=== PATIENT | female | born 1955 | race Caucasian/White ===

== ENCOUNTER → 2017-12-04 10:31 | Outpatient (CLI) | payer OTHER, SELFPAY ==
[2017-12-04 13:32] LABS: Basophils % 0.8 % (0.1-2.0); Eosinophils # 0.2 K/mm3 (0.0-0.4); Eosinophils % 2.9 % (0.1-12.0); Hematocrit 42.9 % (37.0-47.0); Hemoglobin 14.3 g/dL (12.2-16.2); Lymphocytes # 2.3 K/mm3 (0.7-4.5); Lymphocytes % 42.6 K/mm3 (10-50); Mean Corpuscular HGB Conc 33.4 g/dL (31.8-35.4); Mean Corpuscular Hemoglobin 32.1 pg (27.0-31.2); Mean Corpuscular Volume 96.1 fl (81-99); Mean Platelet Volume 8.9 fl (7.4-10.4); Monocytes # 0.3 K/mm3 (0.1-1.0); Monocytes % 5.1 % (1.7-9.3); Neutrophils # 2.6 K/mm3 (1.8-7.8); Neutrophils % 48.6 % (37.0-80.0); Platelet Count 201 K/mm3 (142-424); Red Blood Count 4.47 M/mm3 (4.20-5.40); Red Cell Distribution Width 13.1 % (11.5-17.5); White Blood Count 5.3 K/mm3 (4.8-10.8)
[2017-12-04 14:03] LABS: Alanine Aminotransferase 52 U/L (12-78); Albumin Level 3.8 gm/dL (3.4-5.0); Albumin/Globulin Ratio 1.1 (1.1-1.8); Alkaline Phosphatase 103 U/L (46-116); Anion Gap 12.6 mEq/L (5-15); Aspartate Amino Transferase 43 U/L (15-37); Bilirubin,Total 0.4 mg/dL (0.2-1.0); Blood Urea Nitrogen 21 mg/dL (7-18); Carbon Dioxide 28 mmol/L (21.0-32.0); Chloride 105 mmol/L (98-107); Chol/HDL Ratio 2.5 (1-3.5); Cholesterol 200 mg/dL (140-200); Creatinine,Serum 0.81 mg/dL (0.55-1.02); Estimated Glomerular Filt Rate 71 ml/min (>60); GFR (African American) 86 ML/MIN (>60); Globulin 3.5 gm/dl (1.3-3.2); Glucose 139 mg/dL (74-106); HDL Cholesterol 81 mg/dL (29-89); Hemoglobin A1C 6.6 % (0.0-7.0); LDL Cholesterol 100 mg/dL (0-130); Potassium 4.6 mmoL/L (3.5-5.1); Sodium 141 mmol/L (136-145); Thyroid Stimulating Hormone 3.11 uIU/ml (0.358-3.740); Total Protein,Serum 7.3 gm/dL (6.4-8.2); Triglycerides 96 mg/dL (30-200); VLDL Cholesterol 19 mg/dL (0-40)
[2017-12-05 06:22] LABS: Vitamin B12 832 pg/mL (232-1245); Vitamin D 25 Hydroxy 30.6 ng/mL (30.0-100.0)
== END ==
PROVIDERS: PCP Nurse Practitioner Family; Visit Provider Nurse Practitioner Family
DX: R53.83 Other fatigue (principal); E11.9 Type 2 diabetes mellitus without complications; Z00.00 Encounter for general adult medical examination without abnormal findings
CPT/HCPCS: 36415; 80053; 80061; 82607; 82652; 83036; 84443; 85025

== ENCOUNTER → 2019-03-06 15:07 | Outpatient (CLI) | payer OTHER, SELFPAY ==
--- NOTE | 2019-03-06 15:56 | US_ITS ---
US breast RT complete INDICATION: Right breast mass ORDERING PHYSICIAN: Joe Aldrich MD PATIENT AGE: 63 years COMPARISON: None mildly prominent right axillary lymph node is present 2.6 cm x 2.6 cm. TECHNIQUE: Right breast ultrasound complete with axilla FINDINGS: Patient has a known right breast mass which has been recently biopsied. Ultrasound performed for confirmation of the location of the lesion. There is a macrolobulated mass in the 6:00 region of the right breast near the nipple measuring 2.8 x 2.2 cm. This is highly suspicious for malignancy and corresponds to the palpable abnormality. Extends posteriorly toward the chest wall also with an anterior extension into the subcutaneous region. IMPRESSION: Biopsy-proven right breast mass at 6:00 corresponding to palpable abnormality consistent with breast cancer. BI-RADS Category: 5 Highly Suggestive of Malignancy RECOMMENDED FOLLOW-UP: IMM - IMMEDIATE FOLLOW-UP RECOMMENDED (A letter has been sent to the patient regarding results of the study.)
[2019-03-06 16:46] LABS: Basophils # 0.1 K/mm3 (0-0.2); Eosinophils # 0.2 K/mm3 (0.0-0.4); Eosinophils % 2.3 % (0.1-12.0); Hematocrit 41.8 % (37.0-47.0); Hemoglobin 13.4 g/dL (12.2-16.2); Lymphocytes # 2.8 K/mm3 (0.7-4.5); Mean Corpuscular HGB Conc 32.2 g/dL (31.8-35.4); Mean Corpuscular Hemoglobin 29.8 pg (27.0-31.2); Mean Corpuscular Volume 92.5 fl (81-99); Mean Platelet Volume 7.4 fl (7.4-10.4); Monocytes # 0.3 K/mm3 (0.1-1.0); Monocytes % 4.9 % (1.7-9.3); Neutrophils # 3.6 K/mm3 (1.8-7.8); Neutrophils % 51.7 % (37.0-80.0); Platelet Count 199 K/mm3 (142-424); Red Blood Count 4.51 M/mm3 (4.20-5.40)
[2019-03-06 17:35] LABS: Alanine Aminotransferase 52 U/L (12-78); Albumin Level 3.6 gm/dL (3.4-5.0); Albumin/Globulin Ratio 1.1 (1.1-1.8); Alkaline Phosphatase 97 U/L (46-116); Anion Gap 14.8 mEq/L (5-15); Aspartate Amino Transferase 39 U/L (15-37); Bilirubin,Total 0.3 mg/dL (0.2-1.0); Blood Urea Nitrogen 19 mg/dL (7-18); Calcium 9.4 mg/dL (8.5-10.1); Carbon Dioxide 28 mmol/L (21.0-32.0); Chloride 103 mmol/L (98-107); Creatinine,Serum 0.94 mg/dL (0.55-1.02); Estimated Glomerular Filt Rate 60 ml/min (>60); GFR (African American) 73 ML/MIN (>60); Globulin 3.3 gm/dl (1.3-3.2); Glucose 164 mg/dL (74-106); Potassium 4.8 mmoL/L (3.5-5.1); Sodium 141 mmol/L (136-145); Total Protein,Serum 6.9 gm/dL (6.4-8.2)
== END ==
PROVIDERS: PCP Nurse Practitioner Family; Visit Provider Surgery
DX: C50.811 Malignant neoplasm of overlapping sites of right female breast (principal)
CPT/HCPCS: 36415; 76641; 80053; 85025

== ENCOUNTER → 2019-04-12 08:40 | Outpatient (CLI) | payer OTHER, SELFPAY ==
--- NOTE | 2019-04-12 08:48 | CT_ITS ---
CT abdomen pelvis wo con CLINICAL INDICATION: ITS.REASON: BREAST CA ORDERING PHYSICIAN: Lissette Sandoval MD PATIENT AGE: 63 years COMPARISON: None TECHNIQUE: Axial images obtained with sagittal and coronal reformats. All CT scans at the facility use one or more dose reduction, viz: automated exposure control, ma/kV adjustment per patient size (including targeted exams where dose is matched to indication, i.e. head), or iterative reconstruction technique. PROCEDURE: Oral Contrast: None IV Contrast: None . FINDINGS: Lower thorax: No acute finding ABDOMEN: Liver: Liver is lower density compared to the spleen with mild enlargement and slight lobulated contour of the left hepatic lobe. Gallbladder: Nondistended. No radio opaque stones. Pancreas: No masses or peripancreatic fluid collections. Spleen: Unremarkable. Adrenals: Unremarkable Kidneys/ureters: There are several hypodense foci within the renal sinus area of the left kidney suggesting parapelvic cysts. Remainder of the kidneys bilaterally are normal without stones or hydronephrosis. Visualized portions of the ureters are normal. Stomach bowel: Nondistended. No obvious mass or thickening. Appendix: Prior appendectomy. PELVIS: Reproductive: Uterus is not visualized. There is some artifact in the pelvic area from the right hip prosthesis. Bladder: Nondistended. No obvious stones or masses. ABDOMEN & PELVIS: Peritoneum: No abnormal fluid collections. No obvious inflammatory changes. No free air. Lymph nodes: No enlarged lymph nodes apparent. Vasculature: No evidence of abdominal aortic aneurysm. No retroperitoneal hemorrhage evident. Bones: There is no acute osseous process. There are areas of degenerative disc disease with posterior spurs at L2-L5 levels. IMPRESSION: Hepatic steatosis with possible mild early changes of cirrhosis. Left renal parapelvic cysts. Prior hysterectomy. Lumbar spine chronic intervertebral osteochondrosis.
--- NOTE | 2019-04-12 08:48 | CT_ITS ---
CT chest wo con HISTORY: ITS.REASON: BREAST CA ORDERING PHYSICIAN: Lissette Sandoval MD PATIENT AGE: 63 years COMPARISON: None Technique: Axial images obtained. Sagittal, and coronal reformatted images are also generated and reviewed. All CT scans at the facility use one or more dose reduction, viz: automated exposure control, ma/kV adjustment per patient size (including targeted exams where dose is matched to indication, i.e. head), or iterative reconstruction technique. FINDINGS: Airway structures are patent without pleural effusion or pneumothorax. There is a punctate benign right lung calcified granuloma. The remainder of the lung leong are clear without suspicious nodules. There are a few aortic arch calcified plaques. Heart size is normal. Hilar and mediastinal areas are otherwise unremarkable. There is a air-fluid level in the right breast posteriorly and this measures 8.6 cm and is likely related to recent surgery. The remainder of the extrathoracic soft tissues are unremarkable. There is no definite suspicious axillary lymph nodes bilaterally. The right posterior aspect of T3 vertebral body shows a oval-shaped 7 mm lucent focus, image #13. Impression: Probable right breast postoperative chronic hematoma or seroma. No suspicious lung nodules. 7 mm T3 vertebral body lucent focus is nonspecific. This could even be a cavernous hemangioma. However considering history, suggest at least a 3 month follow-up CT of the thoracic spine in this area to evaluate for stability. Other consideration would be a PET/CT scan.
== END ==
PROVIDERS: PCP Nurse Practitioner Family; Visit Provider Internal Medicine Medical Oncology
DX: C50.911 Malignant neoplasm of unspecified site of right female breast (principal)
CPT/HCPCS: 71250; 74176

== ENCOUNTER → 2019-06-12 15:20 | Outpatient (CLI) | payer OTHER, SELFPAY ==
[2019-06-12 16:02] LABS: Eosinophils # 0.1 K/mm3 (0.0-0.4); Eosinophils % 3.5 % (0.1-12.0); Hemoglobin 12.8 g/dL (12.2-16.2); Lymphocytes # 1.3 K/mm3 (0.7-4.5); Lymphocytes % 33.1 % (10-50); Mean Corpuscular HGB Conc 30.5 g/dL (31.8-35.4); Mean Corpuscular Hemoglobin 29.6 pg (27.0-31.2); Monocytes # 0.3 K/mm3 (0.1-1.0); Monocytes % 8.9 % (1.7-9.3); Neutrophils % 53.5 % (37.0-80.0); Platelet Count 145 K/mm3 (142-424); Red Blood Count 4.33 M/mm3 (4.20-5.40); Red Cell Distribution Width 14.3 % (11.5-17.5); White Blood Count 3.8 K/mm3 (4.8-10.8)
[2019-06-12 18:06] LABS: Alanine Aminotransferase 38 U/L (12-78); Albumin Level 3.5 gm/dL (3.4-5.0); Albumin/Globulin Ratio 1.1 (1.1-1.8); Alkaline Phosphatase 91 U/L (46-116); Anion Gap 15.2 mEq/L (5-15); Aspartate Amino Transferase 43 U/L (15-37); Bilirubin,Total 0.4 mg/dL (0.2-1.0); Blood Urea Nitrogen 12 mg/dL (7-18); Calcium 9.4 mg/dL (8.5-10.1); Carbon Dioxide 26 mmol/L (21.0-32.0); Chloride 102 mmol/L (98-107); Creatinine,Serum 0.74 mg/dL (0.55-1.02); Estimated Glomerular Filt Rate 79 ml/min (>60); GFR (African American) 96 ML/MIN (>60); Globulin 3.3 gm/dl (1.3-3.2); Glucose 238 mg/dL (74-106); Potassium 4.2 mmoL/L (3.5-5.1); Sodium 139 mmol/L (136-145); Total Protein,Serum 6.8 gm/dL (6.4-8.2)
== END ==
PROVIDERS: Visit Provider Internal Medicine Medical Oncology
DX: C50.811 Malignant neoplasm of overlapping sites of right female breast (principal); Z17.0 Estrogen receptor positive status [ER+]
CPT/HCPCS: 36415; 80053; 85025

== ENCOUNTER → 2019-06-20 15:29 | Outpatient (CLI) | payer OTHER, SELFPAY ==
--- NOTE | 2019-06-20 15:31 | MM_ITS ---
PROCEDURE: MM DIG SC MAMM UNILAT LT CAD CLINICAL INDICATION: 1 yr fu COMPARISON: MAMMO DIAGNOSTIC DIGITAL BILAT from 07/28/2015 MAMMO SCREENING DIGITAL BILAT from 03/08/2016 Screening-Bilateral Mammography from 05/25/2017 Screening-Bilateral Mammography from 06/15/2018 TECHNIQUE: Standard CC and MLO images were obtained. R2 CAD reviewed. FINDINGS: Report is delayed waiting on outside films which have arrived on 06/24 19. There is average to dense fibroglandular tissue. Scattered areas of asymmetric fibroglandular elements are noted as before. There are scattered coarse calcifications. A new cluster of calcifications is noted in the lower inner aspect of the left breast. These calcifications are somewhat pleomorphic. Spot compression Mag views are suggested. There is also an area of questionable architectural distortion in the mid aspect of the left breast. Spot compression views straight mL views and rolled CC views are recommended. Nodular density is present in the medial aspect of the left breast which measures 8 mm somewhat more prominent. Ultrasound recommended. IMPRESSION: Indeterminate calcifications lower inner aspect left breast. Mag views and straight mL view suggested. Architectural distortion central aspect left breast. Mag views and rolled views recommended. 7 mm nodular density medial left breast. Ultrasound suggested. BI-RAD Category: 0 Need Additional Imaging Evaluation FOLLOW-UP: IMM Immediate Follow-up Recommended (A letter has been sent to the patient regarding results of the study.) Dictated by: Martín Lincoln MD 06/26/2019 12:21 Electronically signed by Martín Lincoln MD in [place] 06/26/2019 12:21
== END ==
PROVIDERS: PCP Nurse Practitioner Family; Visit Provider Surgery
DX: Z12.31 Encounter for screening mammogram for malignant neoplasm of breast (principal)
CPT/HCPCS: 77067

== ENCOUNTER → 2019-07-02 14:14 | Outpatient (CLI) | payer OTHER, SELFPAY ==
--- NOTE | 2019-07-02 14:16 | US_ITS ---
PROCEDURE: US BREAST LT COMPLETE CLINICAL INDICATION: abnormal mamm Agent for some or that have not been there fight on not sure was confirmed COMPARISON: BREASTRT US breast RT complete from 03/06/2019 MM DIG MAMM DX UNILAT LT CAD from 07/02/2019 FINDINGS: IMPRESSION: BI-RAD Category: FOLLOW-UP: PROCEDURE: MM DIG MAMM DX UNILAT LT CAD CLINICAL INDICATION: abnormal mamm- additional views Follow-up abnormal mammogram COMPARISON: DIG MAMMO BILAT SCREENING from 10/14/2013 MAMMO SCREENING DIGITAL BILAT from 11/26/2014 US BREAST LIMITED RT from 07/28/2015 MAMMO DIAGNOSTIC DIGITAL BILAT from 07/28/2015 MAMMO SCREENING DIGITAL BILAT from 03/08/2016 Screening-Bilateral Mammography from 05/25/2017 Screening-Bilateral Mammography from 06/15/2018 US BREAST LIMITED RT from 02/20/2019 US CORE BREAST BIOPSY from 02/26/2019 BREASTRT US breast RT complete from 03/06/2019 MM DIG SC MAMM UNILAT LT CAD from 06/20/2019 US BREAST LT COMPLETE from 07/02/2019 TECHNIQUE: Problem solving views performed along with left breast ultrasound FINDINGS: There is history of right breast cancer.. There is average to dense fibroglandular tissue. Cluster of calcifications in the lower left breast are once again noted and are suspicious. Biopsy is recommended.. There are coarse calcifications in the upper aspect of the left breast which have a benign appearance. Architectural distortion is once again noted involving the central aspect of the left breast slightly medial. This is somewhat less apparent on the focal spot compression view of the comes more apparent on the lateral rolled view. This is also not well demonstrated on the mL view and may only be due to an area fibroglandular overlap. Asymmetric density is present in the upper outer left breast and may correspond to a cyst noted on ultrasound. Left breast ultrasound: In the retroareolar region there is a 14 x 18 mm of heterogeneous echogenicity with posterior acoustical shadowing which is somewhat suspicious and biopsy is suggested. There is a 15 mm cyst at 1 o'clock, a 7 mm cyst at 3 o'clock, 5 mm cyst at 3 o'clock and an additional 5 mm cyst at 3 o'clock. 6 mm cyst is present at 4 o'clock. A complicated cyst is present at 5 o'clock at 9 mm. 7 mm cyst at 7 o'clock. 6 mm cyst at 7 o'clock, 6 mm complicated cyst at 8 o'clock and 5 mm cyst at 9 o'clock and 10 o'clock. 6 mm cyst at 6 o'clock IMPRESSION: Moderate to highly suspicious calcifications are present at 7 o'clock in stereotactic biopsy is suggested. In addition, ultrasound demonstrates a suspicious nodule in the retroareolar region for which mammotome biopsy is recommended. Nodular density noted on mammogram in the upper outer left breast which may correspond to a cyst on ultrasound. Suggest fine needle aspiration with follow-up mammogram for confirmation. In addition there is questionable area of architectural distortion in the mid aspect of the left breast. This however is only visualized on the CC view. This could feasibly correspond to the area of abnormal nodular echogenicity on the ultrasound in the retroareolar region. BI-RAD Category: 5 Highly Suggestive Of Malignancy FOLLOW-UP: BIO Biopsy Recommended (A letter has been sent to the patient regarding results of the study.) Dictated by: Martín Lincoln MD 07/05/2019 11:45 Electronically signed by Martín Lincoln MD in [place] 07/05/2019 11:45
== END ==
PROVIDERS: PCP Nurse Practitioner Family; Visit Provider Surgery
DX: R92.8 Other abnormal and inconclusive findings on diagnostic imaging of breast (principal); N60.02 Solitary cyst of left breast
CPT/HCPCS: 76641; 77065

== ENCOUNTER → 2019-07-08 09:44 | Outpatient (CLI) | payer OTHER, SELFPAY ==
--- NOTE | 2019-07-08 09:47 | CT_ITS ---
PROCEDURE: CT THORACIC SPINE WO CON CLINICAL HISTORY: BREAST CANCER, LESION ON SPINE COMPARISON: CHESTW CT chest w con from 04/12/2019 TECHNIQUE: Axial images obtained with sagittal and coronal reformats. All CT scans at the facility use one or more dose reduction, viz: automated exposure control, ma/kV adjustment per patient size (including targeted exams where dose is matched to indication, i.e. head), or iterative reconstruction technique. FINDINGS: The oval hypodense lesion of the posterior aspect of T3 vertebral body is once again noted and does not appear significantly changed. There is multilevel degenerative disc disease with thoracic scoliosis convex right and multilevel endplate osteophytes. Facet hypertrophic changes present in the lower thoracic spine on the left. Posterior bony spurring is noted at L2-L3 causing canal stenosis. Prominent left-sided foraminal narrowing is present at T7-T8 and to a greater degree at T8-T9. There is severe left-sided foraminal narrowing at T10-T11 and moderate to severe foraminal narrowing at T9-T10 IMPRESSION: 1. No change in the hypodense lesion involving the T3 vertebral body posteriorly on the right which could be due to a hemangioma. 2. Multilevel degenerative changes with degenerative disc disease, scoliosis, facet ligamentum hypertrophy with foraminal narrowing and prominent posterior osteophytes at L2-L3 with canal stenosis Dictated by: Martín Lincoln MD 07/08/2019 12:40 Electronically signed by Martín Lincoln MD in [place] 07/08/2019 12:40
== END ==
PROVIDERS: PCP Nurse Practitioner Family; Visit Provider Internal Medicine Medical Oncology
DX: C50.919 Malignant neoplasm of unspecified site of unspecified female breast (principal); G95.9 Disease of spinal cord, unspecified
CPT/HCPCS: 72128

== ENCOUNTER → 2019-08-01 08:43 | Outpatient (CLI) | payer OTHER, SELFPAY ==
--- NOTE | 2019-08-01 08:44 | MM_ITS ---
PROCEDURE: MM STEREOTACTIC LOC LT CLINICAL INDICATION: Left breast nodule and left breast suspicious calcifications. COMPARISON: MM DIG MAMM DX UNILAT LT CAD from 07/02/2019 MM CLIP PLACEMENT LT from 08/01/2019 US FNA BREAST from 08/01/2019 TECHNIQUE: Following obtaining informed consent the patient was placed in the stereotactic unit and the suspicious calcifications of the left breast were localized using standard technique. Following time-out procedure, the area was anesthetized with buffered lidocaine and deeper anesthesia with lidocaine mixed with epinephrine. A skin madison was then performed and the mammotome needle inserted in satisfactory position. Multiple mammotome cores were obtained. Surgical specimen: Specimen radiograph did demonstrate the calcifications of interest. A sterile non ferromagnetic clip was then placed. The patient tolerated the procedure well without evidence of immediate complications and left radiology suite in stable condition. Post biopsy mammogram was performed showing the clip in satisfactory position with removal of the calcifications of interest. There is another smaller cluster of calcification lateral and inferior to the clip which should also be excised during the localization procedure. 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 Microcalcifications identified. No invasive carcinoma identified. 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 Microcalcifications identified. No invasive carcinoma identified. IMPRESSION: Successful stereotactic directed biopsy of the left breast showing ductal carcinoma in situ. Recommend surgical excision with hookwire guidance. Also recommend excision of the adjacent cluster of calcifications at the same time as they have somewhat similar morphology to the calcifications that were biopsied. This patient also had an ultrasound-guided biopsy of the same day at 12 o'clock also showing ductal carcinoma in situ. Surgical excision of that site is suggested as well with hookwire placement under ultrasound. Dictated by: Martín Lincoln MD 08/09/2019 10:11 Electronically signed by Martín Lincoln MD in [place] 08/09/2019 10:11
--- NOTE | 2019-08-01 08:44 | US_ITS ---
PROCEDURE: US FNA BREAST CLINICAL INDICATION: Left breast nodule as seen on recent ultrasound COMPARISON: MM DIG SC MAMM UNILAT LT CAD from 06/20/2019 US BREAST LT COMPLETE from 07/02/2019 FINDINGS: Technique: Following obtaining informed consent and time-out procedure under aseptic conditions with local anesthesia and deeper anesthesia with 1 percent buffered lidocaine, 1st a complex cystic nodule was aspirated with a 21 gauge needle 1 o'clock. The nodule was nearly completely aspirated Cytology: Debris and hemosiderin-laden macrophages, negative for malignancy Following the 1 o'clock aspiration, the suspicious nodule at 12 o'clock was localized with ultrasound. Anesthesia was obtained with 1 percent buffered lidocaine with deeper anesthesia with lidocaine mixed with epinephrine. A fine-needle aspiration was 1st performed. A skin madison was then performed and mammotome needle inserted. Multiple mammotome biopsies were obtained.. A sterile non ferromagnetic clip was then placed. The patient tolerated the procedure well without evidence of immediate complication Pathology: Ductal carcinoma in situ intermediate grade with solid and comedo types with central comedo necrosis with intraductal papilloma. No invasive carcinoma. The FNA in the same area showed atypical ductal epithelium Post biopsy mammogram: Comparison is made to 06/20/2019. This mammogram is performed after the both the stereotactic biopsy and the ultrasound-guided mammotome. In the lower inner aspect of the left breast there are post biopsy changes with a top hat type clip present. The suspicious calcifications have been removed. There is a similar cluster of calcifications medial to the placed clip. Excisional biopsy is suggested of the biopsy site as there was ductal carcinoma in situ. Also suggest removing the adjacent cluster of calcifications at the same setting. An additional linear clip is present in the upper slightly outer aspect of the left breast corresponding to the area of the the ultrasound-guided biopsy. Post biopsy changes are present at this region with the clip in place. Ultrasound-guided hookwire placement with excision or biopsy of this area also suggested as there was also ductal carcinoma in situ at this region. IMPRESSION: Successful sonographic guided mammotome biopsy of the nodule at 12 o'clock which showed ductal carcinoma in situ. Recommend surgical excision of this area as well as the additional area of ductal carcinoma in situ in the lower inner left breast. Recommend ultrasound-guided hookwire guidance of the 12 o'clock lesion and mammographic hookwire placement of the lower inner biopsy site and calcifications Dictated by: Martín Lincoln MD 08/09/2019 10:32 Electronically signed by Martín Lincoln MD in [place] 08/09/2019 10:32
== END ==
PROVIDERS: PCP Nurse Practitioner Family; Visit Provider Surgery
DX: D05.12 Intraductal carcinoma in situ of left breast (principal); R92.8 Other abnormal and inconclusive findings on diagnostic imaging of breast; N63.20 Unspecified lump in the left breast, unspecified quadrant
CPT/HCPCS: 19081; 76098; 76942; 77065; 88173; 88305; 88342; 88360

== ENCOUNTER → 2019-08-07 11:52 | Outpatient (CLI) | payer OTHER, SELFPAY ==
[2019-08-07 12:05] LABS: Basophils # 0.1 K/mm3 (0-0.2); Basophils % 0.9 % (0.1-2.0); Eosinophils # 0.6 K/mm3 (0.0-0.4); Eosinophils % 10.8 % (0.1-12.0); Hematocrit 41.3 % (37.0-47.0); Hemoglobin 14.3 g/dL (12.2-16.2); Lymphocytes # 1.8 K/mm3 (0.7-4.5); Lymphocytes % 32.5 % (10-50); Mean Corpuscular HGB Conc 34.5 g/dL (31.8-35.4); Mean Corpuscular Volume 95.6 fl (81-99); Mean Platelet Volume 8.3 fl (7.4-10.4); Monocytes # 0.3 K/mm3 (0.1-1.0); Monocytes % 6.2 % (1.7-9.3); Neutrophils # 2.7 K/mm3 (1.8-7.8); Neutrophils % 49.6 % (37.0-80.0); Platelet Count 197 K/mm3 (142-424); Red Blood Count 4.32 M/mm3 (4.20-5.40); Red Cell Distribution Width 14.7 % (11.5-17.5); White Blood Count 5.4 K/mm3 (4.8-10.8)
[2019-08-07 13:25] LABS: Anion Gap 13.8 mEq/L (5-15); Blood Urea Nitrogen 16 mg/dL (7-18); Calcium 9.4 mg/dL (8.5-10.1); Carbon Dioxide 26 mmol/L (21.0-32.0); Chloride 103 mmol/L (98-107); Estimated Glomerular Filt Rate 72 ml/min (>60); GFR (African American) 87 ML/MIN (>60); Glucose 166 mg/dL (74-106); Potassium 4.8 mmoL/L (3.5-5.1); Sodium 138 mmol/L (136-145)
== END ==
PROVIDERS: Visit Provider Surgery
DX: D05.12 Intraductal carcinoma in situ of left breast (principal)
CPT/HCPCS: 36415; 80048; 85025

== ENCOUNTER 2019-08-13 16:00 | Outpatient (RCR) | payer OTHER, SELFPAY ==
--- NOTE | 2019-07-04 10:17 | [facility].PTOPWND ---
Rehab Outpt Wound Evaluation Rehab OP Wound Evaluation Start: 07/04/19 09:52 Freq: Status: Active Protocol: Document 07/04/19 10:08 LESLIE (Rec: 07/04/19 10:17 PHOASHLEY [id number]) Electronically Signed By Tex Pelayo, PT 07/04/19 10:08 Subjective/History History History Pt is 63 yowf who presents ~ 3 mos S/P Right side lumpectomy secondary to breast cancer with positive deep margin requiring second procedure. She reports no c/o pain or swelling this date, but does not some mild tenderness to palpation arounsd the right breast. She also reports she is undergoing further work-up for the left breast and may need further procedures on that side in the future. She had an area of concern on her Thoracic spine noted during CT scan and is also undergoing follow-up for that. Shehas completed radiation treatments and reports no current plans for chemotherapy. She presents with no obvious edema throughout the right UE, but some mild tenderness and edema in the right axilla during examination. She reports PMH of anxiety, HTN, DM-II. Subjective Subjective No current c/o pain, numbness, or tingling throughout the right UE. Lymphedema Eval Classification of Lymphedema Secondary Lymphedema Yes Stemmer's sign Stemmer's Sign no Stage of Lymphedema Lymphedema stages Stage 0 (subjective c/o heaviness and aching) Pain Scale Pain Scale (0-10) 0 Radiation Therapy Has received radiation therapy yes Chemo Therapy Has received chemo therapy no Affected Extremities Areas Affected by Lymphedema/Edema Right Upper Extremity,Right Breast,Right Axilla Manual Lymphatic Drainage Treatment Area MLD Treatment Area Right Upper Extremity,Right Breast,Right Axilla Wound Problems/Impairments Impairments Problems/Impairmments Palpation Tenderness,Impaired Strength,Impaired Recreational
== END 2019-08-13 16:05 | disposition home or self-care (01) ==
LOC: PT 16:00
PROVIDERS: Visit Provider Internal Medicine Medical Oncology
DX: C50.912 Malignant neoplasm of unspecified site of left female breast (principal)
CPT/HCPCS: 97110; 97140; 97162

== ENCOUNTER → 2019-09-24 09:30 | Outpatient (CLI) | payer MEDICARE, OTHER, SELFPAY ==
--- NOTE | 2019-09-24 09:31 | US_ITS ---
PROCEDURE: US BIOPSY GUIDANCE CLINICAL INDICATION: left breast cancer COMPARISON: MM DIG MAMM DX UNILAT LT CAD from 07/02/2019 US BREAST NEEDLE LOC LT from 08/20/2019 TECHNIQUE: Following obtaining informed consent, using aseptic technique and local anesthesia with buffered lidocaine, fine-needle aspiration was performed of the largest node within the left axilla. Three passes were made with a 21 gauge needle and given to cytology with 1 of these specimens put in RPMI solution. Specimen was given to cytology. FINDINGS: Pre biopsy ultrasound showed several small isoechoic nodes within the left axilla measuring up to 2.3 by 1.1 cm. The largest of these nodes was targeted for FNA. CYTOLOGY: Negative for malignancy. Compatible with a benign reactive lymph node. Please see pathologist report regarding flow cytometry IMPRESSION: Successful sonographic guided fine needle aspiration left axillary lymph node. The patient tolerated the procedure well without evidence of immediate complications and left the ultrasound suite in stable condition. Dictated by: Martín Lincoln MD 09/26/2019 19:00 Electronically signed by Martín iLncoln MD in [place] 09/26/2019 19:00
== END ==
PROVIDERS: PCP Nurse Practitioner Family; Visit Provider Surgery
DX: D05.12 Intraductal carcinoma in situ of left breast (principal)
CPT/HCPCS: 10005; 76942; 88173

== ENCOUNTER → 2019-10-09 13:38 | Outpatient (CLI) | payer MEDICARE, OTHER, SELFPAY ==
[2019-10-09 14:27] LABS: Basophils % 0.7 % (0.1-2.0); Eosinophils # 0.1 K/mm3 (0.0-0.4); Eosinophils % 2.9 % (0.1-12.0); Hematocrit 40.2 % (37.0-47.0); Hemoglobin 13.1 g/dL (12.2-16.2); Lymphocytes # 1.7 K/mm3 (0.7-4.5); Mean Corpuscular HGB Conc 32.6 g/dL (31.8-35.4); Mean Corpuscular Hemoglobin 31.8 pg (27.0-31.2); Mean Corpuscular Volume 97.4 fl (81-99); Mean Platelet Volume 8.3 fl (7.4-10.4); Monocytes # 0.2 K/mm3 (0.1-1.0); Monocytes % 5.5 % (1.7-9.3); Neutrophils # 2.3 K/mm3 (1.8-7.8); Neutrophils % 52.9 % (37.0-80.0); Platelet Count 170 K/mm3 (142-424); Red Blood Count 4.12 M/mm3 (4.20-5.40); Red Cell Distribution Width 13.6 % (11.5-17.5); White Blood Count 4.3 K/mm3 (4.8-10.8)
[2019-10-09 15:35] LABS: Alanine Aminotransferase 44 U/L (12-78); Albumin Level 3.5 gm/dL (3.4-5.0); Alkaline Phosphatase 90 U/L (46-116); Anion Gap 16.5 mEq/L (5-15); Aspartate Amino Transferase 58 U/L (15-37); Bilirubin,Total 0.3 mg/dL (0.2-1.0); Blood Urea Nitrogen 15 mg/dL (7-18); Calcium 9.2 mg/dL (8.5-10.1); Carbon Dioxide 27 mmol/L (21.0-32.0); Chloride 107 mmol/L (98-107); Creatinine,Serum 0.81 mg/dL (0.55-1.02); Estimated Glomerular Filt Rate 71 ml/min (>60); GFR (African American) 86 ML/MIN (>60); Globulin 3.4 gm/dl (1.3-3.2); Glucose 241 mg/dL (74-106); Potassium 4.5 mmoL/L (3.5-5.1); Sodium 146 mmol/L (136-145); Total Protein,Serum 6.9 gm/dL (6.4-8.2)
== END ==
PROVIDERS: Visit Provider Surgery
DX: R10.9 Unspecified abdominal pain; C50.911 Malignant neoplasm of unspecified site of right female breast
CPT/HCPCS: 36415; 80053; 85025

== ENCOUNTER 2019-10-25 06:05 | Inpatient (IN) ==
--- NOTE | 2019-10-25 06:53 | Progress Note ---
[facility] Anesthesia Checklist - Patient Identification Patient Identification: Arm Band, Verbal (Name & ) - Structural Data Admitted From: Home Planned Operative Procedure/s: Left mastectomy Consent for Planned Operative Procedure(s) Verified: Yes Verified Documents: Surgical Consent, History and Physical - NPO Status Verified Time NPO: 22:00 - Chart Verification Results Verified: CBC, BMP - Additional verifications Fingerstick Blood Glucose: 163 Anesthesia Reactions: Yes (PONV) Hx Blood Transfusions: No Blood Transfusion Reaction: No - Airway Assessment C-Spine Mobility Assessed: Yes TMJ Mobility Assessed: Yes Dentition: Good Dentition - Neurological Assessment Level of Consciousness: Awake, Alert, Appropriate, Follows Commands Hx Seizures: No Numbness or tingling in extremities: No - Anesthesia Plan Anesthesia Risk discussed: Yes Anesthesia Plan: Verified ASA Class: III Anesthesia Type: General w/block [facility] History I have reviewed the patient's past medical history: Yes Medical History: Reports:: Anxiety, Cancer (bilateral breast), Depression, Diabetes Mellitus Type 2, Gastroesophageal Reflux Disease(GERD), Hyperlipidemia, Hypertension Denies:: Diabetes Mellitus Type 1, Internal Pacemaker, MRSA, Seizures *Have you ever received a pneumonia vaccine?: No *Have you received a flu vaccine this season?: Yes Other Medical History: Denies: Blood Transfusion Reaction Comment:: MARIA C noncomplaint CPAP use, obesity Anesthesia experience/problems:: PONV Laterality Cases: Right: Breast Biopsy, Total Hip Replacement, Bilateral: Lumpectomy Other Surgeries: Yes: Cancer Surgery, Colonoscopy, Other. No: Pacemaker Amputation: No Fractures: No - *Social History Educational Level: Completed High School Smoking Status: Former smoker Tobacco Type: cigarettes #Yrs smoked (if former smoker): 20 Alcohol Intake: never Alcohol Intake Frequency:: other Substance Use Type: denies use *Occupational Status:: employed Housing: house Household Members: none *Travel in the last 8 weeks: None - Psychiatric History Pschychiatric History:: Reports:: Anxiety Family Hx:: Unable to obtain
--- NOTE | 2019-10-25 09:26 | Operative Note ---
Date of procedure: 10/25/19 Pre-op Diagnosis:: Left breast cancer Left breast ductal carcinoma in situ Post-op Diagnosis:: Same Procedure performed:: Left mastectomy Surgeon:: Joe Aldrich MD [employer] MANAGER:: Lennox Avilez Anesthesia: GETA Estimated blood loss (mL): 200 Clinical Note:: The patient refuses sentinel node biopsy. She has had ultrasound-guided fine- needle aspiration of left axillary nodes with no significant pathologic findings noted. Operative findings:: Remaining inferior ridge excised as a separate inferior extended margin Operative note:: After informed consent was obtained the patient was taken to the operating room and placed in the supine position. General anesthesia was induced and her left breast was prepped and draped in a sterile fashion. An elliptical incision was made surrounding the left breast utilizing scalpel. A combination of sharp dissection with scalpel and electrocautery was utilized to elevate the superior flap as the breast tissue was carefully retracted downward. The inferior flap was raised in a similar manner. The dissection proceeded from medial to lateral. Careful attention was utilized to include her prior lumpectomy incisions within the overlying excised skin. Electrocautery was then utilized to transect the breast from the underlying fascial margin. The breast was marked with suture for pathologic orientation. Dyed suture was utilized to juice the superior and lateral margins (short superior/long lateral). Evaluation did reveal a ridge of inferior tissue that was somewhat enhanced secondary to prior lumpectomy scarring. This was carefully excised and passed off as an extended inferior margin. This was marked with dyed and non-dyed suture for pathologic orientation. Dyed suture was utilized to juice the superior lateral margins and non-dyed suture was utilized to juice the superficial deep margins. A #10 flat Marbin-Xiong drain was then placed through a separate left upper flank stab incision. The drain was secured with interrupted nylon. The underlying deep subcutaneous tissue was reapproximated with interrupted Vicryl and skin was then closed with sheron. Dressings were applied and the patient was transferred to recovery in stable condition. Condition: stable Disposition: PACU Specimens:: Left breast Extended inferior margin left breast Complications:: No immediate
--- NOTE | 2019-10-25 09:27 | Progress Note ---
[facility] Anesthesia Record Part I Intake, IV Amount: 1,200 Estimated blood loss (mL): 200 Urine output (mL): 0 Blood Products used (#): none Blood Pressure: 137/77 SaO2: 96 Pulse Rate: 68 Respiratory Rate: 20 Temperature: 98.7 F Patient is:: Drowsy, Stable Stable to PACU at:: 09:25
--- NOTE | 2019-10-25 10:49 | Pharmacy Consult Notes ---
[facility] Pharmacy VTE Monitoring - Patient Demographics Admission date: 10/25/19 Report Date: 10/25/19 Time: 10:48 Allergies/Adverse Reactions: Patient Allergies fluconazole [FLUCONAZOLE] Allergy (Unknown, Verified 10/24/19 10:18) iodine [IODINE] Allergy (Unknown, Verified 10/24/19 10:18) metronidazole [From FLAGYL] Allergy (Unknown, Verified 10/24/19 10:18) Sulfa (Sulfonamide Antibiotics) [SULFA (SULFONAMIDE ANTIBIOTICS)] Allergy (Unknown, Verified 10/24/19 10:18) Height: 1.65 m Weight: 81.647 kg - Prophylaxis VTE Prophylaxis Ordered?: Yes Types of VTE Prophylaxis: IPCS Thigh High Location of Applied Device: Bilateral Lower Extremeties
--- NOTE | 2019-10-25 11:15 | Progress Note ---
[facility] Anesthesia Record Part II Discharge Time: 09:55 Destination: Surgical Day Care (OP Surgery) PACU nurse assessment reviewed?: Yes Patient Condition:: Good Anesthesia Complications:: None Swallowing reflex intact?: Yes Cyanosis?: No Blood Pressure: 125/86 Pulse Rate: 65 Temperature: 97.8 F Mental Status: Alert & Oriented Pain level:: 3 Nausea and/or vomitting:: None Intake, IV Amount: 35
[2019-10-25 12:41] LABS: Basophils % 0.3 % (0.1-2.0); Eosinophils % 0.2 % (0.1-12.0); Hematocrit 34.9 % (37.0-47.0); Lymphocytes # 0.8 K/mm3 (0.7-4.5); Lymphocytes % 14.8 % (10-50); Mean Corpuscular HGB Conc 31.7 g/dL (31.8-35.4); Mean Corpuscular Volume 99.5 fl (81-99); Mean Platelet Volume 8.4 fl (7.4-10.4); Monocytes # 0.1 K/mm3 (0.1-1.0); Monocytes % 1.8 % (1.7-9.3); Neutrophils # 4.6 K/mm3 (1.8-7.8); Platelet Count 110 K/mm3 (142-424); Red Cell Distribution Width 14.5 % (11.5-17.5); White Blood Count 5.6 K/mm3 (4.8-10.8)
[2019-10-25 12:42] LABS: Anion Gap 16.5 mEq/L (5-15); Calcium 8.4 mg/dL (8.5-10.1)
--- NOTE | 2019-10-26 09:07 | Progress Note ---
Subjective Patient reports: no new complaints Exam Vital signs and Labs for Last 24 Hours: Temp Pulse Resp BP Pulse Ox 98.4 F 64 17 128/70 94 L 10/26/19 04:00 10/26/19 04:00 10/26/19 04:00 10/26/19 04:00 10/26/19 04:00 Laboratory Results - last 24 hr 10/25/19 09:45: POC Glucose 261 H 10/25/19 12:10: WBC 5.6, RBC 3.50 L, Hgb 11.0 L, Hct 34.9 L, MCV 99.5 H, MCH 31.5 H, MCHC 31.7 L, RDW 14.5, Plt Count 110 L, MPV 8.4, Neut % (Auto) 83.0 H, Lymph % (Auto) 14.8, [place] % (Auto) 1.8, Eos % (Auto) 0.2, Baso % (Auto) 0.3, Neut # (Auto) 4.6, Lymph # (Auto) 0.8, [place] # (Auto) 0.1, Eos # (Auto) 0.0, Baso # (Auto) 0.0 10/25/19 12:10: Sodium 137, Potassium 4.5, Chloride 103, Carbon Dioxide 22, Anion Gap 16.5 H, BUN 16, Creatinine 1.13 H, Estimated Creat Clear 64, Estimated GFR 48 L, Est GFR ( Amer) 58 L, Glucose 263 H, Calcium 8.4 L 10/26/19 06:29: POC Glucose 193 H I & O for Last 24 hours: Intake & Output 10/23/19 10/24/19 10/25/19 10/26/19 11:59 11:59 11:59 11:59 Intake Total 1235 / 1235 2795 / 2795 Output Total 230 / 230 Balance 1235 / 1235 2565 / 2565 Weight 180 lb 193 lb 1 oz - Constitutional no acute distress - Routine Chest/Breast/Axilla Exam Comments: Dressing in place with minimal serosanguineous staining. Marbin-Xiong drain with serosanguineous output. No cellulitis. - *Routine Respiratory Exam Absent: respiratory distress - *Routine Cardiovascular Exam Present: RRR Progress Note: A&P (1) Breast cancer, left Status: Acute Assessment and plan: Overall, doing well status post mastectomy. Discharge home with close outpatient follow-up Marbin-Xiong drain teaching/management Current Visit: Yes
--- NOTE | 2019-10-26 09:10 | Discharge Summary ---
General - General Admission date:: 10/25/19 Discharge date: 10/26/19 HPI HPI: This is a 64-year-old female with a small focus of invasive breast cancer on the left and multifocal DCIS. She initially wished to proceed with lumpectomy and radiation; however, radiation oncology did not wish to proceed with treatment secondary to the overall risks being greater than the benefit. After discussion with radiation oncology she was agreeable to proceed with mastectomy. With regard to evaluation of the axilla she has undergone ultrasound-guided biopsy of lymph nodes with no significant abnormalities noted. She is unwilling to proceed with sentinel lymph node biopsy. Hospital Course Hospital Course: The patient underwent left mastectomy on the date of admission. Please see operative report for detail. She convalesced well with no sign of hemorrhage or other complication. She was deemed appropriate for discharge on the morning of postoperative day 1. The time of discharge she was afebrile with stable and normal vital signs. She was tolerating a regular diet and ambulating without difficulty. Objective Vital signs: Temp Pulse Resp BP Pulse Ox 98.4 F 64 17 128/70 94 L 10/26/19 04:00 10/26/19 04:00 10/26/19 04:00 10/26/19 04:00 10/26/19 04:00 no acute distress - *Routine HEENT Exam Head: Present: normocephalic - *Routine Neck Exam Present: full ROM - Routine Chest/Breast/Axilla Exam Comments: Dressings intact. No sign of cellulitis or bleeding. - *Routine Respiratory Exam Absent: respiratory distress - *Routine Cardiovascular Exam Present: RRR - *Routine Abdominal Exam Present: soft - *Routine Extremities Exam Present: full ROM. Absent: cyanosis, clubbing - Routine Back/Spine/Pelvis Exam Back/Spine: Present: full ROM - *Routine Skin Exam Absent: cyanosis, erythema - *Routine Neurological Exam Present: alert, oriented X3 - Routine Psychiatric Exam Present: normal affect Results Labs on day of discharge: Labs from last 24 hours 10/26/19 10/25/19 10/25/19 06:29 12:10 12:10 WBC 5.6 RBC 3.50 L Hgb 11.0 L Hct 34.9 L MCV 99.5 H MCH 31.5 H MCHC 31.7 L RDW 14.5 Plt Count 110 L MPV 8.4 Neut % (Auto) 83.0 H Lymph % (Auto) 14.8 [place] % (Auto) 1.8 Eos % (Auto) 0.2 Baso % (Auto) 0.3 Neut # (Auto) 4.6 Lymph # (Auto) 0.8 [place] # (Auto) 0.1 Eos # (Auto) 0.0 Baso # (Auto) 0.0 Sodium 137 Potassium 4.5 Chloride 103 Carbon Dioxide 22 Anion Gap 16.5 H BUN 16 Creatinine 1.13 H Estimated Creat Clear 64 Estimated GFR 48 L Est GFR ( Amer) 58 L Glucose 263 H POC Glucose 193 H Calcium 8.4 L 10/25/19 09:45 WBC RBC Hgb Hct MCV MCH MCHC RDW Plt Count MPV Neut % (Auto) Lymph % (Auto) [place] % (Auto) Eos % (Auto) Baso % (Auto) Neut # (Auto) Lymph # (Auto) [place] # (Auto) Eos # (Auto) Baso # (Auto) Sodium Potassium Chloride Carbon Dioxide Anion Gap BUN Creatinine Estimated Creat Clear Estimated GFR Est GFR ( Amer) Glucose POC Glucose 261 H Calcium DS: Diagnosis - Discharge Diagnosis (1) Breast cancer, left Status: Acute Discharge Plan - Patient Discharge Instructions ACTIVITY: Ambulate as tolerated DIET: advance to your usual diet Additional Instructions: SYDNEY drain teaching Patient Instructions: DI for Surgical Site Infection - Follow up Plan Follow up with: Joe Aldrich MD [Staff Physician] - 10/29/19 Disposition: Home, Self-Fdc Medications: Home Medications Medication Instructions Recorded Confirmed Type lisinopril 20 mg tablet 20 mg PO DAILY 03/06/19 10/25/19 History pravastatin 40 mg tablet 80 mg PO HS 03/06/19 10/25/19 History fluticasone propionate 50 1 spray INTRANASAL HS 03/29/19 10/25/19 History mcg/actuation nasal spray,suspension metformin 500 mg tablet 1,000 mg PO BID tab 06/26/19 10/25/19 History metoprolol tartrate 25 mg tablet 25 mg PO BID tab 06/26/19 10/25/19 History Sitagliptin Phosphate [Januvia 100 mg PO AC 07/15/19 10/25/19 History 100mg tablet] Levocetirizine Dihydrochloride 5 mg PO HS 09/05/19 10/25/19 History Cholecalciferol (Vitamin D3) 1 cap PO HS 10/25/19 10/25/19 History [Vitamin D3] Hydrocod/Acet 5/325 mg [[place] 1 - 2 tab PO Q6HP PRN #33 tab 10/25/19 Rx 5/325mg tablet] Lactobacill 46/B.animal/Inulin 1 each PO HS 10/25/19 10/25/19 History [Probiotic-10 10 Bill Cell Cap] Melatonin 20 mg PO HS 10/25/19 10/25/19 History Venlafaxine HCl [Venlafaxine HCl 75 mg PO DAILY 10/25/19 10/25/19 History ER] Vitamin E (Dl,Tocopheryl Acet) 1 cap PO HS 10/25/19 10/25/19 History [Vitamin E 400 IUnits capsule] calcium polycarbophiL [Calcium 1,250 mg PO HS 10/25/19 10/25/19 History Polycarbophil] Prescriptions/Medication Reconciliation: New Hydrocod/Acet 5/325 mg [[place] 5/325mg tablet] 1 - 2 tab PO Q6HP PRN #33 tab PRN Reason: post-op pain Continued pravastatin 40 mg tablet 80 mg PO HS lisinopril 20 mg tablet 20 mg PO DAILY fluticasone propionate 50 mcg/actuation nasal spray,suspension 1 spray INTRANASAL HS metformin 500 mg tablet 1,000 mg PO BID tab metoprolol tartrate 25 mg tablet 25 mg PO BID tab Sitagliptin Phosphate [Januvia 100mg tablet] 100 mg PO AC Levocetirizine Dihydrochloride 5 mg PO HS Venlafaxine HCl [Venlafaxine HCl ER] 75 mg PO DAILY calcium polycarbophiL [Calcium Polycarbophil] 1,250 mg PO HS Melatonin 20 mg PO HS Lactobacill 46/B.animal/Inulin [Probiotic-10 10 Bill Cell Cap] 1 each PO HS Cholecalciferol (Vitamin D3) [Vitamin D3] 1 cap PO HS Vitamin E (Dl,Tocopheryl Acet) [Vitamin E 400 IUnits capsule] 1 cap PO HS - Problem Reconciliation Problems Reviewed?: Yes
--- NOTE | 2019-10-26 11:51 | Electrocardiograph Report ---
APPROVED REPORT Exam: Resting ECG HR:64 bpm ECG Measurements Heart Rate 64 AXES NV 160 P 48 QRSd 84 QRS 11 QT 406 T36 QTc 418 <Conclusion> Normal sinus rhythm Normal ECG Electronically signed by : Lennox Camacho, 10/26/2019 11:50:52
== END 2019-10-26 10:50 | disposition home or self-care (01) | DRG 583 ==
LOC: OR 06:05 → 2ND 10:19
PROVIDERS: ADMIT Surgery; ATTEND Surgery
CPT/HCPCS: 80048; 82962; 85025; 88305; 88307; 93005; 94761; 96374; J2405; J2710

== ENCOUNTER → 2019-12-04 13:05 | Outpatient (CLI) | payer MEDICARE, OTHER, SELFPAY ==
--- NOTE | 2019-12-04 13:28 | XR_ITS ---
PROCEDURE: XR DEXA AXIAL SKELETON CLINICAL HISTORY: POST MENOPAUSAL COMPARISON: No exams were available for comparison FINDINGS: Radius 1/3 density is 0.595 grams/centimeters sq with a T-score of -1.6. Left femoral neck density is 0.692 grams/centimeters sq with a T-score of -1.4. L1-L4 density is 1.225 grams/centimeters sq with a T-score of 1.6 IMPRESSION: Osteopenia with moderate fracture risk. Treatment advised. Dictated by: Martín Lincoln MD 12/04/2019 14:05 Electronically signed by Martín Lincoln MD in [place] 12/04/2019 14:05
[2019-12-04 13:29] LABS: Basophils % 0.8 % (0.1-2.0); Eosinophils # 0.5 K/mm3 (0.0-0.4); Eosinophils % 10.5 % (0.1-12.0); Hematocrit 37.4 % (37.0-47.0); Hemoglobin 12.5 g/dL (12.2-16.2); Lymphocytes # 1.3 K/mm3 (0.7-4.5); Lymphocytes % 30.7 % (10-50); Mean Corpuscular HGB Conc 33.4 g/dL (31.8-35.4); Mean Corpuscular Hemoglobin 32.1 pg (27.0-31.2); Mean Corpuscular Volume 96.1 fl (81-99); Mean Platelet Volume 8.2 fl (7.4-10.4); Monocytes # 0.2 K/mm3 (0.1-1.0); Monocytes % 5.3 % (1.7-9.3); Neutrophils # 2.3 K/mm3 (1.8-7.8); Neutrophils % 52.7 % (37.0-80.0); Platelet Count 127 K/mm3 (142-424); Red Cell Distribution Width 13.7 % (11.5-17.5); White Blood Count 4.4 K/mm3 (4.8-10.8)
[2019-12-04 15:15] LABS: Chloride 102 mmol/L (98-107); Sodium 139 mmol/L (136-145)
[2019-12-04 15:18] LABS: Alanine Aminotransferase 41 U/L (12-78); Albumin/Globulin Ratio 1.4 (1.1-1.8); Alkaline Phosphatase 82 U/L (38-126); Aspartate Amino Transferase 59 U/L (14-36); Bilirubin,Total 0.3 mg/dl (0.2-1.3); Blood Urea Nitrogen 15 mg/dl (7-17); Calcium 9.6 mg/dl (8.4-10.2); Carbon Dioxide 25 mmol/L (22.0-30.0); Estimated Glomerular Filt Rate 100 ml/min (>60); GFR (African American) 121 ML/MIN (>60); Globulin 2.8 g/dL (1.3-3.2); Glucose 293 mg/dl (74-100); Total Protein,Serum 6.8 g/dl (6.3-8.2)
== END ==
PROVIDERS: Visit Provider Internal Medicine Medical Oncology
DX: C50.911 Malignant neoplasm of unspecified site of right female breast (principal); C50.912 Malignant neoplasm of unspecified site of left female breast; Z78.0 Asymptomatic menopausal state
CPT/HCPCS: 36415; 77080; 80053; 85025

== ENCOUNTER → 2020-02-12 15:34 | Outpatient (CLI) | payer MEDICARE, OTHER, SELFPAY ==
--- NOTE | 2020-02-12 15:40 | MM_ITS ---
PROCEDURE: MM DIG SC MAMM UNILAT RT CAD Digital Breast Tomosynthesis Included CLINICAL INDICATION: screening There is a history of breast cancer patient's maternal aunt and paternal cousin. Patient had lumpectomy right breast for malignancy an follow-up radiation therapy last year and than this October had a left mastectomy for malignancy. COMPARISON: No exams were available for comparison TECHNIQUE: Standard CC and MLO images and 3D Tomosynthesis was obtained. R2 CAD reviewed. FINDINGS: Prominent fibroglandular densities are seen in the breast. There appears be minimal postlumpectomy scarring in the lower outer quadrant. There are few microcalcifications right breast which appears somewhat suggestive of sclerosing adenosis. There is no definite suspicious lesion and there is no suspicious cluster of microcalcifications. IMPRESSION: Moderate somewhat heterogenic breast density with no suspicious lesions seen BI-RAD Category: 2 Benign Finding(s) FOLLOW-UP: 1YR 1 Year Follow-up (A letter has been sent to the patient regarding results of the study.) Dictated by: Dr. Ramón Bee MD 02/14/2020 13:[address] Ramón Bee MD in [place] 02/14/2020 13:32
== END ==
PROVIDERS: PCP Nurse Practitioner Family; Visit Provider Surgery
DX: Z12.31 Encounter for screening mammogram for malignant neoplasm of breast (principal)
CPT/HCPCS: 77063; 77067

== ENCOUNTER → 2020-03-31 11:16 | Outpatient (CLI) | payer MEDICARE, OTHER, SELFPAY ==
[2020-03-31 11:34] LABS: Basophils % 0.7 % (0.1-2.0); Eosinophils # 0.2 K/mm3 (0.0-0.4); Eosinophils % 3.8 % (0.1-12.0); Hematocrit 38.7 % (37.0-47.0); Hemoglobin 13.4 g/dL (12.2-16.2); Lymphocytes # 1.6 K/mm3 (0.7-4.5); Lymphocytes % 37.3 % (10-50); Mean Corpuscular HGB Conc 34.5 g/dL (31.8-35.4); Mean Corpuscular Hemoglobin 33.7 pg (27.0-31.2); Mean Corpuscular Volume 97.5 fl (81-99); Mean Platelet Volume 8.6 fl (7.4-10.4); Monocytes # 0.3 K/mm3 (0.1-1.0); Neutrophils # 2.2 K/mm3 (1.8-7.8); Neutrophils % 51.2 % (37.0-80.0); Platelet Count 118 K/mm3 (142-424); Red Blood Count 3.97 M/mm3 (4.20-5.40); Red Cell Distribution Width 14.2 % (11.5-17.5); White Blood Count 4.4 K/mm3 (4.8-10.8)
[2020-03-31 12:22] LABS: Chloride 101 mmol/L (98-107); Potassium 4.4 mmoL/L (3.5-5.1); Sodium 138 mmol/L (136-145)
[2020-03-31 12:24] LABS: Alanine Aminotransferase 45 U/L (12-78); Alkaline Phosphatase 75 U/L (38-126); Aspartate Amino Transferase 51 U/L (14-36); Bilirubin,Total 0.6 mg/dl (0.2-1.3); Blood Urea Nitrogen 19 mg/dl (7-17); Estimated Glomerular Filt Rate 100 ml/min (>60); GFR (African American) 121 ML/MIN (>60)
[2020-03-31 12:25] LABS: Albumin Level 4.1 g/dl (3.5-5.0); Albumin/Globulin Ratio 1.4 (1.1-1.8); Anion Gap 15.4 mEq/L (5-15); Calcium 9.9 mg/dl (8.4-10.2); Carbon Dioxide 26 mmol/L (22.0-30.0); Glucose 261 mg/dl (74-100); Total Protein,Serum 7.1 g/dl (6.3-8.2)
== END ==
PROVIDERS: Visit Provider Internal Medicine Medical Oncology
DX: C50.911 Malignant neoplasm of unspecified site of right female breast (principal)
CPT/HCPCS: 36415; 80053; 85025

== ENCOUNTER → 2020-06-30 08:06 | Outpatient (POV) | payer MEDICARE, OTHER, SELFPAY ==
[2020-06-30 09:06] LABS: Basophils % 0.7 % (0.1-2.0); Eosinophils # 0.1 K/mm3 (0.0-0.4); Eosinophils % 2.7 % (0.1-12.0); Hematocrit 38.5 % (37.0-47.0); Hemoglobin 12.5 g/dL (12.2-16.2); Lymphocytes # 1.7 K/mm3 (0.7-4.5); Lymphocytes % 45.4 % (10-50); Mean Corpuscular HGB Conc 32.4 g/dL (31.8-35.4); Mean Corpuscular Volume 101.7 fl (81-99); Mean Platelet Volume 8.2 fl (7.4-10.4); Monocytes # 0.2 K/mm3 (0.1-1.0); Monocytes % 6.4 % (1.7-9.3); Neutrophils # 1.6 K/mm3 (1.8-7.8); Neutrophils % 44.7 % (37.0-80.0); Platelet Count 114 K/mm3 (142-424); Red Blood Count 3.78 M/mm3 (4.20-5.40); Red Cell Distribution Width 14.2 % (11.5-17.5); White Blood Count 3.6 K/mm3 (4.8-10.8)
[2020-06-30 09:36] LABS: Hemoglobin A1C 8.5 % (4.0-6.0)
[2020-06-30 09:43] LABS: Chloride 102 mmol/L (98-107); Sodium 137 mmol/L (136-145)
[2020-06-30 09:44] LABS: Potassium 4.1 mmoL/L (3.5-5.1)
[2020-06-30 09:46] LABS: Alanine Aminotransferase 25 U/L (12-78); Albumin Level 4.2 g/dl (3.5-5.0); Albumin/Globulin Ratio 1.4 (1.1-1.8); Alkaline Phosphatase 70 U/L (38-126); Anion Gap 14.1 mEq/L (5-15); Aspartate Amino Transferase 41 U/L (14-36); Bilirubin,Total 0.4 mg/dl (0.2-1.3); Blood Urea Nitrogen 15 mg/dl (7-17); Carbon Dioxide 25 mmol/L (22.0-30.0); Estimated Glomerular Filt Rate 100 ml/min (>60); GFR (African American) 121 ML/MIN (>60); Globulin 3.1 g/dL (1.3-3.2); Total Protein,Serum 7.3 g/dl (6.3-8.2)
[2020-06-30 09:47] LABS: Calcium 9.5 mg/dl (8.4-10.2); Glucose 318 mg/dl (74-100)
== END ==
PROVIDERS: Internal Medicine Adolescent Medicine; Internal Medicine Medical Oncology; PCP Nurse Practitioner Family; Visit Provider Dermatology
DX: E11.9 Type 2 diabetes mellitus without complications (principal); Z79.84 Long term (current) use of oral hypoglycemic drugs
CPT/HCPCS: 36415; 80053; 83036; 85025

== ENCOUNTER → 2020-07-17 14:35 | Outpatient (CLI) | payer MEDICARE, OTHER, SELFPAY ==
--- NOTE | 2020-07-17 14:37 | CT_ITS ---
PROCEDURE: CT ABDOMEN PELVIS WO CON CLINICAL INDICATION: LOW BACK PAIN, RECURRENT UTI History of breast cancer COMPARISON: CT CT ABDOMEN PELVIS WO CON from 09/05/2019 TECHNIQUE: Axial images obtained with sagittal and coronal reformats. All CT scans at the facility use one or more dose reduction, viz: automated exposure control, ma/kV adjustment per patient size (including targeted exams where dose is matched to indication, i.e. head), or iterative reconstruction technique. FINDINGS: LOWER THORAX: There has been a prior left mastectomy. There are postsurgical changes of the right breast with a postsurgical fluid collection in the deep aspect of the right breast. This measures 4 by 1.4 cm previously 4.9 x 2.9 cm. Surgical clips are present in this region. This may represent a postsurgical seroma. ABDOMEN & PELVIS: The liver margin is somewhat irregular. No focal liver lesions are evident. The gallbladder, spleen, adrenal glands, and pancreas have an unremarkable appearance. No renal or ureteral calculi. There are small left parapelvic renal cysts. No evidence of appendicitis. There are scattered colonic diverticula but no evidence of diverticulitis. There is a mild amount of retained colonic feces. No intestinal obstruction or free air. There are post hysterectomy changes. Artifact is present from a right hip prosthesis. There are degenerative changes of the lumbar spine similar to the previous exam. There is a broad-based posterior disc osteophyte complex at L2-L3 with narrowing of the canal and bilateral lateral recess and foraminal narrowing. There is faint increased density of the mesenteric fat on the left lateral to a nondilated aorta. This is of questionable clinical significance but not readily apparent on the previous study. IMPRESSION: 1. Prior left mastectomy with postsurgical changes of the right breast with suspected seroma on the right. 2. Faint increased density of the mesenteric fat on the left lateral to the descending aorta nonspecific and could be seen with underlying inflammation/infection. Consider follow-up without and with contrast to confirm stability. Possible mesenteric adenitis. 3. Other nonacute findings as described above Dictated by: Martín Lincoln MD 07/18/2020 11:22 Martín Lincoln MD in [place] 07/18/2020 11:22
== END ==
PROVIDERS: PCP Nurse Practitioner Family; Visit Provider Nurse Practitioner Family
DX: M54.5 Low back pain (principal); N39.0 Urinary tract infection, site not specified
CPT/HCPCS: 74176

== ENCOUNTER → 2020-10-26 13:49 | Outpatient (CLI) | payer MEDICARE, OTHER, SELFPAY ==
[2020-10-26 14:24] LABS: Basophils % 0.7 % (0.1-2.0); Eosinophils # 0.1 K/mm3 (0.0-0.4); Eosinophils % 2.7 % (0.1-12.0); Hematocrit 41.1 % (37.0-47.0); Hemoglobin 13.9 g/dL (12.2-16.2); Lymphocytes % 36.6 % (10-50); Mean Corpuscular HGB Conc 33.7 g/dL (31.8-35.4); Mean Corpuscular Hemoglobin 32.9 pg (27.0-31.2); Mean Corpuscular Volume 97.6 fl (81-99); Mean Platelet Volume 7.6 fl (7.4-10.4); Monocytes # 0.4 K/mm3 (0.1-1.0); Monocytes % 7.2 % (1.7-9.3); Neutrophils # 2.9 K/mm3 (1.8-7.8); Neutrophils % 52.8 % (37.0-80.0); Platelet Count 113 K/mm3 (142-424); Red Blood Count 4.21 M/mm3 (4.20-5.40); White Blood Count 5.4 K/mm3 (4.8-10.8)
[2020-10-26 14:29] LABS: Hemoglobin A1C 6.7 % (4.0-6.0)
[2020-10-26 14:39] LABS: Chloride 106 mmol/L (98-107); Sodium 139 mmol/L (136-145)
[2020-10-26 14:40] LABS: Potassium 5.1 mmoL/L (3.5-5.1)
[2020-10-26 14:42] LABS: Alanine Aminotransferase 28 U/L (12-78); Albumin Level 4.7 g/dl (3.5-5.0); Albumin/Globulin Ratio 1.3 (1.1-1.8); Alkaline Phosphatase 82 U/L (38-126); Anion Gap 12.1 mEq/L (5-15); Aspartate Amino Transferase 36 U/L (14-36); Bilirubin,Total 0.5 mg/dl (0.2-1.3); Blood Urea Nitrogen 17 mg/dl (7-17); Calcium 10.9 mg/dl (8.4-10.2); Carbon Dioxide 26 mmol/L (22.0-30.0); Cholesterol 208 mg/dl (140-200); Estimated Glomerular Filt Rate 84 ml/min (>60); GFR (African American) 101 ML/MIN (>60); Globulin 3.6 g/dL (1.3-3.2); Glucose 115 mg/dl (74-100); Total Protein,Serum 8.3 g/dl (6.3-8.2)
[2020-10-26 14:43] LABS: Chol/HDL Ratio 3.7 (1-3.5); HDL Cholesterol 56 mg/dl (40-60)
[2020-10-26 14:51] LABS: Triglycerides 728 mg/dl (30-150)
[2020-10-26 14:56] LABS: Direct LDL Cholesterol < 30.00 mg/dL (100-129)
[2020-10-26 15:00] LABS: 25-OH Vitamin D, Total 47.3 ng/mL (30-100)
== END ==
PROVIDERS: Visit Provider Nurse Practitioner Family
DX: E11.9 Type 2 diabetes mellitus without complications (principal); I10 Essential (primary) hypertension; D61.818 Other pancytopenia; M62.838 Other muscle spasm; M89.9 Disorder of bone, unspecified; M94.9 Disorder of cartilage, unspecified; Z79.84 Long term (current) use of oral hypoglycemic drugs
CPT/HCPCS: 36415; 80053; 80061; 82306; 83036; 83735; 85025

== ENCOUNTER → 2020-12-14 12:09 | Outpatient (CLI) | payer MEDICARE, OTHER, SELFPAY ==
--- NOTE | 2020-12-14 12:16 | CT_ITS ---
PROCEDURE: CT ABDOMEN PELVIS WO CON CLINICAL INDICATION: BREAST CA COMPARISON: CT CT ABDOMEN PELVIS WO CON from 07/17/2020 TECHNIQUE: Axial images obtained with sagittal and coronal reformats. All CT scans at the facility use one or more dose reduction, viz: automated exposure control, ma/kV adjustment per patient size (including targeted exams where dose is matched to indication, i.e. head), or iterative reconstruction technique. FINDINGS: LOWER THORAX: Please see concurrent CT chest report for thoracic findings. ABDOMEN & PELVIS: Evaluation of the upper abdominal solid viscera is limited due to lack of intravenous contrast. Surface irregularity and nodularity of the liver is noted, concerning for cirrhosis of the liver. The liver measures 19 centimeters in craniocaudal dimension. The gallbladder is unremarkable. No intra or extrahepatic biliary dilation. Calcification noted in the liver, likely secondary to prior granulomatous disease. The spleen measures 13 centimeters in craniocaudal dimension, at the upper limit of normal. The adrenal glands, kidneys and pancreas are unremarkable. There is mesenteric stranding noted in the left para-aortic region, noted on the prior study. This is of uncertain significance. Moderate fecal retention of the colon. Few colonic diverticula without evidence of diverticulitis. Images of the pelvis are limited due to the presence of beam hardening artifact from right hip prosthesis. No free fluid or free intraperitoneal air. No significant retroperitoneal or mesenteric lymphadenopathy. Multilevel degenerative changes of the visualized lumbar spine. No focal lytic or sclerotic lesions noted. IMPRESSION: Findings are consistent with cirrhosis of the liver. Clinical and biochemical correlation is recommended. Stranding noted in the left para-aortic region, unchanged. Other chronic findings as described above. Dictated by: Aide Gonzalez 12/14/2020 16:56 Aide Gonzalez in [place] 12/14/2020 16:56
--- NOTE | 2020-12-14 12:16 | CT_ITS ---
PROCEDURE: CT CHEST WO CON CLINICAL INDICATION: BREAST CA COMPARISON: CT CHESTW CT chest w con from 04/12/2019 TECHNIQUE: Axial images obtained with sagittal and coronal reformats. All CT scans at the facility use one or more dose reduction, viz: automated exposure control, ma/kV adjustment per patient size (including targeted exams where dose is matched to indication, i.e. head), or iterative reconstruction technique. FINDINGS: HEART AND MEDIASTINAL STRUCTURES: The heart size is normal. Atherosclerotic vascular calcification of the thoracic aorta noted. Aortic valve calcification is noted. Multiple calcified lymph nodes in the mediastinum and the right hilum noted. Otherwise no significant adenopathy within the limitations of unenhanced study. No pericardial effusions. LUNGS AND PLEURAL SPACES: Calcified granuloma in the right lower lobe. No lobar consolidation, pleural effusions or pneumothorax. Minor bibasal atelectasis noted. No focal consolidation, pleural effusions or pneumothorax. Two nodules measuring up to 3 millimeters noted in the right lower lobe (5, 39) unchanged compared to prior study. No new focal nodules are noted. The central tracheobronchial tree is patent. BONY STRUCTURES: Multilevel degenerative changes of the thoracic spine. No focal lytic or sclerotic lesions. UPPER ABDOMEN: Please see concurrent abdominal CT report of the same date for abdominal ADDITIONAL FINDINGS: Postsurgical changes are noted in the right breast. There is a small focal collection with adjacent soft tissue density is noted in the right breast measuring up to 3.1 centimeters x 1.3 centimeters, most likely represents a postoperative seroma. IMPRESSION: Postsurgical changes are noted in the right breast. There is a focal fluid collection noted in the right breast measuring up to 3.1 centimeters adjacent to surgical clips, most likely postoperative changes. No acute intrathoracic abnormality. Dictated by: Aide Gonzalez 12/14/2020 16:36 Aide Gonzalez in [facility] 12/14/2020 16:36
== END ==
PROVIDERS: PCP Nurse Practitioner Family; Visit Provider Internal Medicine Medical Oncology
DX: C50.912 Malignant neoplasm of unspecified site of left female breast (principal); R10.84 Generalized abdominal pain
CPT/HCPCS: 71250; 74176

== ENCOUNTER → 2021-01-25 16:03 | Outpatient (CLI) | payer MEDICARE, OTHER, SELFPAY | PROVIDERS: Visit Provider Urology | DX: N39.0 Urinary tract infection, site not specified (principal) | CPT/HCPCS: 87086 ==

== ENCOUNTER → 2021-02-12 17:32 | Outpatient (CLI) | payer MEDICARE, OTHER, SELFPAY | PROVIDERS: Visit Provider Nurse Practitioner Family | DX: R30.0 Dysuria (principal) | CPT/HCPCS: 87086; 87088; 87186 ==

== ENCOUNTER → 2021-02-16 13:18 | Outpatient (CLI) | payer MEDICARE, OTHER, SELFPAY ==
--- NOTE | 2021-02-16 13:23 | MM_ITS ---
PROCEDURE INFORMATION: Exam: MG Screening 3D Mammography Exam date and time: 02/16/2021 1:23 PM Age: 65 years old Clinical indication: Encounter for screening mammogram for malignant neoplasm of breast; personal history of left breast carcinoma treated with mastectomy and radiation. Family history of breast carcinoma. TECHNIQUE: Imaging protocol: Screening tomosynthesis and 2D mammography including computer-aided detection (CAD) when performed. COMPARISON: 1. MG MM DIG SC MAMM UNILAT RT CAD 02/12/2020 3:59 PM 2. MG Screening-Bilateral Mammography 06/15/2018 3:42 PM 3. MG Screening-Bilateral Mammography 05/25/2017 5:03 PM 4. MG MAMMO SCREENING DIGITAL BILAT 03/08/2016 11:57 AM FINDINGS: Limitations: Technically difficult exam due to difficulty positioning and patient's body habitus. Images are best obtainable. A portion of the far posterior central right breast and far posterolateral right breast are excluded from view. Images are best obtainable. MAMMOGRAPHY: Breast composition: The right breast is extremely dense, which lowers the sensitivity of mammography. Mass: No new suspicious masses. Architectural distortion: No suspicious distortion. Relatively stable postsurgical changes in the right breast Calcifications: No suspicious calcifications. Asymmetric density: None. Skin thickening: None. Axillary adenopathy: None. IMPRESSION: No mammographic evidence of malignancy. Annual screening is recommended unless otherwise clinically indicated. ASSESSMENT: BI-RADS Category 2: Benign
== END ==
PROVIDERS: PCP Nurse Practitioner Family; Visit Provider Surgery
DX: Z85.3 Personal history of malignant neoplasm of breast (principal); Z12.31 Encounter for screening mammogram for malignant neoplasm of breast
CPT/HCPCS: 77063; 77067

== ENCOUNTER → 2021-04-05 13:45 | Outpatient (POV) | payer MEDICARE, OTHER, SELFPAY | PROVIDERS: Visit Provider Nurse Practitioner Family | DX: Z00.00 Encounter for general adult medical examination without abnormal findings (principal) ==

== ENCOUNTER → 2021-04-23 08:09 | Outpatient (CLI) | payer MEDICARE, OTHER, SELFPAY ==
--- NOTE | 2021-04-23 08:12 | US_ITS ---
PROCEDURE: US ABDOMEN LIMITED CLINICAL INDICATION: CIRRHOSIS,IBS COMPARISON: CT CT ABDOMEN PELVIS WO CON from 12/14/2020 FINDINGS: PANCREAS: Unremarkable. No obvious mass or abnormal fluid collection. No ductal dilatation LIVER: Cirrhotic appearance of the liver with mild irregularity the surface of the liver with coarse echogenicity. No focal liver lesions demonstrated. There is appropriate direction of flow within a non dilated portal vein. Gallbladder: Gallbladder is somewhat distended. No stones, wall thickening, or pericholecystic fluid is evident. Right kidney: Unremarkable IMPRESSION: Findings are compatible with cirrhosis Mildly distended gallbladder without stones Dictated by: Martín Lincoln MD 04/23/2021 13:04 Martín Lincoln MD in [facility] 04/23/2021 13:04
[2021-04-23 09:46] LABS: Basophils # 0.1 K/mm3 (0-0.2); Basophils % 1.3 % (0.1-2.0); Eosinophils # 0.2 K/mm3 (0.0-0.4); Eosinophils % 3.9 % (0.1-12.0); Hematocrit 40.7 % (37.0-47.0); Hemoglobin 14.3 g/dL (12.2-16.2); Lymphocytes # 1.9 K/mm3 (0.7-4.5); Lymphocytes % 36.4 % (10-50); Mean Corpuscular HGB Conc 35.1 g/dL (31.8-35.4); Mean Corpuscular Hemoglobin 33.1 pg (27.0-31.2); Mean Corpuscular Volume 94.2 fl (81-99); Mean Platelet Volume 7.8 fl (7.4-10.4); Monocytes # 0.4 K/mm3 (0.1-1.0); Monocytes % 7.7 % (1.7-9.3); Neutrophils # 2.6 K/mm3 (1.8-7.8); Neutrophils % 50.6 % (37.0-80.0); Platelet Count 112 K/mm3 (142-424); Red Blood Count 4.32 M/mm3 (4.20-5.40); Red Cell Distribution Width 14.5 % (11.5-17.5); White Blood Count 5.1 K/mm3 (4.8-10.8)
[2021-04-23 09:56] LABS: Prothrombin Time 11.1 seconds (10.1-12.5)
[2021-04-23 09:59] LABS: INR 0.94 (0.9-1.1)
[2021-04-23 10:23] LABS: Chloride 102 mmol/L (98-107); Sodium 139 mmol/L (136-145)
[2021-04-23 10:24] LABS: Potassium 4.7 mmoL/L (3.5-5.1)
[2021-04-23 10:26] LABS: Alanine Aminotransferase 38 U/L (12-78); Albumin Level 4.7 g/dl (3.5-5.0); Albumin/Globulin Ratio 1.5 (1.1-1.8); Alkaline Phosphatase 99 U/L (38-126); Anion Gap 17.7 mEq/L (5-15); Aspartate Amino Transferase 47 U/L (14-36); Bilirubin,Total 0.6 mg/dl (0.2-1.3); Blood Urea Nitrogen 16 mg/dl (7-17); Calcium 9.9 mg/dl (8.4-10.2); Carbon Dioxide 24 mmol/L (22.0-30.0); Estimated Glomerular Filt Rate 100 ml/min (>60); GFR (African American) 121 ML/MIN (>60); Globulin 3.2 g/dL (1.3-3.2); Glucose 181 mg/dl (74-100); Iron 151 ug/dL (37-170); Total Protein,Serum 7.9 g/dl (6.3-8.2)
[2021-04-23 10:36] LABS: Total Iron Binding Capacity 401 ug/dL (265-497)
[2021-04-23 11:04] LABS: Ferritin 47.4 ng/ml (11.1-264)
[2021-04-24 08:29] LABS: Ceruloplasmin 24.6 mg/dL (19.0-39.0); Immunoglobulin A, Qn 639 mg/dL (87-352); Immunoglobulin G, Qn 993 mg/dL (586-1602); Immunoglobulin M, Qn 74 mg/dL (26-217)
[2021-04-24 10:45] LABS: Hep A Ab, IgM Negative (Negative); Hepatitis B Core Antibody IgM Negative (Negative); Hepatitis B Surface Antigen Negative (Negative); Hepatitis C Antibody <0.1 s/co ratio (0.0-0.9)
[2021-04-24 14:39] LABS: Deamidated Gliadin Abs, IgG 3 units (0-19)
[2021-04-25 00:05] LABS: Actin (Smooth Muscle) Antibody 11 Units (0-19); Deamidated Gliadin Abs, IgA 9 units (0-19); Mitochondrial (M2) Antibody <20.0 Units (0.0-20.0); Tissue Transglutaminase IgA Ab 3 U/mL (0-3); Tissue Transglutaminase IgG Ab 4 U/mL (0-5)
[2021-04-25 15:38] LABS: Endomysial IgA Antibody Negative (Negative)
[2021-04-26 14:15] LABS: Angiotensin Converting Enzyme <15 U/L (14-82)
[2021-04-26 17:09] LABS: Alpha-1-Antitrypsin 134 mg/dL (101-187)
[2021-04-27 03:43] LABS: ALT (SGPT) P5P 29 IU/L (0-40); AST (SGOT) P5P 39 IU/L (0-40); Alpha 2-Macroglobulins, Qn 298 mg/dL (110-276); Apolipoprotein A-1 175 mg/dL (116-209); Bilirubin, Total 0.3 mg/dL (0.0-1.2); Cholesterol, Total 202 mg/dL (100-199); Fibrosis Score 0.48 (0.00-0.21); Fibrosis Stage F1-F2 (.); GGT 84 IU/L (0-60); Glucose 172 mg/dL (65-99); Haptoglobin 55 mg/dL (37-355); NASH Score 0.75 (0.25); Steatosis Score 0.78 (0.00-0.30); Triglycerides 650 mg/dL (0-149)
[2021-04-28 09:53] LABS: Reticulin IgA Antibody Negative titer (Neg:<1:2.5)
[2021-05-18 10:28] LABS: Antinuclear Antibodies (ANA) NEGATIVE
== END ==
PROVIDERS: PCP Nurse Practitioner Family; Visit Provider Nurse Practitioner Family
DX: K74.69 Other cirrhosis of liver (principal); K58.9 Irritable bowel syndrome, unspecified; K76.0 Fatty (change of) liver, not elsewhere classified
CPT/HCPCS: 36415; 76705; 80053; 80074; 81256; 82103; 82104; 82164; 82390; 82728; 82784; 83516; 83540; 83550; 85025; 85610; 86038; 86255; 86256; 86376

== ENCOUNTER → 2021-06-10 11:41 | Outpatient (CLI) | payer MEDICARE, OTHER, SELFPAY ==
[2021-06-10 12:12] LABS: Basophils % 1.2 % (0.1-2.0); Eosinophils # 0.2 K/mm3 (0.0-0.4); Eosinophils % 4.5 % (0.1-12.0); Hematocrit 42.1 % (37.0-47.0); Hemoglobin 13.9 g/dL (12.2-16.2); Lymphocytes # 1.6 K/mm3 (0.7-4.5); Lymphocytes % 40.5 % (10-50); Mean Corpuscular HGB Conc 33.1 g/dL (31.8-35.4); Mean Corpuscular Hemoglobin 33.6 pg (27.0-31.2); Mean Corpuscular Volume 101.6 fl (81-99); Monocytes # 0.3 K/mm3 (0.1-1.0); Monocytes % 6.7 % (1.7-9.3); Neutrophils # 1.8 K/mm3 (1.8-7.8); Neutrophils % 47.1 % (37.0-80.0); Platelet Count 106 K/mm3 (142-424); Red Blood Count 4.15 M/mm3 (4.20-5.40); Red Cell Distribution Width 14.4 % (11.5-17.5); White Blood Count 3.8 K/mm3 (4.8-10.8)
[2021-06-10 13:04] LABS: Chloride 105 mmol/L (98-107); Potassium 4.5 mmoL/L (3.5-5.1); Sodium 140 mmol/L (136-145)
[2021-06-10 13:07] LABS: Alanine Aminotransferase 24 U/L (12-78); Albumin Level 4.3 g/dl (3.5-5.0); Albumin/Globulin Ratio 1.5 (1.1-1.8); Alkaline Phosphatase 87 U/L (38-126); Anion Gap 15.5 mEq/L (5-15); Aspartate Amino Transferase 37 U/L (14-36); Bilirubin,Total 0.5 mg/dl (0.2-1.3); Blood Urea Nitrogen 17 mg/dl (7-17); Carbon Dioxide 24 mmol/L (22.0-30.0); Estimated Glomerular Filt Rate 100 ml/min (>60); GFR (African American) 121 ML/MIN (>60); Globulin 2.9 g/dL (1.3-3.2); Total Protein,Serum 7.2 g/dl (6.3-8.2)
[2021-06-10 13:08] LABS: Calcium 9.6 mg/dl (8.4-10.2); Glucose 143 mg/dl (74-100)
== END ==
PROVIDERS: Visit Provider Internal Medicine Medical Oncology
DX: C50.912 Malignant neoplasm of unspecified site of left female breast (principal)
CPT/HCPCS: 36415; 80053; 85025

== ENCOUNTER → 2021-07-09 17:41 | Outpatient (CLI) | payer MEDICARE, OTHER, SELFPAY | PROVIDERS: Visit Provider Nurse Practitioner Family | DX: R30.0 Dysuria (principal) | CPT/HCPCS: 87086; 87088; 87186 ==

== ENCOUNTER → 2021-07-23 17:52 | Outpatient (CLI) | payer MEDICARE, OTHER, SELFPAY | PROVIDERS: Visit Provider Nurse Practitioner Family | DX: N39.0 Urinary tract infection, site not specified (principal) | CPT/HCPCS: 87086 ==

== ENCOUNTER → 2021-07-27 10:54 | Outpatient (CLI) | payer MEDICARE, OTHER, SELFPAY ==
[2021-07-27 14:16] LABS: Basophils # 0.1 K/mm3 (0-0.2); Basophils % 1.7 % (0.1-2.0); Eosinophils # 0.2 K/mm3 (0.0-0.4); Eosinophils % 4.7 % (0.1-12.0); Hematocrit 40.6 % (37.0-47.0); Hemoglobin 13.6 g/dL (12.2-16.2); Lymphocytes # 1.7 K/mm3 (0.7-4.5); Lymphocytes % 42.7 % (10-50); Mean Corpuscular HGB Conc 33.5 g/dL (31.8-35.4); Mean Corpuscular Hemoglobin 33.5 pg (27.0-31.2); Mean Corpuscular Volume 100.1 fl (81-99); Mean Platelet Volume 10.6 fl (7.4-10.4); Monocytes # 0.2 K/mm3 (0.1-1.0); Monocytes % 5.6 % (1.7-9.3); Neutrophils # 1.8 K/mm3 (1.8-7.8); Neutrophils % 45.3 % (37.0-80.0); Platelet Count 89 K/mm3 (142-424); Red Blood Count 4.05 M/mm3 (4.20-5.40); Red Cell Distribution Width 14.3 % (11.5-17.5); White Blood Count 3.9 K/mm3 (4.8-10.8)
[2021-07-27 14:27] LABS: Alanine Aminotransferase 29 U/L (12-78); Albumin Level 4.2 g/dl (3.5-5.0); Albumin/Globulin Ratio 1.4 (1.1-1.8); Alkaline Phosphatase 81 U/L (38-126); Anion Gap 12.6 mEq/L (5-15); Aspartate Amino Transferase 38 U/L (14-36); Bilirubin,Total 0.4 mg/dl (0.2-1.3); Blood Urea Nitrogen 14 mg/dl (7-17); Calcium 9.9 mg/dl (8.4-10.2); Carbon Dioxide 26 mmol/L (22.0-30.0); Chloride 105 mmol/L (98-107); Chol/HDL Ratio 3.6 (1-3.5); Cholesterol 172 mg/dl (140-200); Estimated Glomerular Filt Rate 123 ml/min (>60); GFR (African American) 149 ML/MIN (>60); Globulin 2.9 g/dL (1.3-3.2); Glucose 150 mg/dl (74-100); HDL Cholesterol 48 mg/dl (40-60); Potassium 4.6 mmoL/L (3.5-5.1); Sodium 139 mmol/L (136-145); Total Protein,Serum 7.1 g/dl (6.3-8.2); Triglycerides 416 mg/dl (30-150)
[2021-07-27 14:38] LABS: Direct LDL Cholesterol 45.35 mg/dL (100-129)
[2021-07-27 15:52] LABS: Hemoglobin A1C 6.3 % (4.0-6.0)
== END ==
PROVIDERS: Visit Provider Nurse Practitioner Family
DX: Z00.00 Encounter for general adult medical examination without abnormal findings (principal); E11.9 Type 2 diabetes mellitus without complications; I10 Essential (primary) hypertension; C50.511 Malignant neoplasm of lower-outer quadrant of right female breast; K74.60 Unspecified cirrhosis of liver; Z79.84 Long term (current) use of oral hypoglycemic drugs
CPT/HCPCS: 36415; 80053; 80061; 83036; 85025

== ENCOUNTER → 2021-12-27 09:13 | Outpatient (CLI) | payer MEDICARE, OTHER, SELFPAY ==
--- NOTE | 2021-12-27 09:23 | US_ITS ---
FINAL REPORT CLINICAL HISTORY: IBS,LIVER CIRRHOSIS FINDINGS: ULTRASOUND RIGHT UPPER QUADRANT Sonographic imaging of the right upper quadrant was obtained. The pancreas is partially obscured. The liver has a coarsened echotexture which is consistent with cirrhosis. There is some sludge within the gallbladder without evidence of gallstones. There is no gallbladder wall thickening. There is no biliary ductal dilatation. The common duct is normal at 4 mm. There is proper flow within the portal vein and hepatic veins. The spleen was not imaged. Limited images of the right kidney are unremarkable. IMPRESSION: Liver has coarsened echotexture which is consistent with cirrhosis. Gallbladder sludge without evidence of gallstones. Reviewed, Interpreted and Dictated by Alberto Buck MD Transcribed by Bing Oglesby Authenticated by Alberto Buck MD on 12/27/2021 11:05:13 AM [facility]
[2021-12-27 10:21] LABS: Eosinophils # 0.1 K/mm3 (0.0-0.4); Eosinophils % 3.7 % (0.1-12.0); Hematocrit 38.3 % (37.0-47.0); Hemoglobin 13.2 g/dL (12.2-16.2); Lymphocytes # 1.2 K/mm3 (0.7-4.5); Lymphocytes % 33.5 % (10-50); Mean Corpuscular HGB Conc 34.4 g/dL (31.8-35.4); Mean Corpuscular Hemoglobin 33.8 pg (27.0-31.2); Mean Corpuscular Volume 98.1 fl (81-99); Mean Platelet Volume 8.9 fl (7.4-10.4); Monocytes # 0.3 K/mm3 (0.1-1.0); Monocytes % 8.1 % (1.7-9.3); Neutrophils # 1.9 K/mm3 (1.8-7.8); Neutrophils % 53.7 % (37.0-80.0); Platelet Count 103 K/mm3 (142-424); Red Blood Count 3.91 M/mm3 (4.20-5.40); Red Cell Distribution Width 14.1 % (11.5-17.5); White Blood Count 3.6 K/mm3 (4.8-10.8)
[2021-12-27 10:30] LABS: Ammonia 15 umol/L (9-30)
[2021-12-27 10:37] LABS: INR 1.02 (0.9-1.1); Prothrombin Time 11.5 seconds (10.1-12.5)
[2021-12-27 10:53] LABS: Alanine Aminotransferase 48 U/L (12-78); Albumin Level 4.3 g/dl (3.5-5.0); Albumin/Globulin Ratio 1.5 (1.1-1.8); Alkaline Phosphatase 84 U/L (38-126); Anion Gap 12.5 mEq/L (5-15); Aspartate Amino Transferase 54 U/L (14-36); Bilirubin,Total 0.7 mg/dl (0.2-1.3); Blood Urea Nitrogen 14 mg/dl (7-17); Carbon Dioxide 27 mmol/L (22.0-30.0); Chloride 103 mmol/L (98-107); Estimated Glomerular Filt Rate 100 ml/min (>60); GFR (African American) 121 ML/MIN (>60); Globulin 2.8 g/dL (1.3-3.2); Glucose 205 mg/dl (74-100); Potassium 4.5 mmoL/L (3.5-5.1); Sodium 138 mmol/L (136-145); Total Protein,Serum 7.1 g/dl (6.3-8.2)
[2021-12-27 11:50] LABS: Iron 130 ug/dL (37-170)
[2021-12-27 12:00] LABS: Total Iron Binding Capacity 388 ug/dL (265-497)
[2021-12-27 15:03] LABS: Ferritin 55.1 ng/ml (11.1-264)
[2021-12-28 08:19] LABS: AFP, Tumor Marker 4.5 ng/mL (0.0-9.2)
== END ==
PROVIDERS: PCP Nurse Practitioner Family; Visit Provider Nurse Practitioner Family
DX: K58.9 Irritable bowel syndrome, unspecified (principal); K75.81 Nonalcoholic steatohepatitis (NASH)
CPT/HCPCS: 36415; 76705; 80053; 82105; 82140; 82728; 83540; 83550; 85025; 85610

== ENCOUNTER → 2022-01-06 13:37 | Outpatient (CLI) | payer MEDICARE, OTHER, SELFPAY ==
--- NOTE | 2022-01-06 13:41 | XR_ITS ---
FINAL REPORT CLINICAL HISTORY: BREAST CA, left hip pain FINDINGS: Left hip with pelvis. There is no acute fracture or dislocation. There has been right hip arthroplasty. There are mild degenerative changes of the left hip and lower lumbar spine. There are no soft tissue abnormalities. IMPRESSION: Postoperative and degenerative changes. Reviewed, Interpreted and Dictated by Aman Hannah III, MD Transcribed by Simón Allen Authenticated by Aman Hannah III, MD on 01/06/2022 02:07:46 PM [facility]
== END ==
PROVIDERS: Visit Provider Internal Medicine Medical Oncology
DX: C50.912 Malignant neoplasm of unspecified site of left female breast (principal); M25.552 Pain in left hip
CPT/HCPCS: 73502

== ENCOUNTER → 2022-02-18 12:29 | Outpatient (CLI) | payer MEDICARE, OTHER, SELFPAY ==
--- NOTE | 2022-02-18 12:29 | MM_ITS ---
PROCEDURE INFORMATION: Exam: MG Right Screening 3D Mammography Exam date and time: 02/18/2022 12:56 PM Age: 66 years old Clinical indication: Screening examination TECHNIQUE: Imaging protocol: Right Screening tomosynthesis and 2D mammography including computer-aided detection (CAD) when performed. Limited assessment due to prior surgical procedures COMPARISON: 1. MG MM DIG SC MAMM UNILAT RT CAD 02/16/2021 1:55 PM 2. MG MM DIG SC MAMM UNILAT RT CAD 02/12/2020 3:59 PM 3. MG Screening-Bilateral Mammography 06/15/2018 3:42 PM FINDINGS: MAMMOGRAPHY: Breast composition: The breast is heterogeneously dense, which may obscure small masses. Mass: None. Architectural distortion: No new or suspicious architectural distortion. Calcifications: Stable benign-appearing calcifications are present. No new or suspicious cluster of microcalcifications have developed. Asymmetric density: No new or suspicious asymmetric density is present Skin thickening: None. Axillary adenopathy: None. Stable postoperative findings are present. IMPRESSION: No mammographic evidence of malignancy. Annual screening is recommended unless otherwise clinically indicated. ASSESSMENT: BI-RADS category 2: Benign
== END ==
PROVIDERS: PCP Nurse Practitioner Family; Visit Provider Surgery
DX: Z12.31 Encounter for screening mammogram for malignant neoplasm of breast (principal); Z85.3 Personal history of malignant neoplasm of breast
CPT/HCPCS: 77063; 77067

== ENCOUNTER → 2022-02-28 12:43 | Outpatient (POV) | payer MEDICARE, OTHER, SELFPAY ==
[2022-02-28 13:21] VITALS: BP 157/78; PULSE 75; RESP 18; TEMP 36.7; O2SAT 96; BMI 26.6
--- NOTE | 2022-02-28 13:42 | HMH.PMCON ---
Assessment and Plan (1) Degenerative joint disease (DJD) of lumbar spine Status: Acute Category: Medical Code(s): M47.816 - Spondylosis without myelopathy or radiculopathy, lumbar region (2) Lumbar radiculopathy Status: Acute Category: Medical Code(s): M54.16 - Radiculopathy, lumbar region (3) Facet arthropathy Status: Acute Category: Medical Code(s): M47.819 - Spondylosis without myelopathy or radiculopathy, site unspecified (4) Lumbar spondylosis Status: Acute Category: Medical Code(s): M47.816 - Spondylosis without myelopathy or radiculopathy, lumbar region (5) Spinal stenosis Status: Acute Category: Medical Code(s): M48.00 - Spinal stenosis, site unspecified (6) Greater trochanteric bursitis of both hips Status: Acute Category: Medical Code(s): M70.61 - Trochanteric bursitis, right hip; M70.62 - Trochanteric bursitis, left hip - Assessment and plan all Dx Assessment and Plan for all problems:: Imaging: L1-L2: There is mild articular facet disease. There is no significant canal or foraminal stenosis. L2-L3: There is a disc osteophyte complex formation with mild articular facet disease. There is mild foraminal narrowing and canal narrowing. This level is mildly progressed. There is a small disc extrusion component extending inferiorly along the superior endplate of L3-4 approximately 7 mm. L3-L4: There is a small disc bulge with a small posterior central disc protrusion. There is advanced articular facet disease and ligamentum flavum hypertrophy. There is moderate canal stenosis and left foraminal stenosis. There is mild right foraminal stenosis. L4-L5: There is advanced articular facet disease with moderate ligamentum flavum hypertrophy. There is a small disc bulge. There is moderate to severe central canal stenosis and foraminal stenosis. Findings are progressed. There is a small extruded component of the disc herniation extending superiorly along the inferior endplate of L4 for approximately 0.5 cm. L5-S1: There is a concentric disc bulge with a small posterior central disc protrusion and advanced articular facet disease and ligamentum flavum hypertrophy. There is mild to moderate canal narrowing and foraminal narrowing. Impression: Degenerative changes of the lumbar spine as detailed level by level above. There are several disc herniations/disc osteophyte complex formations that have progressed in the interval with increasing canal and foraminal stenosis. There are acute on chronic degenerative endplate changes with acute bone edema most pronounced at the L4-L5 level. Plan: Patient presents today with worsening LBP that radiates to bilateral hips. On exam, pt is TTP on bilateral lumbar facets and has positive Hopkins's test. Pain is worse with lumbar flexion, extension and especially rotation. We will schedule the pt for diagnostic MBB/Facet injections bilaterally at L3-L4 and L4-L5. Risks and benefits of the procedure have been explained to the patient. Patient would like to proceed with the procedure. Patient is not on any blood thinners. On exam, patient is also tender to palpation on bilateral greater trochanteric bursa. If patient continues to have significant hip pain, we will consider scheduling this patient for this injection. I will start the patient on Meloxicam 7.5mg QD. Patient has been instructed to contact the clinic with any concerns before the next appointment. Dr. Means has reviewed this note and agrees with this plan of care. This note was dictated using voice recognition software and make contain errors or omissions. HPI - Data of Consult Patient: new to practice Consult date: 02/28/22 Requesting Physician: JOSE Gross - Consult Narrative Reason for consult: LBP History of present illness: Ms. Dang is a 66 year old female who presents today as a new pt. Pt is referred by Matthew Jaramillo PA-C. Patient presents today with worsening LBP that radiates to bila
== END ==
PROVIDERS: Visit Provider Student in an Organized Health Care Education/Training Program
DX: M48.061 Spinal stenosis, lumbar region without neurogenic claudication; M70.61 Trochanteric bursitis, right hip; M70.62 Trochanteric bursitis, left hip; M51.16 Intervertebral disc disorders with radiculopathy, lumbar region; M47.26 Other spondylosis with radiculopathy, lumbar region
CPT/HCPCS: 99202; G0463

== ENCOUNTER 2022-03-11 09:01 | Day surgery (SDC) | payer MEDICARE, OTHER, SELFPAY ==
[2022-03-11 09:13] VITALS: BP 169/97; PULSE 72; RESP 20; TEMP 36.6; BMI 26.6
[2022-03-11 09:35] VITALS: BP 147/63; PULSE 72; RESP 20; O2SAT 96
[2022-03-11 09:51] VITALS: BP 132/67; PULSE 68; RESP 18; O2SAT 96
--- NOTE | 2022-03-11 09:58 | HMH.PMPROC ---
- Procedure Date: 03/11/22 Time: 09:58 Anesthesiologist:: Mir Means MD Complications:: None Pre-procedure Diagnosis:: Degenerative disc disease of lumbar spine with lumbar spondylosis and lumbar facet arthropathy Post-procedure Diagnosis:: Same Indications for Procedure:: This patient is a pleasant 66-year-old white female who we are treating for low back pain with lumbar spondylosis and lumbar facet arthropathy. She has increasing pain in her low back. She does have herniated disc with extrusion at L4-L5 however most of her pain seems to be in the low back it is facet mediated. She has increased pain with extension and twisting. She is tender over the facet joints of L3-L4 and L4-L5 bilaterally. We will plan on bilateral lumbar medial branch block/facet joint injections of L3-4 and L4-5 today. Procedure Details:: Lumbar medial branch block Informed consent was obtained and the risks and benefits of the procedure was explained to the patient. The back was prepped using ChloraPrep. The skin and subcutaneous tissues were anesthetized using lidocaine. I placed 22-gauge spinal needles into the facet joint/medial branches of L3-L4 and L4-L5 bilaterally. Needle placement was confirmed with dye. After this we injected 3 mL bupivacaine 0.25% and Depo-Medrol 20 mg into each facet joint/medial branch of L3-L4 and L4-L5 bilaterally. We used a total of 80 mg Depo-Medrol for both levels bilaterally. The patient tolerated the procedure well with no complications. Plan and Disposition:: We will follow-up with this patient in 2 weeks. Will reevaluate her symptoms at that time. We will seek approval for RF ablation to the same levels in the future if successful.
== END 2022-03-11 09:52 | disposition home or self-care (01) ==
LOC: SC.PAINP 09:02
PROVIDERS: PCP Nurse Practitioner Family; Visit Provider Anesthesiology
DX: M51.36 Other intervertebral disc degeneration, lumbar region (principal); M54.06 Panniculitis affecting regions of neck and back, lumbar region; M47.816 Spondylosis without myelopathy or radiculopathy, lumbar region
CPT/HCPCS: 64493; 64494; J1040; Q9966

== ENCOUNTER → 2022-03-28 09:36 | Outpatient (POV) | payer MEDICARE, OTHER, SELFPAY ==
[2022-03-28 09:52] VITALS: BP 154/73; PULSE 74; RESP 20; TEMP 36.4; O2SAT 94; BMI 27.9
--- NOTE | 2022-03-28 10:07 | HMH.PAINSOAP ---
[facility] Pain Management SOAP Note Subjective:: Patient is a pleasant 66-year-old female who presents today for follow-up after a diagnostic medial branch block/facet injections bilaterally at L3-L4 and L4-L5 in March 11, 2022. Patient is currently being treated for degenerative disc disease of lumbar spine with lumbar radiculopathy symptoms, lumbar facet arthropathy, lumbar spondylosis, spinal stenosis, and greater trochanteric bursitis and bilateral hips. After her injection, patient had significant relief of 100% and rates her pain today as 1 out of 10. She has been able to increase her activity since the injection. She takes OTC medications for pain as needed. She is doing well overall. Patient also states that she has been doing physical therapy that is helping a lot of her hip and low back pain. She continues to do this. I did try her on meloxicam 7.5 mg daily. She states that she has stopped taking this medications because she is not having any pain. She is not on any scheduled medications. [facility] [phone]. Review of Systems: General: No recent weight changes, no fever, no sleep disturbances Respiratory: No cough, no shortness of air, no recurring pulmonary infections Cardiovascular/peripheral vascular: No chest pain, no palpitations, no edema, no shortness of breath Gastrointestinal: No new onset incontinence, normal bowel movements reported Genitourinary: No new onset incontinence Musculoskeletal: Improving low back pain Psychiatric: [Normal mood/affect] Neurological: [Denies weakness in extremities], [denies balance issues] Objective:: Physical Exam: General: Alert and oriented x3, no acute distress, pleasant and cooperative Lungs: Respirations even and unlabored, symmetrical chest expansion Eyes: PERRL Musculoskeletal: Flexion and extension of lumbar [spine] somewhat guarded secondary to pain, [antalgic gait noted] Neurological: Speech clear, no gross sensory deficit Assessment:: Degenerative disc disease of lumbar spine with lumbar radiculopathy symptoms, lumbar facet arthropathy, lumbar spondylosis, spinal stenosis, greater trochanteric bursitis of bilateral hips Plan:: Patient continues to have significant relief after the diagnostic medial branch block/facet injections at L3-L4 and L4-L5 bilaterally. We will follow-up with this patient in 2 months to reevaluate chronic pain syndrome and to see if she needs repeat injections. Patient has been instructed to contact the clinic with any concerns before the next appointment. Dr. Means has reviewed this note and agrees with this plan of care. This note was dictated using voice recognition software and make contain errors or omissions. [facility] History Medical History: Reports:: Anxiety, Cancer, Depression, Diabetes Mellitus Type 2, Gastroesophageal Reflux Disease(GERD), Hyperlipidemia, Hypertension, Palpitations, Urinary Tract Infection Denies:: Diabetes Mellitus Type 1, Internal Pacemaker, MRSA, Seizures *Have you ever received a pneumonia vaccine?: Yes *Have you received a flu vaccine this season?: Yes Other Medical History: Reports: Arthritis, Radiation Therapy, Sinus Problems. Denies: Blood Transfusion Reaction Laterality Cases: Left: Mastectomy, Right: Arthroscopy Hip, Breast Biopsy, Total Hip Replacement, Bilateral: Lumpectomy Other Surgeries: Yes: No Previous Surgery, Cancer Surgery, Colonoscopy, Hysterectomy-Total, Other. No: Pacemaker Amputation: No Fractures: No - *Social History Smoking Status: Never smoker Tobacco Type: cigarettes #Yrs smoked (if former smoker): 20 Alcohol Intake: never Alcohol Intake Frequency:: other Substance Use Type: denies use *Occupational Status:: other Housing: house Household Members: none *Travel in the last 8 weeks: None - Psychiatric History Pschychiatric History:: Reports:: Anxiety, Depression Family Hx:: No significant family history
== END ==
PROVIDERS: Visit Provider Student in an Organized Health Care Education/Training Program
DX: M51.16 Intervertebral disc disorders with radiculopathy, lumbar region (principal); M54.06 Panniculitis affecting regions of neck and back, lumbar region; M47.26 Other spondylosis with radiculopathy, lumbar region; M70.61 Trochanteric bursitis, right hip; M70.62 Trochanteric bursitis, left hip
CPT/HCPCS: 99212; G0463

== ENCOUNTER → 2022-05-26 12:54 | Outpatient (POV) | payer MEDICARE, OTHER, SELFPAY ==
[2022-05-26 13:14] VITALS: BP 136/82; PULSE 71; RESP 20; BMI 27.8
--- NOTE | 2022-05-26 13:58 | A.OFFVIS_ITS ---
[facility] Pain Management SOAP Note Subjective:: Patient is a pleasant 66-year-old female who presents today for follow-up. We are currently treating the patient for degenerative disc disease of lumbar spine with lumbar radiculopathy symptoms, lumbar facet arthropathy, lumbar spondylosis, spinal stenosis, greater trochanteric bursitis and bilateral hip pain. Today the patient rates her pain a 5 out of 10 she states it is primarily in her low back and radiates into her bilateral extremities. We have done injective therapy in the past for this patient that provided significant relief of 100%. Her last medial branch block at L3-L4 and L4-L5 was on March 11, 2022. Patient is interested in repeating these injections. Currently she does take [id number] medications as needed. She has been doing physical therapy that has significantly improved her pain symptoms along her hip and low back. Patient is not currently on any scheduled medications. Her Jasbir is [phone]. It has been reviewed and appropriate. Review of Systems: General: No recent weight changes, no fever, no sleep disturbances Respiratory: No cough, no shortness of air, no recurring pulmonary infections Cardiovascular/peripheral vascular: No chest pain, no palpitations, no edema, no shortness of breath Gastrointestinal: No new onset incontinence, normal bowel movements reported Genitourinary: No new onset incontinence Musculoskeletal: Low back pain, bilateral leg pain Psychiatric: [Normal mood/affect] Neurological: [Denies weakness in extremities], [denies balance issues] Objective:: Physical Exam: General: Alert and oriented x3, no acute distress, pleasant and cooperative Lungs: Respirations even and unlabored, symmetrical chest expansion Eyes: PERRL Musculoskeletal: Flexion and extension of lumbar [spine] somewhat guarded secondary to pain, [antalgic gait noted] Neurological: Speech clear, no gross sensory deficit Assessment:: Degenerative disc disease of lumbar spine with lumbar radiculopathy symptoms, lumbar facet arthropathy, lumbar spondylosis, spinal stenosis, greater trochanteric bursitis, bilateral hip pain Plan:: Patient continues to have significant pain along her low back that radiates into her bilateral extremities. I have discussed with the patient about scheduling a second medial branch block with the plan to progress to a lumbar ablation if she continues to have significant improvement of her symptoms following these injections. Risk and benefits have been discussed with the patient. She would like to proceed forward with these injections. We will schedule her for a medial branch block bilaterally at L3-L4 and L4-L5 at today's visit. Patient has been instructed to contact the clinic with any concerns before the next appointment. Dr. Means has reviewed this note and agrees with this plan of care. This note was dictated using voice recognition software and make contain errors or omissions. PFSH PFS Social History Smoking Status: Never smoker second hand exposure: Yes alcohol intake: never substance use type: denies use current occupational status: other Travel in the last 8 weeks: None household members: none housing: house current occupation: house current occupational exposures/hazards: No caffeine: Yes
== END ==
PROVIDERS: PCP Nurse Practitioner Family; Visit Provider Nurse Practitioner Family
DX: M51.16 Intervertebral disc disorders with radiculopathy, lumbar region (principal); M47.26 Other spondylosis with radiculopathy, lumbar region; M48.061 Spinal stenosis, lumbar region without neurogenic claudication; M70.61 Trochanteric bursitis, right hip; M70.62 Trochanteric bursitis, left hip
CPT/HCPCS: 99212; G0463

== ENCOUNTER 2022-05-31 11:16 | Day surgery (SDC) | payer MEDICARE, OTHER, SELFPAY ==
[2022-05-31 11:29] VITALS: BP 136/60; PULSE 68; RESP 20; O2SAT 96; BMI 27.8
[2022-05-31 11:46] VITALS: BP 153/63; PULSE 74; RESP 18; O2SAT 92
[2022-05-31 11:47] VITALS: BP 153/63; PULSE 75; RESP 18; O2SAT 92
[2022-05-31 11:59] VITALS: BP 145/50; PULSE 65; RESP 20; O2SAT 96
--- NOTE | 2022-05-31 12:05 | P.PCN_ITS ---
Procedure Date: 05/31/22 Time: 12:05 Anesthesiologist:: Demian Miranda CRNA Complications:: None Pre-procedure Diagnosis:: Degenerative disc disease lumbar spine multilevels. Lumbar radiculopathy symptoms. Lumbar spondylosis. Multilevel lumbar facet arthropathy. Post-procedure Diagnosis:: Same. Indications for Procedure:: Patient is a pleasant 66-year-old female that comes to our clinic today for a repeat L4-5, L5-S1 facet block/medial branch block. Patient describes low back pain as constant, dull, aching. She rates her pain 7/10. Patient also complains of some radicular symptoms into the hips bilaterally. Procedure Details:: Informed consent was obtained and the risk and benefits of the procedure was explained to the patient. Patient was taken to the procedure room where noninvasive monitors were placed, including noninvasive blood pressure cuff as well as pulse oximeter. The area over the lumbar spine was cleansed using chlorhexidine as a cleansing solution. I anesthetized the skin and subcutaneous tissues with 1% Lidocaine. I placed 22-gauge spinal needles into the facet joint/ medial branches of L4-L5, and L5-S1 bilaterally. Needle placement was confirmed with fluoroscopy. After confirmation of needle placement, each site was injected with 1 mL of 1% lidocaine and 0.25 % Marcaine and 10 mg of Depo- Medrol. A total of 80 mg of depo medrol was used for bilateral medial branch blocks of L4-L5, and L5-S1 bilaterally. Patient tolerated the procedure without difficulty. There were no complications. Plan and Disposition:: Patient was discharged without incident. Patient was reevaluated 10 minutes post procedure. She reports 90+ percent improvement terms of her lumbar back pain in flexion, extension, left and right rotation.
== END 2022-05-31 12:01 | disposition home or self-care (01) ==
LOC: SC.PAINP 11:16
PROVIDERS: PCP Nurse Practitioner Family; Visit Provider Nurse Anesthetist, Certified Registered
DX: M51.16 Intervertebral disc disorders with radiculopathy, lumbar region (principal); M48.061 Spinal stenosis, lumbar region without neurogenic claudication; M47.896 Other spondylosis, lumbar region; M70.61 Trochanteric bursitis, right hip; M70.62 Trochanteric bursitis, left hip
CPT/HCPCS: 64493; 64494; J1040

== ENCOUNTER → 2022-06-02 09:15 | Outpatient (CLI) | payer MEDICARE, OTHER, SELFPAY ==
--- NOTE | 2022-06-02 09:30 | US_ITS ---
FINAL REPORT CLINICAL HISTORY: CIRRHOSIS,IBS,MEMORY CHANGE, FINDINGS: Sonographic images of the right upper quadrant were obtained. The pancreas is partially obscured. There is a coarse hepatic echotexture which can be seen with cirrhosis. The portal vein is within normal limits at 12 mm. There is a small amount of sludge in the gallbladder. There is no evidence of biliary ductal dilatation.The common duct measures 2 mm. Limited images of the right kidney are unremarkable. IMPRESSION: Coarse hepatic echotexture which can be seen with cirrhosis. Sludge in the gallbladder. Reviewed, Interpreted and Dictated by Aman Hannah III, MD Transcribed by Edith Pollock Authenticated and [facility]
[2022-06-02 09:38] LABS: Basophils # 0.1 K/mm3 (0-0.2); Basophils % 1.2 % (0.1-2.0); Eosinophils # 0.1 K/mm3 (0.0-0.4); Eosinophils % 1.3 % (0.1-12.0); Hematocrit 35.9 % (37.0-47.0); Hemoglobin 12.4 g/dL (12.2-16.2); Lymphocytes # 1.7 K/mm3 (0.7-4.5); Lymphocytes % 33.5 % (10-50); Mean Corpuscular HGB Conc 34.6 g/dL (31.8-35.4); Mean Corpuscular Hemoglobin 34.9 pg (27.0-31.2); Mean Corpuscular Volume 100.9 fl (81-99); Mean Platelet Volume 8.6 fl (7.4-10.4); Monocytes # 0.3 K/mm3 (0.1-1.0); Neutrophils # 3.1 K/mm3 (1.8-7.8); Platelet Count 86 K/mm3 (142-424); Red Blood Count 3.56 M/mm3 (4.20-5.40); Red Cell Distribution Width 14.9 % (11.5-17.5); White Blood Count 5.2 K/mm3 (4.8-10.8)
[2022-06-02 09:45] LABS: Ammonia 30 umol/L (9-30)
[2022-06-02 09:47] LABS: INR 1.08 (0.9-1.1); Prothrombin Time 11.6 seconds (10.1-12.5)
[2022-06-02 10:27] LABS: Alanine Aminotransferase 29 U/L (12-78); Albumin Level 3.9 g/dl (3.5-5.0); Albumin/Globulin Ratio 1.4 (1.1-1.8); Alkaline Phosphatase 73 U/L (38-126); Anion Gap 14.3 mEq/L (5-15); Aspartate Amino Transferase 33 U/L (14-36); Bilirubin,Total 0.2 mg/dl (0.2-1.3); Blood Urea Nitrogen 14 mg/dl (7-17); Calcium 9.1 mg/dl (8.4-10.2); Carbon Dioxide 29 mmol/L (22.0-30.0); Chloride 101 mmol/L (98-107); Estimated Glomerular Filt Rate 100 ml/min (>60); GFR (African American) 121 ML/MIN (>60); Globulin 2.8 g/dL (1.3-3.2); Glucose 160 mg/dl (74-100); Potassium 4.3 mmoL/L (3.5-5.1); Sodium 140 mmol/L (136-145); Total Protein,Serum 6.7 g/dl (6.3-8.2)
[2022-06-02 10:32] LABS: Iron 108 ug/dL (37-170)
[2022-06-02 10:41] LABS: Total Iron Binding Capacity 347 ug/dL (265-497)
[2022-06-02 11:08] LABS: Ferritin 42.9 ng/ml (11.1-264)
[2022-06-03 09:15] LABS: AFP, Tumor Marker 5.5 ng/mL (0.0-9.2)
== END ==
PROVIDERS: PCP Nurse Practitioner Family; Visit Provider Nurse Practitioner Family
DX: K75.81 Nonalcoholic steatohepatitis (NASH) (principal); K74.69 Other cirrhosis of liver; K58.9 Irritable bowel syndrome, unspecified; R41.3 Other amnesia
CPT/HCPCS: 36415; 76705; 80053; 82105; 82140; 82728; 83540; 83550; 85025; 85610

== ENCOUNTER → 2022-06-23 13:29 | Outpatient (POV) | payer MEDICARE, OTHER, SELFPAY ==
[2022-06-23 13:41] VITALS: BP 145/82; PULSE 74; RESP 18; TEMP 37.1; O2SAT 99; BMI 25.0
--- NOTE | 2022-06-23 13:42 | A.OFFVIS_ITS ---
[facility] Pain Management SOAP Note Subjective:: Patient is a pleasant 66-year-old female who presents today for follow-up of medial branch block at L4-L5 and L5-S1 on 05/31/2022. We are currently treating the patient for degenerative disc disease lumbar spine multilevels with lumbar radiculopathy symptoms, lumbar spondylosis, multilevel lumbar facet arthropathy. Patient states that this injection has provided at least 90% improvement and feels like she is still getting relief from it. Today she rates her pain a 0 out of 10. She states she has been able to increase her activity on a daily basis. Patient states she has been able to walk around and not required to stop and take frequent breaks as she was prior to. Patient states that she has a better outlook on life following this injection. Patient is not on any scheduled medications. Her Jasbir is [id number]. It has been reviewed and appropriate. Review of Systems: General: No recent weight changes, no fever, no sleep disturbances Respiratory: No cough, no shortness of air, no recurring pulmonary infections Cardiovascular/peripheral vascular: No chest pain, no palpitations, no edema, no shortness of breath Gastrointestinal: No new onset incontinence, normal bowel movements reported Genitourinary: No new onset incontinence Musculoskeletal: Low back pain Psychiatric: [Normal mood/affect] Neurological: [Denies weakness in extremities], [denies balance issues] Objective:: Physical Exam: General: Alert and oriented x3, no acute distress, pleasant and cooperative Lungs: Respirations even and unlabored, symmetrical chest expansion Eyes: PERRL Musculoskeletal: Flexion and extension of lumbar [spine] somewhat guarded secondary to pain, [antalgic gait noted] Neurological: Speech clear, no gross sensory deficit Assessment:: Degenerative disc disease of lumbar spine multilevels with lumbar radiculopathy symptoms, lumbar spondylosis, multilevel lumbar facet arthropathy Plan:: Patient continues to have significant improvement of her back pain symptoms following her second medial branch block. At this time the patient does not require any additional injective therapy. We will schedule her for a 3-month follow-up. In 3 months the patient will return to clinic for reevaluation of symptoms and follow-up. Patient has been instructed to contact the clinic with any concerns before the next appointment. Dr. Means has reviewed this note and agrees with this plan of care. This note was dictated using voice recognition software and make contain errors or omissions. [facility] Medical History Depression Diabetes HLD (hyperlipidemia) HTN (hypertension) Family History (Updated 05/31/22 @ 11:39 by Ml Rivas RN) Other No significant family history Social History (Updated 05/31/22 @ 11:40 by Ml Rivas RN) Smoking Status: Never smoker second hand exposure: Yes alcohol intake: never substance use type: denies use current occupational status: retired Travel in the last 8 weeks: None household members: none housing: house current occupation: house current occupational exposures/hazards: No caffeine: Yes
== END ==
PROVIDERS: Visit Provider Nurse Practitioner Family
DX: M51.16 Intervertebral disc disorders with radiculopathy, lumbar region (principal); M47.26 Other spondylosis with radiculopathy, lumbar region
CPT/HCPCS: 99212; G0463

== ENCOUNTER → 2022-07-07 11:27 | Outpatient (CLI) | payer MEDICARE, OTHER, SELFPAY ==
[2022-07-07 12:27] LABS: Basophils % 1.3 % (0.1-2.0); Eosinophils # 0.1 K/mm3 (0.0-0.4); Hematocrit 35.2 % (37.0-47.0); Hemoglobin 11.8 g/dL (12.2-16.2); Lymphocytes # 1.1 K/mm3 (0.7-4.5); Lymphocytes % 35.7 % (10-50); Mean Corpuscular HGB Conc 33.6 g/dL (31.8-35.4); Mean Corpuscular Hemoglobin 33.6 pg (27.0-31.2); Mean Platelet Volume 8.6 fl (7.4-10.4); Monocytes # 0.2 K/mm3 (0.1-1.0); Monocytes % 6.1 % (1.7-9.3); Neutrophils # 1.7 K/mm3 (1.8-7.8); Neutrophils % 53.9 % (37.0-80.0); Platelet Count 76 K/mm3 (142-424); Red Blood Count 3.52 M/mm3 (4.20-5.40); Red Cell Distribution Width 14.3 % (11.5-17.5); White Blood Count 3.1 K/mm3 (4.8-10.8)
[2022-07-07 13:35] LABS: Chloride 99 mmol/L (98-107)
[2022-07-07 13:37] LABS: Albumin Level 3.8 g/dl (3.5-5.0); Sodium 139 mmol/L (136-145)
[2022-07-07 13:38] LABS: Alanine Aminotransferase 30 U/L (12-78); Aspartate Amino Transferase 41 U/L (14-36); Blood Urea Nitrogen 12 mg/dl (7-17); Estimated Glomerular Filt Rate 123 ml/min (>60); GFR (African American) 149 ML/MIN (>60)
[2022-07-07 13:39] LABS: Albumin/Globulin Ratio 1.5 (1.1-1.8); Carbon Dioxide 29 mmol/L (22.0-30.0); Globulin 2.6 g/dL (1.3-3.2); Total Protein,Serum 6.4 g/dl (6.3-8.2)
[2022-07-07 13:40] LABS: Alkaline Phosphatase 67 U/L (38-126); Bilirubin,Total 0.4 mg/dl (0.2-1.3); Glucose 318 mg/dl (74-100)
== END ==
PROVIDERS: PCP Nurse Practitioner Family; Visit Provider Internal Medicine Medical Oncology
DX: C80.1 Malignant (primary) neoplasm, unspecified (principal)
CPT/HCPCS: 36415; 80053; 85025

== ENCOUNTER → 2022-09-03 11:58 | Outpatient (CLI) | payer MEDICARE, OTHER, SELFPAY | PROVIDERS: PCP Nurse Practitioner Family; Visit Provider Nurse Practitioner Family | DX: R30.0 Dysuria (principal); B96.4 Proteus (mirabilis) (morganii) as the cause of diseases classified elsewhere | CPT/HCPCS: 87086; 87088; 87186 ==

== ENCOUNTER → 2022-09-29 13:06 | Outpatient (POV) | payer MEDICARE, OTHER, SELFPAY ==
[2022-09-29 13:20] VITALS: BP 139/47; PULSE 60; RESP 20; BMI 28.3
--- NOTE | 2022-09-29 13:25 | A.OFFVIS_ITS ---
[facility] Pain Management SOAP Note Subjective:: Patient is a pleasant 66-year-old female who presents today for follow-up. We are currently treating the patient for degenerative disc disease of lumbar spine with lumbar radiculopathy symptoms, lumbar spondylosis, multilevel lumbar facet arthropathy. Today she rates her pain a 0 out of 10. Patient states she continues to have significant improvement from her last lumbar medial branch block of L4-L5 and L5-S1 on 05/31/2022. Patient states that she has been able to increase her activity and range of motion with decreased pain symptoms. Patient states she continues to be able to walk for longer periods of time without having to take breaks. Patient is not on any scheduled medications. Her Jasbir is [id number]. Its been reviewed and appropriate. Review of Systems: General: No recent weight changes, no fever, no sleep disturbances Respiratory: No cough, no shortness of air, no recurring pulmonary infections Cardiovascular/peripheral vascular: No chest pain, no palpitations, no edema, no shortness of breath Gastrointestinal: No new onset incontinence, normal bowel movements reported Genitourinary: No new onset incontinence Musculoskeletal: Low back pain Psychiatric: [Normal mood/affect] Neurological: [Denies weakness in extremities], [denies balance issues] Objective:: Physical Exam: General: Alert and oriented x3, no acute distress, pleasant and cooperative Lungs: Respirations even and unlabored, symmetrical chest expansion Eyes: PERRL Musculoskeletal: Flexion and extension of lumbar [spine] somewhat guarded secondary to pain, [antalgic gait noted] Neurological: Speech clear, no gross sensory deficit ORT score updated with minimal risk Assessment:: Degenerative disc disease of lumbar spine with lumbar radiculopathy symptoms, lumbar spondylosis, multilevel lumbar facet arthropathy Plan:: Patient continues to have significant pain relief following her last medial branch block of her lumbar spine and does not require any additional interventions at this time. Patient will return to clinic in 6 months for reevaluation of symptoms and follow-up. Patient has been instructed to contact the clinic with any concerns before the next appointment. Dr. Means has reviewed this note and agrees with this plan of care. This note was dictated using voice recognition software and make contain errors or omissions. [facility] Disclaimer: The information contained in this section may have been updated after the patient was seen, as this information can be updated by other users. Medical History Breast cancer, left Depression Diabetes GERD (gastroesophageal reflux disease) HLD (hyperlipidemia) HTN (hypertension) Surgical History (Updated 09/07/22 @ 13:11 by MICHELLE José) H/O: hysterectomy History of left mastectomy History of total right hip arthroplasty Family History Other No significant family history Social History Smoking Status: Never smoker second hand exposure: Yes alcohol intake: never substance use type: denies use current occupational status: retired Travel in the last 8 weeks: None household members: none housing: house current occupation: house current occupational exposures/hazards: No caffeine: Yes
== END ==
PROVIDERS: PCP Nurse Practitioner Family; Visit Provider Nurse Practitioner Family
DX: M51.16 Intervertebral disc disorders with radiculopathy, lumbar region (principal); M47.26 Other spondylosis with radiculopathy, lumbar region
CPT/HCPCS: 99212; G0463

== ENCOUNTER → 2022-10-25 12:03 | Outpatient (CLI) | payer MEDICARE, OTHER, SELFPAY ==
--- NOTE | 2022-10-25 12:16 | XR_ITS ---
FINAL REPORT CLINICAL HISTORY: hand pain FINDINGS: 3 views of the left hand were obtained. There is no acute fracture or dislocation. The joint spaces are intact. There is soft tissue swelling over the dorsum of the hand. IMPRESSION: Swelling with no acute bony abnormality. Reviewed, Interpreted and Dictated by Alberto Buck MD Transcribed by Simón Allen Authenticated and [facility]
== END ==
PROVIDERS: PCP Nurse Practitioner Family; Visit Provider Orthopaedic Surgery
DX: M79.642 Pain in left hand (principal)
CPT/HCPCS: 73130

== ENCOUNTER → 2022-12-27 10:35 | Outpatient (CLI) | payer MEDICARE, OTHER, SELFPAY ==
--- NOTE | 2022-12-27 10:56 | US_ITS ---
FINAL REPORT CLINICAL HISTORY: RUQ MUNOZ CIRRHOSIS IBS COMPARISON: 06/02/2022 FINDINGS: Sonographic images of the right upper quadrant were obtained. The pancreas is partially obscured. The liver has increased echogenicity consistent with fatty infiltration. It has coarsened echotexture which is consistent with cirrhosis. The gallbladder appears normal without evidence of gallstones.There is no evidence of biliary ductal dilatation.The common duct measures 4mm. Limited images of the right kidney are unremarkable. IMPRESSION: Fatty infiltrated liver with coarsened echotexture consistent with cirrhosis. Reviewed, Interpreted and Dictated by Aman Hannah III, MD Transcribed by Bing Oglesby Authenticated and . [facility]
[2022-12-27 11:02] LABS: Basophils % 0.9 % (0.1-2.0); Eosinophils # 0.2 K/mm3 (0.0-0.4); Eosinophils % 5.2 % (0.1-12.0); Hematocrit 39.4 % (37.0-47.0); Hemoglobin 13.1 g/dL (12.2-16.2); Lymphocytes # 1.4 K/mm3 (0.7-4.5); Lymphocytes % 36.7 % (10-50); Mean Corpuscular HGB Conc 33.2 g/dL (31.8-35.4); Mean Corpuscular Hemoglobin 32.4 pg (27.0-31.2); Mean Corpuscular Volume 97.7 fl (81-99); Mean Platelet Volume 8.3 fl (7.4-10.4); Monocytes # 0.3 K/mm3 (0.1-1.0); Monocytes % 6.9 % (1.7-9.3); Neutrophils % 50.2 % (37.0-80.0); Platelet Count 85 K/mm3 (142-424); Red Blood Count 4.03 M/mm3 (4.20-5.40); Red Cell Distribution Width 14.2 % (11.5-17.5); White Blood Count 3.9 K/mm3 (4.8-10.8)
[2022-12-27 11:12] LABS: Ammonia 32 umol/L (9-30)
[2022-12-27 11:53] LABS: INR 1.06 (0.9-1.1); Prothrombin Time 11.4 seconds (10.1-12.5)
[2022-12-27 12:06] LABS: Chloride 104 mmol/L (98-107); Potassium 4.5 mmoL/L (3.5-5.1); Sodium 140 mmol/L (136-145)
[2022-12-27 12:09] LABS: Alanine Aminotransferase 25 U/L (12-78); Albumin Level 4.3 g/dl (3.5-5.0); Albumin/Globulin Ratio 1.7 (1.1-1.8); Alkaline Phosphatase 78 U/L (38-126); Anion Gap 17.5 mEq/L (5-15); Aspartate Amino Transferase 37 U/L (14-36); Bilirubin,Total 0.6 mg/dl (0.2-1.3); Blood Urea Nitrogen 17 mg/dl (7-17); Calcium 9.4 mg/dl (8.4-10.2); Carbon Dioxide 23 mmol/L (22.0-30.0); Estimated Glomerular Filt Rate 99 ml/min (>60); GFR (African American) 120 ML/MIN (>60); Globulin 2.6 g/dL (1.3-3.2); Glucose 166 mg/dl (74-100); Iron 99 ug/dL (37-170); Total Protein,Serum 6.9 g/dl (6.3-8.2)
[2022-12-27 12:18] LABS: Total Iron Binding Capacity 395 ug/dL (265-497)
[2022-12-28 12:59] LABS: AFP, Tumor Marker 5.5 ng/mL (0.0-9.2)
== END ==
PROVIDERS: PCP Nurse Practitioner Family; Visit Provider Nurse Practitioner Family
DX: K75.81 Nonalcoholic steatohepatitis (NASH) (principal); K58.9 Irritable bowel syndrome, unspecified; R41.3 Other amnesia; R97.8 Other abnormal tumor markers
CPT/HCPCS: 36415; 76705; 80053; 82105; 82140; 82728; 83540; 83550; 85025; 85610

== ENCOUNTER → 2023-01-12 10:29 | Outpatient (CLI) | payer MEDICARE, OTHER, SELFPAY ==
[2023-01-12 11:06] LABS: Basophils % 0.5 % (0.1-2.0); Eosinophils # 0.1 K/mm3 (0.0-0.4); Eosinophils % 3.3 % (0.1-12.0); Hematocrit 37.6 % (37.0-47.0); Hemoglobin 12.6 g/dL (12.2-16.2); Lymphocytes # 1.5 K/mm3 (0.7-4.5); Lymphocytes % 36.8 % (10-50); Mean Corpuscular HGB Conc 33.4 g/dL (31.8-35.4); Mean Corpuscular Hemoglobin 33.1 pg (27.0-31.2); Mean Corpuscular Volume 99.1 fl (81-99); Mean Platelet Volume 8.2 fl (7.4-10.4); Monocytes # 0.4 K/mm3 (0.1-1.0); Monocytes % 8.6 % (1.7-9.3); Neutrophils # 2.1 K/mm3 (1.8-7.8); Neutrophils % 50.7 % (37.0-80.0); Platelet Count 72 K/mm3 (142-424); Red Cell Distribution Width 14.3 % (11.5-17.5); White Blood Count 4.1 K/mm3 (4.8-10.8)
[2023-01-12 11:27] LABS: Alanine Aminotransferase 24 U/L (12-78); Albumin/Globulin Ratio 1.5 (1.1-1.8); Alkaline Phosphatase 75 U/L (38-126); Anion Gap 13.4 mEq/L (5-15); Aspartate Amino Transferase 35 U/L (14-36); Bilirubin,Total 0.7 mg/dl (0.2-1.3); Blood Urea Nitrogen 12 mg/dl (7-17); Carbon Dioxide 25 mmol/L (22.0-30.0); Chloride 106 mmol/L (98-107); Estimated Glomerular Filt Rate 123 ml/min (>60); GFR (African American) 148 ML/MIN (>60); Globulin 2.6 g/dL (1.3-3.2); Glucose 170 mg/dl (74-100); Potassium 4.4 mmoL/L (3.5-5.1); Sodium 140 mmol/L (136-145); Total Protein,Serum 6.6 g/dl (6.3-8.2)
== END ==
PROVIDERS: PCP Nurse Practitioner Family; Visit Provider Internal Medicine Medical Oncology
DX: C50.919 Malignant neoplasm of unspecified site of unspecified female breast (principal)
CPT/HCPCS: 36415; 80053; 85025

== ENCOUNTER → 2023-01-12 13:16 | Outpatient (CLI) | payer MEDICARE, OTHER, SELFPAY ==
--- NOTE | 2023-01-12 13:23 | CT_ITS ---
FINAL REPORT CLINICAL HISTORY: DIZZINESS, BLURRY VISION, H/O BREAST CANCER FINDINGS: Axial images of the head were obtained without contrast. Coronal reformatted images were also obtained.This study was performed with techniques to keep radiation doses as low as reasonably achievable (ALARA). Individualized dose reduction techniques using automated exposure control or adjustment of mA and/or kV according to the patient''s size were employed. There is no evidence of intracranial hemorrhage or mass. The ventricular size is within normal limits. There is no evidence of shift of the midline structures. No abnormal extra axial fluid collection is identified. No skull abnormality is seen on the bone window images. IMPRESSION: No acute intracranial abnormality. Reviewed, Interpreted and Dictated by Aman Hannah III, MD Transcribed by Edith Pollock Authenticated and [facility]
== END ==
PROVIDERS: PCP Nurse Practitioner Family; Visit Provider Internal Medicine Medical Oncology
DX: C50.912 Malignant neoplasm of unspecified site of left female breast (principal); R42 Dizziness and giddiness; H53.8 Other visual disturbances
CPT/HCPCS: 36415; 70450; 80053; 85025

== ENCOUNTER → 2023-01-23 09:00 | Outpatient (CLI) | payer MEDICARE, OTHER, SELFPAY ==
--- NOTE | 2023-01-23 09:04 | XR_ITS ---
FINAL REPORT CLINICAL HISTORY: Postmenopausal COMPARISON: 12/04/2019 FINDINGS: Using L1-4, the bone mineral density of the spine 1.236 g/cm2, corresponding to T-score of 3.7, stable. Using the left hip, the bone mineral density of the femoral neck is 0.637 g/cm2, corresponding to a T-score of -1.8, worse. FRAX 10 year fracture risk is 17% for a hip fracture and 2.6% for a major osteoporotic fracture. IMPRESSION: Normal bone mineral density of the lumbar spine, stable. Osteopenia of the left hip, worse as compared to the prior exam. NOTE: T-score: Standard deviation compared with peak bone mass of young adult mean. *Following the recommendations of the International Society of Bone densitometry, classification of hip BMD is based on the lower of two T-scores; total hip or femoral neck. Reviewed, Interpreted and Dictated by Byron Lam MD Transcribed by Edith Pollock Authenticated and [facility]
== END ==
PROVIDERS: PCP Nurse Practitioner Family; Visit Provider Internal Medicine Medical Oncology
DX: Z78.0 Asymptomatic menopausal state (principal); C50.912 Malignant neoplasm of unspecified site of left female breast
CPT/HCPCS: 77080

== ENCOUNTER → 2023-02-20 12:21 | Outpatient (CLI) | payer MEDICARE, OTHER, SELFPAY ==
--- NOTE | 2023-02-20 12:21 | MM_ITS ---
PROCEDURE INFORMATION: Exam: MG Right Screening 3D Mammography Exam date and time: 02/20/2023 12:54 PM Age: 67 years old Clinical indication: Screening mammogram TECHNIQUE: Imaging protocol: Right Screening tomosynthesis and 2D mammography including computer-aided detection (CAD) when performed. COMPARISON: 1. MG MM DIG SC MAMM UNILAT RT CAD 02/18/2022 12:56 PM 2. MG MM DIG SC MAMM UNILAT RT CAD 02/16/2021 1:55 PM 3. MG MM DIG SC MAMM UNILAT RT CAD 02/12/2020 3:59 PM 4. MG Screening-Bilateral Mammography 06/15/2018 3:42 PM FINDINGS: MAMMOGRAPHY: Breast composition: The breast is heterogeneously dense, which may obscure small masses. Mass: None. Architectural distortion: No new or suspicious architectural distortion. Calcifications: Stable benign-appearing calcifications are present. No new or suspicious cluster of microcalcifications have developed. Asymmetric density: No new or suspicious asymmetric density is present Skin thickening: None. Axillary adenopathy: None. Other findings: Stable postoperative findings. IMPRESSION: No mammographic evidence of malignancy. Recommend annual screening mammography unless otherwise clinically indicated. ASSESSMENT: BI-RADS category 2: Benign
== END ==
PROVIDERS: PCP Nurse Practitioner Family; Visit Provider Surgery
DX: Z12.31 Encounter for screening mammogram for malignant neoplasm of breast (principal)
CPT/HCPCS: 77063; 77067

== ENCOUNTER → 2023-03-06 11:23 | Outpatient (CLI) | payer MEDICARE, OTHER, SELFPAY ==
[2023-03-06 12:06] LABS: Ammonia 35 umol/L (9-30)
== END ==
PROVIDERS: PCP Nurse Practitioner Family; Visit Provider Nurse Practitioner Family
DX: K74.69 Other cirrhosis of liver (principal); K75.81 Nonalcoholic steatohepatitis (NASH); K58.9 Irritable bowel syndrome, unspecified; K72.90 Hepatic failure, unspecified without coma
CPT/HCPCS: 36415; 82140

== ENCOUNTER → 2023-06-28 06:22 | Outpatient (CLI) | payer MEDICARE, OTHER, SELFPAY ==
--- NOTE | 2023-06-28 06:33 | US_ITS ---
FINAL REPORT CLINICAL HISTORY: HEPATIC ENCEPHALOPATHY COMPARISON: 12/27/2022 FINDINGS: Sonographic images of the right upper quadrant were obtained. The pancreas is partially obscured. There is a coarsened hepatic echotexture with mild irregularity of the border consistent with a history of cirrhosis. The portal vein is patent with normal directional flow. The hepatic veins are patent. The gallbladder appears normal without evidence of gallstones.There is no evidence of biliary ductal dilatation.The common duct measures 3 mm. Limited images of the right kidney are unremarkable. IMPRESSION: Findings consistent with history of cirrhosis. Reviewed, Interpreted and Dictated by Aman Hannah III, MD Transcribed by Belinda Fu Authenticated and [facility]
[2023-06-28 07:26] LABS: Ammonia 23 umol/L (9-30)
[2023-06-28 07:35] LABS: Basophils % 0.7 % (0.1-2.0); Eosinophils # 0.2 K/mm3 (0.0-0.4); Eosinophils % 3.2 % (0.1-12.0); Hematocrit 37.2 % (37.0-47.0); Hemoglobin 12.9 g/dL (12.2-16.2); Lymphocytes # 1.6 K/mm3 (0.7-4.5); Lymphocytes % 33.3 % (10-50); Mean Corpuscular HGB Conc 34.8 g/dL (31.8-35.4); Mean Corpuscular Volume 97.7 fl (81-99); Mean Platelet Volume 8.3 fl (7.4-10.4); Monocytes # 0.5 K/mm3 (0.1-1.0); Monocytes % 9.9 % (1.7-9.3); Neutrophils # 2.6 K/mm3 (1.8-7.8); Neutrophils % 52.9 % (37.0-80.0); Platelet Count 82 K/mm3 (142-424); Red Cell Distribution Width 14.2 % (11.5-17.5); White Blood Count 4.9 K/mm3 (4.8-10.8)
[2023-06-28 07:41] LABS: INR 1.04 (0.9-1.1); Prothrombin Time 11.2 seconds (10.1-12.5)
[2023-06-28 08:29] LABS: Alanine Aminotransferase 21 U/L (12-78); Albumin/Globulin Ratio 1.3 (1.1-1.8); Alkaline Phosphatase 76 U/L (38-126); Anion Gap 13.1 mEq/L (5-15); Aspartate Amino Transferase 27 U/L (14-36); Bilirubin,Total 0.6 mg/dl (0.2-1.3); Blood Urea Nitrogen 16 mg/dl (7-17); Calcium 9.5 mg/dl (8.4-10.2); Carbon Dioxide 25 mmol/L (22.0-30.0); Chloride 104 mmol/L (98-107); Estimated Glomerular Filt Rate 83 ml/min (>60); GFR (African American) 101 ML/MIN (>60); Glucose 179 mg/dl (74-100); Potassium 4.1 mmoL/L (3.5-5.1); Sodium 138 mmol/L (136-145)
[2023-06-28 09:05] LABS: Ferritin 62.5 ng/ml (11.1-264)
[2023-06-28 09:26] LABS: Total Iron Binding Capacity 420 ug/dL (265-497)
[2023-06-28 10:48] LABS: Iron 61 ug/dL (37-170)
[2023-06-29 09:04] LABS: AFP, Tumor Marker 4.9 ng/mL (0.0-9.2)
== END ==
PROVIDERS: PCP Nurse Practitioner Family; Visit Provider Nurse Practitioner Family
DX: K72.90 Hepatic failure, unspecified without coma (principal); K74.69 Other cirrhosis of liver; K58.9 Irritable bowel syndrome, unspecified; K75.81 Nonalcoholic steatohepatitis (NASH)
CPT/HCPCS: 36415; 76705; 80053; 82105; 82140; 82728; 83540; 83550; 85025; 85610

== ENCOUNTER → 2023-09-14 09:45 | Outpatient (CLI) | payer MEDICARE, OTHER, SELFPAY ==
[2023-09-14 09:58] LABS: MANUAL DIFFERENTIAL MANUAL DIFFERENTIAL (MANUAL DIFF)
[2023-09-14 10:33] LABS: Basophils % 0.6 % (0.1-2.0); Eosinophils # 0.1 K/mm3 (0.0-0.4); Eosinophils % 2.1 % (0.1-12.0); Hematocrit 38.5 % (37.0-47.0); Hemoglobin 13.2 g/dL (12.2-16.2); Lymphocytes # 1.4 K/mm3 (0.7-4.5); Mean Corpuscular HGB Conc 34.2 g/dL (31.8-35.4); Mean Corpuscular Hemoglobin 32.5 pg (27.0-31.2); Mean Corpuscular Volume 94.9 fl (81-99); Mean Platelet Volume 8.7 fl (7.4-10.4); Monocytes # 0.4 K/mm3 (0.1-1.0); Monocytes % 6.4 % (1.7-9.3); Neutrophils # 4.2 K/mm3 (1.8-7.8); Neutrophils % 68.9 % (37.0-80.0); Platelet Count 83 K/mm3 (142-424); Red Blood Count 4.05 M/mm3 (4.20-5.40); Red Cell Distribution Width 13.9 % (11.5-17.5); White Blood Count 6.1 K/mm3 (4.8-10.8)
[2023-09-14 13:45] LABS: Eosinophils % 1 % (0-3); Lymphocytes % 29 % (10-50); Monocytes % 6 % (2-9); Neutrophils % 64 % (42-76); Total Cells Counted 100
[2023-09-14 13:46] LABS: Platelet Estimate Slight Decrease; RBC Morphology Normal
== END ==
LOC: LAB 09:47
PROVIDERS: PCP Nurse Practitioner Family; Visit Provider Nurse Practitioner Family
DX: Z79.899 Other long term (current) drug therapy; Z00.00 Encounter for general adult medical examination without abnormal findings
CPT/HCPCS: 36415; 85007; 85014; 85018; 85048; 85049; 85060

== ENCOUNTER 2024-01-01 07:30 | Outpatient (CLI) | payer MEDICARE, OTHER, SELFPAY ==
--- NOTE | 2024-01-01 07:37 | US_ITS ---
FINAL REPORT CLINICAL HISTORY: LIVER CIRRHOSIS,IBS COMPARISON: 06/28/2023 FINDINGS: Sonographic images of the right upper quadrant were obtained. The pancreas is partially obscured. There is a coarsened echotexture noted throughout the liver, consistent with the patient's clinical diagnosis of cirrhosis. There is mild distention of the gallbladder, with a common duct that measures 3 mm. Limited images of the right kidney are unremarkable. IMPRESSION: Coarsened echotexture of the liver consistent with the clinical diagnosis of cirrhosis. Mild distention of the gallbladder without biliary ductal dilatation. Reviewed, Interpreted and Dictated by Alberto Buck MD Transcribed by Nidia Okeefe Authenticated and [facility]
[2024-01-01 08:10] LABS: Basophils # 0.1 K/mm3 (0-0.2); Eosinophils # 0.2 K/mm3 (0.0-0.4); Eosinophils % 3.6 % (0.1-12.0); Hematocrit 41.2 % (37.0-47.0); Hemoglobin 13.6 g/dL (12.2-16.2); Lymphocytes # 1.9 K/mm3 (0.7-4.5); Lymphocytes % 39.4 % (10-50); Mean Corpuscular HGB Conc 33.1 g/dL (31.8-35.4); Mean Corpuscular Hemoglobin 32.4 pg (27.0-31.2); Mean Corpuscular Volume 97.8 fl (81-99); Mean Platelet Volume 8.5 fl (7.4-10.4); Monocytes # 0.3 K/mm3 (0.1-1.0); Monocytes % 6.9 % (1.7-9.3); Neutrophils # 2.3 K/mm3 (1.8-7.8); Neutrophils % 48.2 % (37.0-80.0); Platelet Count 97 K/mm3 (142-424); Red Blood Count 4.22 M/mm3 (4.20-5.40); Red Cell Distribution Width 14.8 % (11.5-17.5); White Blood Count 4.8 K/mm3 (4.8-10.8)
[2024-01-01 08:15] LABS: Ammonia 46 umol/L (9-30)
[2024-01-01 08:16] LABS: INR 1.07 (0.9-1.1); Prothrombin Time 11.5 seconds (10.1-12.5)
[2024-01-01 09:24] LABS: Alanine Aminotransferase 24 U/L (12-78); Albumin Level 4.1 g/dl (3.5-5.0); Albumin/Globulin Ratio 1.4 (1.1-1.8); Alkaline Phosphatase 101 U/L (38-126); Anion Gap 12.5 mEq/L (5-15); Aspartate Amino Transferase 37 U/L (14-36); Bilirubin,Total 0.7 mg/dl (0.2-1.3); Blood Urea Nitrogen 22 mg/dl (7-17); Carbon Dioxide 25 mmol/L (22.0-30.0); Chloride 107 mmol/L (98-107); Estimated Glomerular Filt Rate 71 ml/min (>60); GFR (African American) 86 ML/MIN (>60); Globulin 2.9 g/dL (1.3-3.2); Glucose 162 mg/dl (74-100); Potassium 4.5 mmoL/L (3.5-5.1); Sodium 140 mmol/L (136-145)
[2024-01-01 10:56] LABS: Iron 117 ug/dL (37-170)
[2024-01-01 11:05] LABS: Total Iron Binding Capacity 474 ug/dL (265-497)
[2024-01-01 11:32] LABS: Ferritin 30.4 ng/ml (11.1-264)
[2024-01-02 09:04] LABS: AFP, Tumor Marker 5.1 ng/mL (0.0-9.2)
== END 2024-01-01 23:59 | disposition home or self-care (01) ==
LOC: RAD 07:31
PROVIDERS: PCP Nurse Practitioner Family; Visit Provider Nurse Practitioner Family
DX: K75.81 Nonalcoholic steatohepatitis (NASH); K72.90 Hepatic failure, unspecified without coma; K58.9 Irritable bowel syndrome, unspecified; C50.911 Malignant neoplasm of unspecified site of right female breast; C50.912 Malignant neoplasm of unspecified site of left female breast
CPT/HCPCS: 36415; 76705; 80053; 82105; 82140; 82728; 83540; 83550; 85025; 85610

== ENCOUNTER 2024-02-22 10:47 | Outpatient (CLI) | payer MEDICARE, OTHER, SELFPAY ==
--- NOTE | 2024-02-22 10:47 | MM_ITS ---
PROCEDURE INFORMATION: Exam: MG Right Screening 3D Mammography Exam date and time: 02/22/2024 10:45 AM Age: 68 years old Clinical indication: Screening mammogram. History of right lumpectomy for carcinoma. Left mastectomy for carcinoma. TECHNIQUE: Imaging protocol: Right Screening tomosynthesis and 2D mammography including computer-aided detection (CAD) when performed. COMPARISON: 1. MG MM DIG SC MAMM UNILAT RT CAD 02/20/2023 12:54 PM 2. MG MM DIG SC MAMM UNILAT RT CAD 02/18/2022 12:56 PM 3. MG MM DIG SC MAMM UNILAT RT CAD 02/16/2021 1:55 PM 4. MG MM DIG SC MAMM UNILAT RT CAD 02/12/2020 3:59 PM FINDINGS: MAMMOGRAPHY: Breast composition: The breast is heterogeneously dense, which may obscure small masses. Mass: None. Architectural distortion: No new or suspicious architectural distortion. Calcifications: No new or suspicious calcifications are present Asymmetric density: No new or suspicious asymmetric density is present Skin thickening: None. Axillary adenopathy: None. Other findings: Stable postoperative findings. IMPRESSION: No mammographic evidence of malignancy. Recommend annual screening mammography unless otherwise clinically indicated. ASSESSMENT: BI-RADS category 2: Benign.
== END 2024-02-22 23:59 | disposition home or self-care (01) ==
PROVIDERS: PCP Nurse Practitioner Family; Visit Provider Surgery
DX: Z12.31 Encounter for screening mammogram for malignant neoplasm of breast (principal); G47.33 Obstructive sleep apnea (adult) (pediatric); G47.36 Sleep related hypoventilation in conditions classified elsewhere
CPT/HCPCS: 77063; 77067; G0399

== ENCOUNTER 2024-07-15 07:19 | Outpatient (CLI) | payer MEDICARE, OTHER, SELFPAY ==
--- NOTE | 2024-07-15 07:29 | US_ITS ---
PROCEDURE INFORMATION: Exam: US Abdomen, Limited; Right Upper Quadrant Exam date and time: 07/15/2024 7:29 AM Age: 68 years old Clinical indication: Condition or disease; Liver condition; Cirrhosis; Congestive; Additional info: Cirrhosis-- wright TECHNIQUE: Imaging protocol: Real time ultrasound of the abdomen with image documentation. Limited exam focused on the right upper quadrant. COMPARISON: US ABDOMEN LIMITED 01/01/2024 8:07 AM FINDINGS: Liver: There is a diffuse increase in hepatic parenchymal echogenicity, consistent with fatty infiltration.. Gallbladder: Gallbladder wall 2.7 mm Biliary ducts: Common bile duct 2.2 mm Pancreas: Visualized pancreas is unremarkable. Right kidney: Right kidney 11 cm. No hydronephrosis. Right renal cortex 10.4 mm Portal venous: The portal vein is prominent measuring 12.2 mm. Hepatopetal flow. Hepatic veins: Hepatic veins are patent IMPRESSION: There is a diffuse increase in hepatic parenchymal echogenicity, consistent with fatty infiltration..
[2024-07-15 07:48] LABS: Basophils % 0.6 % (0.1-2.0); Eosinophils # 0.1 K/mm3 (0.0-0.4); Eosinophils % 3.8 % (0.1-12.0); Hematocrit 34.3 % (37.0-47.0); Hemoglobin 11.5 g/dL (12.2-16.2); Lymphocytes # 1.1 K/mm3 (0.7-4.5); Lymphocytes % 36.4 % (10-50); Mean Corpuscular HGB Conc 33.5 g/dL (31.8-35.4); Mean Corpuscular Hemoglobin 31.2 pg (27.0-31.2); Mean Corpuscular Volume 93.1 fl (81-99); Mean Platelet Volume 9.4 fl (7.4-10.4); Monocytes # 0.3 K/mm3 (0.1-1.0); Neutrophils # 1.4 K/mm3 (1.8-7.8); Neutrophils % 50.3 % (37.0-80.0); Platelet Count 74 K/mm3 (142-424); Red Blood Count 3.69 M/mm3 (4.20-5.40); Red Cell Distribution Width 14.8 % (11.5-17.5); White Blood Count 2.9 K/mm3 (4.8-10.8)
[2024-07-15 07:59] LABS: Ammonia 38 umol/L (9-30)
[2024-07-15 08:03] LABS: INR 1.01 (0.9-1.1); Prothrombin Time 11.3 seconds (10.1-12.5)
[2024-07-15 09:15] LABS: Alanine Aminotransferase 22 U/L (12-78); Albumin Level 3.7 g/dl (3.5-5.0); Albumin/Globulin Ratio 1.5 (1.1-1.8); Alkaline Phosphatase 91 U/L (38-126); Anion Gap 12.6 mEq/L (5-15); Aspartate Amino Transferase 31 U/L (14-36); Bilirubin,Total 0.7 mg/dl (0.2-1.3); Blood Urea Nitrogen 15 mg/dl (7-17); Calcium 9.5 mg/dl (8.4-10.2); Carbon Dioxide 24 mmol/L (22.0-30.0); Chloride 110 mmol/L (98-107); Estimated Glomerular Filt Rate 71 ml/min (>60); GFR (African American) 86 ML/MIN (>60); Globulin 2.5 g/dL (1.3-3.2); Glucose 192 mg/dl (74-100); Potassium 4.6 mmoL/L (3.5-5.1); Sodium 142 mmol/L (136-145); Total Protein,Serum 6.2 g/dl (6.3-8.2)
[2024-07-15 09:35] LABS: Ferritin 20.9 ng/ml (11.1-264)
[2024-07-15 11:33] LABS: Iron 75 ug/dL (37-170)
[2024-07-15 11:46] LABS: Total Iron Binding Capacity 471 ug/dL (265-497)
[2024-07-16 13:11] LABS: AFP, Tumor Marker 5.2 ng/mL (0.0-9.2)
== END 2024-07-15 23:59 | disposition home or self-care (01) ==
LOC: RAD 07:20
PROVIDERS: PCP Nurse Practitioner Family; Visit Provider Nurse Practitioner Family
DX: K74.60 Unspecified cirrhosis of liver (principal); K75.81 Nonalcoholic steatohepatitis (NASH)
CPT/HCPCS: 36415; 76705; 80053; 82105; 82140; 82728; 83540; 83550; 85025; 85610

== ENCOUNTER 2024-08-04 19:13 | Emergency (ER) | payer MEDICARE, OTHER, SELFPAY ==
[2024-08-04] VITALS (7 sets, daily range): BP systolic 141–178; BP diastolic 70–81; PULSE 77–84; RESP 22–28; TEMP 37.6; O2SAT 95–96; BMI 28.1
--- NOTE | 2024-08-04 19:21 | ECG_ITS ---
APPROVED REPORT Exam: Resting ECG HR:80 bpm ECG Measurements Heart Rate 80 AXES OH 159 P 53 QRSd 85 QRS 23 QT 358 T 66 QTc 393 Conclusion SINUS RHYTHM NORMAL ECG Electronically signed by : SEBLE NEWTON, 08/08/2024 07:43:16
--- NOTE | 2024-08-04 19:30 | XR_ITS ---
PROCEDURE INFORMATION: Exam: XR Chest Exam date and time: 08/04/2024 7:31 PM Age: 68 years old Clinical indication: Other: Chest pain; Additional info: Abd pain, cp TECHNIQUE: Imaging protocol: Radiologic exam of the chest. Views: 1 view. COMPARISON: CT CHEST WO CON 12/14/2020 1:02 PM FINDINGS: Lungs: Unremarkable. No consolidation. Pleural spaces: Unremarkable. No pleural effusion. No pneumothorax. Heart/Mediastinum: Unremarkable. No cardiomegaly. Bones/joints: Moderate thoracolumbar scoliosis and multilevel degenerative disc changes. Moderate degenerative changes in both shoulders. No acute fracture. IMPRESSION: No acute disease
--- OUTSIDE RECORDS SUMMARY | 2024-08-04 19:30 | XMS_ITS | Clinical Summary ---
Author Organization Healthcare Address [address] [place], [place] [id number] Care Team Providers Care Profile Saw Operator Name Role Phone Nancy Berg MD Primary Care Provider [phone] Kailee Marin APRN, REBA Unavailable [phone] Allergies Active Allergy Reactions Criticality Noted Date Comments Fluconazole Other - please docum ent in the comment field Low 11/29/2012 DIZZINESS Iodine Nausea And Vomiting Medium 11/29/2012 Metronidazole Nausea And Vomiting Medium 11/29/2012 Sulfa Drugs Nausea And Vomiting Medium 11/29/2012 Medications glucose blood test strip 1 Active Lancets 28G misc 2 Active anastrozole (Arimidex) 1 MG chemo tablet 1 Active cetirizine (ZyrTEC) 10 MG tablet Take 1 tablet (10 mg) by mouth 1 (one) time each day. Active hepatitis A-hepatitis B (Twinrix) 720-20 ELU-MCG/ML suspension prefilled syringe 1 Active hepatitis B (Engerix-B) 20 MCG/ML injection 2 Active HYDROcodone-aceta minophen (Coupland) 7.5-325 MG tablet Take 2 tablets (15 mg of hydrocodone) by mouth 1 (one) time each day. Active levocetirizine (Xyzal) 5 MG tablet 2 Active lisinopril 20 MG tablet 1 Active metFORMIN (Glucophage) 500 MG tablet Take 1 tablet (500 mg) by mouth twice a day. Active Methylcellulose, Laxative, 500 MG tablet Take by mouth. Active metoprolol tartrate (Lopressor) 25 MG tablet 1 Active pravastatin (Pravachol) 80 MG tablet 1 Active SITagliptin (Januvia) 100 MG tablet 2 Active traZODone (Desyrel) 100 MG tablet 1 Active venlafaxine XR (Effexor-XR) 75 MG 24 hr capsule 1 Active alpha tocopherol (Vitamin E) 400 units capsule Take 1 capsule (400 Units) by mouth 1 (one) time each day. Active fish oil (Omaha-3) 500 MG capsule Take 1 capsule (500 mg) by mouth 1 (one) time each day. Active calcium carbonate (Maalox) 600 MG chewable tablet Chew 1 tablet (600 mg) 1 (one) time each day. Active Alpha-Lipoic Acid 200 MG capsule Take by mouth. Active metFORMIN XR (Glucophage-XR) 500 MG 24 hr tablet 3 Active fenofibrate (Tricor) 54 MG tablet Take 1 tablet (54 mg) by mouth 1 (one) time each day. 3 Active Jardiance 10 MG 3 Active amitriptyline (Elavil) 10 MG tablet 3 Active methenamine hippurate (Hiprex) 1 g tabletIndications :Recurrent UTI,Urge incontinence Take 1 tablet (1 g) by mouth 2 (two) times a day. 180 tablet 3 4 10/08/19 25 Active Vibegron (Gemtesa) 75 MG tabletIndications :Recurrent UTI,Urge incontinence Take 75 mg by mouth 1 (one) time each day. 90 tablet 3 4 10/08/19 25 Active Active Problems Problem Noted Date Diagnosed Date Degenerative joint disease (DJD) of lumbar spine 06/29/2023 06/29/2023 Diabetes mellitus 06/29/2023 06/29/2023 Overview (06/29/2023): SINCE APPROX 2008 SUGAR APPROX 120 Facet arthropathy 06/29/2023 06/29/2023 Abdominal pain 06/29/2023 06/29/2023 Hypertension 06/29/2023 06/29/2023 Overview (06/29/2023): MEDICATION APPROX 10 YEARS H/O: hysterectomy 06/29/2023 06/29/2023 Lumbar radiculopathy 06/29/2023 06/29/2023 Malignant neoplasm of breast 06/29/202308/2023 Spinal stenosis 06/29/2023 06/29/2023 Microscopic hematuria 02/17/2023 Recurrent UTI 02/17/2023 Dysuria 02/17/2023 Urge incontinence 02/17/2023 S/P hip replacement 02/22/2013 06/29/2023 Postoperative hypotension 01/09/20132022 Obesity (BMI 30-39.9) 01/08/2013 06/29/2023 Osteoarthritis of right hip 11/29/201206/18 Encounters Date Type Department Care Team Description 06/26/2024 Telephone [place] [facility] [address] [place] [address] Kailee Marin, PILLO, DNP from Last 3 Months Immunizations Name Administration Dates Next Due Pneumococcal Conjugate PCV 13 07/23/2021 Social History Tobacco Use Types Packs/Day Years Used Date Smoking Tobacco: Former Smokeless Tobacco: Never Tobacco Cessation:Counseling Given: Not Answered Alcohol Use Standard Drinks/Week Comments Never 0 (1 standard drink = 0.6 oz pur e alcohol) PHQ-2 Answer Date Recorded Patient Health Questionnaire-2 Score 0 10/09/2023 PHQ-9 Answer Date Recorded Patient Health Questionnaire-9 Score 11 01/17/2023 PHQ-2A Answer Date Recorded Patient Health Questionnaire-2 Score 0 06/29/2023 Comments Unknown Sex and Gender Information Value Date Recorded Sex Assigned at Not on file Legal Sex Female 6:02 PM EDT Gender Identity Not on file Sexual Orientation Not on file Last Filed Vital Signs Vital Sign Reading Time Taken Comments Blood Pressure 125/69 10/09/2023 1:01 PM EST Pulse 77 10/09/2023 1:01 PM EST Temperature - - Respiratory Rate - - Oxygen Saturation - - Inhaled Oxygen Concentration - - Weight 75 kg (165 lb 5.5 oz) 10/09/2023 1:01 PM EST Height 165.1 cm (5' 5 ) 10/09/2023 1:01 PM EST Body Mass Index 27.51 10/09/2023 1:01 PM EST Plan of Treatment Upcoming Encounters Date Type Department Care Team (Late st Contact Info) Description 10/14/2024 2:00 PM EST Office Visit [place] [facility] [address] [place] [address] Kailee Marin, PILLO, DNP [address] [place] [address] Health Maintenance Due Date Last Done Comments [facility]-Bone Density Scan 1954 [facility]-Diabetes: Hemoglobin A1C 1954 [facility]-Hepatitis C Screening 1954 [facility]-Medicare Annual Wellness (AWV) 1954 [facility]-Infant/Child/Adol SDOH Screenings 1954 [id number] Vaccine (#1) 1959 Diabetes: Dental Exam 1964 [facility]- SDOH Screenings 1972 [facility]-Adult SDOH Screenings 1972 [facility]-DTaP,Tdap,and Td Vaccines (1 - Tdap) 1973 [facility]-Zoster Vaccines (1 of 2) 1973 CT Colonography 1999 Colonoscopy 1999 FIT-DNA 1999 FIT 1999 FOBT 1999 Sigmoidoscopy 1999 [facility]-Colorectal Cancer Screening 1999 [facility]-Pneumococcal Vaccine: 65+ Years (2 of 2 - PPSV23 or PCV20) 09/17/2021 07/23/2021 [facility]-Influenza Vaccine (#1) 2024 [facility]-Depression Screening 10/09/2024 10/09/2023, 05/0 10/2022 [facility]-RSV Vaccine: 60+ Years or (1 - 1-dose 75+ series) 2029 [facility]-Obesity Intervention Completed 024, 06/29/2023, 05/17/2023, Additional history exists [facility]-HIB Vaccines Aged Out No longer e ligible based on patient's age to complete this topic [facility]-HPV Vaccines Aged Out No longer e ligible based on patient's age to complete this topic [facility]-Hepatitis A Vaccines Aged Out No longer eligible based on patient's age to complete this topic [facility]-IPV Vaccines Aged Out No longer e ligible based on patient's age to complete this topic [facility]-Rotavirus Vaccines Aged Out No lo nger eligible based on patient's age to complete this topic Insurance MEDICARE [facility] Care Teams Profile Saw Operator Relationship Specialty Start Date End Date Nancy Berg MD [address] [place] [address] PCP - General 01/29/21 Kailee Marin APRN, DNP [id number] [place] [address] Nurse Practitioner Urology 06/29/23
--- OUTSIDE RECORDS SUMMARY | 2024-08-04 19:30 | XMS_ITS | Continuity of Care Document ---
Author Name [facility] Organization [facility] Care Team Providers Care Psychiatric Clinical Nurse Specialist Name Role Phone [facility] Unavailable Unavailable Medications Combined list of outpatient medications from Department of Defense and Veterans Affairs facilities.Medications provided include 1) outpatient medications from the last 15 months, and 2) patient-reported medications. Medication Details Route Status Patient Instructions Prescription Expires Prescription Number Last Dispense Date Ordering Provider Order Date Order Qty Source AMITRIPTYLI NE HCL (amitriptyl ine HCl), 10 MG, TABLET, ORAL, [employer] 1000 ea. BOTTLE Active [id number] 4 2023 60 Pharmac y Data Transac tion Service Facilit y AMITRIPTYLI NE HCL (AMITRIPTYL INE HCL), 10MG, TABLET, ORAL, SANDOZ, 1000 ea. BOTTLE Active [id number] 4 2023 60 Pharmac y Data Transac tion Service Facilit y AMITRIPTYLI NE HCL (AMITRIPTYL INE HCL), 10MG, TABLET, ORAL, SANDOZ, 1000 ea. BOTTLE Active [id number] 3 2022 60 Pharmac y Data Transac tion Service Facilit y AMITRIPTYLI NE HCL (AMITRIPTYL INE HCL), 10MG, TABLET, ORAL, SANDOZ, 1000 ea. BOTTLE Active [id number] 4 2023 60 Pharmac y Data Transac tion Service Facilit y ARIMIDEX (anastrozol e), 1 MG, TABLET, ORAL, ANI PHARMACEUTI , 30 ea. BOTTLE Active [id number] 4 2023 90 Pharmac y Data Transac tion Service Facilit y ARIMIDEX (anastrozol e), 1 MG, TABLET, ORAL, ANI PHARMACEUTI , 30 ea. BOTTLE Active [id number] 4 2023 90 Pharmac y Data Transac tion Service Facilit y ESZOPICLONE (ESZOPICLON E), 1 MG, TABLET, ORAL, TEV[employer] [place], 30 ea. BOTTLE Active [id number] 2023 30 Pharmac y Data Transac tion Service Facilit y FENOFIBRATE (fenofibrat e), 54 MG, TABLET, ORAL, AMNEAL PHARMACE, 90 ea. BOTTLE Active [id number] 4 2023 90 Pharmac y Data Transac tion Service Facilit y FENOFIBRATE (fenofibrat e), 54 MG, TABLET, ORAL, AMNEAL PHARMACE, 90 ea. BOTTLE Active [id number] 2023 90 Pharmac y Data Transac tion Service Facilit y FLUTICASONE PROPIONATE (FLUTICASON E PROPIONATE) , 50 MCG, SPRAY SUSP, NASAL, [employer] 16 g AER W/ADAP Active [id number] 2023 16 Pharmac y Data Transac tion Service Facilit y FLUTICASONE PROPIONATE (FLUTICASON E PROPIONATE) , 50 MCG, SPRAY SUSP, NASAL, [employer] 16 g AER W/ADAP Active [id number] 2023 16 Pharmac y Data Transac tion Service Facilit y FLUTICASONE PROPIONATE (FLUTICASON E PROPIONATE) , 50 MCG, SPRAY SUSP, NASAL, [employer] 16 g AER W/ADAP Active [id number] 2023 16 Pharmac y Data Transac tion Service Facilit y FREESTYLE LANCETS (lancets), 28 GAUGE, EACH, KARY CENTENO DIABETES, 100 ea. PACKET Active [id number] 2023 100 Pharmac y Data Transac tion Service Facilit y FREESTYLE LITE TEST STRIP (blood sugar diagnostic) , STRIP, MISCELL CENTENO DIABETES, 50 ea. BOX Active [id number] 2023 100 Pharmac y Data Transac tion Service Facilit y FREESTYLE LITE TEST STRIP (blood sugar diagnostic) , STRIP, MISCELL, CENTENO DIABETES, 50 ea. BOX Active [id number] 2023 100 Pharmac y Data Transac tion Service Facilit y GEMTESA (vibegron), 75 MG, TABLET, ORAL, UROVANT-SUM ITOM, 30 ea. BOTTLE Active [id number] 2023 90 Pharmac y Data Transac tion Service Facilit y GEMTESA (vibegron), 75 MG, TABLET, ORAL, UROVANT-SUM ITOM, 30 ea. BOTTLE Active [id number] 2023 90 Pharmac y Data Transac tion Service Facilit y GEMTESA (vibegron), 75 MG, TABLET, ORAL, UROVANT-SUM ITOM, 30 ea. BOTTLE Active [id number] 2023 90 Pharmac y Data Transac tion Service Facilit y GEMTESA (vibegron), 75 MG, TABLET, ORAL, UROVANT-SUM ITOM, 90 ea. BOTTLE Active [id number] 2023 90 Pharmac y Data Transac tion Service Facilit y JANUVIA (SITAGLIPTI N PHOSPHATE), 100MG, TABLET, ORAL, [employer] 90 ea. BOTTLE Active [id number] 2023 90 Pharmac y Data Transac tion Service Facilit y JANUVIA (SITAGLIPTI N PHOSPHATE), 100MG, TABLET, ORAL, [employer] 90 ea. BOTTLE Active [id number] 2023 90 Pharmac y Data Transac tion Service Facilit y JARDIANCE (EMPAGLIFLO ZIN), 10 MG, TABLET, ORAL, BOEHRINGER ING., 90 ea. BOTTLE Active [id number] 2023 90 Pharmac y Data Transac tion Service Facilit y JARDIANCE (EMPAGLIFLO ZIN), 25 MG, TABLET, ORAL, BOEHRINGER ING., 30 ea. BOTTLE Cancele d [id number] : 2023 0 Pharmac y Data Transac tion Service Facilit y LEVOCETIRIZ INE DIHYDROCHLO RIDE (levocetiri zine dihydrochlo ride), 5 MG, TABLET, ORAL, SCIEGEN PHARMAC, 90 ea. BOTTLE Active [id number] 2023 90 Pharmac y Data Transac tion Service Facilit y LEVOCETIRIZ INE DIHYDROCHLO RIDE (levocetiri zine dihydrochlo ride), 5 MG, TABLET, ORAL, SCIEGEN PHARMAC, 90 ea. BOTTLE Active [id number] 2023 90 Pharmac y Data Transac tion Service Facilit y LISINOPRIL (lisinopril ), 20 MG, TABLET, ORAL, EXELAN PHARMACE, 1000 ea. BOTTLE Active [id number] 2023 90 Pharmac y Data Transac tion Service Facilit y LISINOPRIL (lisinopril ), 20 MG, TABLET, ORAL, EXELAN PHARMACE, 1000 ea. BOTTLE Active [id number] 2023 90 Pharmac y Data Transac tion Service Facilit y METFORMIN HCL ER (metformin HCl), 500 MG, TAB ER 24H, ORAL, AVKARE, 1000 ea. BOTTLE Cancele d [id number] : 2023 0 Pharmac y Data Transac tion Service Facilit y METFORMIN HCL ER (metformin HCl), 500 MG, TAB ER 24H, ORAL, AVKARE, 1000 ea. BOTTLE Active [id number] 2023 360 Pharmac y Data Transac tion Service Facilit y METFORMIN HCL ER (metformin HCl), 500 MG, TAB ER 24H, ORAL, AVKARE, 90 ea. BOTTLE Active [id number] 2023 360 Pharmac y Data Transac tion Service Facilit y METHENAMINE HIPPURATE (methenamin e hippurate), 1 G, TABLET, ORAL, [employer] INC, 100 ea. BOTTLE Active [id number] 2023 180 Pharmac y Data Transac tion Service Facilit y METHENAMINE HIPPURATE (methenamin e hippurate), 1 G, TABLET, ORAL, [employer] INC, 100 ea. BOTTLE Active [id number] 2023 180 Pharmac y Data Transac tion Service Facilit y METHENAMINE HIPPURATE (methenamin e hippurate), 1 G, TABLET, ORAL, [employer] INC, 100 ea. BOTTLE Active [id number] 2023 180 Pharmac y Data Transac tion Service Facilit y METOPROLOL TARTRATE (metoprolol tartrate), 25 MG, TABLET, ORAL, [facility] 1000 ea. BOTTLE Active [id number] 2023 180 Pharmac y Data Transac tion Service Facilit y MIRTAZAPINE (MIRTAZAPIN E), 15MG, TABLET, ORAL, AUROBINDO PHARM, 500 ea. BOTTLE Cancele d [id number] : 2023 0 Pharmac y Data Transac tion Service Facilit y OMEPRAZOLE (omeprazole ), 40 MG, CAPSULE DR, ORAL, AUROBINDO PHARM, 500 ea. BOTTLE Cancele d [id number] : 2023 0 Pharmac y Data Transac tion Service Facilit y OMEPRAZOLE (omeprazole ), 40 MG, CAPSULE DR, ORAL, AUROBINDO PHARM, 500 ea. BOTTLE Active [id number] 2023 90 Pharmac y Data Transac tion Service Facilit y OMEPRAZOLE (omeprazole ), 40 MG, CAPSULE DR, ORAL, AUROBINDO PHARM, 500 ea. BOTTLE Active [id number] 2023 90 Pharmac y Data Transac tion Service Facilit y OMEPRAZOLE (omeprazole ), 40 MG, CAPSULE DR, ORAL, [employer] PHARMA, 1000 ea. BOTTLE Active [id number] 2023 30 Pharmac y Data Transac tion Service Facilit y PRAVASTATIN SODIUM (PRAVASTATI N SODIUM), 80 MG, TABLET, ORAL, AVKARE, 1000 ea. BOTTLE Cancele d [id number] : 2023 0 Pharmac y Data Transac tion Service Facilit y PRAVASTATIN SODIUM (PRAVASTATI N SODIUM), 80 MG, TABLET, ORAL, AVKARE, 1000 ea. BOTTLE Active [id number] 2023 90 Pharmac y Data Transac tion Service Facilit y PRAVASTATIN SODIUM (PRAVASTATI N SODIUM), 80 MG, TABLET, ORAL, AVKARE, 1000 ea. BOTTLE Active [id number] 2023 90 Pharmac y Data Transac tion Service Facilit y VENLAFAXINE HCL ER (VENLAFAXIN E HCL), 150 MG, CAP ER 24H, ORAL, AVKARE, 90 ea. BOTTLE Active [id number] 2023 90 Pharmac y Data Transac tion Service Facilit y Immunizations Combined list of available immunizations from the Department of Defense and Veterans Affairs facilities. Immunization Series Date Given Administered By Site Reaction Lot Number CVX Code Drug Field Crop Technical Officer Status Comments Source Hep B, adult 2021 ANNIE, () Not Given Hep B, adult [facility] Hep A-Hep B 2020 CALE, () Not Given Hep A-Hep B DoD Hep A-Hep B 2020 CALE, () Not Given Hep A-Hep B DoD influenza, high-dose, quadrivalent 2020 CALE, () Not Given influenza , high-dose , quadrival ent DoD Social History Combined list of available smoking, tobacco, and other social history from Department of Defense and Veterans Affairs facilities. Social History Type Response Date Comment Sour e This section is an empty social history section. DoD
--- OUTSIDE RECORDS SUMMARY | 2024-08-04 19:31 | XMS_ITS | Encounter Summary ---
Author Organization Healthcare Address [address] [place], [place] [id number] Care Team Providers Care Electric Range Preparer Name Role Phone Nancy Berg MD Primary Care Provider [phone] Reason for Visit * Reason Comments Follow-up Encounter Details Date Type Department Care Team (Latest Contact Info) Description 02/21/2022 2:40 PM EDT Office Visit Medical Office Building [facility] [address] [facility], [address] [place] [address] Chris Aguero MD [address] [place] [address] Lumbar radiculopathy (Primary Dx); Primary osteoarthritis of left hip Social History Tobacco Use Types Packs/Day Years Used Date Smoking Tobacco: Former Smokeless Tobacco: Never Alcohol Use Standard Drinks/Week Comments Never 0 (1 standard drink = 0.6 oz pur e alcohol) Comments Unknown Sex and Gender Information Value Date Recorded Sex Assigned at Not on file Legal Sex Female 6:02 PM EDT Gender Identity Not on file Sexual Orientation Not on file COVID-19 Exposure Response Date Recorded In the last 10 days, have yo u been in contact with someone who was confirmed or suspected to have Coronavirus/COVID-19? No / Unsure 02/21/2022 2:24 PM EDT documented as of this encounter Last Filed Vital Signs Vital Sign Reading Time Taken Comments Blood Pressure 143/84 02/21/2022 3:14 PM EDT Pulse 72 02/21/2022 3:14 PM EDT Temperature - - Respiratory Rate - - Oxygen Saturation - - Inhaled Oxygen Concentration - - Weight 77.5 kg (170 lb 13.7 oz) 02/21/2022 3:14 PM EDT Height 165.1 cm (5' 5 ) 02/21/2022 3:14 PM EDT Body Mass Index 28.43 02/21/2022 3:14 PM EDT documented in this encounter Miscellaneous Notes * Progress Notes - Matthew Jaramillo PA - 02/21/2022 2:40 PM EDT Subjective: Karime Dang is a 66 y.o. y/o female who comes in today for bilateral lower back pain and left buttock pain with numbness and tingling after standing for a period of time. She has a history of right hip replacement over 10 years ago. She has chronic lower back pain. She was referred here by Dr. Calle for consideration of left hip replacement. She has not had any treatment for her back or hips.Only takes tylenol and we sent for an MRI of her lumbar spine a course of physical therapy but she did not do the therapy yet. She denies any weakness in his legs or changes in bowel or bladder. Twisting and pivoting causes pain across her left groin ?? Objective: BMI is Body mass index is 28.43 kg/m??. She is neurovascular intact bilateral lower extremity and has 5/5 strength with no specific deficits. She has good range of motion of her left hip with 40?? internal rotation, 45?? external rotation 120?? of flexion hyperflexion internal rotation recreate left groin pain. My independent interpretation of radiographic testing shows: Severe degenerative changes especiallyat the L4-5 and previous x-rays of her hip show some moderate osteoarthritic changes with periarticular spurring and joint space remaining Notes reviewed: none Results of tests reviewed: none Assessment and plan: No diagnosis found. No orders of the defined types were placed in this encounter. Explained the pathology, today's evaluation options of care. We recommend injection of her left hiphe followed by possible consideration of lumbar epidural steroid injection if she receives limited benefit from the hip. Patient will follow-up in approximately 3 or 4 months evaluate her progress. This problem is a chronic problem with out progression. Minor procedure risk factors were discussed, (Injection site pain, infection, inflammation) and decision was made for procedure. Cosigned by Chris Aguero MD at 02/21/2022 3:57 PM EDT Associated attestation - Chris Aguero MD - 02/21/2022 3:57 PM EDT I attest to being involved in providing substantive time in patient care. documented in this encounter Plan of Treatment Upcoming Encounters Date Type Department Care Team (Late st Contact Info) Description 10/14/2024 2:00 PM EST Office Visit [facility] [address] [place] [address] Kailee Marin APRN, DNP [address] [place] [address] documented as of this encounter Visit Diagnoses Diagnosis Lumbar radiculopathy- Primary Thoracic or lumbosacral neuritis or radiculitis, unspecified Primary osteoarthritis of left hip documented in this encounter Additional Health Concerns Assessment Noted Time A fall risk assessment has been complete d for the patient 02/21/2022 3:14 PM EDT documented as of this encounter Care Teams Electric Range Preparer Relationship Specialty Start Date End Date Nancy Berg MD [address] [place] [address] [address] [place] [address] PCP - General 01/29/21 documented as of this encounter
--- OUTSIDE RECORDS SUMMARY | 2024-08-04 19:31 | XMS_ITS | Encounter Summary ---
Author Organization Healthcare Address [address] [id number] Care Team Providers Care Oiler Helper Name Role Phone Nancy Berg MD Primary Care Provider [phone] Kailee Marin APRN, REBA Unavailable + [phone] Reason for Visit * Reason Comments Follow-up No complaints voiced today. Encounter Details Date Type Department Care Team (Late st Contact Info) Description 10/09/2023 1:00 PM EST Office Visit [place] [facility] [address] [place] [address] Kailee Marin APRN, REBA [address] [place] [address] Recurrent UTI (Primary Dx); Urge incontinence; Microscopic hematuria Social History Tobacco Use Types Packs/Day Years [...] on file Sexual Orientation Not on file documented as of this encounter Last Filed [...] Mass Index 27.51 10/09/2023 1:01 PM EST documented in this encounter Miscellaneous Notes * Progress Notes - Kailee Marin APRN, REBA - 10/09/2023 1:00 PM EST [facility] Note CC: Follow-up (No complaints voiced today.) HPI: Karime Dang is a 68 y.o. F with history of recurrent UTI and UI, who has previously seen Dr. Issa and [facility] [place]. Recurrent UTI: Started around the time she started Januvia (approx 11/2020) Typical symptoms: dysuria and suprapubic discomfort. Her symptoms typically clear up within a couple days of starting antibiotics. She has never had to be hospitalized for infections. Cultures + for E-coli Started on Hiprex 11/16/2022 Also of note she has a history of breast cancer and has been using anastrozole for 3 years or so soopted to defer vaginal estrogen. UI: Bladder almost completely empties at times with standing. No urge associated with this. Wore 3-4 pads per day some days and other days was completely dry (maybe 2 days a week). Leaked at night. Notedsome leakage while standing without any associated urge or activity, and she rushed to the bathroomwhen this happened. No UI with incontinence with coughing, sneezing or bending. MH: January 2023, concerns of UTI. Culture no growth. Microscopy 4-10 red blood cells and she was scheduled for CTU and office cystoscopy. -CTU deferred d/t ASE with contrast, deferred MRU d/t contrast, deferred cystoscopy and RPGs under anesthesia -Cystoscopy normal Returned Apr [address] Issa. Did not have CTU as she recalled severe nausea and emesis with contrast and did not want to proceed. Renal US has been ordered but not performed. Did not recall filling Gemtesa. No UTIs since January. Jun 2023, 90-100% reduction in urgency and UUI, resolution of enuresis, and decreased number of pads 1/day with Gemtesa 75 mg. UTI free since last seen. Denies GH. Reports great satisfaction in her current plan of care, denies other urological concerns today. PMHx: Patient Active Problem List Diagnosis Microscopic hematuria Recurrent UTI Dysuria Urge incontinence Degenerative joint disease (DJD) of lumbar spine Diabetes mellitus ([facility]) Facet arthropathy Abdominal pain Hypertension H/O: hysterectomy Lumbar radiculopathy Malignant neoplasm of breast ([facility]) Obesity (BMI 30-39.9) Osteoarthritis of right hip Postoperative hypotension Spinal stenosis S/P hip replacement Past Medical History: Diagnosis Date Breast cancer ([facility]) PSHx: Past Surgical History: Procedure Laterality Date MASTECTOMY Left PARTIAL HYSTERECTOMY TOTAL HIP ARTHROPLASTY Right FHx: History reviewed. No pertinent family history. SHx: Social History Tobacco Use Smoking status: Former Smokeless tobacco: Never Substance Use Topics Alcohol use: Never Drug use: Never OBHx: OB History No obstetric history on file. ROS: See HPI Physical Exam: Vitals: 10/09/23 1301 BP: 125/69 Pulse: 77 General: Pleasant, alert, in no acute distress, well appearing Pulmonary: no increased work of breathing or signs of respiratory distress. Musculoskeletal: normal gait and station. Psychiatric: oriented to person, place, and time. Mood and affect appeared normal. Results/Data: Recent Results (from the past 72 hour(s)) POC US Bladder Volume Collection Time: 10/09/23 1:00 PM Result Value Ref Range Urine, Volume 0 mL POCT Urinalysis Dipstick Collection Time: 10/09/23 1:08 PM Result Value Ref Range POCT Urine Color Yellow POCT Urine Clarity Clear POCT Glucose Urine >=1000 (A) Negative mg/dL POCT Bilirubin, Urine Negative Negative POCT Ketones, Urine Negative Negative mg/dL POCT Specific [place], Urine 1.015 POCT Blood, Urine Negative Negative POCT pH, Urine 5.5 5.0 to 8.0 POCT Protein, Urine Negative Negative mg/dL POCT Urobilinogen, Urine 0.2 0.2, 1 E.U./dL POCT Nitrite, Urine Negative Negative POCT Leukocyte Esterase, Urine Negative Negative Test Strip Lot Number [id number] Test Strip Lot Expiration 07/18/2024 Urine, Volume Date Value Ref Range Status 10/09/2023 0 mL Final Labs: No results found for: HGBA1C No results found for: GLUCOSE , CALCIUM , NA , K , CO2 , CL , BUN , CREATININE , EGFR Recent Results (from the past 168 hour(s)) POC US Bladder Volume Collection Time: 10/09/23 1:00 PM Result Value Ref Range Urine, Volume 0 mL POCT Urinalysis Dipstick Collection Time: 10/09/23 1:08 PM Result Value Ref Range POCT Urine Color Yellow POCT Urine Clarity Clear POCT Glucose Urine >=1000 (A) Negative mg/dL POCT Bilirubin, Urine Negative Negative POCT Ketones, Urine Negative Negative mg/dL POCT Specific [place], Urine 1.015 POCT Blood, Urine Negative Negative POCT pH, Urine 5.5 5.0 to 8.0 POCT Protein, Urine Negative Negative mg/dL POCT Urobilinogen, Urine 0.2 0.2, 1 E.U./dL POCT Nitrite, Urine Negative Negative POCT Leukocyte Esterase, Urine Negative Negative Test Strip Lot Number [id number] Test Strip Lot Expiration 07/18/2024 Cultures: Lab Results Component Value Date URINECX (A) 02/17/2023 10,000 - 100,000 CFU/mL Mixed urogenital, fecal, or skin rachel present. Imaging: === 06/26/23 === US RENAL COMPLETE - Narrative - CLINICAL INDICATION: microscopic hematuria TECHNIQUE: Multiplanar morales scale sonographic imaging of the kidneys. COMPARISON: None FINDINGS: Right Kidney: The right kidney is normal in size and echogenicity measuring 11.0 cm. No hydronephrosis, contour deforming masses, or obvious calculi. Left Kidney: The left kidney is normal in size and echogenicity measuring 11.3 cm. No hydronephrosis, contour deforming masses, or obvious calculi. Bladder: Partially decompressed without obvious abnormality. - Impression - Unremarkable kidneys without evidence of hydronephrosis. CRITICAL RESULT: No. COMMUNICATION: Per this written report. Preliminary report signed by Selena Reyna MD on 06/26/2023 1:40 PM By electronically signing this report, I, the attending physician, attest that I have personally reviewed the images/data for the above examination(s) and agree with the final edited report. Drafted by Selena Reyna MD on 06/26/2023 1:35 PM Final report signed by Nettie Dickens MD on 06/26/2023 3:10 PM Procedures: Assessment: Karime Dang is a 68 y.o. F who returns today for follow-up of recurrent UTI, MH and UI. MH: Discussed previous YARELY normal. Ms. Dang previously deferred MRU and CTU due to contrast. January 2023 cystoscopy normal. UA negative for MH today. LUTS: 90-100% improved with Gemtesa 75 mg 1 tablet daily. Encouraged to continue. Previously deferred vaginal estrogen cream d/t history of breast cancer. Attempting to avoid Ach due to constipation. UTI: UTI free with Hiprex 1 gram BID, will continue. UA negative for UTI today. Ms. Dang is to return in 1 year or sooner as needed. Plan: Continue Hiprex 1 gram BID, refills provided Continue Gemtesa 75 mg 1 tablet daily, refills provided Return in 1 year or sooner as needed Kailee Marin APRN, DNP documented in this encounter Plan of Treatment Upcoming Encounters Date Type Department Care Team (Late st Contact Info) Description 10/14/2024 2:00 PM EST Office Visit [facility] [address] [place] [address] Kailee Marin APRN, DNP [address] [place] [address] documented as of this encounter Procedures Procedure Name Priority Date/Time Associated Diagnosis Comments POCT URINALYSIS DIPSTICK Routine 10/09/2023 1:08 PM EST Recurrent UTI Urge incontinence POC US BLADDER SCAN FOR VOLUME Routine 10/09/2023 1:00 PM EST Recurrent UTI Urge incontinence documented in this encounter Results * (ABNORMAL) POCT Urinalysis Dipstick (10/09/2023 1:08 PM EST) POCT Urine Color Yellow POCT Urine Clarity Clear POCT Glucose Urine >=1000(A) Negative mg/dL POCT Bilirubin, Urine Negative Negative POCT Ketones, Urine Negative Negative mg/dL POCT Specific Am[place], Urine 1.015 POCT Blood, Urine Negative Negative POCT pH, Urine 5.5 5.0 to 8.0 POCT Protein, Urine Negative Negative mg/dL POCT Urobilinogen, Urine 0.2 0.2, 1 E.U./dL POCT Nitrite, Urine Negative Negative POCT Leukocyte Esterase, Urine Negative Negative Test Strip Lot Number [id number] Test Strip Lot Expiration 07/18/2024 Urine Urine specimen obtained by clean catch procedure / Unknown 10/09/2023 1:08 PM EST us Kailee Marin APRN, DNP POINT OF CARE TEST ENT ER/EDIT ORDERABLES Final Result * POC US Bladder Volume (10/09/2023 1:00 PM EST) Urine, Volume 0 mL IMAGING Anatomical Region Laterality Modality Other Kailee Marin APRN, DNP IMG POINT OF CARE ULTR ASOUND Final Result documented in this encounter Visit Diagnoses Diagnosis Recurrent UTI- Primary Urinary tract infection, site not specified Urge incontinence Microscopic hematuria documented in this encounter Additional Health Concerns Assessment Noted Time PHQ-9 Depression Total Score: 11 01/17/ 023 1:11 PM EDT A fall risk assessment has been complete d for the patient 10/09/2023 1:03 PM EST A Body Mass Index follow-up plan has been documented for the patient 10/09/2023 1:21 PM EST documented as of this encounter Care Teams Oiler Helper Relationship Specialty Start Date End Date Nancy Berg MD [address] [place] [address] [address] [place] [address] PCP - General 01/29/21 Kailee Marin APRN, DNP [address] [address] Nurse Practitioner Urology 06/29/23 documented as of this encounter
--- OUTSIDE RECORDS SUMMARY | 2024-08-04 19:31 | XMS_ITS | Encounter Summary ---
Author Organization Healthcare Address [address] [id number] Care Team Providers Care Rotary Drill Rig Operator Name Role Phone Nancy Berg MD Primary Care Provider [phone] Kailee Marin APRN, DNP Unavailable + [phone] Encounter Details Date Type Department Care Team (Latest Contact Info) Description 10/09/2023 Travel Social History Tobacco Use Types Packs/Day Years [...] on file documented as of this encounter Plan of Treatment Upcoming Encounters Date Type Department Care Team (Late st Contact Info) Description 10/14/2024 2:00 PM EST Office Visit [place] [facility] [address] [place] [address] Kailee Marin APRN, REBA [address] [place] [address] documented as of this encounter Visit Diagnoses Not on filedocumented in this encounter Additional Health Concerns Assessment Noted Time PHQ-9 Depression Total Score: 11 023 1:11 PM EDT A fall risk assessment has been complete d for the patient 10/09/2023 1:03 PM EST A Body Mass Index follow-up plan has been documented for the patient 10/09/2023 1:21 PM EST documented as of this encounter Care Teams Rotary Drill Rig Operator Relationship Specialty Start Date End Date Nancy Berg MD [address] [place] [address] [address] [place] [address] PCP - General 01/29/21 Kailee Marin APRN, DNP [id number] [place] [id number] Nurse Practitioner Urology 06/29/23 documented as of this encounter
--- OUTSIDE RECORDS SUMMARY | 2024-08-04 19:31 | XMS_ITS | Encounter Summary ---
Author Organization Healthcare Address [address] [place], [place] [id number] Care Team Providers Care Solutions Consultant Name Role Phone Nancy Berg MD Primary Care Provider [phone] Reason for Visit * Reason Comments Follow-up Follow-up Encounter Details Date Type Department Care Team (Latest Contact Info) Description 06/01/2022 9:10 AM EDT Office Visit Medical Office Building Surgery [facility] [address] [facility], [address] [place] [address] Chris Aguero MD [address] [place] [address] Lumbar radiculopathy (Primary Dx) Social History Tobacco Use Types Packs/Day Years [...] suspected to have Coronavirus/COVID-19? No / Unsure 06/01/2022 8:56 AM EDT documented as of this encounter Last Filed Vital Signs Vital Sign Reading Time Taken Comments Blood Pressure 132/78 06/01/2022 9:30 AM EDT Pulse 69 06/01/2022 9:30 AM EDT Temperature - - Respiratory Rate - - Oxygen Saturation - - Inhaled Oxygen Concentration - - Weight 77.6 kg (171 lb 1.2 oz) 06/01/2022 9:30 A M EDT Height 165.1 cm (5' 5 ) 06/01/2022 9:30 AM EDT Body Mass Index 28.47 06/01/2022 9:30 AM EDT documented in this encounter Miscellaneous Notes * Progress Notes - Hugo Skelton MD - 06/01/2022 9:10 AM EDT Subjective: Karime Dang is a 66 y.o. y/o female who comes in today for repeat evaluation. The patient initially presented to our clinic 3 months ago for radiating right lower extremity pain which appeared to becoming from her back. She was referred to pain management and she has undergone a series of 2 he back injections. She did 6 weeks of relief from the 1st month and underwent her 2nd shot yesterday on 05/31. Based on what the patient says sounds like she was having facet blocks. She denies pain todayand has a 0/10 pain scale. Denies numbness or tingling in bilateral lower extremities Objective: bilateral Lower Extremity: - painless hip range of motion with 15?? internal rotation, 30?? external rotation. Painless resisted hip flexion to 120?? - 5/5 knee extension, knee flexion TA, GSC, FHL, EHL - SILT in Sural, Saphenous, Deep peroneal, Superficial peroneal, Tibial nerve distributions - 2+ DP and PT pulses BMI is Body mass index is 28.47 kg/m??. My independent interpretation of radiographic testing shows: none obtained Previous imaging shows: Prior radiographs were reviewed which show no clear evidence of arthritis of the left hip. Patient does have degenerative changes in the lumbar spine. Assessment and plan: Low back pain No orders of the defined types were placed in this encounter. - patient has complete relief of pain or after her spine injections by pain management. - no further intervention needed. Patient may follow-up p.r.n. - patient may continue to follow-up with pain management. This problem is a chronic problem with some progression. No procedure risk factors were discussed: (procedure is not necessary at this point) and decision was not made for procedure. Cosigned by Chris Aguero MD at 06/01/2022 9:53 AM EDT Associated attestation - Chris Aguero MD - 06/01/2022 9:53 AM EDT I saw and evaluated the patient with the resident/fellow. I discussed the case with the resident/fellow and agree with the findings and plan as documented. documented in this encounter Plan of Treatment Upcoming Encounters Date Type Department Care Team (Late st Contact Info) Description 10/14/2024 2:00 PM EST Office Visit [facility] [address] [place] [address] Kailee Mairn APRN, DNP [address] [place] [address] documented as of this encounter Visit Diagnoses Diagnosis Lumbar radiculopathy- Primary Thoracic or lumbosacral neuritis or radiculitis, unspecified documented in this encounter Additional Health Concerns Assessment Noted Time A fall risk assessment has been complete d for the patient 06/01/2022 9:31 AM EDT documented as of this encounter Care Teams Solutions Consultant Relationship Specialty Start Date End Date Nancy Berg MD [address] [place] [address] [address] [place] [address] PCP - General 01/29/21 documented as of this encounter
--- OUTSIDE RECORDS SUMMARY | 2024-08-04 19:31 | XMS_ITS | Encounter Summary ---
Author Organization [facility] Address [address] [place] [address] Care Team Providers Care Line Appliance Assembler Name Role Phone Nancy Berg MD Primary Care Provider [phone] Reason for Referral * Imaging (Routine) - Closed Specialty Diagnoses / Procedures Referred By Blessing patel Referred To Contact Radiology Diagnoses Microscopic hematuria Procedures US Renal Complete Priscila Tijerina APRN [address] [address] Phone: tel: fax: Referral ID Status Reason Start Date Expiration Date Visits Re quested Visits Authorized [id number] Closed 05/09/2023 11/07/2024 1 1 Reason for Visit * Imaging (Routine) - Closed Specialty Diagnoses / Procedures Referred By Blessing patel Referred To Contact Radiology Diagnoses Microscopic hematuria Procedures US Renal Complete Priscila Tijerina APRN [address] [address] Phone: tel: fax: Referral ID Status Reason Start Date Expiration Date Visits Re quested Visits Authorized [id number] Closed 05/09/2023 11/07/2024 1 1 Encounter Details Date Type Department Care Team (Latest Contact Info) Description 06/26/2023 12:24 PM EDT - 06/26/2023 11:59 PM EDT Hospital Encounter [facility] Radiology [address] [place] [address] Microscopic hematuria Discharge Disposition: Home or Self Care Social History Tobacco Use Types Packs/Day Years Used Date Smoking Tobacco: Former Smokeless Tobacco: Never Alcohol Use Standard Drinks/Week Comments Never 0 (1 standard drink = 0.6 oz pur e alcohol) PHQ-2 Answer Date Recorded Patient Health Questionnaire-2 Score 0 06/29/2023 PHQ-9 Answer Date Recorded Patient Health Questionnaire-9 Score 11 01/17/2023 PHQ-2A Answer Date Recorded Patient Health Questionnaire-2 Score 0 06/29/2023 Comments Unknown Sex and Gender Information Value Date Recorded Sex Assigned at Not on file Legal Sex Female 6:02 PM EDT Gender Identity Not on file Sexual Orientation Not on file documented as of this encounter Medications at Time of Discharge alpha tocopherol (Vitamin E) 400 units capsule Take 1 capsule (400 Units) by mouth 1 (one) time each day. Alpha-Lipoic Acid 200 MG capsule Take by mouth. anastrozole (Arimidex) 1 MG chemo tablet 02/12/2021 calcium carbonate (Maalox) 600 MG chewable tablet Chew 1 tablet (600 mg) 1 (one) time each day. cetirizine (ZyrTEC) 10 MG tablet Take 1 tablet (10 mg) by mouth 1 (one) time each day. fenofibrate (Tricor) 54 MG tablet Take 1 tablet (54 mg) by mouth 1 (one) time each day. 06/20/2023 fish oil (Siren-3) 500 MG capsule Take 1 capsule (500 mg) by mouth 1 (one) time each day. glucose blood test strip 05/27/2021 hepatitis A-hepatitis B (Twinrix) 720-20 ELU-MCG/ML suspension prefilled syringe 07/22/2021 hepatitis B (Engerix-B) 20 MCG/ML injection 01/24/2022 HYDROcodone-aceta minophen (Thayer) 7.5-325 MG tablet Take 2 tablets (15 mg of hydrocodone) by mouth 1 (one) time each day. Lancets 28G misc 12/27/2021 levocetirizine (Xyzal) 5 MG tablet 12/06/2021 lisinopril 20 MG tablet 06/08/2021 metFORMIN (Glucophage) 500 MG tablet Take 1 tablet (500 mg) by mouth twice a day. metFORMIN XR (Glucophage-XR) 500 MG 24 hr tablet 01/30/2023 Methylcellulose, Laxative, 500 MG tablet Take by mouth. metoprolol tartrate (Lopressor) 25 MG tablet 05/03/2021 pravastatin (Pravachol) 80 MG tablet 05/17/2021 SITagliptin (Januvia) 100 MG tablet 12/06/2021 traZODone (Desyrel) 100 MG tablet 05/31/2021 venlafaxine XR (Effexor-XR) 75 MG 24 hr capsule 04/28/2021 methenamine hippurate (Hiprex) 1 g tablet Take 1 tablet (1 g total) by mouth 2 (two) times a day. 60 tablet 5 11/16/2022 10/09/2023 Vibegron (Gemtesa) 75 MG tablet Take 75 mg by mouth 1 (one) time each day. 30 tablet 11 05/17/2023 10/09/2023 documented as of this encounter Plan of Treatment Upcoming Encounters Date Type Department Care Team (Late st Contact Info) Description 10/14/2024 2:00 PM EST Office Visit [facility] [address] [place] [address] Kailee Marin APRN, DNP [address] [place] [address] documented as of this encounter Procedures Procedure Name Priority Date/Time Associated Diagnosis Comments US RENAL COMPLETE Routine 06/26/2023 12: 58 PM EDT Microscopic hematuria documented in this encounter Results * US Renal Complete (06/26/2023 12:58 PM EDT) Anatomical Region Laterality Modality Kidney Ultrasound Impressions 06/26/2023 3:10 PM EDT Unremarkable kidneys without evidence of hydronephrosis. CRITICAL [...] Nettie Dickens MD on 06/26/2023 3:10 PM Narrative 06/26/2023 3:10 PM EDT CLINICAL INDICATION: microscopic hematuria TECHNIQUE: Multiplanar morales [...] calculi. Bladder: Partially decompressed without obvious abnormality. Procedure Note Nettie Dickens MD - 06/26/2023 CLINICAL INDICATION: microscopic hematuria TECHNIQUE: Multiplanar morales scale sonographic imaging of the kidneys. COMPARISON: None FINDINGS: Right Kidney: The right kidney is normal in size and echogenicitymeasuring 11.0 cm. No hydronephrosis, contour deforming masses, or obviouscalculi. Left Kidney: The left kidney is normal in size and echogenicity [id number] cm. No hydronephrosis, contour deforming masses, or obviouscalculi. Bladder: Partially decompressed without obvious abnormality. IMPRESSION: Unremarkable kidneys without evidence of hydronephrosis. CRITICAL RESULT: No. COMMUNICATION: Per this written report. Preliminary report signed by Selena Reyna MD on 06/26/2023 1:40 PM By electronically signing this report, I, the attending physician, [email or web address] I have personally reviewed the images/data for the aboveexamination(s) and agree with the final edited report. Drafted by Selena Reyna MD on 06/26/2023 1:35 PM Final report signed by Nettie Dickens MD on 06/26/2023 3:10 PM us Priscila Tijerina APRN IMG US PROCEDURES Final Re sult documented in this encounter Visit Diagnoses Diagnosis Microscopic hematuria documented in this encounter Additional Health Concerns Assessment Noted Time PHQ-9 Depression Total Score: 11 01/17/ 023 1:11 PM EDT A fall risk assessment has been complete d for the patient 01/17/2023 1:15 PM EDT A Body Mass Index follow-up plan has been documented for the patient 05/17/2023 4:12 PM EDT documented as of this encounter Care Teams Line Appliance Assembler Relationship Specialty Start Date End Date Nancy Berg MD [address] [place] [address] [address] [place] [address] PCP - General 01/29/21 documented as of this encounter
--- OUTSIDE RECORDS SUMMARY | 2024-08-04 19:31 | XMS_ITS | Encounter Summary ---
Author Organization Healthcare Address [address] [place] [address] Care Team Providers Care Highway Maintenance Worker Name Role Phone Nancy Berg MD Primary Care Provider [phone] Reason for Visit * Reason Comments UTI * Consultation (Routine) - Closed Specialty Diagnoses / Procedures Referred By Contac t Referred To Contact Urology Diagnoses Dysuria Kristen Douglass S, GUN PERFORATOR [address] [facility] [address] [place] [address] Phone: tel: fax: [facility] [address] [place] [address] Phone: tel: fax: Referral ID Status Reason Start Date Expiration Date V isits Requested Visits Authorized [id number] Closed Specialty Services Required 08/09/2022 02/08/2024 1 1 Encounter Details Date Type Department Care Team (Late st Contact Info) Description 11/16/2022 10:40 AM EST Consult [facility] [address] [place] [address] Eli Issa MD [address] [facility] [address] [place] [address] Dysuria Social History Tobacco Use Types Packs/Day Years Used Date Smoking Tobacco: Former Smokeless Tobacco: Never Tobacco Cessation:Counseling Given: Not Answered Alcohol Use Standard Drinks/Week Comments Never 0 (1 standard drink = 0.6 oz pur e alcohol) PHQ-2 Answer Date Recorded Patient Health Questionnaire-2 Score 0 11/16/2022 Comments Unknown Sex and Gender Information Value Date Recorded Sex Assigned at Not on file Legal Sex Female 6:02 PM EDT Gender Identity Not on file Sexual Orientation Not on file COVID-19 Exposure Response Date Recorded In the last 10 days, have yo u been in contact with someone who was confirmed or suspected to have Coronavirus/COVID-19? No / Unsure 11/16/2022 10:02 AM EST documented as of this encounter Last Filed Vital Signs Vital Sign Reading Time Taken Comments Blood Pressure 125/65 11/16/2022 10:47 AM EST Pulse 56 11/16/2022 10:47 AM EST Temperature - - Respiratory Rate - - Oxygen Saturation - - Inhaled Oxygen Concentration - - Weight 75.7 kg (166 lb 14.2 oz) 023 10:47 AM EST Height 165.1 cm (5' 5 ) 11/16/2022 10:4 7 AM EST Body Mass Index 27.77 11/16/2022 10:47 AM EST documented in this encounter Miscellaneous Notes * Progress Notes - Will Aguilar MD - 11/16/2022 10:40 AM EST [facility] Urology History and Physical 11/16/22 CC: Simona HPI: Karime Dang is a 67 y.o. female with history of infections dating back to 06/2021, with three culture confirmed urinary tract infections since then. She was most recently seen by her PCP in 07/2022 at which point she noted dysuria and suprapubic discomfort consistent with prior urinary infections.She had a urinalysis which showed trace leukocytes and negative nitrites at the time, and was started on empiric Macrobid. She requested a referral to urology for this issue and some urinary leakage. When discussing her infections, she says this all started around the time she was started on new diabetes medication, Januvia, -55bz ago. She has had around 5-6 episodes of symptoms she attributed to UTIs in that time frame. She does not recall any infections prior to that. She can typically tell she has an infection due to dysuria and suprapubic discomfort. Her symptoms typically clear up within a couple days of starting antibiotics. She has never had to be hospitalized for infections.Also of note she has a history of breast cancer and has been using anastrozole for 3 years or so. In addition to infections, she also is struggling with UI. She first noticed this a handful of years ago, at which time is was very minor. It has since progressed quite a bit and is now very bothersome. She notes her bladder almost completely empties when she stands up. She does not have any urge associated with this. She is wearing 3-4 pads per day, which are soaked when she changes them. She also leaks at night. She notes some leakage while she is standing without any other associated urge oractivity, and she rushes to the bathroom when this happens. She is not specifically aware of the leakage with coughing or sneezing, but just always wears a pad so she's not entirely sure. She has not tried anything for this. She does note a slight vaginal bulge since a hysterectomy was done. She previously had two children via vaginal delivery. She does have issues with constipation and occasionally takes mirilax. ROS: 12 pt ROS negative except as noted per HPI. Past Medical History: Past Medical History: Diagnosis Date Breast cancer ([facility]) Past Surgical History: Past Surgical History: Procedure Laterality Date MASTECTOMY Left PARTIAL HYSTERECTOMY TOTAL HIP ARTHROPLASTY Right Family History: No family history on file. Social History: Social History Tobacco Use Smoking status: Former Smokeless tobacco: Never Substance Use Topics Alcohol use: Never Drug use: Never Physical Exam: Vitals: 11/16/22 1047 BP: 125/65 Pulse: 56 GEN: NAD HEENT: NCAT, EOMI RESP: Equal bilateral chest rise, normal work of breathing CV: Regular rate, appears well perfused ABD: Soft, nontender, nondistended : normal external female genitalia, b/l levator tenderness to palpation, atrophic vaginal mucosa,no significant anterior or apical descent, mild posterior bulge noted with valsalva. EXT: No gross deformities MSK: Full ROM in BL UE NEURO: No focal deficits, alert and oriented PSYCH: Normal mood and affect Labs/Results/Procedures: PVR (11/16/22) - 0 mL Imaging: No new imaging Assessment: Karime Dang is a 67 y.o. female with history of UTIs, with 3 culture proven UTIs in the past 1-1.5 years. All cultures grew E. Coli. She now presents to discuss management options for rUTIs and urinary incontinence. We had a discussion regarding management options for UTI prevention, including remaining well hydrated, and starting vaginal estrogen or Hiprex. Given her history of breat cancer, and currently being on anti-estrogen therapy, we will avoid estrogen at this time and start with Hiprex. IF this is not successful we can discuss use of local vaginal estrogen with her oncologist. With regards to her leakage, this sounds like it may be CARL, but it is not entirely clear andbehzad also has some unaware UI. We will attempt to address her infections first, then consider VUDS if she is interested in intervention for her UI. At this time she is not sure how aggressive she would want to be to treat the UI. She is not sure if she would be willing to try an incontinence device.In regards to the vaginal bulge, exam reveals a mild rectocele so we discuss management of constipation. Plan: - Rx for Hiprex BID - RTC in 3mo for follow up, will consider VUDS at that time if UTIs have improved and she would like to address the leakage Eli Issa MD Cosigned by Eli Issa MD at 11/16/2022 1:43 PM EST Associated attestation - Eli Issa MD - 11/16/2022 1:43 PM EST I saw and evaluated the patient with the resident/fellow. I discussed the case with the resident/fellow and agree with the findings and plan as documented. 46 minutes were spent today on review of patient's medical history, obtaining history, exam, reviewof any relevant results, and discussion of pathophysiology with appropriate plan with counseling given to patient. documented in this encounter Plan of Treatment Upcoming Encounters Date Type Department Care Team (Late st Contact Info) Description 10/14/2024 2:00 PM EST Office Visit [facility] [address] [place] [address] Marin, Kailee Perez, GUN PERFORATOR, DNP [address] [place] [address] documented as of this encounter Procedures Procedure Name Priority Date/Time Associated Diagnosis Comments POC US BLADDER SCAN FOR VOLUME Routine 11/16/2022 Dysuria POCT URINALYSIS DIPSTICK Routine 11/16/2022 Dysuria documented in this encounter Results * (ABNORMAL) UA Dipstick (11/16/2022) POCT Urine Color Yellow IMAGING POCT Urine Clarity Clear IMAGING POCT Glucose Urine Negative Negative mg/dL IMAGING POCT Bilirubin, Urine Negative Negative IMAGING POCT Ketones, Urine Trace(A) Negative mg/dL IMAGING POCT Specific [place], Urine 1.025 IMAGING POCT Blood, Urine Negative Negative IMAGING POCT pH, Urine 5.0 5.0 to 8.0 IMAGING POCT Protein, Urine Negative Negative mg/dL IMAGING POCT Urobilinogen, Urine 0.2 0.2, 1 E.U./dL IMAGING POCT Nitrite, Urine Negative Negative IMAGING POCT Leukocyte Esterase, Urine Trace(A) Negative IMAGING Test Strip Lot Number [id number] IMAGING Test Strip Lot Expiration 10/18/2023 IMAGING Urine Urine specimen obtained by clean catch procedure / Unknown 11/16/2022 us Eli Issa MD POINT OF CARE TEST ENTER/EDIT ORDERABLES Final Result IMAGING * POC US Bladder Volume (11/16/2022) Urine, Volume 0 mL IMAGING Anatomical Region Laterality Modality Other Urine specimen (specimen) 11/16/2022 us Eli Issa MD IMG POINT OF CARE ULTRASOUND Final Result documented in this encounter Visit Diagnoses Diagnosis Dysuria documented in this encounter Additional Health Concerns Assessment Noted Time A fall risk assessment has been complete d for the patient 11/16/2022 10:55 AM EST A Body Mass Index follow-up plan has been documented for the patient 11/16/2022 11:46 AM EST documented as of this encounter Care Teams Highway Maintenance Worker Relationship Specialty Start Date End Date Nancy Berg MD [address] [place] [address] [address] [place] [address] PCP - General 01/29/21 documented as of this encounter
--- OUTSIDE RECORDS SUMMARY | 2024-08-04 19:31 | XMS_ITS | Encounter Summary ---
Author Organization Healthcare Address [address] [id number] Care Team Providers Care Drug Safety Physician Name Role Phone Nancy Berg MD Primary Care Provider [phone] Encounter Details Date Type Department Care Team (Latest Contact Info) Description 06/01/2022 Travel Social History Tobacco Use Types Packs/Day [...] AM EDT documented as of this encounter Plan of Treatment Upcoming Encounters Date Type Department Care Team (Late st Contact Info) Description 10/14/2024 2:00 PM EST Office Visit [facility] [address] [place] [address] Kailee Marin, PILLO, DNP [address] [place] [address] documented as of this encounter Visit Diagnoses Not on filedocumented in this encounter Additional Health Concerns Assessment Noted Time A fall risk assessment has been complete d for the patient 06/01/2022 9:31 AM EDT documented as of this encounter Care Teams Drug Safety Physician Relationship Specialty Start Date End Date Nancy Berg MD [address] [place] [address] [address] [place] [id number] PCP - General 01/29/21 documented as of this encounter
--- OUTSIDE RECORDS SUMMARY | 2024-08-04 19:31 | XMS_ITS | Encounter Summary ---
Author Organization Healthcare Address [address] [place] [address] Care Team Providers Care International Student Advisor Name Role Phone Nancy Berg MD Primary Care Provider [phone] Reason for Referral * Imaging (Routine) - Closed Specialty Diagnoses / Procedures Referred By Blessing patel Referred To Contact Radiology Diagnoses Microscopic hematuria Procedures US Renal Complete Priscila Tijerina APRN [address] [address] Phone: tel: fax: Referral ID Status Reason Start Date Expiration Date Visits Re quested Visits Authorized [id number] Closed 05/09/2023 11/07/2024 1 1 Encounter Details Date Type Department Care Team (Late st Contact Info) Description 05/09/2023 Orders Only [facility] [address] [place] [address] Priscila Tijerina APRN [address] [address] Microscopic hematuria (Primary Dx) Social History Tobacco Use Types Packs/Day Years Used Date Smoking Tobacco: Former Smokeless Tobacco: Never Alcohol Use Standard Drinks/Week Comments Never 0 (1 standard drink = 0.6 oz pur e alcohol) PHQ-2 Answer Date Recorded Patient Health Questionnaire-2 Score 4 01/17/2023 PHQ-9 Answer Date Recorded Patient Health Questionnaire-9 Score 11 01/17/2023 Comments Unknown Sex and Gender Information Value Date Recorded Sex Assigned at Not on file Legal Sex Female 6:02 PM EDT Gender Identity Not on file Sexual Orientation Not on file documented as of this encounter Miscellaneous Notes * Progress Notes - Priscila Tijerina APRN - 05/09/2023 11:21 AM EDT Patient scheduled for CTU and cysto for MH but has severe nausea and vomiting with contrast. She has never tried pre meds. Will cancel CTU and set her up for Y[facility]ELY documented in this encounter Plan of Treatment Upcoming Encounters Date Type Department Care Team (Late st Contact Info) Description 10/14/2024 2:00 PM EST [facility] [address] [place] [address] Kailee Marin APRN, DNP [address] [place] [address] documented as of this encounter Results * US Renal Complete [...] kidney is normal in size and echogenicity .3 cm. No hydronephrosis, contour deforming masses, or obviouscalculi. Bladder: Partially decompressed without obvious abnormality. IMPRESSION: Unremarkable kidneys without evidence of hydronephrosis. CRITICAL RESULT: No. COMMUNICATION: Per this written report. Preliminary report signed by Selena Reyna MD on 06/26/2023 1:40 PM By electronically signing this report, I, the attending physician, attestthat I have personally reviewed the images/data for the aboveexamination(s) and agree with the final edited report. Drafted by Selena Reyna MD on 06/26/2023 1:35 PM Final report signed by Nettie Dikcens MD on 06/26/2023 3:10 PM us Priscila Tijerina EPIC PROFESSIONAL IMG US PROCEDURES Final Re sult documented in this encounter Visit Diagnoses Diagnosis Microscopic hematuria- Primary Microscopic hematuria documented in this encounter Additional Health Concerns Assessment Noted Time PHQ-9 Depression Total Score: 11 023 1:11 PM EDT A fall risk assessment has been complete d for the patient 01/17/2023 1:15 PM EDT A Body Mass Index follow-up plan has been documented for the patient 02/17/2023 2:52 PM EDT documented as of this encounter Care Teams International Student Advisor Relationship Specialty Start Date End Date Nancy Berg MD [address] [place] [address] [address] [place] [address] PCP - General 01/29/21 documented as of this encounter
--- OUTSIDE RECORDS SUMMARY | 2024-08-04 19:31 | XMS_ITS | Encounter Summary ---
Author Organization Healthcare Address [address] [id number] Care Team Providers Care Analysis Reporting Developer Name Role Phone Nancy Berg MD Primary Care Provider [phone] Encounter Details Date Type Department Care Team (Late st Contact Info) Description 06/13/2023 Telephone [facility] [address] [place] [address] Eli Issa MD [address] [place] [address] Social History Tobacco Use Types Packs/Day Years [...] as of this encounter Miscellaneous Notes * Telephone Encounter - Eve Duran, PharmD - 06/21/2023 12:07 PM EDT PA request has been approved and pharmacy notified (Filling pharmacy will be notified by phone, fax, or submitted prescription) Authorized Medication: Gemtesa 75mg tablet Name of Insurance Approving PA: [facility] PA Number: NA PA Effective Dates: 05/22/23-09/17/99 Additional Info: NA documented in this encounter Plan of Treatment Upcoming Encounters Date Type Department Care Team (Late st Contact Info) Description 10/14/2024 2:00 PM EST Office Visit [facility] [address] [place] [address] Kailee Marin, PILLO, DNP [address] [place] [address] documented as of this encounter [...] documented as of this encounter Care Teams Analysis Reporting Developer Relationship Specialty Start Date End Date Nancy Berg MD [address] [place] [address] [address] [place] [address] PCP - General 01/29/21 documented as of this encounter
--- OUTSIDE RECORDS SUMMARY | 2024-08-04 19:31 | XMS_ITS | Encounter Summary ---
Author Organization Healthcare Address [address] [id number] Care Team Providers Care Manufacturing Assistant Name Role Phone Nancy Berg MD Primary Care Provider [phone] Encounter Details Date Type Department Care Team (Latest Contact Info) Description 11/16/2022 Travel Social History Tobacco Use Types Packs/Day [...] AM EST documented as of this encounter Plan of Treatment Upcoming Encounters Date Type Department Care Team (Late st Contact Info) Description 10/14/2024 2:00 PM EST Office Visit [facility] [address] [place] [address] Kailee Marin APRN, DNP [address] [place] [address] documented as of this encounter Visit Diagnoses Not on filedocumented in this encounter Additional Health Concerns Assessment Noted Time A fall risk assessment has been complete d for the patient 11/16/2022 10:55 AM EST A Body Mass Index follow-up plan has been documented for the patient 11/16/2022 11:46 AM EST documented as of this encounter Care Teams Manufacturing Assistant Relationship Specialty Start Date End Date Nancy Berg MD [address] [place] [address] [address] [place] [address] PCP - General 01/29/21 documented as of this encounter
--- OUTSIDE RECORDS SUMMARY | 2024-08-04 19:31 | XMS_ITS | Encounter Summary ---
Author Organization [facility] Address [address] [place] [address] Care Team Providers Care Tennis Player Name Role Phone Nancy Berg MD Primary Care Provider [phone] Reason for Referral * Other Medical (Routine) - Closed Specialty Diagnoses / Procedures Referred By Blessing patel Referred To Contact Diagnoses Microscopic hematuria Procedures Cystourethroscopy Priscila Tijerina APRN [address] [address] Phone: tel: fax: [facility] [address] [place] [address] Phone: tel: fax: Referral ID Status Reason Start Date Expiration Date Visits Re quested Visits Authorized [id number] Closed 02/17/2023 08/18/2024 1 1 * Imaging (Routine) - Authorized Specialty Diagnoses / Procedures Referred By Blessing patel Referred To Contact Radiology Diagnoses Microscopic hematuria Procedures CT Urogram Priscila Tijerina APRN [address] [address] Phone: tel: fax: Referral ID Status Reason Start Date Expiration Date V isits Requested Visits Authorized [id number] Authorized 02/17/2023 08/18/2024 1 1 Reason for Visit * Reason Comments Follow-up Encounter Details Date Type Department Care Team (Late st Contact Info) Description 02/17/2023 2:20 PM EDT Office Visit [facility] [address], [address] [place] [address] Priscila Tijerina, BESSEMER REGULATOR [address] [place] [address] Microscopic hematuria (Primary Dx); Dysuria; Recurrent UTI; Urge incontinence Social History Tobacco Use Types Packs/Day Years [...] Sign Reading Time Taken Comments Blood Pressure 157/69 02/17/2023 2:27 PM EDT Pulse 76 02/17/2023 2:27 PM EDT Temperature - - Respiratory Rate - - Oxygen Saturation - - Inhaled Oxygen Concentration - - Weight 75.6 kg (166 lb 10.7 oz) 02/17/2023 2:27 PM EDT Height - - Body Mass Index 27.73 01/17/2023 1:08 PM EDT documented in this encounter Miscellaneous Notes * Progress Notes - Priscila Tijerina, BESSEMER REGULATOR - 02/17/2023 2:20 PM EDT [facility] History and Physical 02/17/23 CC: Simona HPI: Karime Dang is a 67 y.o. female with history of recurrent UTI and UI. Recurrent UTI: Started around the time she started Januvia (approx 2 years ago) 5-6 UTIs since Typical symptoms: dysuria and suprapubic discomfort. Her symptoms typically clear up within a couple days of starting antibiotics. She has never had to be hospitalized for infections. Cultures + for E-coli Started on Hiprex Also of note she has a history of breast cancer and has been using anastrozole for 3 years or so. UI: She notes her bladder almost completely empties when she stands up. She does not have any urge associated with this. She is wearing 3-4 pads per day, which are soaked when she changes them. She also leaks at night. She notes some leakage while she is standing without any other associated urge or activity, and she rushes to the bathroom when this happens. She is not specifically aware of the leakage with coughing or sneezing, but just always wears a pad so she's not entirely sure. She does note a slight vaginal bulge since a hysterectomy was done. She previously had two childrenvia vaginal delivery. She does have issues with constipation and occasionally takes mirilax. Initial exam showed b/l levator tenderness to palpation, atrophic vaginal mucosa, no significant anterior or apical descent, mild posterior bulge noted with valsalva. Decision made to avoid estrogen due to history of breast cancer, but she was started on Hiprex. She returned to clinic January 17, 2023 with concerns for UTI, catheterized speicmen was no growth, but specimen showed 4-10 red blood cells. She returns today for follow-up. She notes her legs are aching, she was unable to go to [place]az[place] this past weekend and wonders if a UTI may be causing the aching. Tylenol helped. Otherwise, she does not know if she has had any UTIs. She continues Hiprex twice daily. Typically urinates every 3-4 hours during the day. She notes that her last A1c was ~ 7 She is still bothered by leakage. She has never tried any medication. ROS: 12 pt ROS negative except as noted per HPI. Past Medical History: Past Medical History: Diagnosis Date Breast cancer ([facility]) Past Surgical History: Past Surgical History: Procedure Laterality Date MASTECTOMY Left PARTIAL HYSTERECTOMY TOTAL HIP ARTHROPLASTY Right Family History: History reviewed. No pertinent family history. Social History: Social History Tobacco Use Smoking status: Former Smokeless tobacco: Never Substance Use Topics Alcohol use: Never Drug use: Never Physical Exam: Vitals: 02/17/23 1427 BP: (!) 157/69 Pulse: 76 GEN: NAD HEENT: NCAT, EOMI RESP: Equal bilateral chest rise, normal work of breathing CV: appears well perfused EXT: No gross deformities MSK: Full ROM in BL UE NEURO: No focal deficits, alert and oriented PSYCH: Normal mood and affect Labs/Results/Procedures: Recent Results (from the past 24 hour(s)) UA Dipstick Collection Time: 02/17/23 2:46 PM Result Value Ref Range POCT Urine Color Yellow POCT Urine Clarity Clear POCT Glucose Urine 500 (A) Negative mg/dL POCT Bilirubin, Urine Negative Negative POCT Ketones, Urine Trace (A) Negative mg/dL POCT Specific Perry, Urine >=1.030 POCT Blood, Urine Small (A) Negative POCT pH, Urine 5.5 5.0 to 8.0 POCT Protein, Urine 30 (A) Negative mg/dL POCT Urobilinogen, Urine 0.2 0.2, 1 E.U./dL POCT Nitrite, Urine Negative Negative POCT Leukocyte Esterase, Urine Negative Negative Test Strip Lot Number [id number] Test Strip Lot Expiration 10/2023 POC US Bladder Volume Collection Time: 02/17/23 2:47 PM Result Value Ref Range Urine, Volume 0 mL Imaging: No new imaging Assessment: Karime Dang is a 67 y.o. female here today for follow up of recurrent UTI and UUI. At her last visit, catheterized specimen showed 4-10 red blood cells with no bacteria and also shows MHtoday. Specimen sent for culture, mycology, and microscopy. We discussed getting a CTU/cysto to further evaluate; she prefers a female for this. She was also advised to continue Hiprex twice daily for now. Free trial offer for Gemtesa sent, she can call for a formal prescription if it is helpful. We also discussed timed voiding every 2 hours during the day to prevent UUI. Plan: Continue Hiprex Urine sent for culture, mycology, microscopy CTU/cysto for MH Trial of Gemtesa for UUI Timed voiding Priscila Tijerina APRN documented in this encounter Plan of Treatment Upcoming Encounters Date Type Department Care Team (Late st Contact Info) Description 10/14/2024 2:00 PM EST Office Visit [facility] Urology [address] [place] [address] TomasKailee, BESSEMER REGULATOR, DNP [address] [place] [address] Scheduled Orders Name Type Priority Associated Diagnoses Orde r Schedule CT Urogram Imaging Routine Microscopic hematuria Expected: 02/17/2023, Expires: 08/19/2024 Cystourethroscopy Procedures Routine Microscopic hematuria Expected: 02/17/2023 (Approximate), Expires: 02/18/2024 Creatinine, Plasma Lab STAT Microscopic hematuria 1 Occurrences starting 02/17/2023 until 08/19/2024 documented as of this encounter Procedures Procedure Name Priority Date/Time Associated Diagnosis Comments URINALYSIS, MICROSCOPIC Routine 02/17/2023 3:08 PM EDT Microscopic hematuria FUNGAL CULTURE, ROUTINE Routine 02/17/2023 3:08 PM EDT Microscopic hematuria URINE CULTURE Routine 02/17/2023 3:08 PM EDT Microscopic hematuria POC US BLADDER SCAN FOR VOLUME Routine 02/17/2023 2:47 PM EDT Microscopic hematuria Dysuria POCT URINALYSIS DIPSTICK Routine 02/17/2023 2:46 PM EDT Microscopic hematuria Dysuria documented in this encounter Results * Fungal Culture, Routine (02/17/2023 3:08 PM EDT) Culture No Fungal Growth at 1 Week 02/24/2023 10:35 AM EDT [facility] Urine Urinary bladder structure / Unknown Non-blood Collection / Unknown 02/17/2023 3:08 PM EDT 02/17/2023 5:28 PM EDT us Priscila Tijerina APRN LAB MICROBIOLOGY - GENERAL ORDERABLES Final Result [facility] [address] [place] [address] * Urinalysis, Microscopic (02/17/2023 3:08 PM EDT) RBC, Urine 1 0 to 3 /HPF LAB URINALYSIS - AUTOMATED METHOD 02/17/2023 5:55 PM EDT [facility] WBC, Urine 0 - 5 0 to 5 /HPF LAB URINALYSIS - AUTOMATED METHOD 02/17/2023 5:55 PM EDT [facility] Squamous Epithelial Cells 0 - 5 0 to 5 /HPF LAB URINALYSIS - AUTOMATED METHOD 02/17/2023 5:55 PM EDT [facility] Hyaline Casts 0 - 8 0 to 8 /LPF LAB URINALYSIS - AUTOMATED METHOD 02/17/2023 5:55 PM EDT [facility] Bacteria, Urine Negative Negative LAB URINALYSIS - AUTOMATED METHOD 02/17/2023 5:55 PM EDT [facility] Calcium Oxalate Crystals Present Absent 02/17/2023 5:55 PM EDT [facility] Urine Urine specimen obtained by clean catch procedure / Unknown Non-blood Collection / Unknown 02/17/2023 3:08 PM EDT 02/17/2023 5:53 PM EDT Narrative [facility] - 02/17/2023 5:55 PM EDT Performed by manual method Microscopic exam performed on unspun specimen. Results may be falsely decreased due to low volume (<=1.0 mL) specimen. us Priscila Tijerina APRN LAB URINE ORDERABLES Final Result Performing Organization Address City/[facility]/ZIP Co de Phone Number [facility] [address] [place] [phone] * (ABNORMAL) Urine Culture (02/17/2023 3:08 PM EDT) Pathologist [facility] Culture 10,000 - 100,000 CFU/mL Mixed urogenital , fecal, or skin rachel present.(A ) 02/18/2023 12:38 PM EDT [facility] Urine Urine specimen obtained by clean catch procedure / Unknown Non-blood Collection / Unknown 02/17/2023 3:08 PM EDT 02/17/2023 5:28 PM EDT us Priscila Tijerina APRN LAB MICROBIOLOGY - GENERAL ORDERABLES Final Result [facility] [address] [place] [address] * POC US Bladder Volume (02/17/2023 2:47 PM EDT) Urine, Volume 0 mL IMAGING Anatomical Region Laterality Modality Other us Priscila Tijerina APRN IMG POINT OF CARE ULTRASOU ND Final Result * (ABNORMAL) UA Dipstick (02/17/2023 2:46 PM EDT) POCT Urine Color Yellow POCT Urine Clarity Clear POCT Glucose Urine 500(A) Negative mg/dL POCT Bilirubin, Urine Negative Negative POCT Ketones, Urine Trace(A) Negative mg/dL POCT Specific Perry, Urine >=1.030 POCT Blood, Urine Small(A) Negative POCT pH, Urine 5.5 5.0 to 8.0 POCT Protein, Urine 30(A) Negative mg/dL POCT Urobilinogen, Urine 0.2 0.2, 1 E.U./dL POCT Nitrite, Urine Negative Negative POCT Leukocyte Esterase, Urine Negative Negative Test Strip Lot Number [id number] Test Strip Lot Expiration 10/2023 Urine Urine specimen obtained by clean catch procedure / Unknown 02/17/2023 2:46 PM EDT us Priscila Tijerina APRN POINT OF CARE TEST ENTER/E DIT ORDERABLES Final Result documented in this encounter Visit Diagnoses Diagnosis Microscopic hematuria- Primary Dysuria Recurrent UTI Urinary tract infection, site not specified Urge incontinence documented in this encounter Additional Health Concerns Assessment Noted Time PHQ-9 Depression Total Score: 11 023 1:11 PM EDT A fall risk assessment has been complete d for the patient 01/17/2023 1:15 PM EDT A Body Mass Index follow-up plan has been documented for the patient 02/17/2023 2:52 PM EDT documented as of this encounter Care Teams Tennis Player Relationship Specialty Start Date End Date Nancy Berg MD [address] [place] [address] [address] [place] [address] PCP - General 01/29/21 documented as of this encounter
--- OUTSIDE RECORDS SUMMARY | 2024-08-04 19:31 | XMS_ITS | Encounter Summary ---
Author Organization Healthcare Address [address] [id number] Care Team Providers Care Telephone Clerk Name Role Phone Nancy Berg MD Primary Care Provider [phone] Encounter Details Date Type Department Care Team (Late st Contact Info) Description 01/16/2023 Telephone [facility] [address], [address] [place] [address] Priscila Tijerina, COLLAR RUNNER [address] [place] [address] Social History Tobacco Use Types [...] encounter Miscellaneous Notes * Telephone Encounter - Peggy Caro LPN - 01/16/2023 10:25 AM EDT Uro cath nurse visit scheduled for tomorrow at 1:30p. Patient is aware of date and time. * Telephone Encounter - Darlene Colon - 01/16/2023 10:12 AM EDT Patient Phone Message Reason for Call: Asking for a call back, says she may have a uti but also has blood in urine. Best contact number and optimal time of day to reach caller: [phone] Note: Please do not reply to this message. Follow-up communication and further actions as a result of this message need to be communicated with the patient directly, if the patient is not active onMyChart. If the patient is active on MyChart, they will receive notification of the communication/outcome via [employer]. documented in this encounter Plan of Treatment Upcoming Encounters Date Type Department Care Team (Late st Contact Info) Description 10/14/2024 2:00 PM EST Office Visit [facility] [address] [place] [address] Kailee Marin APRN, DNP [address] [place] [address] documented as of this encounter Visit Diagnoses Not on filedocumented in this encounter Additional Health Concerns Assessment Noted Time A fall risk assessment has been complete d for the patient 11/16/2022 10:55 AM EST A Body Mass Index follow-up plan has been documented for the patient 11/16/2022 11:46 AM EST documented as of this encounter Care Teams Telephone Clerk Relationship Specialty Start Date End Date Nancy Berg MD [address] [place] [address] [address] [place] [address] PCP - General 01/29/21 documented as of this encounter
--- OUTSIDE RECORDS SUMMARY | 2024-08-04 19:31 | XMS_ITS | Encounter Summary ---
Author Organization Healthcare Address [address] [place] [address] Care Team Providers Care Body Care Manager Name Role Phone Nancy Berg MD Primary Care Provider [phone] Kailee Marin APRN, [facility] Unavailable + [phone] Reason for Referral * Consultation (Routine) - Closed Specialty Diagnoses / Procedures Referred By Contlula t Referred To Contact Urology Diagnoses Dysuria Kristen Douglass PARATRANSIT OPERATOR [address] [address] Phone: tel: fax: [facility] [address] [place] [address] Phone: tel: fax: Referral ID Status Reason Start Date Expiration Date V isits Requested Visits Authorized [id number] Closed Specialty Services Required 08/09/2022 02/08/2024 1 1 Encounter Details Date Type Department Care Team (Late st Contact Info) Description 08/09/2022 Community [facility] [address] [place] [address] Kristen Douglass, PARATRANSIT OPERATOR [address] [address] Dysuria (Primary Dx) Social History Tobacco Use Types [...] Description 10/14/2024 2:00 PM EST Office [facility] [address] [place] [address] Kailee Marin APRN, REBA [address] [facility] [address] [place] [address] Scheduled Referrals Name Type Priority Associated Diagnoses Order Schedule Ambulatory referral to Urology Outpatient Referral Routine Dysuria Expected: 08/09/2022 (Approximate), Expires: 02/07/2024 documented as of this encounter Visit Diagnoses Diagnosis Dysuria- Primary documented in this encounter Additional Health Concerns Assessment Noted Time A fall risk assessment has been complete d for the patient 06/01/2022 9:31 AM EDT documented as of this encounter Care Teams Body Care Manager Relationship Specialty Start Date End Date Nancy Berg MD [address] [place] [address] [address] [place] [address] PCP - General 01/29/21 Kailee Marin APRN, DNP [address] [facility] [place] [address] Nurse Practitioner Urology 06/29/23 documented as of this encounter
--- OUTSIDE RECORDS SUMMARY | 2024-08-04 19:31 | XMS_ITS | Encounter Summary ---
Author Organization Healthcare Address [address] [id number] Care Team Providers Care Seafood Preparer Name Role Phone Nancy Berg MD Primary Care Provider [phone] Encounter Details Date Type Department Care Team (Latest Contact Info) Description 02/21/2022 Travel Social History Tobacco Use Types Packs/Day [...] PM EDT documented as of this encounter Plan of Treatment Upcoming Encounters Date Type Department Care Team (Late st Contact Info) Description 10/14/2024 2:00 PM EST Office Visit [facility] [address] [place] [address] Kailee Marin, PILLO, DNP [address] [place] [address] documented as of this encounter Visit Diagnoses Not on filedocumented in this encounter Additional Health Concerns Assessment Noted Time A fall risk assessment has been complete d for the patient 02/21/2022 3:14 PM EDT documented as of this encounter Care Teams Seafood Preparer Relationship Specialty Start Date End Date Nancy Berg MD [address] [place] [address] [address] [place] [id number] PCP - General 01/29/21 documented as of this encounter
--- OUTSIDE RECORDS SUMMARY | 2024-08-04 19:31 | XMS_ITS | Encounter Summary ---
Author Organization Healthcare Address [address] [id number] Care Team Providers Care Fabric Stretcher Name Role Phone Nancy Berg MD Primary Care Provider [phone] Encounter Details Date Type Department Care Team (Latest Contact Info) Description 01/31/2022 Travel Social History Tobacco Use Types Packs/Day [...] suspected to have Coronavirus/COVID-19? No / Unsure 01/31/2022 2:25 PM EDT documented as of this encounter Plan of Treatment Upcoming Encounters Date Type Department Care Team (Late st Contact Info) Description 10/14/2024 2:00 PM EST Office Visit [place] [facility] [address] [place] [address] Kailee Marin, PILLO, DNP [address] [place] [address] documented as of this encounter Visit Diagnoses Not on filedocumented in this encounter Additional Health Concerns Assessment Noted Time A fall risk assessment has been complete d for the patient 01/31/2022 3:36 PM EDT documented as of this encounter Care Teams Fabric Stretcher Relationship Specialty Start Date End Date Nancy Berg MD [address] [place] [address] [address] [place] [id number] PCP - General 01/29/21 documented as of this encounter
--- OUTSIDE RECORDS SUMMARY | 2024-08-04 19:31 | XMS_ITS | Encounter Summary ---
Author Organization Healthcare Address [address] [id number] Care Team Providers Care Quality Rn Name Role Phone Nancy Berg MD Primary Care Provider [phone] Reason for Visit * Reason Comments UTI Encounter Details Date Type Department Care Team (Latest Contact Info) Description 01/17/2023 1:35 PM EDT Clinical Support [facility] Urology [address] [place] [address] Cornelia Lujan, RN [facility] Dysuria (Primary Dx) Social History Tobacco Use [...] Sign Reading Time Taken Comments Blood Pressure 152/59 01/17/2023 1:08 PM EDT Pulse 60 01/17/2023 1:08 PM EDT Temperature - - Respiratory Rate - - Oxygen Saturation - - Inhaled Oxygen Concentration - - Weight 77.1 kg (169 lb 15.6 oz) 01/17/2023 1:08 PM EDT Height 165.1 cm (5' 5 ) 01/17/2023 1:08 PM EDT Body Mass Index 28.29 01/17/2023 1:08 PM EDT documented in this encounter Miscellaneous Notes * Progress Notes - Cornelia Lujan LPN - 01/17/2023 1:35 PM EDT Ms. Karime Dang is a 67 year old female with a history of UTIs. She presents today for a possible UTI. Ms. Dang state symptoms of burning, frequency, and some blood in the urine. Bladder catheterization procedure was discussed with the patient including benefits and risks for infection, bleeding and allergic reaction. Verbal consent from the patient was given. Patient was then prepped using betadine swabs x3 and bladder catheterization per urethra was performed using a 14 fr straight catheter using sterile technique. 80 ml of clear yellow urine was obtained via catheter. Patient tolerated procedure well with no complaints. Plan: 1.) Send culture to the lab for evaluation. Patient will be notified of her results. 2.) Call the clinic with any questions to concerns at [phone] documented in this encounter Plan of Treatment Upcoming Encounters Date Type Department Care Team (Late st Contact Info) Description 10/14/2024 2:00 PM EST Office Visit [facility] Urology [address] [place] [address] Kailee Marin APRN, DNP [address] [place] [address] documented as of this encounter Procedures Procedure Name Priority Date/Time Associated Diagnosis Comments URINALYSIS, MICROSCOPIC Routine 01/17/2023 1:47 PM EDT Dysuria URINE CULTURE Routine 01/17/2023 1:47 PM EDT Dysuria documented in this encounter Results * (ABNORMAL) Urinalysis, Microscopic (01/17/2023 1:47 PM EDT) RBC, Urine 4 - 10(A) 0 to 3 /HPF LAB URINALYSIS - AUTOMATED METHOD 01/17/2023 3:07 PM EDT [facility] WBC, Urine 0 - 5 0 to 5 /HPF LAB URINALYSIS - AUTOMATED METHOD 01/17/2023 3:07 PM EDT [facility] Squamous Epithelial Cells 0 - 5 0 to 5 /HPF LAB URINALYSIS - AUTOMATED METHOD 01/17/2023 3:07 PM EDT [facility] Hyaline Casts 0 - 8 0 to 8 /LPF LAB URINALYSIS - AUTOMATED METHOD 01/17/2023 3:07 PM EDT [facility] Bacteria, Urine Negative Negative LAB URINALYSIS - AUTOMATED METHOD 01/17/2023 3:07 PM EDT [facility] Urine Urine specimen / Unknown Non-blood Collection / Unknown 01/17/2023 1:47 PM EDT 01/17/2023 2:50 PM EDT us Priscila Tijerina APRN LAB URINE ORDERABLES Final Result Performing Organization Address [facility] Co de Phone Number [facility] [address] [place] [address] * Urine Culture (01/17/2023 1:47 PM EDT) Culture No growth at day 2 01/19/2023 12:05 PM EDT [facility] Urine Urine specimen / Unknown Non-blood Collection / Unknown 01/17/2023 1:47 PM EDT 01/17/2023 2:47 PM EDT us Priscila Tijerina APRN LAB MICROBIOLOGY - GENERAL ORDERABLES Final Result Performing Organization Address [facility] Co de Phone Number [facility] [address] [place] [address] documented in this encounter Visit Diagnoses Diagnosis Dysuria- Primary [...] documented as of this encounter Care Teams Quality Rn Relationship Specialty Start Date End Date Nancy Berg MD [address] [place] [address] [address] [place] [address] PCP - General 01/29/21 documented as of this encounter
--- OUTSIDE RECORDS SUMMARY | 2024-08-04 19:31 | XMS_ITS | Encounter Summary ---
Author Organization Healthcare Address [address] [place] [address] Care Team Providers Care Asp Net Programmer Name Role Phone Nancy Berg MD Primary Care Provider [phone] Encounter Details Date Type Department Care Team (Late Contact Info) Description 05/08/2023 Telephone [facility] [address] [place] [address] Julianna Gonzalez RN [facility] Social History Tobacco Use Types Packs/Day Years [...] Encounters Date Type Department Care Team (Late Contact Info) Description 10/14/2024 2:00 PM EST Office Visit [facility] [address] [place] [address] Kailee Marin APRN, DNP [address] [place] [address] documented as of this encounter Visit Diagnoses Not on filedocumented in this encounter Additional Health Concerns Assessment Noted Time PHQ-9 Depression Total Score: 11 05/02/2 023 1:11 PM EDT A fall risk assessment has been complete d for the patient 01/17/2023 1:15 PM EDT A Body Mass Index follow-up plan has been documented for the patient 02/17/2023 2:52 PM EDT documented as of this encounter Care Teams Asp Net Programmer Relationship Specialty Start Date End Date Nancy Berg MD [address] [place] [address] [place] [address] PCP - General 01/29/21 documented as of this encounter
--- OUTSIDE RECORDS SUMMARY | 2024-08-04 19:31 | XMS_ITS | Encounter Summary ---
Author Organization Healthcare Address [address] [id number] Care Team Providers Care Railway Head Tender Name Role Phone Nancy Berg MD Primary Care Provider [phone] Encounter Details Date Type Department Care Team (Late st Contact Info) Description 12/21/[address] [facility] Urology [address] [place] [address] Eli Issa MD [address] [facility] [address] [place] [address] Social History Tobacco Use Types [...] encounter Miscellaneous Notes * Telephone Encounter - Anastasiia Pugh - 12/21/2022 4:11 PM EDT Patient notified and stated that she is getting labs done on 12/27/2022. documented in this encounter Plan of Treatment Upcoming Encounters Date Type Department Care Team (Late st Contact Info) Description 10/14/2024 2:00 PM EST Office Visit [facility] Urology [address] [place] [address] Kailee Marin, FIRE PATROLLER, DNP [address] [place] [address] documented as of this encounter Visit Diagnoses Not on filedocumented in this encounter Additional Health Concerns Assessment Noted Time A fall risk assessment has been complete d for the patient 11/16/2022 10:55 AM EST A Body Mass Index follow-up plan has been documented for the patient 11/16/2022 11:46 AM EST documented as of this encounter Care Teams Railway Head Tender Relationship Specialty Start Date End Date Nancy Berg MD [address] [place] [address] [address] [place] [address] PCP - General 01/29/21 documented as of this encounter
--- OUTSIDE RECORDS SUMMARY | 2024-08-04 19:31 | XMS_ITS | Encounter Summary ---
Author Organization Healthcare Address [address] [place], [place] [id number] Care Team Providers Care Middle School Coach Name Role Phone Nancy Berg MD Primary Care Provider [phone] Reason for Visit * Reason Comments Consult Consult * Consultation (Routine) - Closed Specialty Diagnoses / Procedures Referred By Contac t Referred To Contact Orthopaedic Surgery Diagnoses Right hip pain History of right hip replacement Arturo Calle MD [address] [place] [address] Phone: tel: fax: Chris Aguero MD [address] [place] [address] Phone: tel: fax: Referral ID Status Reason Start Date Expiration Date V isits Requested Visits Authorized [id number] Closed Specialty Services Required 01/19/2022 07/21/2023 1 1 Encounter Details Date Type Department Care Team (Latest Contact Info) Description 01/31/2022 2:40 PM EDT Office Visit Medical [facility] [address] , [address] [place] [address] Chris Aguero MD [address] [place] [address] Lumbar radiculopathy (Primary Dx); Hip pain, left; Right hip pain; History of right hip replacement; Primary osteoarthritis of left hip Social History [...] Sign Reading Time Taken Comments Blood Pressure 114/73 01/31/2022 3:34 PM EDT Pulse 66 01/31/2022 3:34 PM EDT Temperature - - Respiratory Rate - - Oxygen Saturation - - Inhaled Oxygen Concentration - - Weight 77.7 kg (171 lb 4.8 oz) 01/31/2022 3:34 P M EDT Height 165.1 cm (5' 5 ) 01/31/2022 3:34 PM EDT Body Mass Index 28.51 01/31/2022 3:34 PM EDT documented in this encounter Miscellaneous Notes * Progress Notes - Greg Shin MD - 01/31/2022 2:40 PM EDT Subjective: Karime Dang is a 66 y.o. y/o female who comes in today for bilateral lower back pain and left buttock pain with numbness and tingling after standing for a period of time.. She has a history of righthip replacement over 10 years ago. She has chronic lower back pain. She was referred here by Dr. Calle for consideration of left hip replacement. She has not had any treatment for her back or hips.. Only takes tylenol. Objective: BMI is Body mass index is 28.51 kg/m??. RIGHT HIP- Good passive ROM without crepitus, pain or instability. Stinchfield testing negative. Impingement testing negative. ADRIANA testing negative. Nontender over the groin, GT bursa. Limb lengthssymmetric in seated position. Left hip- Full passive ROM without crepitus, pain or instability. Stinchfield testing negative. Impingement testing positive at end range. ADRIANA testing negative. Nontender over the groin, GT bursa. Spine tender to palpation over lower paraspinal musculature Neurovascular Exam: Neurovascular status distally showed a well-perfused foot with intact foot dorsiflexion/plantarflexion and EHL, normal sensation in the deep and superficial peroneal nerve and medial and lateral plantar nerve distributions. My independent interpretation of radiographic testing shows: good alignment without signs of loosening or complication of the right hip replacement, left hip shows medial joint space narrowing. Notes reviewed: outside physician Results of tests reviewed: none Assessment and plan: Lumbar radiculopathy Hip pain, left Right hip pain History of right hip replacement Primary osteoarthritis of left hip Orders Placed This Encounter ??? New Patient: XR Hip (AP Pelvis Standing with Phoenix Marker / Frog Leg Lateral Standing) ??? XR Lumbar Spine 4+ Views w Flexion Extension ??? MR Lumbar Spine wo IV Contrast ??? PT eval and treat Plan: Lumbar radiculopathy with neurogenic claudication- we discussed further workup to include XR and MRI of the lumbar spine. She wants to work with PT and chiropractor on her back. She may be a candidate for injections/spine surgery if she fails conservative treatment. Left hip DJD- We outlined non-operative care for the patient including use of acetaminophen for thepain, dietary additives, judicious use of NSAIDs, activity restrictions, and physical therapy. The patient opts for PT. CC: Nancy Berg MD This problem is a chronic problem with some progression. No procedure risk factors were discussed, (no procedure) and decision was not made for procedure. Cosigned by Chris Aguero MD at 02/01/2022 4:21 PM EDT Associated attestation - Chris Aguero MD - 02/01/2022 4:21 PM EDT I saw and evaluated the patient with the resident/fellow. I discussed the case with the resident/fellow and agree with the findings and plan as documented. documented in this encounter Plan of Treatment Upcoming Encounters Date Type Department Care Team (Late st Contact Info) Description 10/14/2024 2:00 PM EST Office Visit [place] [facility] [address] [place] [address] Kailee Marin APRN, DNP [address] [place] [address] documented as of this encounter Visit Diagnoses Diagnosis Lumbar radiculopathy- Primary Thoracic or lumbosacral neuritis or radiculitis, unspecified Hip pain, left Pain in joint, pelvic region and thigh Right hip pain Pain in joint, pelvic region and thigh History of right hip replacement Primary osteoarthritis of left hip documented in this encounter Additional Health Concerns Assessment Noted Time A fall risk assessment has been complete d for the patient 01/31/2022 3:36 PM EDT documented as of this encounter Care Teams Middle School Coach Relationship Specialty Start Date End Date Nancy Berg MD [address] [place] [address] [address] [place] [address] PCP - General 01/29/21 documented as of this encounter
--- OUTSIDE RECORDS SUMMARY | 2024-08-04 19:31 | XMS_ITS | Encounter Summary ---
Author Organization Healthcare Address [address] [place] [address] Care Team Providers Care Retail Store Manager Name Role Phone Nancy Berg MD Primary Care Provider [phone] Encounter Details Date Type Department Care Team (Latest Contact Info) Description 01/31/2022 2:34 PM EDT - 01/31/2022 11:59 PM EDT Hospital Encounter Medical Office Building Radiology [address] [place] [address] Hip pain, left Discharge Disposition: Home or Self Care Social [...] PM EDT documented as of this encounter Medications at Time of Discharge alpha tocopherol (Vitamin E) 400 units capsule Take 1 capsule (400 Units) by mouth 1 (one) time each day. anastrozole (Arimidex) 1 MG chemo tablet 02/12/2021 calcium carbonate (Maalox) 600 MG chewable tablet Chew 1 tablet (600 mg) 1 (one) time each day. cetirizine (ZyrTEC) 10 MG tablet Take 1 tablet (10 mg) by mouth 1 (one) time each day. fish oil (Calvin-3) 500 MG capsule Take 1 capsule (500 mg) by mouth 1 (one) time each day. glucose blood test strip 05/27/2021 hepatitis A-hepatitis B (Twinrix) 720-20 ELU-MCG/ML suspension prefilled syringe 07/22/2021 hepatitis B (Engerix-B) 20 MCG/ML injection 01/24/2022 HYDROcodone-aceta minophen (Salamonia) 7.5-325 MG tablet Take 2 tablets (15 mg of hydrocodone) by mouth 1 (one) time each day. Lancets 28G misc 12/27/2021 levocetirizine (Xyzal) 5 MG tablet 12/06/2021 lisinopril 20 MG tablet 06/08/2021 metFORMIN (Glucophage) 500 MG tablet Take 1 tablet (500 mg) by mouth twice a day. Methylcellulose, Laxative, 500 MG tablet Take by mouth. metoprolol tartrate (Lopressor) 25 MG tablet 05/03/2021 pravastatin (Pravachol) 80 MG tablet 05/17/2021 SITagliptin (Januvia) 100 MG tablet 12/06/2021 traZODone (Desyrel) 100 MG tablet 05/31/2021 venlafaxine XR (Effexor-XR) 75 MG 24 hr capsule 04/28/2021 documented as of this encounter Plan of Treatment Upcoming Encounters Date Type Department Care Team (Late st Contact Info) Description 10/14/2024 2:00 PM EST Office Visit [place] [facility] [address], [address] [place] [address] Kailee Marin, PILLO, DNP [address] [place] [address] documented as of this encounter Procedures Procedure Name Priority Date/Time Associated Diagnosis Comments XR HIPS BILATERAL 2 VIEWS Routine 01/31/2022 3:07 PM EDT Hip pain, left documented in this encounter Results * XR Hips Bilateral 2 Views (01/31/2022 3:07 PM EDT) Anatomical Region Laterality Modality Hip, Pelvis Bilateral Digital Radiogra phy Impressions 01/31/2022 4:38 PM EDT No hardware loosening or failure of the right hip prosthesis is noted. Mild left femoral acetabular joint osteoarthrosis. CRITICAL RESULT: ?? No. COMMUNICATION: Per this written report. Dictated by Tex Gongora on 01/31/2022 4:37 PM Signed by Tex Gongora on 01/31/2022 4:38 PM Narrative 01/31/2022 4:38 PM EDT Exam/Procedure: XR HIPS BILATERAL 2 VIEWS ordered by BRIGETTE AGUERO [id number] CLINICAL INDICATION: Hip pain TECHNIQUE: XR HIPS BILATERAL 2 VIEWS COMPARISON: None. FINDINGS: Right hip prosthesis is without evidence of hardware loosening, failure, or fracture. Mild left femoral acetabular joint space narrowing and osteophyte formation. Enthesophyte formation at the left greater trochanter. Degenerative changes of the visualized lower lumbar spine. Procedure Note Tex Gongora MD - 01/31/2022 Exam/Procedure: XR HIPS BILATERAL 2 VIEWS ordered by BRIGETTE AGUERO,[id number] CLINICAL INDICATION: Hip pain TECHNIQUE: XR HIPS BILATERAL 2 VIEWS COMPARISON: None. FINDINGS: Right hip prosthesis is without evidence of hardware loosening, failure,or fracture. Mild left femoral acetabular joint space narrowing andosteophyte formation. Enthesophyte formation at the left greatertrochanter. Degenerative changes of the visualized lower lumbar spine. IMPRESSION: No hardware loosening or failure of the right hip prosthesis is noted.Mild left femoral acetabular joint osteoarthrosis. CRITICAL RESULT: No. COMMUNICATION: Per this written report. Dictated by Tex Gongora on 01/31/2022 4:37 PM Signed by Tex Gongora on 01/31/2022 4:38 PM Brigette Aguero MD IMG XR PROCEDURES Final Resul t documented in this encounter Visit Diagnoses Diagnosis Hip pain, left Pain in joint, pelvic region and thigh documented in this encounter Additional Health Concerns Assessment Noted Time A fall risk assessment has been complete d for the patient 01/31/2022 3:36 PM EDT documented as of this encounter Care Teams Retail Store Manager Relationship Specialty Start Date End Date Nancy Berg MD [address] [place] [address] [address] [place] [address] PCP - General 01/29/21 documented as of this encounter
--- OUTSIDE RECORDS SUMMARY | 2024-08-04 19:31 | XMS_ITS | Encounter Summary ---
Author Organization Healthcare Address [address] [place] [address] Care Team Providers Care Recreation Programmer Name Role Phone Nancy Berg MD Primary Care Provider [phone] Reason for Visit * Reason Comments Cystoscope * Other Medical (Routine) - Closed Specialty Diagnoses / Procedures Referred By Contac t Referred To Contact Diagnoses Microscopic hematuria Procedures Cystourethroscopy Priscila Tijerina APRN [address] [address] Phone: tel: fax: [facility] [address] [place] [address] Phone: tel: fax: Referral ID Status Reason Start Date Expiration Date Visits Re quested Visits Authorized [id number] Closed 02/17/2023 08/18/2024 1 1 Encounter Details Date Type Department Care Team (Late st Contact Info) Description 05/17/2023 3:20 PM EDT Office Visit [facility] [address] [facility], [address] [place] [address] Eli Issa MD [address] [address] Microscopic hematuria; Recurrent UTI; Urge incontinence Social History Tobacco [...] Sign Reading Time Taken Comments Blood Pressure 126/68 05/17/2023 3:30 PM EDT Pulse 59 05/17/2023 3:30 PM EDT Temperature - - Respiratory Rate - - Oxygen Saturation - - Inhaled Oxygen Concentration - - Weight 75 kg (165 lb 5.5 oz) 05/17/2023 3:30 PM EDT Height - - Body Mass Index 27.51 01/17/2023 1:08 PM EDT documented in this encounter Miscellaneous Notes * Progress Notes - Abraham Hewitt MD - 05/17/2023 3:20 PM EDT [facility] Urology History and Physical Patient did want to be seen by resident - see my note Cosigned by Eli Issa MD at 05/17/2023 4:31 PM EDT Associated attestation - Eli Issa MD - 05/17/2023 4:31 PM EDT Signature Only * Progress Notes - Eli Issa MD - 05/17/2023 3:20 PM EDT [facility] Urology History and Physical 05/17/23 CC: Simona HPI: Karime Dang is a [...] so soopted to defer vaginal estrogen. UI: She notes her bladder almost completely empties at times when she stands up. She does not have any urge associated with this. She is wearing 3-4 pads per day some days and other days is completely dry (maybe 2 days a week). She also leaks at night. She notes some leakage while she is standing without any associated urge or activity, and she rushes to the bathroom when this happens. She does not notice incontinence with coughing, sneezing or bending. She returned to clinic January 17, 2023 with concerns for UTI, catheterized speicmen was no growth, but specimen showed 4-10 red blood cells and she was scheduled for CTU and office cystoscopy. She was also prescribed Gemtesa at that time and instructed to do timed voiding. She returns today for cystoscopy. She did not have her CTU because she recalls severe nausea and emesis with contrast and does not want to proceed. Renal US has been ordered but not performed. She does not remember ever filling the Gemtesa or actually recall that it was being prescribed. UI as described above. No UTIs since January. ROS: 12 pt ROS negative except as noted per HPI. Past Medical History: Medical History Past Medical History: Diagnosis Date Breast cancer (CMS/[facility]) Past Surgical History: Surgical History Past Surgical History: Procedure Laterality Date MASTECTOMY Left PARTIAL HYSTERECTOMY TOTAL HIP ARTHROPLASTY Right Family History: Family History History reviewed. No pertinent family history. Social History: Social History Tobacco Use Smoking status: Former Smokeless tobacco: Never Substance Use Topics Alcohol use: Never Drug use: Never Physical Exam: Vitals: 05/17/23 1530 BP: 126/68 Pulse: 59 GEN: NAD RESP: normal work of breathing CV: appears well perfused EXT: No gross deformities MSK: Full ROM in BL UE NEURO: No focal deficits, alert and oriented PSYCH: Normal mood and affect Labs/Results/Procedures: Recent Results Recent Results (from the past 24 hour(s)) UA Dipstick Collection Time: 05/17/23 3:32 PM Result Value Ref Range POCT Urine Color Dark Yellow POCT Urine Clarity Clear POCT Glucose Urine 100 (A) Negative mg/dL POCT Bilirubin, Urine Negative Negative POCT Ketones, Urine Trace (A) Negative mg/dL POCT Specific Adams, Urine >=1.030 POCT Blood, Urine Trace (A) Negative POCT pH, Urine 6.0 5.0 to 8.0 POCT Protein, Urine Negative Negative mg/dL POCT Urobilinogen, Urine 0.2 0.2, 1 E.U./dL POCT Nitrite, Urine Negative Negative POCT Leukocyte Esterase, Urine Negative Negative Test Strip Lot Number [id number] Test Strip Lot Expiration 03/2024 OFFICE PROCEDURE - CYSTOSCOPY Informed consent was obtained and a timeout was performed with everyone in the room in agreement regarding the fact that we had the correct patient and procedure. Afterwards, the flexible cystoscope was introduced into the patient's urethral meatus. The urethra was without lesions, masses or strictures. The bladder was entered and examined. There were no stones, lesions, or masses in the bladder.The ureteral orifices were visualized in their normal anatomic location. The cystoscope was withdrawn and the patient tolerated the procedure well. Imaging: No new imaging Assessment: Karime Dang is a 67 y.o. female here today for follow up of recurrent UTI, MH and UI. We discussed option of MRU to avoid iodinated contrast, but she is adamant that she does not want tohave any contrast and does not want an MRI or CT scan. Explained that we could perform cystoscopy and RPGs, but that would require anesthesia which she declined. She opted to proceed with YARELY understanding that there is a small risk of missing an upper tract abnormality. She is not really interested in trial of anti-incontinence device, but would like to try Gemtesa so I will order it again. Plan: Continue Hiprex YARELY Trial of Gemtesa for UUI Timed voiding 5. FU after YARELY - will evaluate response to Gemtesa at that time. Abraham Hewitt MD documented in this encounter Plan of Treatment Upcoming Encounters Date Type Department Care Team (Late st Contact Info) Description 10/14/2024 2:00 PM EST Office Visit [facility] Urology [address] [place] [address] Kailee Marin APRN, [facility] [address] [place] [address] documented as of this encounter Procedures Procedure Name Priority Date/Time Associated Diagnosis Comments POCT URINALYSIS DIPSTICK Routine 05/17/2023 3:32 PM EDT Microscopic hematuria documented in this encounter Results * (ABNORMAL) UA Dipstick (05/17/2023 3:32 PM EDT) POCT Urine Color Dark Yellow POCT Urine Clarity Clear POCT Glucose Urine 100(A) Negative mg/dL POCT Bilirubin, Urine Negative Negative POCT Ketones, Urine Trace(A) Negative mg/dL POCT Specific Adams, Urine >=1.030 POCT Blood, Urine Trace(A) Negative POCT pH, Urine 6.0 5.0 to 8.0 POCT Protein, Urine Negative Negative mg/dL POCT Urobilinogen, Urine 0.2 0.2, 1 E.U./dL POCT Nitrite, Urine Negative Negative POCT Leukocyte Esterase, Urine Negative Negative Test Strip Lot Number [id number] Test Strip Lot Expiration 03/2024 Urine Urine specimen obtained by clean catch procedure / Unknown 05/17/2023 3:32 PM EDT us Eli Issa MD POINT OF CARE TEST ENTER/EDIT ORDERABLES Final Result documented in this encounter Visit Diagnoses Diagnosis Microscopic hematuria Recurrent UTI Urinary tract infection, site not [...] documented as of this encounter Care Teams Recreation Programmer Relationship Specialty Start Date End Date Nancy Berg MD [address] [place] [address] [address] [place] [address] PCP - General 5/14/21 documented as of this encounter
--- OUTSIDE RECORDS SUMMARY | 2024-08-04 19:31 | XMS_ITS | Encounter Summary ---
Author Organization Healthcare Address [address] [id number] Care Team Providers Care Guide Cruise Name Role Phone Nancy Berg MD Primary Care Provider [phone] Kailee Marin APRN, REBA Unavailable + [phone] Reason for Visit * Reason Comments Follow-up Encounter Details Date Type Department Care Team (Late st Contact Info) Description 06/29/2023 1:40 PM EDT Office Visit [facility] [address], [address] [place] [address] Kailee Marin APRN, DNP [address] [place] [address] Recurrent UTI (Primary Dx); Microscopic hematuria; Urge incontinence Social History Tobacco Use Types [...] Sign Reading Time Taken Comments Blood Pressure 126/60 06/29/2023 1:30 PM EDT Pulse 59 06/29/2023 1:30 PM EDT Temperature - - Respiratory Rate - - Oxygen Saturation - - Inhaled Oxygen Concentration - - Weight 75 kg (165 lb 5.5 oz) 06/29/2023 1:30 PM EDT Height 165.1 cm (5' 5 ) 06/29/2023 1:30 PM EDT Body Mass Index 27.51 06/29/2023 1:30 PM EDT documented in this encounter Miscellaneous Notes * Progress Notes - Kailee Marin, PILLO, REBA - 06/29/2023 1:40 PM EDT [facility] CC: Follow-up HPI: Karime Dang is a 67 y.o. F with history of recurrent UTI [...] recall filling Gemtesa. No UTIs since January. She returns today for follow-up. She recently started Gemtesa 75 mg with reduction in her urgency and UUI. Resolution of enuresis. Has decreased number of pads to 1 pad/day. Reports 80% improvement with satisfaction. Has been on Getmesa x 1 week. Reports desire for further improvement. Denies GH. PMHx: Patient Active Problem List Diagnosis Microscopic hematuria Recurrent UTI Dysuria Urge incontinence Degenerative joint disease (DJD) of lumbar spine Diabetes mellitus (CMS/HCC) Facet arthropathy Abdominal pain Hypertension H/O: hysterectomy Lumbar radiculopathy Malignant neoplasm of breast (CMS/HCC) Obesity (BMI 30-39.9) Osteoarthritis of right hip Postoperative hypotension Spinal stenosis S/P hip replacement Past Medical History: Diagnosis Date Breast cancer (CMS/HCC) PSHx: Past Surgical History: Procedure Laterality Date MASTECTOMY Left PARTIAL HYSTERECTOMY TOTAL HIP ARTHROPLASTY Right FHx: History reviewed. No pertinent family history. SHx: Social History Tobacco Use Smoking status: Former Smokeless tobacco: Never Substance Use Topics Alcohol use: Never Drug use: Never OBHx: OB History No obstetric history on file. ROS: See HPI Physical Exam: Vitals: 06/29/23 1330 BP: 126/60 Pulse: 59 Physical Exam Vitals reviewed. Constitutional: Appearance: Normal appearance. Pulmonary: Effort: Pulmonary effort is normal. Musculoskeletal: General: Normal range of motion. Cervical back: Normal range of motion. Skin: General: Skin is warm and dry. Neurological: General: No focal deficit present. Mental Status: She is alert and oriented to person, place, and time. Mental status is at baseline. Psychiatric: Mood and Affect: Mood normal. Behavior: Behavior normal. Thought Content: Thought content normal. Judgment: Judgment normal. Results/Data: Recent Results (from the past 72 hour(s)) UA Dipstick Collection Time: 06/29/23 1:40 PM Result Value Ref Range POCT Urine Color Boyd POCT Urine Clarity Clear POCT Glucose Urine Negative Negative mg/dL POCT Bilirubin, Urine Negative Negative POCT Ketones, Urine Negative Negative mg/dL POCT Specific Valley, Urine >=1.030 POCT Blood, Urine Negative Negative POCT pH, Urine 6.0 5.0 to 8.0 POCT Protein, Urine 30 (A) Negative mg/dL POCT Urobilinogen, Urine 1 0.2, 1 E.U./dL POCT Nitrite, Urine Negative Negative POCT Leukocyte Esterase, Urine Negative Negative Test Strip Lot Number [id number] Test Strip Lot Expiration 03/17/2024 Urine, Volume Date Value Ref Range Status 02/17/2023 0 mL Final Labs: No results found for: HGBA1C No results found for: GLUCOSE , CALCIUM , NA , K , CO2 , CL , BUN , CREATININE , EGFR Recent Results (from the past 168 hour(s)) UA Dipstick Collection Time: 06/29/23 1:40 PM Result Value Ref Range POCT Urine Color Boyd POCT Urine Clarity Clear POCT Glucose Urine Negative Negative mg/dL POCT Bilirubin, Urine Negative Negative POCT Ketones, Urine Negative Negative mg/dL POCT Specific Valley, Urine >=1.030 POCT Blood, Urine Negative Negative POCT pH, Urine 6.0 5.0 to 8.0 POCT Protein, Urine 30 (A) Negative mg/dL POCT Urobilinogen, Urine 1 0.2, 1 E.U./dL POCT Nitrite, Urine Negative Negative POCT Leukocyte Esterase, Urine Negative Negative Test Strip Lot Number [id number] Test Strip Lot Expiration 03/17/2024 Cultures: Lab Results Component Value Date URINECX [...] PM Procedures: Assessment: Karime Dang is a 67 y.o. F who returns today for follow-up of recurrent UTI, MH and UI. MH: Discussed YARELY normal. Ms. Dang previously deferred MRU and CTU due to contrast. January 2023 cystoscopy normal. UA negative for MH today. LUTS: 80% improved with Gemtesa 75 mg, has been taking for 1 week. Encouraged to continue, discussed longer use may see further improvement in her LUTS. Previously deferred vaginal estrogen cream d/thistory of breast cancer. Attempting to avoid Ach due to constipation. UTI: UTI free with Hiprex 1 gram BID, will continue. UA negative for UTI today. Ms. Dang is to return in 3 months or sooner as needed. Plan: Continue Hiprex Continue Gemtesa 75 mg 1 tablet daily Return in 3 months or sooner as needed Kailee Marin APRN, DNP documented in this encounter Plan of Treatment Upcoming Encounters Date Type Department Care Team (Late st Contact Info) Description 10/14/2024 2:00 PM EST Office Visit [facility] [address] [place] [address] Kailee Marin APRN, DNP [address] [place] [id number] documented as of this encounter Procedures Procedure Name Priority Date/Time Associated Diagnosis Comments POCT URINALYSIS DIPSTICK Routine 06/29/2023 1:40 PM EDT Recurrent UTI documented in this encounter Results * (ABNORMAL) UA Dipstick (06/29/2023 1:40 PM EDT) POCT Urine Color Boyd POCT Urine Clarity Clear POCT Glucose Urine Negative Negative mg/dL POCT Bilirubin, Urine Negative Negative POCT Ketones, Urine Negative Negative mg/dL POCT Specific Valley, Urine >=1.030 POCT Blood, Urine Negative Negative POCT pH, Urine 6.0 5.0 to 8.0 POCT Protein, Urine 30(A) Negative mg/dL POCT Urobilinogen, Urine 1 0.2, 1 E.U./dL POCT Nitrite, Urine Negative Negative POCT Leukocyte Esterase, Urine Negative Negative Test Strip Lot Number [id number] Test Strip Lot Expiration 03/17/2024 Urine Urine specimen obtained by clean catch procedure / Unknown 06/29/2023 1:40 PM EDT Kailee Marin APRN, DNP POINT OF CARE TEST ENT ER/EDIT ORDERABLES Final Result documented in this encounter Visit Diagnoses Diagnosis Recurrent UTI- Primary Urinary tract infection, site not specified Microscopic hematuria Urge incontinence documented in this encounter Additional Health Concerns Assessment Noted Time PHQ-9 Depression Total Score: 11 023 1:11 PM EDT A fall risk assessment has been complete d for the patient 06/29/2023 1:36 PM EDT A Body Mass Index follow-up plan has been documented for the patient 06/29/2023 2:15 PM EDT documented as of this encounter Care Teams Guide Cruise Relationship Specialty Start Date End Date Nancy Berg MD [address] [place] [address] [address] [place] [address] PCP - General 01/29/21 Kailee Marin APRN, REBA [address] [place] [phone] Nurse Practitioner Urology 06/29/23 documented as of this encounter
--- OUTSIDE RECORDS SUMMARY | 2024-08-04 19:31 | XMS_ITS | Encounter Summary ---
Author Organization Healthcare Address [address] [id number] Care Team Providers Care Scale Installer Name Role Phone Nancy Berg MD Primary Care Provider [phone] Encounter Details Date Type Department Care Team (Latest Contact Info) Description 02/17/2023 Travel Social History Tobacco Use Types Packs/Day [...] Office Visit [place] [facility] [address] [place] [address] Kailee Marin, PILLO, DNP [address] [place] [address] documented as of this encounter [...] documented as of this encounter Care Teams Scale Installer Relationship Specialty Start Date End Date Nancy Berg MD [address] [place] [address] [address] [place] [phone] PCP - General 01/29/21 documented as of this encounter
--- OUTSIDE RECORDS SUMMARY | 2024-08-04 19:31 | XMS_ITS | Encounter Summary ---
Author Organization Healthcare Address [address] [place] [address] Care Team Providers Care Apron Man Name Role Phone Nancy Berg MD Primary Care Provider [phone] Kailee Marin APRN, REBA Unavailable + [phone] Encounter Details Date Type Department Care Team (Late st Contact Info) Description 06/26/2024 Telephone [place] [facility] [address] [place] [address] Kailee Marin APRN, DNP [address] [place] [address] Social History Tobacco Use Types [...] encounter Miscellaneous Notes * Telephone Encounter - Mindy Simms 06/26/2024 11:25 AM EDT Confirmed appt changes from 10/11 to 10/14 at 2 pm with [facility] due to template changes documented in this encounter Plan of Treatment Upcoming Encounters Date Type Department Care Team (Late st Contact Info) Description 10/14/2024 2:00 PM EST Office Visit [place] [facility] [address] [place] [address] Kailee Marin APRN, DNP [address] [address] documented as of this encounter Visit [...] documented as of this encounter Care Teams Apron Man Relationship Specialty Start Date End Date Nancy Berg MD [address] [place] [address] [address] [place] [address] PCP - General 01/29/21 Kailee Marin APRN, DNP [id number] [place] [phone] Nurse Practitioner Urology 06/29/23 documented as of this encounter
--- OUTSIDE RECORDS SUMMARY | 2024-08-04 19:31 | XMS_ITS | Encounter Summary ---
Author Organization Healthcare Address [address] [place] [address] Care Team Providers Care Cost Controller Name Role Phone Nancy Berg MD Primary Care Provider [phone] Encounter Details Date Type Department Care Team (Late st Contact Info) Description 02/20/2023 Telephone [place] [facility] [address] [place] [address] Anastasiia Pugh, RN Social History Tobacco Use Types Packs/Day Years [...] * Telephone Encounter - Anastasiia Pugh - 02/20/2023 10:17 AM EDT Patient notified of UA results. * Telephone Encounter - Anastasiia Pugh - 02/20/2023 10:17 AM EDT ----- Message from Priscila Tijerina APRN sent at 02/20/2023 8:44 AM EDT ----- Do you mind to let her know that her urine did not show any infection? Thanks! documented in this encounter Plan of Treatment Upcoming Encounters Date Type Department Care Team (Late st Contact Info) Description 10/14/2024 2:00 PM EST Office Visit [place] [facility] [address] [place] [address] Kailee Marin APRN, DNP [address] [place] [address] documented as of this encounter [...] documented as of this encounter Care Teams Cost Controller Relationship Specialty Start Date End Date Nancy Berg MD [address] [place] [address] [address] [place] [address] PCP - General 01/29/21 documented as of this encounter
--- OUTSIDE RECORDS SUMMARY | 2024-08-04 19:31 | XMS_ITS | Encounter Summary ---
Author Organization Healthcare Address [address] [id number] Care Team Providers Care Air Compressor Mechanic Name Role Phone Nancy Berg MD Primary Care Provider [phone] Encounter Details Date Type Department Care Team (Latest Contact Info) Description 06/26/2023 Travel Social History Tobacco Use Types Packs/Day [...] Description 10/14/2024 2:00 PM EST Office Visit [facility] [address] [place] [address] Kailee Marin, PILLO, DNP [address] [place] [address] documented as of this encounter [...] documented as of this encounter Care Teams Air Compressor Mechanic Relationship Specialty Start Date End Date Nancy Berg MD [address] [place] [address] [address] [place] [phone] PCP - General 01/29/21 documented as of this encounter
--- OUTSIDE RECORDS SUMMARY | 2024-08-04 19:31 | XMS_ITS | Encounter Summary ---
Author Organization Healthcare Address [address] [phone] Care Team Providers Care Quality Director Name Role Phone Nancy Berg MD Primary Care Provider [phone] Encounter Details Date Type Department Care Team (Latest Contact Info) Description 01/17/2023 Travel Social History Tobacco Use Types Packs/Day [...] Description 10/14/2024 2:00 PM EST Office Visit [place] [facility] [address] [place] [address] Kailee Marin, PILLO, DNP [address] [place] [address] documented as of this encounter [...] as of this encounter Care Teams Quality Director Relationship Specialty Start Date End Date Nancy Berg MD [address] [place] [address] [address] [place] [phone] PCP - General 01/29/21 documented as of this encounter
--- OUTSIDE RECORDS SUMMARY | 2024-08-04 19:31 | XMS_ITS | Encounter Summary ---
Author Organization Healthcare Address [address] [id number] Care Team Providers Care Operations Processor Name Role Phone Nancy Berg MD Primary Care Provider [phone] Kailee Marin APRN, DNP Unavailable + [phone] Encounter Details Date Type Department Care Team (Latest Contact Info) Description 06/29/2023 Travel Social History Tobacco Use Types Packs/Day [...] Description 10/14/2024 2:00 PM EST Office Visit [place] [facility] [address] [place] [address] Kailee Marin APRN, REBA [address] [place] [address] documented as of this encounter [...] documented as of this encounter Care Teams Operations Processor Relationship Specialty Start Date End Date Nancy Berg MD [address] [place] [address] [address] [place] [address] PCP - General 01/29/21 Kailee Marin APRN, REBA [phone] [place] [address] Nurse Practitioner Urology 06/29/23 documented as of this encounter
[2024-08-04 19:37] LABS: VBG Base Excess -3.1 mmol/L (-2.4-2.3); VBG HCO3 21.5 mmol/L (23-30); VBG Oxygen Saturation 92.3 % (50-70); VBG PCO2 34.6 mmol/L (35-51); VBG PH 7.41 mmol/L (7.31-7.41); VBG PO2 65.1 mmol/L (28-40); VBG Total CO2 22.6 mmol/L (23-27)
[2024-08-04 19:39] LABS: Microscopic, Urine URINE MICROSCOPIC (MICROSCOPIC)
[2024-08-04 19:41] LABS: Appearance,Urine CLEAR (Clear); Bilirubin,Urine Negative (Negative); Blood, Urine Negative (Negative); Color,Urine YELLOW (Yellow); Glucose,Urine (UA) 2+ (Negative); Ketones,Urine Negative (Negative); Leukocyte Esterase,Urine Negative (Negative); Nitrate,Urine Negative (Negative); Protein,Urine Negative (Negative)
[2024-08-04 19:42] LABS: Albumin Level 3.8 g/dl (3.5-5.0); Chloride 106 mmol/L (98-107); Sodium 136 mmol/L (136-145)
[2024-08-04 19:44] LABS: Basophils % 1.1 % (0.1-2.0); Eosinophils # 0.1 K/mm3 (0.0-0.4); Eosinophils % 3.3 % (0.1-12.0); Hematocrit 31.5 % (37.0-47.0); Hemoglobin 10.6 g/dL (12.2-16.2); Lymphocytes # 0.8 K/mm3 (0.7-4.5); Lymphocytes % 23.2 % (10-50); Mean Corpuscular HGB Conc 33.8 g/dL (31.8-35.4); Mean Corpuscular Hemoglobin 31.3 pg (27.0-31.2); Mean Corpuscular Volume 92.6 fl (81-99); Mean Platelet Volume 9.3 fl (7.4-10.4); Monocytes # 0.3 K/mm3 (0.1-1.0); Monocytes % 9.4 % (1.7-9.3); Neutrophils # 2.3 K/mm3 (1.8-7.8); Neutrophils % 63.1 % (37.0-80.0); Platelet Count 76 K/mm3 (142-424); Red Cell Distribution Width 15.3 % (11.5-17.5); White Blood Count 3.6 K/mm3 (4.8-10.8)
[2024-08-04 19:45] LABS: Alanine Aminotransferase 18 U/L (12-78); Albumin/Globulin Ratio 1.3 (1.1-1.8); Alkaline Phosphatase 89 U/L (38-126); Aspartate Amino Transferase 26 U/L (14-36); Bilirubin,Total 0.6 mg/dl (0.2-1.3); Blood Urea Nitrogen 13 mg/dl (7-17); Carbon Dioxide 22 mmol/L (22.0-30.0); Creatinine Clearance Estimated 64 mL/min (50-200); Estimated Glomerular Filt Rate 71 ml/min (>60); GFR (African American) 86 ML/MIN (>60); Globulin 2.9 g/dL (1.3-3.2); Lipase 94 U/L (23-300); Total Protein,Serum 6.7 g/dl (6.3-8.2)
[2024-08-04 19:46] LABS: Ammonia 49 umol/L (9-30); Calcium 9.2 mg/dl (8.4-10.2); Glucose 280 mg/dl (74-100); Lactic Acid 1.8 mmol/L (0.7-2.1)
--- NOTE | 2024-08-04 19:46 | ED_ITS ---
Discharge Plan Disposition Chief Complaint: Abdominal Pain Referrals Follow up/Referrals: Kristen Wilson APRN [Primary Care Provider] - See instructions Activity Restrictions/Add. Instructions Additional Instructions/Restrictions: Call your family doctor to establish care for this visit to the emergency department and schedule follow-up within 48 hours to ensure improvement. If you have any worsening of your condition or any other concerning signs or symptoms, return to the emergency department or your primary care doctor for further evaluation. Clinical Impressions Clinical Impression: Abdominal pain Instructions Patient Instructions: DI for Acute Abdominal Pain Print Language Print Language: Togolese Discharge ED Provider: Felice Leyva General Adult HPI General Chief complaint: Abdominal Pain Stated complaint: SOA, abd pain, LT shoulder pain Time Seen by Provider: 08/04/24 19:15 Mode of Arrival: Wheelchair Source of Information: Patient Limitations: No Limitations Description of Symptoms (Recalled from ER Triage Doc. by RN): Pt reports to ED via wheelchair with cc of SOB, abdominal pain, and left shoulder pain that started approx at 1200. Pt states nothing helps the pain. Pt denies having N,V,or diarrhea. Pt reports having a hx of BRYSON cirrhosis, diabetes, heart murmur, and breat cancer. Pt's abdomen soft and tender. Pt states last bowel was yesterday. Pt denies any bloody stools or dark stools. Pt also reports having back pain, pain with urination, and bloody urine. History of Present Illness HPI narrative: Please note that above description of symptoms, in this electronic medical record under categorization of recalled from ER triage doctor by RN are reflective of an initial nursing assessment, however, is not reflective of my full history and physical exam that was personally taken and clarified. Consequentially, this preceding description of symptoms, which may include the patient's categorized chief complaint in the EMR, do not reflect my personal clinical impression, and the ultimate description of history of present illness and patient stated complaints should be deferred to this section of the note. Unless stated otherwise or congruent with this section of the note, additional signs, symptoms, or incongruence should be interpreted as inaccurate with my clinical impression. Related Data Allergies Allergy/AdvReac Type Severity Reaction Status Date / Time iodine (IODINE) Allergy Mild Diarrhea Verified 08/01/24 11:25 fluconazole (FLUCONAZOLE) Allergy Unknown Verified 08/01/24 11:25 metronidazole (From FLAGYL) Allergy Unknown Verified 08/01/24 11:25 Sulfa (Sulfonamide Allergy Unknown Verified 08/01/24 11:25 Antibiotics) (SULFA (SULFONAMIDE ANTIBIOTICS)) [facility] Disclaimer: The information contained in this section may have been updated after the patient was seen, as this information can be updated by other users. Medical History Anemia GERD (gastroesophageal reflux disease) Diabetes HTN (hypertension) HLD (hyperlipidemia) Depression Breast cancer, left Surgical History History of left mastectomy History of total right hip arthroplasty H/O: hysterectomy Family History Other No significant family history Social History (Reviewed 08/01/24 @ 11: by Serenity Bowman MA) Smoking Status: Former smoker tobacco type: cigarettes second hand exposure: Yes alcohol intake: never substance use type: denies use current occupational status: other Travel in the last 8 weeks: None household members: none housing: house current occupation: house current occupational exposures/hazards: No caffeine: Yes Other Medical History Have you received the Flu Vaccine for this season: Yes Have you received the Pneumonia Vaccine: Yes ROS Obtained: Yes All systems reviewed & no additional complaints except as documented Physical Exam General General appearance: alert and obese Head Head exam: atraumatic and normocephalic Eye Eye exam: Present normal appearance, PERRL and EOMI Neck Neck exam: Present normal inspection, full ROM and trachea midline Respiratory Respiratory exam: Present normal lung sounds bilaterally; Absent respiratory distress, wheezes, stridor, accessory muscle use or prolonged expiratory phase Cardiovascular Cardiovascular exam: Present regular rate, normal rhythm, systolic murmur (Right upper sternal border, left upper sternal border, apex) and other (Pulses equal symmetric in upper and lower extremities) Abdominal Exam Abdominal exam: Present soft and distention; Absent tenderness, guarding, rebound, rigidity or pulsatile mass Extremities Exam Extremities exam: Absent edema Neurological Exam Neurological exam: Present alert, oriented X3 and CN II-XII intact; Absent motor sensory deficit Skin Skin exam: Present warm and dry; Absent diaphoresis or erythema Medical Decision Making Medical Records Medical records reviewed: Yes I reviewed the patient's medical records. Screening: Per USPSTF and CDC recommendations, given the prevalence of disease in our region, it is our hospital?s policy to screen for HIV and viral Hepatitis for all patients aged 18 and over and those with ongoing risk factors. Jasbir Inquiry Pt receiving controlled substance: No Jasbir was queried for this patient: No Vital Signs: 08/04/24 19:19 08/04/24 19:26 08/04/24 19:33 Temperature 99.7 F H Temperature Source Oral Pulse Rate 84 83 Pulse Rate [Right Radial] 83 Respiratory Rate 22 Blood Pressure 158/70 H 178/81 H Blood Pressure [Left Arm] 158/70 H Blood Pressure Mean [Left Arm] 99 Blood Pressure Source [Left Arm] Automatic Cuff Blood Pressure Position [Left Arm] Sitting 02 Sat by Pulse Oximetry 96 96 95 Oxygen Delivery Method Room Air 08/04/24 20:00 08/04/24 20:30 08/04/24 21:00 Temperature Temperature Source Pulse Rate 77 80 82 Pulse Rate [Right Radial] Respiratory Rate 27 H 28 H 27 H Blood Pressure 166/74 H 163/80 H 157/75 H Blood Pressure [Left Arm] Blood Pressure Mean [Left Arm] Blood Pressure Source [Left Arm] Blood Pressure Position [Left Arm] 02 Sat by Pulse Oximetry 96 96 96 Oxygen Delivery Method Lab Data Lab Results 08/04/24 19:26: WBC 3.6 L, RBC 3.40 L, Hgb 10.6 L, Hct 31.5 L, MCV 92.6, MCH 31.3 H, MCHC 33.8, RDW 15.3, Plt Count 76 L, MPV 9.3, Neut % (Auto) 63.1, Lymph % (Auto) 23.2, [place] % (Auto) 9.4 H, Eos % (Auto) 3.3, Baso % (Auto) 1.1, Neut # (Auto) 2.3, Lymph # (Auto) 0.8, [place] # (Auto) 0.3, Eos # (Auto) 0.1, Baso # (Auto) 0.0, PT 11.9, INR 1.07, Sodium 136, Potassium 4.0, Chloride 106, Carbon Dioxide 22, Anion Gap 12.0, BUN 13, Creatinine 0.80, Estimated Creat Clear 64, Estimated GFR 71, Est GFR ( Amer) 86, Glucose 280 H, Lactate 1.8, Calcium 9.2, Total Bilirubin 0.6, AST 26, ALT 18, Alkaline Phosphatase 89, Ammonia 49 H, Troponin I < 0.01, NT-Pro-B Natriuret Pep 157 H, Total Protein 6.7, Albumin 3.8, Globulin 2.9, Albumin/Globulin Ratio 1.3, Lipase 94, HIV 1&2 Antibody Rapid Nonreactive 08/04/24 19:31: Urine Color Yellow, Urine Appearance Clear, Urine pH 6.0, Ur Specific [place] 1.020, Urine Protein Negative, Urine Glucose (UA) 2+, Urine Ketones Negative, Urine Blood Negative, Urine Nitrate Negative, Urine Bilirubin Negative, Urine Urobilinogen 1.0, Ur Leukocyte Esterase Negative, Urine RBC 3-5, Urine WBC 5-10, Ur Squamous Epith Cells None, Urine Bacteria Trace 08/04/24 19:32: VBG pH 7.41, VBG pCO2 34.6 L, VBG pO2 65.1 H, VBG HCO3 21.5 L, V BG Total CO2 22.6 L, VBG O2 Saturation 92.3 H, VBG Base Excess -3.1 L, VBG Lactic Acid 2.0 08/04/24 19:26 08/04/24 19:26 Orders (Tests/Meds): ED MEDICATIONS Generic Name Dose Route Start Last Admin Trade Name Freq PRN Reason Stop Dose Admin Sodium Chloride 10 ml 08/04/24 21:44 08/04/24 21:45 Sodium Chloride 0.9% 10ml Syr (Rad Only) IV 09/03/24 21:43 10 ml NEEDED PRN Administration Maintain IV Site Discontinued Medications Generic Name Dose Route Start Last Admin Trade Name Freq PRN Reason Stop Dose Admin Diphenhydramine HCl 25 mg 08/04/24 20:57 08/04/24 21:10 Diphenhydramine 50mg/Ml Vial IV 08/04/24 20:58 25 mg ONCE ONE Administration Iopamidol 75 ml 08/04/24 21:44 08/04/24 21:45 Iopamidol-370 (76%);100ml Bottle IV 08/04/24 21:45 75 ml ONCE ONE Administration Ketorolac Tromethamine 15 mg 08/04/24 20:05 08/04/24 20:26 Ketorolac 30mg/Ml Vial IV 08/04/24 20:06 15 mg ONCE ONE Administration Methylprednisolone Sodium Succinate 60 mg 08/04/24 20:57 08/04/24 21:11 Methylprednisolone Sod Succ 125mg Vial IV 08/04/24 20:58 60 mg ONCE ONE Administration Ondansetron HCl 4 mg 08/04/24 20:57 08/04/24 21:11 Ondansetron 4mg/2ml Vial IV 08/04/24 20:58 4 mg ONCE ONE Administration ORDERS Category Date Time Status CT abdomen pelvis w con Stat Cat Scan 08/04/24 20:49 Completed POCUS Point of Care (ER Only) Stat Exams 08/04/24 20:59 Completed XR chest portable Stat Exams 08/04/24 19:30 Completed Ammonia Stat Lab 08/04/24 19:26 Completed Complete Blood Count Auto Diff Stat Lab 08/04/24 19:26 Completed Comprehensive Metabolic Panel Stat Lab 08/04/24 19:26 Completed HIV (1&2) Antibody Rapid Stat Lab 08/04/24 19:26 Completed Hep C Ab with Reflex to RNA Stat Lab 08/04/24 19:26 Received Lactic Acid Stat Lab 08/04/24 19:26 Completed Lipase Stat Lab 08/04/24 19:26 Completed NT Pro Brain Natriuretic Pep. Stat Lab 08/04/24 19:26 Completed PT INR [Prothrombin Time INR] Stat Lab 08/04/24 19:26 Completed Troponin I Q3H Lab 08/04/24 22:45 Ordered Troponin I Q3H Lab 08/05/24 01:45 Ordered Troponin I Stat Lab 08/04/24 19:26 Completed Urinalysis and Microscopic Stat Lab 08/04/24 19:31 Completed Blood Culture Stat Micro 08/04/24 19:43 Received Venous Blood Gas Stat RT 08/04/24 19:32 Completed HEART Score History (anamnesis): Slightly suspicious ECG: Normal Age: >65 years Risk factors: 3 or more risk factors Troponin: </= normal limit HEART Score: 4 Medical Decision Narrative: 68-year-old female history of hypertension, hyperlipidemia, diabetes, Bryson cirrhosis with ascites fluid (never required paracentesis, never had spontaneous bacterial peritonitis), breast cancer status post left mastectomy and right sided lumpectomy presenting with multiple complaints. Patient states that she started having abdominal pain earlier today, 08/04. Initially started in her right upper quadrant/right lower chest wall and did not radiate. Throughout the day, the pain in her right lower chest wall has turned into chest pain that is now substernal, does not radiate, 8 out of 10. No associated cough, shortness of breath, syncope, palpitations, new lower extremity swelling, diaphoresis. States that her abdomen also feels sore in her left upper quadrant. Last bowel movement was yesterday, 08/03, she is still passing gas, but has not been taking her lactulose today or as religiously as she should because she does not like how often it makes her have bowel movements. Also complains of dysuria with hematuria it has been going on for the last few days, now having left-sided flank pain. No fevers, vomiting, changes in mental status, neurologic deficits. History was obtained via conversation with patient. On arrival, patient hemodynamically stable, alert, oriented x4, appropriate, GCS 15, moving all extremities spontaneously, pupils equal and reactive to light. Full physical exam performed and significant for anxious being female no acute distress. She is obese, abdomen is soft, distended, but nontender. No evidence of hernia. Positive fluid wave. Lungs are clear to auscultation bilaterally anterior and posteriorly, cardiac exam with normal S1 and S2, but systolic murmur heard throughout the precordium right upper sternal border, left upper sternal border, apex. Radiates to the carotids. Patient states this is not new. No lower extremity edema, pulses equal and symmetric in upper and lower extremities. Differential includes PUD, gastritis, ACS, UT, pneumonia, gastroenteritis, SBP, pancreatitis, cholecystitis, UTI, pyelonephritis, sepsis, among others. Patient placed on continuous cardiac monitoring and continuous pulse ox with initial blood pressure 158/70, heart rate 84, saturation 96% on room air. Independent interpretation of EKG shows sinus rhythm [address] or T wave changes concerning for acute ischemia. TN 159, QRS 85, QTc 393. Normal axis. Patient was given Toradol and Zofran for symptomatic management and correction of underlying abnormalities. Patient states that her reaction to iodine is diarrhea. Out of abundance of caution, was given Solu-Medrol and Benadryl. CT scan was ordered. Workup independently interpreted and significant for stable pancytopenia. Coags normal. Patient's kidney function normal including BUN and creatinine. VBG nonactionable overall. She has a mild compensated metabolic acidosis with bicarb 21.5 and CO2 34.6 with normal pH. On independent interpretation of imaging, no acute intra-abdominal abnormality other than what appears to be pretty significant constipation. See radiology read for full review of final results. Heart score 4. MELD sodium score 7. On reevaluation, patient states she is feeling much better. Given patient presentation, workup, history, this most likely represents inflammatory abdominal pain. Because patient at baseline without signs or symptoms of clinical decompensation, deemed appropriate for discharge. Results were relayed to patient who voiced understanding and were agreeable to outpatient management and follow up. I discussed my clinical impression with patient and answered all questions. At this time, the evidence for any other entities in the differential is insufficient to warrant any further testing or ED observation. This was explained as well. Advisory was given that persistent or worsening symptoms require further evaluation. I confirmed the understanding of this discussion. Paleology Professor disclaimer Much of this encounter note is an electronic manager of environmental services spoken language to printed text. Electronic manager of environmental services of the spoken language may permit errors. Although I have reviewed the note, some errors may still exist. Procedures Limited Ultrasound Indication:: Limited RUQ ultrasound Indication: Abdominal pain Identified structures: -Gallbladder -Gallbladder wall -Common bile duct -Liver Findings: Sonographic Bansal sign: Absent Gallstones: Absent Sludge: Absent Pericholecystic fluid: Absent Maximal GB wall thickness (mm) (normal is </= 3mm): Normal Common bile duct width (mm) (normal is </= 6mm): Normal Gallbladder width (cm) (normal is < 4cm): Normal Gallbladder length (cm) (normal is < 10cm): Normal Impression: Normal right upper quadrant Images were saved to permanent archive The study was technically adequate CPT 19161-00 This study was performed by me, and I personally interpreted all images/videos. Based on my clinical judgement, these images were adequate and did not necessitate further imaging. Critical Care Critical Care Time Critical Care Time: No
[2024-08-04 19:47] LABS: INR 1.07 (0.9-1.1); Prothrombin Time 11.9 seconds (10.1-12.5)
[2024-08-04 19:47] LABS: Bacteria,Urine Trace /lpf
[2024-08-04 19:55] LABS: NT Pro Brain Natriuretic Pep. 157 pg/mL (0-125)
[2024-08-04 19:58] LABS: Troponin I < 0.01 ng/ml (0.00-0.034)
[2024-08-04 20:21] LABS: HIV (1&2) Antibody Rapid NONREACTIVE (NONREACTIVE)
[2024-08-04] MEDS: KETOROLAC 30MG/ML VIAL 15 MG IV (20:26)
--- NOTE | 2024-08-04 20:49 | CT_ITS ---
PROCEDURE INFORMATION: Exam: CT Abdomen And Pelvis With Contrast Exam date and time: 08/04/2024 8:53 PM Age: 68 years old Clinical indication: Abdominal pain; Additional info: Ruq and luq abd pain, reported hematuria TECHNIQUE: Imaging protocol: Computed tomography of the abdomen and pelvis with contrast. Radiation optimization: All CT scans at this facility use at least one of these dose optimization techniques: automated exposure control; mA and/or kV adjustment per patient size (includes targeted exams where dose is matched to clinical indication); or iterative reconstruction. Contrast material: ISOVUE; Contrast volume: 75 ml; Contrast route: IV; COMPARISON: CT ABDOMEN PELVIS WO CON 12/14/2020 1:02 PM FINDINGS: Lungs: Mild patchy ground-glass opacities in the posterior bilateral lung bases. Liver: Liver is diffusely nodular in contour, suggesting cirrhosis. No focal hepatic abnormality. Gallbladder and biliary ducts: Gallbladder is contracted but otherwise unremarkable. No biliary ductal dilation. Pancreas: Normal. No ductal dilation. Spleen: Spleen is mildly enlarged measuring 16 cm in length. No focal splenic abnormality. Adrenal glands: Normal. No mass. Kidneys and ureters: Normal. No hydronephrosis. Stomach and bowel: Moderate fecal retention throughout the colon. No bowel wall thickening or evidence of bowel obstruction. Appendix: No evidence of appendicitis. Intraperitoneal space: Unremarkable. No free air. No significant fluid collection. Vasculature: Moderate atherosclerotic calcification throughout the aorta. No evidence of aneurysm or dissection. Lymph nodes: Unremarkable. No enlarged lymph nodes. Urinary bladder: Unremarkable as visualized. Reproductive: Uterus is surgically absent. No adnexal abnormality. Bones/joints: Right hip prosthesis in place. Multilevel degenerative disc change and facet arthropathy throughout the lower spine, most pronounced at the L4-L5 level where there is moderate to severe central canal and bilateral neural foraminal stenosis. No vertebral body compression. No acute fracture. Soft tissues: Unremarkable. IMPRESSION: 1. Mild patchy ground-glass opacity in the lower lungs, possibly acute pneumonitis 2. Chronic appearing findings in the abdomen and pelvis, including findings suggesting chronic cirrhosis and portal hypertension. No significant ascites.
[2024-08-04] MEDS: diphenhydrAMINE 50MG/ML VIAL 25 MG IV (21:10)
[2024-08-04] MEDS: ONDANSETRON 4MG/2ML VIAL 4 MG IV (21:11)
[2024-08-04] MEDS: METHYLPREDNISOLONE SOD SUCC 125MG VIAL 60 MG IV (21:11)
[2024-08-04] MEDS: SODIUM CHLORIDE 0.9% 10ML SYR (RAD ONLY) 10 ML IV (21:45)
[2024-08-04] MEDS: IOPAMIDOL-370 (76%);100ML BOTTLE 75 ML IV (21:45)
[2024-08-06 08:21] LABS: HCV Ab Non Reactive (Non Reactive)
== END 2024-08-04 22:22 | disposition home or self-care (01) ==
PROVIDERS: Emergency Provider Emergency Medicine; PCP Nurse Practitioner Family
DX: R10.9 Unspecified abdominal pain (principal); R06.02 Shortness of breath; M25.512 Pain in left shoulder; M54.9 Dorsalgia, unspecified; R30.9 Painful micturition, unspecified; R31.9 Hematuria, unspecified
CPT/HCPCS: 71045; 74177; 80053; 81001; 82140; 82803; 83605; 83690; 83880; 84484; 85025; 85610; 86803; 87040; 87389; 93005; 96374; 96375; 99285; J1200; J1885; J2405; J2919; Q9967

== ENCOUNTER 2024-11-05 09:55 | Outpatient (CLI) | payer MEDICARE, OTHER, SELFPAY ==
[2024-11-05 17:23] LABS: Basophils % 0.9 % (0.1-2.0); Eosinophils # 0.5 K/mm3 (0.0-0.4); Eosinophils % 11.8 % (0.1-12.0); Hematocrit 32.9 % (37.0-47.0); Hemoglobin 10.6 g/dL (12.2-16.2); Lymphocytes # 1.4 K/mm3 (0.7-4.5); Lymphocytes % 32.9 % (10-50); Mean Corpuscular HGB Conc 32.2 g/dL (31.8-35.4); Mean Corpuscular Hemoglobin 28.8 pg (27.0-31.2); Mean Corpuscular Volume 89.4 fl (81-99); Mean Platelet Volume 10.7 fl (7.4-10.4); Monocytes # 0.4 K/mm3 (0.1-1.0); Monocytes % 8.1 % (1.7-9.3); Neutrophils % 46.1 % (37.0-80.0); Platelet Count 66 K/mm3 (142-424); Red Blood Count 3.68 M/mm3 (4.20-5.40); White Blood Count 4.3 K/mm3 (4.8-10.8)
[2024-11-05 17:53] LABS: Creatinine,Urine Random 25 mg/dL (Not Estab.)
[2024-11-05 18:59] LABS: Microalbumin < 6.000 mg/L (0-16.7)
[2024-11-05 22:20] LABS: Albumin Level 4.2 g/dl (3.5-5.0); Chloride 105 mmol/L (98-107); Potassium 4.2 mmoL/L (3.5-5.1); Sodium 137 mmol/L (136-145)
[2024-11-05 22:22] LABS: Blood Urea Nitrogen 14 mg/dl (7-17); Estimated Glomerular Filt Rate 83 ml/min (>60); GFR (African American) 100 ML/MIN (>60)
[2024-11-05 22:23] LABS: Alanine Aminotransferase 40 U/L (12-78); Albumin/Globulin Ratio 1.4 (1.1-1.8); Alkaline Phosphatase 126 U/L (38-126); Anion Gap 14.2 mEq/L (5-15); Aspartate Amino Transferase 55 U/L (14-36); Bilirubin,Total 0.5 mg/dl (0.2-1.3); Calcium 9.5 mg/dl (8.4-10.2); Carbon Dioxide 22 mmol/L (22.0-30.0); Chol/HDL Ratio 3.8 (1-3.5); Cholesterol 196 mg/dl (140-200); Globulin 3.1 g/dL (1.3-3.2); Glucose 248 mg/dl (74-100); HDL Cholesterol 51 mg/dl (40-60); Total Protein,Serum 7.3 g/dl (6.3-8.2); Triglycerides 374 mg/dl (30-150); VLDL Cholesterol 75 mg/dL (0-40)
== END 2024-11-05 23:59 | disposition home or self-care (01) ==
LOC: LAB.DROPOF 11-06 12:10
PROVIDERS: PCP Nurse Practitioner Family; Visit Provider Nurse Practitioner Family
DX: E11.9 Type 2 diabetes mellitus without complications (principal); E78.5 Hyperlipidemia, unspecified; R39.9 Unspecified symptoms and signs involving the genitourinary system; G47.00 Insomnia, unspecified; Z79.899 Other long term (current) drug therapy
CPT/HCPCS: 80053; 80061; 82043; 82570; 84443; 85025; 87086

== ENCOUNTER 2024-11-06 06:36 | Emergency (ER) | payer MEDICARE, OTHER, SELFPAY ==
[2024-11-06] VITALS (9 sets, daily range): BP systolic 134–158; BP diastolic 61–88; PULSE 69–78; RESP 16; TEMP 36.6; O2SAT 95–100; BMI 28.3
--- NOTE | 2024-11-06 06:57 | HMH.EDGENADL ---
Discharge Plan Disposition Patient Disposition: Home, Self-Care Condition: Good Prescriptions Prescriptions: New ondansetron 4 mg tablet,disintegrating 4 mg PO Q8H PRN (Reason: nausea and vomiting) 4 Days Qty: 12 0RF No Action anastrozole 1 mg tablet 1 mg PO DAILY lisinopril 20 mg tablet 20 mg PO DAILY venlafaxine 150 mg capsule,extended release 24hr 150 mg PO ONCE omeprazole 40 mg capsule,delayed release(DR/EC) 40 mg PO DAILY pravastatin 80 mg tablet 80 mg PO HS fluticasone propionate 50 mcg/actuation spray,suspension intranasal metformin 500 mg tablet extended release 24 hr 1,000 mg PO BID metoprolol tartrate 25 mg tablet 25 mg PO BID lactulose 10 gram/15 mL solution 10 g PO Januvia 100 mg tablet 100 mg PO DAILY levocetirizine 5 mg tablet 5 mg PO DAILY Jardiance 25 mg tablet 25 mg PO DAILY calcium carbonate 600 mg calcium (1,500 mg) tablet 600 mg PO BID fenofibrate 54 mg tablet 54 mg PO DAILY trazodone 50 mg tablet 50 mg PO HS PRN (Reason: sleep) Qty: 60 3RF Rx Instructions: Take 1-2 tablets one hour before bedtime prn insomnia insulin glargine [Lantus Solostar U-100 Insulin] 100 unit/mL (3 mL) insulin pen 10 unit SQ HS Qty: 3 2RF Referrals Follow up/Referrals: Kristen Wilson APRN [Primary Care Provider] - See instructions Activity Restrictions/Add. Instructions Additional Instructions/Restrictions: You were evaluated in the emergency department today. Your blood sugar is high, but your labs otherwise are reassuring. Please make sure to merchandise pickup/receiving associate your insulin prescriber your primary care provider and use as instructed. If you are not able to get it, please contact your primary care provider office and your pharmacy right away and see if they can expedite this. Return to the emergency department right away for new or worsening symptoms. Clinical Impressions Clinical Impression: Hyperglycemia due to type 2 diabetes mellitus, Nausea Instructions Patient Instructions: DI for Hyperglycemia -- Adult, DI for Nausea -- Adult Print Language Print Language: Welsh Discharge ED Provider: Mary Jason General Adult HPI <Stevenson Chen MD - Last Filed: 11/06/24 07:05> General Chief complaint: Recheck/Abnormal Lab/Rx Stated complaint: Low Blood Glucose Time Seen by Provider: 11/06/24 06:40 Mode of Arrival: EMS Source of Information: Patient Limitations: No Limitations Description of Symptoms (Recalled from ER Triage Doc. by RN): Patient reports nausea/vomiting at home; states her glucose was elevated to 382 this morning. Patients BG at the er is 387 History of Present Illness HPI narrative: 69-year-old female with history of type 2 diabetes, Bryson cirrhosis, hypertension presents for nausea and vomiting. She reports this started a few hours ago. She is also concerned about her blood sugar, it has been elevated in the 300s for the last several days. She denies any recent fever or illness. Vomitus was nonbloody nonbilious. Related Data Home Medications ?Medication ?Instructions ?Recorded ?Confirmed anastrozole 1 mg tablet 1 mg PO DAILY 11/05/24 11/05/24 calcium carbonate 600 mg PO BID 11/05/24 11/05/24 empagliflozin 25 mg tablet 25 mg PO DAILY 11/05/24 11/05/24 (Jardiance) fenofibrate 54 mg tablet 54 mg PO DAILY 11/05/24 11/05/24 fluticasone propionate 50 intranasal 11/05/24 11/05/24 mcg/actuation nasal spray,suspension lactulose 10 gram/15 mL oral 10 g PO 11/05/24 11/05/24 solution levocetirizine 5 mg tablet 5 mg PO DAILY 11/05/24 11/05/24 lisinopril 20 mg tablet 20 mg PO DAILY 11/05/24 11/05/24 metformin 500 mg tablet,extended 1,000 mg PO BID 11/05/24 11/05/24 release 24 hr metoprolol tartrate 25 mg tablet 25 mg PO BID 11/05/24 11/05/24 omeprazole 40 mg capsule,delayed 40 mg PO DAILY 11/05/24 11/05/24 release pravastatin 80 mg tablet 80 mg PO HS 11/05/24 11/05/24 sitagliptin phosphate 100 mg 100 mg PO DAILY 11/05/24 11/05/24 tablet (Januvia) venlafaxine 150 mg 150 mg PO ONCE 11/05/24 11/05/24 capsule,extended release 24 hr Previous Rx's ?Medication ?Instructions ?Recorded insulin glargine 100 unit/mL (3 10 unit (0.1 mL) SQ HS #3 mL 11/06/24 mL) subcutaneous pen (Lantus Solostar U-100 Insulin) ondansetron 4 mg disintegrating 4 mg PO Q8H PRN nausea and 11/06/24 tablet vomiting 4 days #12 tabs trazodone 50 mg tablet 50 mg PO HS PRN sleep #60 tabs 11/06/24 Allergies Allergy/AdvReac Type Severity Reaction Status Date / Time iodine (IODINE) Allergy Mild Diarrhea Verified 11/05/24 09:12 fluconazole (FLUCONAZOLE) Allergy Unknown Verified 11/05/24 09:12 metronidazole (From FLAGYL) Allergy Unknown Verified 11/05/24 09:12 Sulfa (Sulfonamide Allergy Unknown Verified 11/05/24 09:12 Antibiotics) (SULFA (SULFONAMIDE ANTIBIOTICS)) [facility] <Stevenson Chen MD - Last Filed: 11/06/24 07:05> [facility] Disclaimer: The information contained in this section may have been updated after the patient was seen, as this information can be updated by other users. Medical History BRYSON (nonalcoholic steatohepatitis) Cirrhosis of liver Anxiety Spinal stenosis Lumbar radiculopathy Facet arthropathy Degenerative joint disease (DJD) of lumbar spine Breast cancer Bilateral Anemia GERD (gastroesophageal reflux disease) Diabetes HTN (hypertension) HLD (hyperlipidemia) Depression Breast cancer, left Surgical History History of left mastectomy History of total right hip arthroplasty H/O: hysterectomy Family History Mother Diabetes Daughter Cancer breast cancer Other No significant family history Social History Smoking Status: Never smoker second hand exposure: No alcohol intake: never substance use type: denies use current occupational status: retired Travel in the last 8 weeks: None household members: none housing: house marital status: current occupation: house current occupational exposures/hazards: No caffeine: Yes Have you lived/traveled outside [place] in past 30 days?: No Contact w/someone who lives/traveled outside US past 30 days?: No Exposure to someone with infectious disease in past 14 days?: No Do you have a fever (greater than 100.4 F or 38 C)?: No Have you tested positive for COVID-19: No Exposed to someone with COVID-19 in past 14 days?: No Do you have a sore throat?: No Do you have a cough?: No Do you have any weakness?: No Do you have any diarrhea?: No Are you experiencing any unusual bleeding?: No Do you have any muscle aches/pain?: No Do you have any abdominal pain?: No Are you experiencing loss of taste or smell?: No Other Medical History Have you received the Flu Vaccine for this season: Yes Have you received the Pneumonia Vaccine: Yes <Stevenson Chen MD - Last Filed: 11/06/24 07:05> ROS Obtained: Yes All systems reviewed & no additional complaints except as documented Physical Exam <Stevenson Chen MD - Last Filed: 11/06/24 07:05> General General appearance: alert and in no apparent distress Head Head exam: atraumatic and normocephalic Eye Eye exam: Present normal appearance, PERRL and EOMI ENT ENT exam: Present normal oropharynx and normal external ear exam Neck Neck exam: Present normal inspection and full ROM Chest Chest inspection: Present normal inspection and symmetric chest wall rise; Absent tenderness Respiratory Respiratory exam: Present normal lung sounds bilaterally; Absent respiratory distress Cardiovascular Cardiovascular exam: Present regular rate and normal rhythm Abdominal Exam Abdominal exam: Present soft; Absent distention, tenderness or guarding Extremities Exam Extremities exam: Present normal inspection; Absent edema or joint swelling Back Exam Back exam: Present normal inspection; Absent tenderness Neurological Exam Neurological exam: Present alert and oriented X3; Absent motor sensory deficit Psychiatric Psychiatric exam: Present normal affect and normal mood Skin Skin exam: Present warm, dry and normal color Lymphatic Lymphatic Findings: no adenopathy Medical Decision Making <Stevenson Chen MD - Last Filed: 11/06/24 07:05> Medical Records Medical records reviewed: Yes I reviewed the patient's medical records. Screening: Per USPSTF and CDC recommendations, given the prevalence of disease in our region, it is our hospital?s policy to screen for HIV and viral Hepatitis for all patients aged 18 and over and those with ongoing risk factors. Jasbir Inquiry Pt receiving controlled substance: No Jasbir was queried for this patient: No Vital Signs: 11/06/24 06:36 11/06/24 06:45 11/06/24 07:15 Temperature 97.9 F Temperature Source Oral Pulse Rate 69 72 Pulse Rate [Right Radial] 70 Respiratory Rate 16 Blood Pressure 139/77 142/86 H Blood Pressure [Right Arm] 139/77 Blood Pressure Mean [Right Arm] 97 Blood Pressure Source Blood Pressure Source [Right Arm] Automatic Cuff 02 Sat by Pulse Oximetry 100 97 98 Oxygen Delivery Method Room Air Room Air 11/06/24 07:30 11/06/24 08:00 11/06/24 08:31 Temperature Temperature Source Pulse Rate 71 70 72 Pulse Rate [Right Radial] Respiratory Rate Blood Pressure 134/64 153/83 H 158/63 H Blood Pressure [Right Arm] Blood Pressure Mean [Right Arm] Blood Pressure Source Blood Pressure Source [Right Arm] 02 Sat by Pulse Oximetry 95 99 99 Oxygen Delivery Method Room Air Room Air Room Air 11/06/24 09:01 11/06/24 09:24 11/06/24 09:31 Temperature 97.9 F Temperature Source Oral Pulse Rate 75 78 77 Pulse Rate [Right Radial] Respiratory Rate 16 Blood Pressure 151/61 H 151/88 H 153/71 H Blood Pressure [Right Arm] Blood Pressure Mean [Right Arm] Blood Pressure Source Automatic Cuff Blood Pressure Source [Right Arm] 02 Sat by Pulse Oximetry 97 98 Oxygen Delivery Method Room Air Room Air Room Air Lab Data Lab results reviewed: Yes I reviewed the patient's lab results. Lab Results 11/06/24 06:41: Urine Color Yellow, Urine Appearance Clear, Urine pH 6.0, Ur Specific [place] 1.010, Urine Protein Negative, Urine Glucose (UA) 3+, Urine Ketones Negative, Urine Blood Negative, Urine Nitrate Negative, Urine Bilirubin Negative, Urine Urobilinogen 0.2, Ur Leukocyte Esterase Negative, Urine RBC None, Urine WBC None, Ur Squamous Epith Cells None, Urine Bacteria Trace 11/06/24 06:53: WBC 3.1 L D, RBC 3.59 L, Hgb 10.3 L, Hct 31.5 L, MCV 87.7, MCH 28.7, MCHC 32.7, RDW 13.8, Plt Count 64 L, MPV 10.8 H, Neut % (Auto) 50.7, Lymph % (Auto) 28.4, [place] % (Auto) 8.4, Eos % (Auto) 11.6, Baso % (Auto) 0.6, Neut # (Auto) 1.6 L, Lymph # (Auto) 0.9, [place] # (Auto) 0.3, Eos # (Auto) 0.4, Baso # (Auto) 0.0, Sodium 136, Potassium 4.2, Chloride 104, Carbon Dioxide 22, Anion Gap 14.2, BUN 16, Creatinine 0.70, Estimated Creat Clear 64, Estimated GFR 83, Est GFR ( Amer) 100, Glucose 355 H D, Calcium 8.9, Total Bilirubin 0.5, AST 47 H, ALT 39, Alkaline Phosphatase 113, Total Protein 7.4, Albumin 4.2, Globulin 3.2, Albumin/Globulin Ratio 1.3, Lipase 153, Acetone Level None detected, SARS-CoV-2 (PCR) Not detected, Influenza A Untype (PCR) Not detected, Influenza Type B (PCR) Not detected 11/06/24 06:53 11/06/24 06:53 Orders (Tests/Meds): ED MEDICATIONS Discontinued Medications Generic Name Dose Route Start Last Admin Trade Name Freq PRN Reason Stop Dose Admin Sodium Chloride 1,000 mls @ 999 mls/hr 11/06/24 06:45 11/06/24 06:59 Sod Chlor 0.9% 1000ml Bag IV 11/06/24 07:45 999 mls/hr .Q1H1M KINGS Administration Ondansetron HCl 4 mg 11/06/24 06:37 11/06/24 06:59 Ondansetron 4mg/2ml Vial IV 11/06/24 06:38 4 mg ONCE ONE Administration ORDERS Category Date Time Status POCUS Point of Care (ER Only) Stat Exams 11/06/24 06:41 Completed Acetone, Serum (Rapid) Stat Lab 11/06/24 06:53 Completed CBC w/Auto Diff [Complete Blood Count Auto Diff] Stat Lab 11/06/24 06:53 Completed CMP [Comprehensive Metabolic Panel] Stat Lab 11/06/24 06:53 Completed Lipase Stat Lab 11/06/24 06:53 Completed Rapid PCR Covid and Flu A/B Stat Lab 11/06/24 06:53 Completed UA [Urinalysis and Microscopic] Stat Lab 11/06/24 06:41 Completed Medical Decision Narrative: 6-year-old female with history of type 2 diabetes, Bryson cirrhosis, hypertension presents for some nausea and hyperglycemia. Denies abdominal pain or chest pain. History was obtained via interactive discussion with patient, EMS. On arrival, patient is [afebrile, hemodynamically stable, satting appropriately, alert, oriented x4, GCS 15], moving all extremities spontaneously. Full physical exam performed and significant for no abdominal tenderness, clear lungs bilaterally Differential includes but is not limited to gastroenteritis, hyperglycemia, DKA, pancreatitis, UTI. Patient was given 1 L IV fluid bolus, Zofran for symptomatic management and correction of underlying abnormalities. Workup initiated including CBC CMP UA COVID flu swab lipase On re-evaluation, patient [remains afebrile, HD stable.] Laboratory workup independently interpreted by me and significant for []. CT imaging was considered, but deemed unnecessary due to no abdominal tenderness on exam. <Mary Jason, DO - Last Filed: 11/06/24 10:15> Vital Signs: 11/06/24 06:36 11/06/24 06:45 11/06/24 07:15 Temperature 97.9 F Temperature Source Oral Pulse Rate 69 72 Pulse Rate [Right Radial] 70 Respiratory Rate 16 Blood Pressure 139/77 142/86 H Blood Pressure [Right Arm] 139/77 Blood Pressure Mean [Right Arm] 97 Blood Pressure Source Blood Pressure Source [Right Arm] Automatic Cuff 02 Sat by Pulse Oximetry 100 97 98 Oxygen Delivery Method Room Air Room Air 11/06/24 07:30 11/06/24 08:00 11/06/24 08:31 Temperature Temperature Source Pulse Rate 71 70 72 Pulse Rate [Right Radial] Respiratory Rate Blood Pressure 134/64 153/83 H 158/63 H Blood Pressure [Right Arm] Blood Pressure Mean [Right Arm] Blood Pressure Source Blood Pressure Source [Right Arm] 02 Sat by Pulse Oximetry 95 99 99 Oxygen Delivery Method Room Air Room Air Room Air 11/06/24 09:01 11/06/24 09:24 11/06/24 09:31 Temperature 97.9 F Temperature Source Oral Pulse Rate 75 78 77 Pulse Rate [Right Radial] Respiratory Rate 16 Blood Pressure 151/61 H 151/88 H 153/71 H Blood Pressure [Right Arm] Blood Pressure Mean [Right Arm] Blood Pressure Source Automatic Cuff Blood Pressure Source [Right Arm] 02 Sat by Pulse Oximetry 97 98 Oxygen Delivery Method Room Air Room Air Room Air Lab Data Lab Results 11/06/24 06:41: Urine Color Yellow, Urine Appearance Clear, Urine pH 6.0, Ur Specific [place] 1.010, Urine Protein Negative, Urine Glucose (UA) 3+, Urine Ketones Negative, Urine Blood Negative, Urine Nitrate Negative, Urine Bilirubin Negative, Urine Urobilinogen 0.2, Ur Leukocyte Esterase Negative, Urine RBC None, Urine WBC None, Ur Squamous Epith Cells None, Urine Bacteria Trace 11/06/24 06:53: WBC 3.1 L D, RBC 3.59 L, Hgb 10.3 L, Hct 31.5 L, MCV 87.7, MCH 28.7, MCHC 32.7, RDW 13.8, Plt Count 64 L, MPV 10.8 H, Neut % (Auto) 50.7, Lymph % (Auto) 28.4, [place] % (Auto) 8.4, Eos % (Auto) 11.6, Baso % (Auto) 0.6, Neut # (Auto) 1.6 L, Lymph # (Auto) 0.9, [place] # (Auto) 0.3, Eos # (Auto) 0.4, Baso # (Auto) 0.0, Sodium 136, Potassium 4.2, Chloride 104, Carbon Dioxide 22, Anion Gap 14.2, BUN 16, Creatinine 0.70, Estimated Creat Clear 64, Estimated GFR 83, Est GFR ( Amer) 100, Glucose 355 H D, Calcium 8.9, Total Bilirubin 0.5, AST 47 H, ALT 39, Alkaline Phosphatase 113, Total Protein 7.4, Albumin 4.2, Globulin 3.2, Albumin/Globulin Ratio 1.3, Lipase 153, Acetone Level None detected, SARS-CoV-2 (PCR) Not detected, Influenza A Untype (PCR) Not detected, Influenza Type B (PCR) Not detected Orders (Tests/Meds): ED MEDICATIONS Discontinued Medications Generic Name Dose Route Start Last Admin Trade Name Freq PRN Reason Stop Dose Admin Sodium Chloride 1,000 mls @ 999 mls/hr 11/06/24 06:45 11/06/24 06:59 Sod Chlor 0.9% 1000ml Bag IV 11/06/24 07:45 999 mls/hr .Q1H1M KINGS Administration Ondansetron HCl 4 mg 11/06/24 06:37 11/06/24 06:59 Ondansetron 4mg/2ml Vial IV 11/06/24 06:38 4 mg ONCE ONE Administration ORDERS Category Date Time Status POCUS Point of Care (ER Only) Stat Exams 11/06/24 06:41 Completed Acetone, Serum (Rapid) Stat Lab 11/06/24 06:53 Completed CBC w/Auto Diff [Complete Blood Count Auto Diff] Stat Lab 11/06/24 06:53 Completed CMP [Comprehensive Metabolic Panel] Stat Lab 11/06/24 06:53 Completed Lipase Stat Lab 11/06/24 06:53 Completed Rapid PCR Covid and Flu A/B Stat Lab 11/06/24 06:53 Completed UA [Urinalysis and Microscopic] Stat Lab 11/06/24 06:41 Completed Medical Decision Narrative: 6-year-old female with history of type 2 diabetes, Bryson cirrhosis, hypertension presents for some nausea and hyperglycemia. Denies abdominal pain or chest pain. History was obtained via interactive discussion with patient, EMS. On arrival, patient is [afebrile, hemodynamically stable, satting appropriately, alert, oriented x4, GCS 15], moving all extremities spontaneously. Full physical exam performed and significant for no abdominal tenderness, clear lungs bilaterally Differential includes but is not limited to gastroenteritis, hyperglycemia, DKA, pancreatitis, UTI. Patient was given 1 L IV fluid bolus, Zofran for symptomatic management and correction of underlying abnormalities. Workup initiated including CBC CMP UA COVID flu swab lipase On re-evaluation, patient [remains afebrile, HD stable.] Laboratory workup independently interpreted by me and significant for []. CT imaging was considered, but deemed unnecessary due to no abdominal tenderness on exam. DO Eren: I assumed care of the patient at 7 AM at time of departure previous provider. Labs obtained demonstrate hyperglycemia, mild leukopenia, mild thrombocytopenia. Thrombocytopenia appears to be chronic. AST is very mildly elevated which is nonspecific. She does have h/o cirrhosis. Glucose is elevated, but she has no evidence of DKA, HHS. Urine is not concerning for infection. Patient was already prescribed insulin by her primary care provider and is currently feeling fine and is asymptomatic. She is tolerating oral intake without difficulty. Advise that she merchandise pickup/receiving associate the insulin, start this, and keep an eye on her sugar at home. I feel that she is appropriate for discharge with instructions for close follow-up with primary care and strict return precautions. She was discharged after all questions were answered. Procedures <Stevenson Chen MD - Last Filed: 11/06/24 07:05> Risk/Benefits of Procedure(s) Were Explained: Yes Limited Ultrasound Indication:: Procedure: Ultrasound-guided IV Indication: Hyperglycemia Description: Linear ultrasound probe was utilized to identify suitable vein. Images were saved to the patient's permanent record. A 20-gauge long IV in the right AC was placed by me at bedside using direct ultrasound guidance. Procedure successful. Critical Care <Stevenson Chen MD - Last Filed: 11/06/24 07:05> Critical Care Time Critical Care Time: No
[2024-11-06] MEDS: 0.9 % SODIUM CHLORIDE 1000ML 1,000 ML 999 ML IV (06:59)
[2024-11-06] MEDS: ONDANSETRON 4MG/2ML VIAL 4 MG IV (06:59)
[2024-11-06 07:10] LABS: Coronavirus 19, PCR Not Detected (NotDetected); Influenza A, PCR Not Detected (NotDetected); Influenza B, PCR Not Detected (NotDetected)
[2024-11-06 07:12] LABS: Basophils % 0.6 % (0.1-2.0); Eosinophils # 0.4 K/mm3 (0.0-0.4); Eosinophils % 11.6 % (0.1-12.0); Hematocrit 31.5 % (37.0-47.0); Hemoglobin 10.3 g/dL (12.2-16.2); Lymphocytes # 0.9 K/mm3 (0.7-4.5); Lymphocytes % 28.4 % (10-50); Mean Corpuscular HGB Conc 32.7 g/dL (31.8-35.4); Mean Corpuscular Hemoglobin 28.7 pg (27.0-31.2); Mean Corpuscular Volume 87.7 fl (81-99); Mean Platelet Volume 10.8 fl (7.4-10.4); Monocytes # 0.3 K/mm3 (0.1-1.0); Monocytes % 8.4 % (1.7-9.3); Neutrophils # 1.6 K/mm3 (1.8-7.8); Neutrophils % 50.7 % (37.0-80.0); Platelet Count 64 K/mm3 (142-424); Red Blood Count 3.59 M/mm3 (4.20-5.40); Red Cell Distribution Width 13.8 % (11.5-17.5); White Blood Count 3.1 K/mm3 (4.8-10.8)
[2024-11-06 07:19] LABS: Albumin Level 4.2 g/dl (3.5-5.0); Chloride 104 mmol/L (98-107)
[2024-11-06 07:20] LABS: Potassium 4.2 mmoL/L (3.5-5.1); Sodium 136 mmol/L (136-145)
[2024-11-06 07:22] LABS: Alanine Aminotransferase 39 U/L (12-78); Alkaline Phosphatase 113 U/L (38-126); Anion Gap 14.2 mEq/L (5-15); Aspartate Amino Transferase 47 U/L (14-36); Bilirubin,Total 0.5 mg/dl (0.2-1.3); Blood Urea Nitrogen 16 mg/dl (7-17); Carbon Dioxide 22 mmol/L (22.0-30.0); Creatinine Clearance Estimated 64 mL/min (50-200); Estimated Glomerular Filt Rate 83 ml/min (>60); GFR (African American) 100 ML/MIN (>60)
[2024-11-06 07:23] LABS: Albumin/Globulin Ratio 1.3 (1.1-1.8); Calcium 8.9 mg/dl (8.4-10.2); Globulin 3.2 g/dL (1.3-3.2); Glucose 355 mg/dl (74-100); Lipase 153 U/L (23-300); Total Protein,Serum 7.4 g/dl (6.3-8.2)
[2024-11-06 07:58] LABS: Acetone, Serum (Rapid) None Detected (None Detect)
--- NOTE | 2024-11-06 08:31 | PC.NURSE ---
ROUNDED ON THE PT. THE PT VOICES THAT SHE DOES NOT NEED ANYTHING AT THIS TIME. CALL LIGHT IS WITHIN REACH OF THE PT.
[2024-11-06 09:01] LABS: Microscopic, Urine URINE MICROSCOPIC (MICROSCOPIC)
[2024-11-06 09:05] LABS: Appearance,Urine CLEAR (Clear); Bilirubin,Urine Negative (Negative); Blood, Urine Negative (Negative); Color,Urine YELLOW (Yellow); Glucose,Urine (UA) 3+ (Negative); Ketones,Urine Negative (Negative); Leukocyte Esterase,Urine Negative (Negative); Nitrate,Urine Negative (Negative); Protein,Urine Negative (Negative); Urobilinogen,Urine 0.2 EU/dl (0.2)
--- NOTE | 2024-11-06 09:05 | PC.NURSE ---
Called lab to check on ua results. [facility] states they are re-running sample and will be a few more min. Dr Jason updated with this.
[2024-11-06 09:06] LABS: Bacteria,Urine Trace /lpf
--- NOTE | 2024-11-06 09:37 | PC.NURSE ---
ROUNDED ON THE PT. THE PT VOICES THAT SHE DOES NOT NEED ANYTHING AT THIS TIME. CALL LIGHT IS WITHIN REACH OF THE PT.
== END 2024-11-06 09:50 | disposition home or self-care (01) ==
PROVIDERS: Emergency Medicine; Emergency Provider Emergency Medicine; PCP Nurse Practitioner Family
DX: E11.65 Type 2 diabetes mellitus with hyperglycemia (principal); R11.2 Nausea with vomiting, unspecified
CPT/HCPCS: 80053; 81001; 82009; 83690; 85025; 87636; 96361; 96374; 99284; J2405; J7030

== ENCOUNTER 2024-12-30 09:08 | Outpatient (CLI) | payer MEDICARE, OTHER, SELFPAY ==
[2024-12-30 09:50] LABS: Basophils % 0.7 % (0.1-2.0); Eosinophils # 0.1 K/mm3 (0.0-0.4); Hematocrit 31.9 % (37.0-47.0); Hemoglobin 9.9 g/dL (12.2-16.2); Lymphocytes # 0.9 K/mm3 (0.7-4.5); Lymphocytes % 28.5 % (10-50); Mean Corpuscular Hemoglobin 27.9 pg (27.0-31.2); Mean Corpuscular Volume 89.9 fl (81-99); Monocytes # 0.3 K/mm3 (0.1-1.0); Monocytes % 10.2 % (1.7-9.3); Neutrophils # 1.8 K/mm3 (1.8-7.8); Neutrophils % 57.3 % (37.0-80.0); Nucleated Red Blood Cells # 0 10^3/uL; Nucleated Red Blood Cells % 0 %; Platelet Count 67 K/mm3 (142-424); Red Blood Count 3.55 M/mm3 (4.20-5.40); Red Cell Distribution Width 15.1 % (11.5-17.5); Red Cell Distribution Width-SD 49.1 fL; White Blood Count 3.1 K/mm3 (4.8-10.8)
[2024-12-30 10:00] LABS: Albumin Level 3.9 g/dl (3.5-5.0); Chloride 107 mmol/L (98-107); Potassium 4.4 mmoL/L (3.5-5.1); Sodium 140 mmol/L (136-145)
[2024-12-30 10:03] LABS: Alanine Aminotransferase 20 U/L (12-78); Albumin/Globulin Ratio 1.3 (1.1-1.8); Alkaline Phosphatase 83 U/L (38-126); Anion Gap 14.4 mEq/L (5-15); Aspartate Amino Transferase 31 U/L (14-36); Bilirubin,Total 0.7 mg/dl (0.2-1.3); Blood Urea Nitrogen 9 mg/dl (7-17); Calcium 9.1 mg/dl (8.4-10.2); Carbon Dioxide 23 mmol/L (22.0-30.0); Estimated Glomerular Filt Rate 83 ml/min (>60); GFR (African American) 100 ML/MIN (>60); Glucose 209 mg/dl (74-100); Iron 80 ug/dL (37-170); Total Protein,Serum 6.9 g/dl (6.3-8.2)
[2024-12-30 10:13] LABS: Total Iron Binding Capacity 507 ug/dL (265-497)
== END 2024-12-30 23:59 | disposition home or self-care (01) ==
LOC: LAB 09:10
PROVIDERS: PCP Nurse Practitioner Family; Visit Provider Nurse Practitioner Family
DX: K74.60 Unspecified cirrhosis of liver (principal); K76.82 Hepatic encephalopathy
CPT/HCPCS: 36415; 80053; 83540; 83550; 85025

== ENCOUNTER 2025-01-10 08:53 | Outpatient (CLI) | payer MEDICARE, OTHER, SELFPAY ==
--- NOTE | 2025-01-10 09:00 | US_ITS ---
FINAL REPORT CLINICAL HISTORY: Cirrhosis follow-up COMPARISON: 01/01/2024 FINDINGS: HEPATIC ULTRASOUND: The liver is again noted to have a coarse echotexture and lobular margin, consistent with the clinical diagnosis of cirrhosis. The gallbladder is distended, without evidence of gallstones. The common bile duct is normal in size, measuring 3 mm. No evidence of choledocholithiasis is seen. IMPRESSION: Cirrhotic liver. Distended gallbladder, without evidence of ductal dilatation, unchanged since the prior exam. Reviewed, Interpreted and Dictated by Alberto Buck MD Transcribed by Nidia Okeefe Authenticated and . [facility]
[2025-01-10 09:37] LABS: Basophils % 0.9 % (0.1-2.0); Eosinophils # 0.1 Kmm3 (0.0-0.4); Hematocrit 30.8 % (37.0-47.0); Lymphocytes # 0.7 K/mm3 (0.7-4.5); Lymphocytes % 32.2 % (10-50); Mean Corpuscular HGB Conc 32.5 g/dL (31.8-35.4); Mean Corpuscular Hemoglobin 28.8 pg (27.0-31.2); Mean Corpuscular Volume 88.8 fl (81-99); Mean Platelet Volume 9.9 fl (7.4-10.4); Monocytes # 0.2 K/mm3 (0.1-1.0); Monocytes % 10.6 % (1.7-9.3); Neutrophils # 1.2 K/mm3 (1.8-7.8); Neutrophils % 52.3 % (37.0-80.0); Nucleated Red Blood Cells # 0 10^3/uL; Nucleated Red Blood Cells % 0 %; Platelet Count 65 K/mm3 (142-424); Red Blood Count 3.47 M/mm3 (4.20-5.40); Red Cell Distribution Width 15.3 % (11.5-17.5); Red Cell Distribution Width-SD 49.5 fL; White Blood Count 2.3 K/mm3 (4.8-10.8)
[2025-01-10 09:46] LABS: INR 1.01 (0.9-1.1); Prothrombin Time 11.3 seconds (10.1-12.5)
[2025-01-10 09:54] LABS: Ammonia 55 umol/L (9-30)
[2025-01-10 09:56] LABS: Chloride 111 mmol/L (98-107); Potassium 4.1 mmoL/L (3.5-5.1); Sodium 140 mmol/L (136-145)
[2025-01-10 09:58] LABS: Alanine Aminotransferase 23 U/L (12-78); Alkaline Phosphatase 97 U/L (38-126); Anion Gap 10.1 mEq/L (5-15); Aspartate Amino Transferase 35 U/L (14-36); Bilirubin,Total 0.6 mg/dl (0.2-1.3); Blood Urea Nitrogen 10 mg/dl (7-17); Carbon Dioxide 23 mmol/L (22.0-30.0); Estimated Glomerular Filt Rate 83 ml/min (>60); GFR (African American) 100 ML/MIN (>60)
[2025-01-10 09:59] LABS: Albumin/Globulin Ratio 1.3 (1.1-1.8); Calcium 9.1 mg/dl (8.4-10.2); Glucose 187 mg/dl (74-100); Iron 56 ug/dL (37-170)
[2025-01-10 10:08] LABS: Total Iron Binding Capacity 532 ug/dL (265-497)
[2025-01-10 10:34] LABS: Ferritin 9.04 ng/ml (11.1-264)
[2025-01-11 04:11] LABS: AFP, Tumor Marker 5.3 ng/mL (0.0-9.2)
== END 2025-01-10 23:59 | disposition home or self-care (01) ==
LOC: RAD 08:54
PROVIDERS: PCP Nurse Practitioner Family; Visit Provider Nurse Practitioner Family
DX: K74.60 Unspecified cirrhosis of liver (principal)
CPT/HCPCS: 36415; 76705; 80053; 82105; 82140; 82728; 83540; 83550; 85025; 85610

== ENCOUNTER 2025-02-24 09:54 | Outpatient (CLI) | payer MEDICARE, OTHER, SELFPAY ==
--- OUTSIDE RECORDS SUMMARY | 2025-01-20 14:00 | XMS_ITS | Encounter Summary ---
Author Organization Healthcare Address [address] [place] [address] Care Team Providers Care Implementation Director Name Role Phone Lawrence Robbins APRN, DNP Unavailable [phone] Pcp, No Primary Care Provider Unavailabl e Reason for Visit * Reason Comments UTI Encounter Details Date Type Department Care Team (Late st Contact Info) Description 01/20/2025 2:00 PM EDT [facility] Visit [facility] [address], [address] [place] [address] Lawrence Robbins, TOW OPERATOR, DNP [address] [place] [address] Microscopic hematuria (Primary Dx); Urge incontinence Social History Tobacco Use Types Packs/Day Years Used Date Smoking Tobacco: Former Smokeless Tobacco: Never Alcohol Use Standard Drinks/Week Comments Never 0 (1 standard drink = 0.6 oz pur e alcohol) PHQ-2 Answer Date Recorded Patient Health Questionnaire-2 Score 0 01/20/2025 PHQ-9 Answer Date Recorded Patient Health Questionnaire-9 [...] Sign Reading Time Taken Comments Blood Pressure 144/78 01/20/2025 1:41 PM EDT Pulse 66 01/20/2025 1:41 PM EDT Temperature - - Respiratory Rate - - Oxygen Saturation - - Inhaled Oxygen Concentration - - Weight 76.7 kg (169 lb 1.5 oz) 01/20/2025 1:41 P M EDT Height - - Body Mass Index 28.14 10/09/2023 1:01 PM EST documented in this encounter Functional Status * Over the past 2 weeks, how often have you been bothered by any of the following problems? Question Answer Date of Assessment Author Little interest or pleasure in doing things Not at all 01/20/2025 1:34 PM EDT Kym Hester Feeling down, depressed, or hopeless Not at all 01/20/2025 1:34 PM EDT Kym Hester Patient Health Questionnaire -2 Score 0 01/20/2025 1:34 PM EDT Kym Hester * If you checked off any problems on this questionnaire so far, Question Answer Date of Assessment Author How difficult have these problems made it for you to do your work, take care of things at home, or get along with other people? Not difficult at all 01/20/2025 1:34 PM EDT Kym Hester documented as of this encounter Miscellaneous Notes * Addendum Note - Lawrence Robbins APRN, DNP - 01/20/2025 2:00 PM EDTAddended by: LAWRENCE ROBBINS on: 01/21/2025 12:44 PM Modules accepted: Orders * Progress Notes - Lawrence Robbins APRN, DNP - 01/20/2025 2:00 PM EDT [facility] Note CC: UTI HPI: Karime Dang is a 69 y.o. F with history of recurrent UTI and UI, who has previously seen Dr. Issa and PILLO Tijerina. Recurrent UTI: Started around the time she started Januvia (approx 11/2020) Typical symptoms: dysuria and suprapubic discomfort. Her symptoms typically clear up within a couple days of starting antibiotics. She has never had to be hospitalized for infections. Cultures + for E-coli -Began Hiprex 11/2022, deferred estrogen d/t h/o breast cancer UI: Bladder almost completely empties at times with standing. No urge associated with this. Wore 3-4 pads per day some days and other days was completely dry (maybe 2 days a week). Leaked at night. Notedsome leakage while standing without any associated urge or activity, and she rushed to the bathroomwhen this happened. No UI with incontinence with coughing, sneezing or bending. -Near resolution with Gemtesa 75 mg MH: January 2023, concerns of UTI. Culture no growth. Microscopy 4-10 red blood cells and she was scheduled for CTU and office cystoscopy. -CTU deferred d/t ASE with contrast, deferred MRU d/t contrast, deferred cystoscopy and RPGs under anesthesia -Cystoscopy normal She returns today for follow-up. She recalls worsening UI since the Winter 2023, despite continuingGemtesa 75 mg. UTI free. Denies GH. She reports her BS have been really high , this AM 202. Recently started insulin 2-3 months ago. She denies other urological concerns today. PMHx: Patient Active Problem List Diagnosis Microscopic hematuria Recurrent UTI Dysuria Urge incontinence Degenerative joint disease (DJD) of lumbar spine Diabetes mellitus (CMS/HCC) Facet arthropathy Abdominal pain Hypertension H/O: hysterectomy Lumbar radiculopathy Malignant neoplasm of breast Obesity (BMI 30-39.9) Osteoarthritis of right hip Postoperative hypotension Spinal stenosis S/P hip replacement Past Medical History: Diagnosis Date Breast cancer PSHx: Past Surgical History: Procedure Laterality Date MASTECTOMY Left PARTIAL HYSTERECTOMY TOTAL HIP ARTHROPLASTY Right FHx: History reviewed. No pertinent family history. SHx: Social History Tobacco Use Smoking status: Former Smokeless tobacco: Never Substance Use Topics Alcohol use: Never Drug use: Never OBHx: OB History No obstetric history on file. ROS: See HPI Physical Exam: Vitals: 01/20/25 1341 BP: (!) 144/78 Pulse: 66 General: Pleasant, alert, in no acute distress, well appearing Pulmonary: no increased work of breathing or signs of respiratory distress. Musculoskeletal: normal gait and station. Psychiatric: oriented to person, place, and time. Mood and affect appeared normal. Results/Data: Recent Results (from the past 72 hours) POCT URINALYSIS DIPSTICK Collection Time: 01/20/25 1:39 PM Result Value Ref Range POCT Urine Color Yellow POCT Urine Clarity Clear POCT Urine Glucose >=1000 (A) Negative mg/dL POCT Urine Bilirubin Negative Negative mg/dL POCT Urine Ketones Negative Negative mg/dL POCT Urine Specific [place] 1.015 1.005 - 1.030 POCT Urine Blood Trace (A) Negative POCT pH, Urine 6.0 5.0 - 8.0 POCT Protein, Urine Negative Negative mg/dL POCT Urobilinogen, Urine 0.2 0.2, 1.0 EU/dL POCT Nitrite, Urine Negative Negative POCT Urine Leukocyte Esterase Negative Negative Urine, Volume Date Value Ref Range Status 10/09/2023 0 mL Final Labs: No results found for: HGBA1C No results found for: GLUCOSE , CALCIUM , NA , K , CO2 , CL , BUN , CREATININE , EGFR Recent Results (from the past week) POCT URINALYSIS DIPSTICK Collection Time: 01/20/25 1:39 PM Result Value Ref Range POCT Urine Color Yellow POCT Urine Clarity Clear POCT Urine Glucose >=1000 (A) Negative mg/dL POCT Urine Bilirubin Negative Negative mg/dL POCT Urine Ketones Negative Negative mg/dL POCT Urine Specific [place] 1.015 1.005 - 1.030 POCT Urine Blood Trace (A) Negative POCT pH, Urine 6.0 5.0 - 8.0 POCT Protein, Urine Negative Negative mg/dL POCT Urobilinogen, Urine 0.2 0.2, 1.0 EU/dL POCT Nitrite, Urine Negative Negative POCT Urine Leukocyte Esterase Negative Negative Cultures: Lab Results Component Value Date URINECX [...] PM Procedures: Assessment: Karime Dang is a 69 y.o. F who returns today for follow-up of recurrent UTI, MH and UI. MH: Discussed previous YARELY normal. Ms. Dang previously deferred MRU and CTU due to contrast. January 2023 cystoscopy normal. UA positive trace MH today, will send for microscopy and culture. LUTS: Previously 90-100% improved with Gemtesa 75 mg 1 tablet daily. States worsening LUTS. Discussed limiting fluids and tighter control of blood sugars. Will continue Gemtesa 75 mg and add trospiumER 60 mg 1 tablet daily. Discussed side effects include dry eyes, dry mouth and constipation. Previously deferred vaginal estrogen cream d/t history of breast cancer. UTI: UTI free since last seen. Previously used Hiprex 1 gram BID. UA negative for UTI today. Ms. Dang is to return in 4 months or sooner as needed. ADDENDUM: UA <1 RBC/hpf, urine culture no growth. Trospium ER not covered, will send trospium 20mg BID. Plan: Continue Gemtesa 75 mg 1 tablet daily, refills provided Begin trospium ER 60 mg 1 tablet daily Return in 4 months or sooner as needed Lawrence Robbins APRN, DNP documented in this encounter Plan of Treatment Upcoming Encounters Date Type Department Care Team (Late st Contact Info) Description 07/07/2025 1:20 PM EDT Office Visit [facility] [address] [place] [address] Lawrence Robbins APRN, REBA [address] [place] [address] documented as of this encounter Procedures Procedure Name Priority Date/Time Associated Diagnosis Comments URINALYSIS, MICROSCOPIC Routine 01/20/2025 2:38 PM EDT Microscopic hematuria URINE CULTURE Routine 01/20/2025 2:38 PM EDT Microscopic hematuria Urge incontinence POCT URINALYSIS DIPSTICK Routine 01/20/2025 1:39 PM EDT documented in this encounter Results * Urine Culture (01/20/2025 2:38 PM EDT) Culture No growth at day 1 01/21/2025 11:22 AM EDT [facility] Urine Urine specimen obtained by clean catch procedure / Unknown Non-blood Collection / Unknown 01/20/2025 2:38 PM EDT 01/20/2025 3:34 PM EDT us Lawrence Robbins APRN, REBA LAB MICROBIOLOGY - GEN ERAL ORDERABLES Final Result [facility] [address] [place] [address] * Urinalysis, Microscopic (01/20/2025 2:38 PM EDT) RBC, Urine <1 0 to 3 /HPF LAB URINALYSIS - AUTOMATED METHOD 01/20/2025 4:45 PM EDT [facility] WBC, Urine 0 - 5 0 to 5 /HPF LAB URINALYSIS - AUTOMATED METHOD 01/20/2025 4:45 PM EDT [facility] Squamous Epithelial Cells 0 - 2 0 to 5 /HPF LAB URINALYSIS - AUTOMATED METHOD 01/20/2025 4:45 PM EDT [facility] Hyaline Casts 0 - 2 0 to 5 /LPF LAB URINALYSIS - AUTOMATED METHOD 01/20/2025 4:45 PM EDT [facility] Bacteria, Urine Negative Negative LAB URINALYSIS - AUTOMATED METHOD 01/20/2025 4:45 PM EDT [facility] Urine Urine specimen obtained by clean catch procedure / Unknown Non-blood Collection / Unknown 01/20/2025 2:38 PM EDT 01/20/2025 3:33 PM EDT Lawrence Perez Tomas TOW OPERATOR, DNP LAB URINE ORDERABLES F inal Result [facility] [address] [place] [address] * (ABNORMAL) POCT URINALYSIS DIPSTICK (01/20/2025 1:39 PM EDT) POCT Urine Color Yellow 01/20/2025 1:40 PM EDT [facility] POCT Urine Clarity Clear 01/20/2025 1:40 PM EDT [facility] POCT Urine Glucose >=1000(A) Negative mg/dL 01/20/2025 1:40 PM EDT [facility] POCT Urine Bilirubin Negative Negative mg/dL 01/20/2025 1:40 PM EDT [facility] POCT Urine Ketones Negative Negative mg/dL 01/20/2025 1:40 PM EDT [facility] POCT Urine Specific [place] 1.015 1.005 - 1.030 01/20/2025 1:40 PM EDT [facility] POCT Urine Blood Trace(A) Negative 01/20/2025 1:40 PM EDT [facility] POCT pH, Urine 6.0 5.0 - 8.0 01/20/2025 1:40 PM EDT [facility] POCT Protein, Urine Negative Negative mg/dL 01/20/2025 1:40 PM EDT [facility] POCT Urobilinogen, Urine 0.2 0.2, 1.0 EU/dL 01/20/2025 1:40 PM EDT [facility] POCT Nitrite, Urine Negative Negative 01/20/2025 1:40 PM EDT [facility] POCT Urine Leukocyte Esterase Negative Negative 01/20/2025 1:40 PM EDT [facility] Urine 01/20/2025 1:39 PM EDT 01/20/2025 1:41 PM EDT Lawrence Robbins APRN, REBA LAB POINT OF C ARE TEST DOCKED DEVICE UNSOLICITED RESULTS Final Result [facility] [address] documented in this encounter Visit Diagnoses Diagnosis Microscopic hematuria- Primary Urge incontinence documented in this encounter Additional Health Concerns Assessment Noted Time PHQ-9 Depression Total Score: 11 023 1:11 PM EDT A fall risk assessment has been complete d for the patient 01/20/2025 1:34 PM EDT A Body Mass Index follow-up plan has been documented for the patient 10/09/2023 1:21 PM EST documented as of this encounter Care Teams Implementation Director Relationship Specialty Start Date End Date Pcp, [place] [address] PCP - General Family Medicine 01/20/25 Lawrence Robbins, PILLO, REBA [address] [place] [address] Nurse Practitioner Urology 06/29/23 documented as of this encounter
--- OUTSIDE RECORDS SUMMARY | 2025-02-24 09:59 | XMS_ITS | Clinical Summary ---
Author Organization Healthcare Address [address] [id number] Care Team Providers Care Activated Sludge Operator Name Role Phone Kailee Marin APRN, DNP Unavailable [phone] Pcp, No Primary Care Provider Unavailabl e Allergies Active Allergy Reactions Criticality Noted Date [...] B (Engerix-B) 20 MCG/ML injection 2 Active HYDROcodone-acetami nophen ([place]) 7.5-325 MG tablet Take 2 tablets (15 mg of hydrocodone) by mouth 1 (one) time each day. Active levocetirizine (Xyzal) 5 MG tablet 12/07/19 2 2 Active lisinopril 20 MG tablet 1 [...] (one) time each day. Active fish oil ([place]-3) 500 MG capsule Take 1 capsule (500 [...] amitriptyline (Elavil) 10 MG tablet 3 Active fluticasone (Flonase) 50 MCG/ACT nasal spray 01/11/20 2 5 Active Lantus SoloStar 100 UNIT/ML injection pen 5 Active TRUEplus 5-Bevel Pen [place] 31G X 5 MM misc USE DIRECTED WITH INSULIN FOR DIABETES 5 Active lactulose (Chronulac) 10 GM/15ML oral solution 4 Active ondansetron ODT (Zofran-ODT) 4 MG disintegrating tablet DISSOLVE 1 TABLET ON THE TONGUE EVERY 8 HOURS FOR 4 DAYS NEEDED FOR NAUSEA OR VOMITING 5 Active omeprazole (PriLOSEC) [address] capsule 5 Active mupirocin (Bactroban) 2 % ointment 5 Active mirtazapine (Remeron) 15 MG tablet 5 Active Jardiance 25 MG 5 Active fenofibrate (Tricor) 145 MG tablet 5 Active traZODone (Desyrel) 50 MG tablet 5 Active venlafaxine XR (Effexor-XR) 150 MG 24 hr capsule 5 Active Gemtesa 75 MG tablet Take 75 mg by mouth daily. 90 tablet 3 5 01/21/20 26 Active trospium (Sanctura) 20 MG tablet Take 1 tablet by mouth 2 times a day. 180 tablet 3 5 01/22/20 26 Active Active Problems Problem Noted Date Diagnosed [...] Encounters Date Type Department Care Team Description 01/23/2025 Telephone [facility] [address] [place] [address] Martinez Schilling 01/21/2025 Results Follow-Up [facility] [address] [place] [address] Kailee Marin APRN, REBA 01/20/2025 2:00 PM EDT Office Visit [facility] [address], [address] [place] [address] Kailee Marin, PILLO, DNP Microscopic hematuria (Primary Dx); Urge incontinence 01/20/2025 Travel from Last 3 Months Immunizations Immunization Administration Dates Next Due Pneumococcal Conjugate PCV [...] oz) 01/20/2025 1:41 P M EDT Height 165.1 cm (5' 5 ) 10/09/2023 1:01 PM EST Body Mass Index 28.14 10/09/2023 1:01 PM EST Plan of Treatment Upcoming Encounters Date Type Department Care Team (Late st Contact Info) Description 07/07/2025 1:20 PM EDT Office Visit [facility] [address] [place] [phone] Kailee Marin APRN, DNP [address] [place] [address] Health Maintenance Due Date Last Done Comments [facility]-Bone Density Scan 1954 [facility]-Diabetes: Hemoglobin A1C 1954 [facility]-Hepatitis C Screening 1954 [facility]-Medicare Annual Wellness (AWV) 1954 [facility]-Infant/Child/Adol SDOH Screenings 1954 [facility]-FTDSX-02 Vaccine (#1) 1959 Diabetes: Dental Exam 1964 [facility]- SDOH Screenings 1972 [facility]-Adult SDOH Screenings 1972 [facility]-DTaP,Tdap,and Td Vaccines (1 - Tdap) 1973 [facility]-Zoster Vaccines (1 of 2) 1973 CT Colonography 1999 Colonoscopy 1999 FIT-DNA 1999 FIT 1999 FOBT 1999 Sigmoidoscopy 1999 [facility]-Colorectal Cancer Screening 1999 [facility]-RSV Vaccine: 60+ Years or (1 - Risk 60-74 years 1-dose series) 2014 [facility]-Pneumococcal Vaccine: 50+ Years (2 of 2 - PPSV23) 09/17/2021 07/23/2021 [facility]-Influenza Vaccine (Season Ended) 2025 08/29/2023 [facility]-Depression Screening 01/20/2026 01/20/2025, 10/2022 [facility]-Obesity Intervention Completed 024, 06/29/2023, 05/17/2023, Additional history exists HPV Vaccines Aged Out No longer eligi ble based on patient's age to complete this topic [facility]-HIB Vaccines Aged Out No longer e [...] on patient's age to complete this topic Procedures Procedure Name Priority Date/Time Associated Diagnosis Comments URINALYSIS, MICROSCOPIC Routine 01/20/2025 2:38 PM EDT Microscopic hematuria URINE CULTURE Routine 01/20/2025 2:38 PM EDT Microscopic hematuria Urge incontinence POCT URINALYSIS DIPSTICK Routine 01/20/2025 1:39 PM EDT from Last 3 Months Results * Urinalysis, Microscopic (01/20/2025 2:38 PM EDT) RBC, Urine <1 0 to 3 /HPF LAB URINALYSIS - AUTOMATED METHOD 01/20/2025 4:45 PM EDT [facility] WBC, Urine 0 - 5 0 to 5 /HPF LAB URINALYSIS - AUTOMATED METHOD 01/20/2025 4:45 PM EDT [facility] Squamous Epithelial Cells 0 - 2 0 to 5 /HPF LAB URINALYSIS - AUTOMATED METHOD 01/20/2025 4:45 PM EDT [facility] Hyaline Casts 0 - 2 0 to 5 /LPF LAB URINALYSIS - AUTOMATED METHOD 01/20/2025 4:45 PM EDT [facility] Bacteria, Urine Negative Negative LAB URINALYSIS - AUTOMATED METHOD 01/20/2025 4:45 PM EDT [facility] Urine Urine specimen obtained by clean catch procedure / Unknown Non-blood Collection / Unknown 01/20/2025 2:38 PM EDT 01/20/2025 3:33 PM EDT Kailee Marin APRN, DNP LAB URINE ORDERABLES F inal Result [facility] [address] [place] [address] * Urine Culture (01/20/2025 2:38 PM EDT) Culture No growth at day 1 01/21/2025 11:22 AM EDT [facility] Urine Urine specimen obtained by clean catch procedure / Unknown Non-blood Collection / Unknown 01/20/2025 2:38 PM EDT 01/20/2025 3:34 PM EDT us Kailee Marin APRN, DNP LAB MICROBIOLOGY - GEN ERAL ORDERABLES Final Result [facility] [address] [place] [address] * (ABNORMAL) POCT URINALYSIS DIPSTICK (01/20/2025 1:39 PM EDT) POCT Urine Color Yellow 01/20/2025 1:40 PM EDT [facility] POCT Urine Clarity Clear 01/20/2025 1:40 PM EDT [facility] Urine Glucose >=1000(A) Negative mg/dL 01/20/2025 1:40 PM EDT [facility] POCT Urine Bilirubin Negative Negative mg/dL 01/20/2025 1:40 PM EDT [facility] PO[facility] Urine Ketones Negative Negative mg/dL 01/20/2025 1:40 PM EDT [facility] POCT Urine Specific [place] 1.015 1.005 - 1.030 01/20/2025 1:40 PM EDT [facility] POCT Urine Blood Trace(A) Negative 01/20/2025 1:40 PM EDT [facility] POCT pH, Urine 6.0 5.0 - 8.0 01/20/2025 1:40 PM EDT [facility] POCT Protein, Urine Negative Negative mg/dL 01/20/2025 1:40 PM EDT [facility] POCT Urobilinogen, Urine 0.2 0.2, 1.0 EU/dL 01/20/2025 1:40 PM EDT [facility] POCT Nitrite, Urine Negative Negative 01/20/2025 1:40 PM EDT [facility] POCT Urine Leukocyte Esterase Negative Negative 01/20/2025 1:40 PM EDT [facility] Urine 01/20/2025 1:39 PM EDT 01/20/2025 1:41 PM EDT Kailee Marin DIVERSITY MANAGER, DNP LAB POINT OF C ARE TEST DOCKED DEVICE UNSOLICITED RESULTS Final Result [facility] [address], [place] from Last 3 Months Insurance [employer] MEDICARE Care Teams Activated Sludge Operator Relationship Specialty Start Date End Date Pcp, Radha [address] [place] [address] PCP - General Family Medicine 01/20/25 Kailee Marin APRN, DNP [address] [place] [address] Nurse Practitioner Urology 06/29/23
--- OUTSIDE RECORDS SUMMARY | 2025-02-24 09:59 | XMS_ITS | Encounter Summary ---
Author Organization Healthcare Address [address] [place] [address] Care Team Providers Care Hogshead Filler Name Role Phone Nancy Berg MD Primary Care Provider [phone] Kailee Marin APRN, REBA Unavailable [phone] Pcp, No Primary Care Provider Unavailabl e Reason for Referral * Consultation (Routine) - Closed Specialty Diagnoses / Procedures Referred By Contac t Referred To Contact Urology Diagnoses Dysuria Kristen Douglass, CAN RECONDITIONER [address] [address] Phone: tel: fax: [facility] [address], [address] [place] [address] Phone: tel: fax: Referral ID Status Reason Start Date Expiration Date V isits Requested Visits Authorized [id number] Closed Specialty Services Required 08/09/2022 02/08/2024 1 1 Encounter Details Date Type Department Care Team (Late st Contact Info) Description 08/09/2022 Community [facility] [address] [place] [address] Kristen Douglass, CAN RECONDITIONER [address] [address] Dysuria (Primary Dx) Social History [...] Description 07/07/2025 1:20 PM EDT [facility] Visit [facility] [address], [address] [place] [address] Kailee Marin APRN, DNP [address] [address] Scheduled Referrals Name Type Priority Associated Diagnoses [...] documented as of this encounter Care Teams Hogshead Filler Relationship Specialty Start Date End Date Nancy Berg MD [address] [place] [address] [address] [place] [address] PCP - General 01/29/21 01/19/25 Pcp, Radha [address] [place] [address] PCP - General Family Medicine 01/20/25 Kailee Marin APRN, REBA [address] [phone] Nurse Practitioner Urology 06/29/23 documented as of this encounter
--- OUTSIDE RECORDS SUMMARY | 2025-02-24 10:00 | XMS_ITS | Encounter Summary ---
Author Organization Healthcare Address [address] [place] [address] Care Team Providers Care Limb Driver Name Role Phone Kailee Marin APRN, DNP Unavailable [phone] Pcp, No Primary Care Provider Unavailabl e Encounter Details Date Type Department Care Team (Latest Contact Info) Description 01/20/2025 Travel Social History Tobacco Use Types Packs/Day [...] on file documented as of this encounter Functional Status * Over the [...] all 01/20/2025 1:34 PM EDT Kym Hester Kari documented as of this encounter Plan of Treatment Upcoming Encounters Date Type Department Care Team (Late st Contact Info) Description 07/07/2025 1:20 PM EDT Office Visit [facility] [address] [place] [address] Kailee Marin APRN, DNP [id number] [place] [address] documented as of this encounter [...] documented as of this encounter Care Teams Limb Driver Relationship Specialty Start Date End Date Pcp, Radha [address] [place] [address] PCP - General Family Medicine 01/20/25 Kailee Marin APRN, REBA [id number] [place] [address] Nurse Practitioner Urology 06/29/23 documented as of this encounter
--- OUTSIDE RECORDS SUMMARY | 2025-02-24 10:00 | XMS_ITS | Encounter Summary ---
Author Organization Healthcare Address [address] [place] [address] Care Team Providers Care Commercial Drone Software Developer Name Role Phone Kailee Marin APRN, DNP Unavailable [phone] Pcp, No Primary Care Provider Unavailabl e Encounter Details Date Type Department Care Team (Late st Contact Info) Description 01/21/2025 Results Follow-Up [facility] [address], [address] [place] [address] Kailee Marin APRN, DNP [id number] [place] [address] Social History Tobacco Use Types [...] Description 07/07/2025 1:20 PM EDT Office Visit [facility] [address] [place] [address] Kailee Marin APRN, DNP [address] [address] documented as of this encounter Visit Diagnoses [...] documented as of this encounter Care Teams Commercial Drone Software Developer Relationship Specialty Start Date End Date Pcp, Radha [address] [place] [address] PCP - General Family Medicine 01/20/25 Kailee Marin APRN, DNP [address] [address] Nurse Practitioner Urology 06/29/23 documented as of this encounter
--- OUTSIDE RECORDS SUMMARY | 2025-02-24 10:00 | XMS_ITS | Encounter Summary ---
Author Organization Healthcare Address [address] [id number] Care Team Providers Care Manager Administration Name Role Phone Kailee Marin PILLO, DNP Unavailable [phone] Pcp, No Primary Care Provider Unavailabl e Encounter Details Date Type Department Care Team (Late st Contact Info) Description 01/23/2025 Telephone [facility] Urology [address], [address] [place] [address] Martinez Schilling Social History Tobacco Use Types Packs/Day Years [...] encounter Miscellaneous Notes * Telephone Encounter - Martinez Schilling - 01/23/2025 3:26 PM EDT Called and spoke to pt. Relayed Kailee Marin's message and pt verbalized understanding. documented in this encounter Plan of Treatment Upcoming Encounters Date Type Department Care Team (Late st Contact Info) Description 07/07/2025 1:20 PM EDT Office Visit [facility] Urology [address], [address] [place] [address] Kailee Marin APRN, REBA [address] [place] [address] documented as of this encounter [...] documented as of this encounter Care Teams Manager Administration Relationship Specialty Start Date End Date Pcp, Radha [address] [place] [address] PCP - General Family Medicine 01/20/25 Kailee Marin APRN, REBA [address] [place] [address] Nurse Practitioner Urology 06/29/23 documented as of this encounter
--- NOTE | 2025-02-24 10:14 | MM_ITS ---
PROCEDURE INFORMATION: Exam: MG Right Screening 3D Mammography Exam date and time: 02/24/2025 10:17 AM Age: 69 years old Clinical indication: Screening examination; Personal history of bilateral breast cancer status post left mastectomy and right lumpectomy. TECHNIQUE: Imaging protocol: Right Screening tomosynthesis and 2D mammography including computer-aided detection (CAD) when performed. Per the technologist the best possible images were obtained as the patient had difficulty with positioning. The exam is degraded by lack of posteroinferior tissue the MLO view. COMPARISON: 1. MG MM DIG SC MAMM UNILAT RT CAD 02/22/2024 10:45 AM 2. MG MM DIG SC MAMM UNILAT RT CAD 02/20/2023 12:54 PM FINDINGS: MAMMOGRAPHY: Breast composition: There are scattered areas of fibroglandular density. Mass: None. Architectural distortion: Postsurgical changes are redemonstrated. Calcifications: No suspicious calcifications. Asymmetric density: None. Skin thickening: None. Axillary adenopathy: None. IMPRESSION: No mammographic evidence of malignancy. Annual screening is recommended unless otherwise clinically indicated. ASSESSMENT: BI-RADS Category 2: Benign.
== END 2025-02-24 23:59 | disposition home or self-care (01) ==
LOC: RAD 09:55
PROVIDERS: PCP Nurse Practitioner Family; Visit Provider Surgery
DX: Z12.31 Encounter for screening mammogram for malignant neoplasm of breast (principal)
CPT/HCPCS: 77063; 77067

== ENCOUNTER 2025-06-05 11:45 | Outpatient (CLI) | payer MEDICARE, OTHER, SELFPAY ==
[2025-06-05 20:05] LABS: Hematocrit 37.9 % (37.0-47.0); Hemoglobin 12.7 g/dL (12.2-16.2); Immature Granulocytes % 0.2 %; Mean Corpuscular HGB Conc 33.5 g/dL (31.8-35.4); Mean Corpuscular Hemoglobin 32.7 pg (27.0-31.2); Mean Corpuscular Volume 97.7 fl (81-99); Nucleated Red Blood Cells % 0 %; Platelet Count 63 K/mm3 (142-424); Red Blood Count 3.88 M/mm3 (4.20-5.40); Red Cell Distribution Width-SD 48.9 fL; White Blood Count 4.5 K/mm3 (4.8-10.8)
[2025-06-05 20:44] LABS: Albumin Level 4.5 g/dl (3.5-5.0)
[2025-06-05 20:45] LABS: Chloride 102 mmol/L (98-107); Potassium 4.5 mmoL/L (3.5-5.1); Sodium 137 mmol/L (136-145)
[2025-06-05 20:47] LABS: Alanine Aminotransferase 26 U/L (12-78); Amylase 46 U/L (30-110); Anion Gap 19.5 mEq/L (5-15); Aspartate Amino Transferase 48 U/L (14-36); Blood Urea Nitrogen 15 mg/dl (7-17); Carbon Dioxide 20 mmol/L (22.0-30.0); Creatinine,Serum 0.70 mg/dl (0.52-1.04); Estimated Glomerular Filt Rate 83 ml/min (>60); GFR (African American) 100 ML/MIN (>60)
[2025-06-05 20:48] LABS: Albumin/Globulin Ratio 1.5 (1.1-1.8); Alkaline Phosphatase 103 U/L (38-126); Bilirubin,Total 1.9 mg/dl (0.2-1.3); Calcium 9.7 mg/dl (8.4-10.2); Cholesterol 164 mg/dl (140-200); Globulin 3.0 g/dL (1.3-3.2); Glucose 195 mg/dl (74-100); HDL Cholesterol 61 mg/dl (40-60); Lipase 54 U/L (23-300); Total Protein,Serum 7.5 g/dl (6.3-8.2); Triglycerides 323 mg/dl (30-150)
[2025-06-05 21:19] LABS: Thyroid Stimulating Hormone 1.68 uIU/mL (0.465-4.68)
--- OUTSIDE RECORDS SUMMARY | 2025-06-06 11:42 | XMS_ITS | Clinical Summary ---
Author Organization Healthcare Address [address] [id number] Care Team Providers Care Manager Government Name Role Phone Kailee Marin APRN, DNP Unavailable [phone] Pcp, No Primary Care Provider Unavailabl e [...] 20 MCG/ML injection 2 Active HYDROcodone-acetami nophen ([place]) 7.5-325 MG tablet Take 2 tablets (15 [...] (one) time each day. Active fish oil ([place]-3) 500 MG capsule Take 1 capsule (500 [...] injection pen 5 Active TRUEplus 5-Bevel Pen [place] 31G X 5 MM misc USE DIRECTED [...] XR (Effexor-XR) 150 MG 24 hr capsule Active Gemtesa 75 MG tablet Take 75 mg by mouth daily. 90 tablet 3 5 01/21/20 26 Active trospium (Sanctura) 20 MG tablet Take 1 tablet by mouth 2 times a day. 180 tablet 3 5 01/22/20 26 Active methenamine hippurate (Hiprex) 1 g tabletIndications:R ecurrent UTI,Urge incontinence Take 1 tablet by mouth 2 times a day. 180 tablet 3 5 03/18/20 26 Active Active Problems Problem Noted Date [...] Encounters Date Type Department Care Team Description 03/17/2025 Refill [facility] [address], [address] [place] [address] Kailee Marin, PILLO, DNP Recurrent UTI; Urge incontinence from Last 3 Months Immunizations Immunization Administration [...] Description 07/07/2025 1:20 PM EDT Office Visit [facility] [address], [address] [place] [address] Kailee Marin, PILLO, DNP [address] [place] [address] Health Maintenance Due Date Last Done Comments [facility]-Bone Density Scan 1954 [facility]-Diabetes: Hemoglobin A1C 1954 [facility]-Hepatitis C Screening 1954 [facility]-Medicare Annual Wellness (AWV) 1954 [facility]-/Child/Adol SDOH Screenings 1954 EYR-WLARG-30 Vaccine (#1) 1959 Diabetes: Dental Exam 1964 [...] Vaccine: 50+ Years (2 of 2 - PPSV23, PCV20, or PCV21) 09/17/2021 07/23/2021 [facility]-Influenza Vaccine (#1) 2025 08/29/2023 [facility]-Depression Screening 01/20/2026 01/20/2025, 0510/2022 [facility]-Obesity Intervention Completed 024, 06/29/2023, 05/17/2023, Additional [...] patient's age to complete this topic Insurance [facility] MEDICARE Care Teams Manager Government Relationship Specialty Start Date End Date Pcp, [place] [address] PCP - General Family Medicine 01/20/25 Kailee Marin APRN, DNP [address] [facility] [address] [place] [address] Nurse Practitioner Urology 06/29/23
--- OUTSIDE RECORDS SUMMARY | 2025-06-06 11:42 | XMS_ITS | Clinical Summary ---
Author Organization [facility] Address [address] [place] [address] Care Team Providers Care Security Operations Manager Name Role Phone System, Provider Not In Primary Care Provider Un available Allergies Active Allergy Reactions Criticality Noted Date Comments Fluconazole Low 11/29/2012 DIZZINESS Metronidazole Nausea And Vomiting Medium 11/29/2012 Iodine Nausea And Vomiting Medium 11/29/2012 Sulfa Antibiotics Nausea And Vomiting Medium 3 Medications metFORMIN (GLUCOPHAGE) 500 MG tablet Take 500 mg by mouth 2 (two) times daily with meals. Active pravastatin (PRAVACHOL) 40 MG tablet Take 40 mg by mouth every evening. Active famotidine (PEPCID) 20 MG tablet Take 20 mg by mouth 2 (two) times daily. Active Soy Isoflavone 40 MG TABS Take by mouth. Acti ve vitamin E (VITAMIN E) 400 UNIT capsule Take 400 Units by mouth daily. Active Methylcellulose , Laxative, (FIBER THERAPY) 500 MG TABS Take by mouth. Act ange lisinopril (PRINIVIL,ZESTR IL) 20 MG tablet Take 20 mg by mouth daily. Active venlafaxine (EFFEXOR) 37.5 MG tablet Take 37.5 mg by mouth daily. Active meclizine (ANTIVERT) 12.5 MG tablet Take 12.5 mg by mouth 2 (two) times daily. Active conjugated estrogens (PREMARIN) vaginal cream Place vaginally daily. ON FRIDAYS Active estradiol (MENOSTAR) 14 MCG/24HR Place 1 patch onto the skin once a week. 3 weeks on and 1 week off cycle. Apply the patch to a clean, dry, non-oily skin area of your lower abdomen, hips below the waist, or buttocks that has little or no hair and is free of cuts or irritation. CHANGES ON MONDAYS Active cetirizine (ZYRTEC) 10 MG tablet Take 10 mg by mouth daily. Active hydrochlorothia zide (HYDRODIURIL) 25 MG tablet Take 1 tablet (25 mg total) by mouth daily. 30 tablet 1 3 Active aspirin 325 MG tablet Take 325 mg by mouth 2 (two) times daily. Active HYDROcodone-gabriela taminophen (NORCO) 7.5-325 MG per tablet Take 2 tablets by mouth nightly. Active Active Problems Problem Noted Date Diagnosed Date S/P hip replacement 02/22/2013 Postoperative hypotension 01/09/2013 Status post right hip replacement 01/08/2013 Obesity (BMI 30-39.9) 01/08/2013 Osteoarthritis of right hip 11/29/2012 Diabetes mellitus Overview (01/08/2013): SINCE APPROX 2009 SUGAR APPROX 120 Hypertension Overview (01/08/2013): MEDICATION APPROX 10 YEARS Family History Medical History Relation Comments Cancer, Other or Unknown Type Other Diabetes Other Hypertension Other Osteoporosis Other Relation Status Comments Other Social History Tobacco Use Types Packs/Day Years Used Date Smoking Tobacco: Former Comments:2PPD X 18 YEARS, QU IT X 17 YEARS Alcohol Use Standard Drinks/Week Comments No 0 (1 standard drink = 0.6 oz pur e alcohol) Comments No Sex and Gender Information Value Date Recorded Sex Assigned at Not on file Legal Sex Female 10:09 AM EST Gender Identity Not on file Sexual Orientation Not on file Last Filed Vital Signs Vital Sign Reading Time Taken Comments Blood Pressure 126/76 01/13/2014 1:46 PM EDT Pulse 77 01/10/2013 7:31 AM EDT Temperature 36.7 C (98 F) 01/10/2013 7:31 AM EDT Respiratory Rate 18 01/10/2013 7:31 AM EDT Oxygen Saturation 96% 01/10/2013 7:31 AM EDT Inhaled Oxygen Concentration - - Weight 89.4 kg (197 lb) 01/13/2014 1:46 PM EDT Height 165.1 cm (5' 5 ) 01/13/2014 1:46 PM EDT Body Mass Index 32.78 01/13/2014 1:46 PM EDT Plan of Treatment Health Maintenance Due Date Last Done Comments Breast Cancer Screening 1954 CT Colonography 1954 Colonoscopy 1954 Colorectal Cancer Screening 1954 FIT-DNA 1954 FIT 1954 FOBT 1954 Hepatitis C Screening 1954 Sigmoidoscopy 1954 Tdap/Td Vaccine >11 yo (1 - Tdap) 1973 Pneumococcal Vaccines >50 yo (1 of 1 - PCV) 2004 Shingles (Shingrix) (1 of 2) 2004 Diabetic Eye Exam 02/22/2013 Diabetic Foot Exam 02/22/2013 Diabetic Hemoglobin A1C 02/22/2013 Diabetic Lipid Panel 02/22/2013 Diabetic Presence of Statin 02/22/2013 Diabetic Urine Microalbumin 02/22/2013 Diabetic Creatinine Level 01/09/20142012, 12/17/2012 Osteoporosis Screening 2019 Annual SDOH Screening 09/18/2024 Influenza Vaccine (#1) 2025 RSV 50+ and (1 - 1-dose 75+ series) 2029 Haemophilus Influenzae Type B (Hib) Vaccine Aged Out No longer eligible b ased on patient's age to complete this topic Hepatitis A (HepA) Vaccine Aged Out N o longer eligible based on patient's age to complete this topic Hepatitis B (HepB) Vaccine Aged Out N o longer eligible based on patient's age to complete this topic Meningococcal ACWY Aged Out No longer eligible based on patient's age to complete this topic Polio (IPV) Aged Out No longer eligi ble based on patient's age to complete this topic Rotavirus (RV) Vaccine Aged Out No lo nger eligible based on patient's age to complete this topic Medical Devices Implanted Type Area Glass Designer Device Identifier Shelf Expiration Date Model / Serial / Lot Hip Liner Neut 32 [id number] - [id number] Implanted:Qty: 1 on 01/08/2013 by Artur Lu MD at [facility] Hips Right: Hip 11/15/2017 [id number] / / [id number] Hip Shell Uni 52 [id number] - [id number] Implanted:Qty: 1 on 01/08/2013 by Artur Lu MD at [facility] Hips Right: Hip 12/15/2022 [id number] / / [id number] Hip Cone [id number] - [id number] Implanted:Qty: 1 on 01/08/2013 by Artur Lu MD at [facility] Hips Right: Hip 09/16/2017 [id number] / / [id number] Hip Fem Head 32 [id number] - [id number] Implanted:Qty: 1 on 01/08/2013 by Artur Lu MD at [facility] Hips Right: Hip 11/15/2022 [id number] / / [id number] Hip Capt High Demand [place] - [id number] Implanted:Qty: 1 on 01/08/2013 at [facility] Hips MILAN HIPHIGHZIMMER / / Hip Dome Plug [id number] - [id number] Implanted:Qty: 1 on 01/08/2013 by Artur Lu MD at [facility] OTHER - IMPLANTS - ORTHOPAEDIC Right: Hip 12/15/2022 [id number] / / [id number] Procedures Procedure Name Priority Date/Time Associated Diagnosis Comments BASIC METABOLIC PANEL (BMP) Routine 01/09/2013 4:00 AM EDT from Last 3 Months or Most Recently Relevant to Health Maintenance Results * (ABNORMAL) Basic Metabolic Panel(BMP) (01/09/2013 4:00 AM EDT) Sodium 137 137 - 145 MMOL/L [facility] (74369) Potassium 4.3 3.5 - 5.1 MMOL/L [facility] (97538) Chloride 105 98 - 107 MMOL/L [facility] (08299) CO2 24 22 - 30 MMOL/L [facility] (15660) Glucose 121(H) 74 - 106 MG/DL [facility] (24868) BUN 19 7 - 20 MG/DL [facility] (37341) Creatinine 0.6(L) 0.7 - 1.5 MG/DL [facility] (52669) Calcium 8.1(L) 8.4 - 10.2 MG/DL [facility] (36795) Blood specimen from patient (specimen) BLOOD SPECIMEN FROM PATIENT / Unknown 01/09/2013 4:00 AM EDT 01/09/2013 4:17 AM EDT Ney Jorgensen MD LAB BLOOD ORDERABLES Final Re sult [facility] (79356) [address] [id number] from Last 3 Months or Most Recently Relevant to Health Maintenance Insurance Advance Directives * Full Code (Latest Code Status on File) Date Activated Date Inactivated Comments 01/08/2013 2:55 PM 01/10/2013 2:37 PM Care Teams Security Operations Manager Relationship Specialty Start Date End Date System, Provider Not In PCP - General 01/13/14
--- OUTSIDE RECORDS SUMMARY | 2025-06-06 11:42 | XMS_ITS | Encounter Summary ---
Author Organization Healthcare Address [address] [place] [address] Care Team Providers Care Role Player Name Role Phone Nancy Berg MD Primary Care Provider [phone] Kailee Marin APRN, REBA Unavailable [phone] Pcp, No Primary Care Provider Unavailabl e Reason for Referral * Consultation (Routine) - Closed Specialty Diagnoses / Procedures Referred By Contac t Referred To Contact Urology Diagnoses Dysuria Kristen Douglass, DATABASE OPERATOR [address] [address] Phone: tel: fax: [facility] [address], [address] [place] [address] Phone: tel: fax: Referral ID Status Reason Start Date Expiration Date V isits Requested Visits Authorized [id number] Closed Specialty Services Required 08/09/2022 02/08/2024 1 1 Encounter Details Date Type Department Care Team (Late st Contact Info) Description 08/09/2022 Community [facility] [address] [place] [address] Kristen Douglass, DATABASE OPERATOR [address] [address] Dysuria (Primary Dx) Social History [...] Description 07/07/2025 1:20 PM EDT Office Visit [facility] [address], [address] [place] [address] Kailee Marin APRN, DNP [address] [address] Scheduled Referrals Name Type Priority [...] documented as of this encounter Care Teams Role Player Relationship Specialty Start Date End Date Nancy Berg MD [address] [place] [address] [address] [place] [address] PCP - General 01/29/21 01/19/25 Pcp, Radha [address] [place] [address] PCP - General Family Medicine 01/20/25 Kailee Marin APRN, REBA [address] [phone] Nurse Practitioner Urology 06/29/23 documented as of this encounter
== END 2025-06-05 23:59 ==
LOC: LAB.DROPOF 06-06 11:40
PROVIDERS: PCP Nurse Practitioner Family; Visit Provider Nurse Practitioner Family
DX: F41.9 Anxiety disorder, unspecified (principal); E78.5 Hyperlipidemia, unspecified; I10 Essential (primary) hypertension; R10.9 Unspecified abdominal pain; E11.9 Type 2 diabetes mellitus without complications
CPT/HCPCS: 80053; 80061; 82150; 83690; 84443; 85025

== ENCOUNTER 2025-06-06 18:33 | Emergency (ER) | payer MEDICARE, OTHER, SELFPAY ==
[2025-06-06 20:13] VITALS: BP 158/71; PULSE 88; RESP 20; TEMP 36.7; O2SAT 95; BMI 25.6
--- NOTE | 2025-06-06 20:20 | XR_ITS ---
PROCEDURE INFORMATION: Exam: XR Chest Exam date and time: 06/06/2025 10:23 PM Age: 69 years old Clinical indication: Shortness of breath; Additional info: Short of breath TECHNIQUE: Imaging protocol: Radiologic exam of the chest. Views: 1 view. COMPARISON: CR XR CHEST PORTABLE 08/04/2024 7:31 PM FINDINGS: Lungs: Low lung volumes. Mild central vascular congestion. No gross pulmonary infiltrates or edema pattern. Pleural spaces: Mildly blunted right lateral costophrenic angle, felt to be related to basilar atelectasis or fibrosis based on the comparison CT. No pneumothorax. Heart/Mediastinum: Mild cardiomegaly. No tracheal/mediastinal shift. Bones/joints: No acute osseous abnormalities are identified. Osteopenia. Mild thoracic spondylosis. IMPRESSION: 1. Mild cardiomegaly and vascular congestion possible mild CHF. 2. Blunted right lateral costophrenic angle felt to be related to basilar atelectasis or fibrosis based on the comparison CT.
--- NOTE | 2025-06-06 20:20 | CT_ITS ---
PROCEDURE INFORMATION: Exam: CT Abdomen And Pelvis With Contrast Exam date and time: 06/06/2025 10:20 PM Age: 69 years old Clinical indication: Abdominal pain; Additional info: Right flank pain TECHNIQUE: Imaging protocol: Computed tomography of the abdomen and pelvis with contrast. Radiation optimization: All CT scans at this facility use at least one of these dose optimization techniques: automated exposure control; mA and/or kV adjustment per patient size (includes targeted exams where dose is matched to clinical indication); or iterative reconstruction. Contrast material: ISOVUE; Contrast volume: 75 ml; Contrast route: IV; COMPARISON: CT ABDOMEN PELVIS W CON 08/04/2024 8:53 PM FINDINGS: Tubes, catheters and devices: Surgical clips and ovoid soft tissue density in the deep right breast is decreased in size from 08/04/2024, favoring chronic fibrosis. Lungs: Peripheral bandlike atelectasis or fibrosis in the lung bases. Heart: Mild cardiomegaly. Moderate aortic valve calcification. Coronary arteries: Mild coronary artery calcification. Esophagus: The visualized distal esophagus is largely contracted without gross abnormality. Liver: Hepatic cirrhosis. No mass lesions. No intrahepatic biliary ductal dilatation. Gallbladder and biliary ducts: Normal. No calcified stones. No ductal dilation. Pancreas: Moderate-severe pancreatic atrophy without acute abnormality. No pancreatic ductal dilatation. Spleen: Splenomegaly measuring 15.7 cm, suggesting portal hypertension in the setting of cirrhosis. Adrenal glands: Normal. No adrenal mass. Kidneys and ureters: No acute abnormalities. No hydronephrosis or hydroureter. No urinary tract stones are identified. Stomach and bowel: The stomach is unremarkable. The small bowel is nondilated with no gross abnormality. Moderate colonic stool, possible constipation. Appendix: Probable prior appendectomy. No evidence of appendicitis. Intraperitoneal space: No peritoneal free fluid or air. Mild chronic stranding in the sigmoid mesentery is unchanged from 08/04/2024, probably mild mesenteric edema secondary to portal hypertension, with small perirectal varices noted. Vasculature: Distal periesophageal varices and gastroesophageal varices noted. Moderate calcific atherosclerosis. Lymph nodes: No adenopathy. Urinary bladder: Unremarkable as visualized. Reproductive: Prior hysterectomy. Bones/joints: No acute osseous abnormalities. Osteopenia. Right hip arthroplasty without gross hardware complication or change. Moderate canal stenosis L4-L5. Moderate-severe disc osteoarthritic changes L4-L5. Severe canal stenosis L2-L3 and moderate canal stenosis L3-L4. Soft tissues: Prior left mastectomy. No acute soft tissue abnormalities. Very small fatty umbilical hernia . No evidence of associated bowel herniation or strangulation. IMPRESSION: 1. Moderate colonic stool, possible constipation. 2. Hepatic cirrhosis with stigmata of portal hypertension and portosystemic shunting detailed above. 3. Additional nonemergent findings detailed above.
--- OUTSIDE RECORDS SUMMARY | 2025-06-06 20:24 | XMS_ITS | Encounter Summary ---
Author Organization Healthcare Address [address] [place] [address] Care Team Providers Care Trust Officer Name Role Phone Nancy Berg MD Primary Care Provider [phone] Kailee Marin APRN, REBA Unavailable [phone] Pcp, No Primary Care Provider Unavailabl e Reason for Referral * Consultation (Routine) - Closed Specialty Diagnoses / Procedures Referred By Contac t Referred To Contact Urology Diagnoses Dysuria Kristen Douglass, ONLINE USER EXPERIENCE STRATEGIST [address] [address] Phone: tel: fax: [facility] [address] [place] [address] Phone: tel: fax: Referral ID Status Reason Start Date Expiration Date V isits Requested Visits Authorized [id number] Closed Specialty Services Required 08/09/2022 02/08/2024 1 1 Encounter Details Date Type Department Care Team (Late st Contact Info) Description 08/09/2022 [facility] [address] [place] [address] Kristen Douglass, ONLINE USER EXPERIENCE STRATEGIST [address] [address] Dysuria (Primary Dx) Social History [...] Description 07/07/2025 1:20 PM EDT Office Visit [facility] [address] [place] [address] Kailee Marin APRN, DNP [address] [address] Scheduled Referrals Name Type Priority [...] documented as of this encounter Care Teams Trust Officer Relationship Specialty Start Date End Date Nancy Berg MD [address] [place] [address] [address] [place] [address] PCP - General 01/29/21 01/19/25 Pcp, Radha [address] [place] [address] PCP - General Family Medicine 01/20/25 Kailee Marin APRN, REBA [address] [phone] Nurse Practitioner Urology 06/29/23 documented as of this encounter
--- OUTSIDE RECORDS SUMMARY | 2025-06-06 20:24 | XMS_ITS | Clinical Summary ---
Author Organization Healthcare Address [address] [id number] Care Team Providers Care Fee Clerk Name Role Phone Kailee Marin APRN, DNP Unavailable [phone] Pcp, No Primary Care Provider Unavailabl e [...] 20 MCG/ML injection 2 Active HYDROcodone-acetami nophen ([place]) 7.5-325 MG tablet Take 2 tablets (15 [...] (one) time each day. Active fish oil (Ruby-3) 500 MG capsule Take 1 capsule (500 [...] injection pen 5 Active TRUEplus 5-Bevel Pen [place] 31G X 5 MM misc USE DIRECTED [...] Type Department Care Team Description 03/17/2025 Refill [facility] [address] [place] [address] Kailee Marin, PILLO, DNP Recurrent [...] Office Visit [facility] [address] [place] [address] Kailee Marin, PILLO, DNP [address] [place] [address] Health Maintenance Due Date Last Done Comments [facility]-Bone Density Scan 1954 [facility]-Diabetes: Hemoglobin A1C 1954 [facility]-Hepatitis C Screening 1954 [facility]-Medicare Annual Wellness (AWV) 1954 [facility]-/Child/Adol SDOH Screenings 1954 [facility]-KGTDQ-10 Vaccine (#1) 1959 Diabetes: Dental Exam 1964 [...] patient's age to complete this topic Insurance [facility] MEDICARE Care Teams Fee Clerk Relationship Specialty Start Date End Date Pcp, [place] [address] PCP - General Family Medicine 01/20/25 Kailee Marin APRN, DNP [address] [facility] [address] [place] [address] Nurse Practitioner Urology 06/29/23
--- OUTSIDE RECORDS SUMMARY | 2025-06-06 20:24 | XMS_ITS | Clinical Summary ---
Author Organization [facility] Address [address] [place] [address] Care Team Providers Care Lunchroom Operator Name Role Phone System, Provider Not In [...] this topic Medical Devices Implanted Type Area Competitive Athlete Device Identifier Shelf Expiration Date Model / Serial / Lot Hip Liner Neut 32 [id number] - [id number] Implanted:Qty: 1 on 01/08/2013 by Artur Lu MD at [facility] Hips Right: Hip 11/15/2017 [id number] / / [id number] Hip Shell Uni 52 [id number] - [id number] Implanted:Qty: 1 on 01/08/2013 by Artur Lu MD at [facility] Hips Right: Hip 12/15/2022 [id number] / / [id number] Hip Cone [id number] - [id number] Implanted:Qty: 1 on 01/08/2013 by Artur Lu MD at [facility] Hips Right: Hip 09/16/2017 [id number] / / [id number] Hip Fem Head 32 [id number] - [id number] Implanted:Qty: 1 on 01/08/2013 by Artur Lu MD at [facility] Hips Right: Hip 11/15/2022 [id number] / / [id number] Hip Capt High Demand [place] - [id number] Implanted:Qty: 1 on 01/08/2013 at [facility] Hips MILAN HIPHIGHZIMMER / / Hip Dome Plug [id number] - [id number] Implanted:Qty: 1 on 01/08/2013 by Artur Lu MD at [facility] OTHER - IMPLANTS - ORTHOPAEDIC Right: Hip 12/15/2022 [id number] / / [id number] Procedures Procedure Name Priority Date/Time Associated Diagnosis Comments BASIC METABOLIC PANEL (BMP) Routine 01/09/2013 4:00 AM EDT from Last 3 Months or Most Recently Relevant to Health Maintenance Results * (ABNORMAL) Basic Metabolic Panel(BMP) (01/09/2013 4:00 AM EDT) Sodium 137 137 - 145 MMOL/L [facility] ([id number]) Potassium 4.3 3.5 - 5.1 MMOL/L [facility] ([id number]) Chloride 105 98 - 107 MMOL/L [facility] ([id number]) CO2 24 22 - 30 MMOL/L [facility] ([id number]) Glucose 121(H) 74 - 106 MG/DL [facility] ([id number]) BUN 19 7 - 20 MG/DL [facility] (55423) Creatinine 0.6(L) 0.7 - 1.5 MG/DL [facility] (22383) Calcium 8.1(L) 8.4 - 10.2 MG/DL [facility] ([id number]) Blood specimen from patient (specimen) BLOOD SPECIMEN FROM PATIENT / Unknown 01/09/2013 4:00 AM EDT 01/09/2013 4:17 AM EDT Ney Jorgensen MD LAB BLOOD ORDERABLES Final Re sult [facility] ([id number]) [id number] [id number] from Last 3 Months or Most Recently Relevant to Health Maintenance Insurance Advance Directives * Full Code (Latest Code Status on File) Date Activated Date Inactivated Comments 01/08/2013 2:55 PM 01/10/2013 2:37 PM Care Teams Lunchroom Operator Relationship Specialty Start Date End Date System, Provider Not In PCP - General 01/13/14
[2025-06-06] MEDS: 0.9 % SODIUM CHLORIDE 1000ML 1,000 ML 999 ML IV (20:41)
--- NOTE | 2025-06-06 20:41 | ECG_ITS ---
APPROVED REPORT Exam: Resting ECG HR:86 bpm ECG Measurements Heart Rate 86 AXES UT 149 P 23 QRSd 97 QRS -2 QT 363 T 52 QTc 407 Conclusion SINUS RHYTHM NONSPECIFIC T-WAVE ABNORMALITY BORDERLINE ECG UNCONFIRMED REPORT NSR. No ST elevation or depression Electronically signed by : WILLIAM KRISHNA, 06/07/2025 15:45:01
[2025-06-06] MEDS: ACETAMINOPHEN 1,000MG/100ML VIAL 1000 MG IV (20:42)
--- NOTE | 2025-06-06 20:47 | HMH.EDGENADL ---
Discharge Plan Disposition Patient Disposition: Home, Self-Care Prescriptions Prescriptions: New senna 8.6 mg capsule 8.6 mg PO DAILY Qty: 7 0RF No Action alpha lipoic acid 200 mg capsule 200 mg PO DAILY omeprazole 40 mg capsule,delayed release(DR/EC) 40 mg PO DAILY lactulose 10 gram/15 mL solution 10 g PO Januvia 100 mg tablet 100 mg PO DAILY calcium carbonate 600 mg calcium (1,500 mg) tablet 600 mg PO BID methenamine hippurate 1 gram tablet 1 g PO BID insulin aspart U-100 [Novolog FlexPen U-100 Insulin] 100 unit/mL (3 mL) insulin pen 10 unit SQ QACDINNER Qty: 15 3RF (DME) pen needle, diabetic [BD Ultra-Fine Mini Pen Needle] 31 gauge x 3/16 needle See Rx Instructions .ROUTE .MEDSUPPLY Qty: 100 2RF Rx Instructions: as directed (DME) FreeStyle Test Strip See Rx Instructions .Route Qty: 200 2RF Rx Instructions: BID prn fluticasone propionate 50 mcg/actuation spray,suspension 1 spray intranasal DAILY 90 Days Qty: 16 2RF Gemtesa 75 mg tablet 75 mg PO DAILY 90 Days Qty: 90 0RF doxepin 25 mg capsule 25 mg PO HS 90 Days Qty: 90 2RF Rx Instructions: Take 1-2 capsules at night as needed for insomnia levocetirizine 5 mg tablet 5 mg PO DAILY 90 Days Qty: 90 0RF metoprolol tartrate 25 mg tablet 25 mg PO BID 90 Days Qty: 180 0RF (DME) lancets [FreeStyle Lancets] 28 gauge misc See Rx Instructions .Route Qty: 100 4RF Rx Instructions: As directed insulin glargine [Lantus Solostar U-100 Insulin] 100 unit/mL (3 mL) insulin pen 90 unit SQ HS 90 Days Qty: 81 2RF venlafaxine 150 mg capsule,extended release 24hr 150 mg PO ONCE Qty: 90 0RF fenofibrate nanocrystallized 145 mg tablet 145 mg PO DAILY 90 Days Qty: 90 0RF metformin 500 mg tablet extended release 24 hr 1,000 mg PO BID 90 Days Qty: 360 0RF lisinopril 20 mg tablet See Rx Instructions .ROUTE .COMPLEX Qty: 90 0RF Dose Instruction: TAKE 1 TABLET DAILY Rx Instructions: TAKE 1 TABLET DAILY pravastatin 80 mg tablet 80 mg PO HS 90 Days Qty: 90 0RF Jardiance 25 mg tablet 25 mg PO DAILY Qty: 90 0RF Referrals Follow up/Referrals: Julianne Howe APRN [Primary Care Provider, Family Practice] - See instructions Activity Restrictions/Add. Instructions Additional Instructions/Restrictions: Your CT scan shows constipation but no evidence of a bowel obstruction. I encourage you to follow the disimpaction protocol provided to you to help clean out your bowels. Continue to drink plenty of fluids, including water, sugar-free Gatorade, Pedialyte. Follow-up with your primary care physician. If you develop any new or worsening symptoms, or if you become concerned for your health for any reason, return to the emergency department for evaluation Clinical Impressions Clinical Impression: Constipation Instructions Patient Instructions: DI for Acute Abdominal Pain Print Language Print Language: Hungarian Discharge ED Provider: Chirag Prado Adult HPI <Alexandra Lozano (ED), PILLO - Last Filed: 06/06/25 23:19> General Chief complaint: Abdominal Pain Stated complaint: R flank pain Time Seen by Provider: 06/06/25 20:04 Mode of Arrival: Wheelchair Source of Information: Patient Description of Symptoms (Recalled from ER Triage Doc. by RN): pt reports right flank pain that radiates into the back fot the past 2-3 days, pt reports she has not been able to pass gas today and passed a small bowel movement yesterday and took lactulose today without a bowel movement. History of Present Illness HPI narrative: This is a 69-year-old female who presents to the ED today for complaint of right-sided abdominal pain for the past 3 days. Patient says that she has not had a bowel movement since Monday. She states that she was given lactulose and she took that and had a small bowel movement. She has had no nausea, vomiting or diarrhea. She says that it hurts when she takes a deep breath. She feels like her stomach is having spasms. No urinary symptoms. No fevers or chills. No chest pain or shortness of breath. Related Data Home Medications ?Medication ?Instructions ?Recorded ?Confirmed calcium carbonate 600 mg PO BID 11/05/24 06/05/25 lactulose 10 gram/15 mL oral 10 g PO 11/05/24 06/05/25 solution omeprazole 40 mg capsule,delayed 40 mg PO DAILY 11/05/24 06/05/25 release sitagliptin phosphate 100 mg 100 mg PO DAILY 11/05/24 06/05/25 tablet (Januvia) alpha lipoic acid 200 mg capsule 200 mg PO DAILY 01/01/25 06/05/25 methenamine hippurate 1 gram tablet 1 g PO BID 06/05/25 06/05/25 Previous Rx's ?Medication ?Instructions ?Recorded blood sugar diagnostic (FreeStyle #200 ea 11/08/24 Test strips) pen needle, diabetic 31 gauge x #100 ea 11/08/2412/01 (BD Ultra-Fine Mini Pen Needle) fluticasone propionate 50 1 spray intranasal DAILY 90 days 11/27/24 mcg/actuation nasal #16 grams spray,suspension vibegron 75 mg tablet (Gemtesa) 75 mg PO DAILY 90 days #90 tabs 12/13/24 doxepin 25 mg capsule 25 mg PO HS insomnia 90 days #90 02/27/25 caps levocetirizine 5 mg tablet 5 mg PO DAILY 90 days #90 tabs 02/27/25 metoprolol tartrate 25 mg tablet 25 mg PO BID 90 days #180 tabs 03/06/25 lancets 28 gauge (FreeStyle #100 ea 03/14/25 Lancets) insulin glargine 100 unit/mL (3 90 unit (0.9 mL) SQ HS 90 days #81 03/17/25 mL) subcutaneous pen (Lantus mL Solostar U-100 Insulin) venlafaxine 150 mg 150 mg PO ONCE #90 caps 03/17/25 capsule,extended release 24 hr fenofibrate nanocrystallized 145 145 mg PO DAILY 90 days #90 tabs 05/21/25 mg tablet lisinopril 20 mg tablet See Rx Instructions .Route 06/02/25 .COMPLEX #90 tabs metformin 500 mg tablet,extended 1,000 mg (2 x 500 mg) PO BID 90 06/02/25 release 24 hr days #360 tabs empagliflozin 25 mg tablet 25 mg PO DAILY #90 tabs 06/04/25 (Jardiance) pravastatin 80 mg tablet 80 mg PO HS 90 days #90 tabs 06/04/25 insulin aspart U-100 100 unit/mL 10 unit (0.1 mL) SQ QACDINNER #15 06/05/25 (3 mL) subcutaneous pen (Novolog mL FlexPen U-100 Insulin aspart) sennosides 8.6 mg capsule (senna) 8.6 mg PO DAILY #7 caps 06/06/25 Allergies Allergy/AdvReac Type Severity Reaction Status Date / Time iodine (IODINE) Allergy Mild Diarrhea Verified 06/05/25 11:04 fluconazole (FLUCONAZOLE) Allergy Unknown Dizziness Verified 06/05/25 11:04 metronidazole (From FLAGYL) Allergy Unknown Nausea Verified 06/05/25 11:04 Sulfa (Sulfonamide Allergy Unknown Nausea Verified 06/05/25 11:04 Antibiotics) (SULFA (SULFONAMIDE ANTIBIOTICS)) PFS <Alexandra Lozano (ED), SCALE AND SKIP CAR OPERATOR - Last Filed: 06/06/25 23:19> [facility] Disclaimer: The information contained in this section may have been updated after the patient was seen, as this information can be updated by other users. Medical History (Updated 06/06/25 @ 23:33 by Chirag Prado MD) MUNOZ (nonalcoholic steatohepatitis) Cirrhosis of liver Anxiety Spinal stenosis Lumbar radiculopathy Facet arthropathy Degenerative joint disease (DJD) of lumbar spine Breast cancer Anemia GERD (gastroesophageal reflux disease) Diabetes HTN (hypertension) HLD (hyperlipidemia) Depression Breast cancer, left Surgical History History of left mastectomy History of total right hip arthroplasty H/O: hysterectomy Family History Mother Diabetes Daughter Cancer breast cancer Other No significant family history Social History Smoking Status: Former smoker tobacco type: cigarettes second hand exposure: No alcohol intake: never substance use type: denies use current occupational status: retired Travel in the last 8 weeks?: None household members: none housing: house marital status: current occupation: house current occupational exposures/hazards: No caffeine: Yes Have you lived/traveled outside [place] in past 30 days?: No Contact w/someone who lives/traveled outside US past 30 days?: No Exposure to someone with infectious disease in past 14 days?: No Do you have a fever (greater than 100.4 F or 38 C)?: No Have you tested positive for COVID-19?: No Exposed to someone with COVID-19 in past 14 days?: No Do you have a sore throat?: No Do you have a cough?: No Do you have any weakness?: No Do you have any diarrhea?: No Are you experiencing any unusual bleeding?: No Do you have any muscle aches/pain?: No Do you have any abdominal pain?: No Are you experiencing loss of taste or smell?: No Other Medical History Have you received the Flu Vaccine for this season: Yes Have you received the Pneumonia Vaccine: Yes <Alexandra Lozano (ED), SCALE AND SKIP CAR OPERATOR - Last Filed: 06/06/25 23:19> ROS Obtained: Yes Systems reviewed as appropriate & no additional complaints except as documented Constitutional Constitutional: Reports as per HPI Physical Exam <Alexandra Lozano (ED), SCALE AND SKIP CAR OPERATOR - Last Filed: 06/06/25 23:19> General General appearance: alert Head Head exam: normocephalic Eye Eye exam: Present PERRL and EOMI ENT ENT exam: Present normal oropharynx and mucous membranes moist Neck Neck exam: Present full ROM and trachea midline Respiratory Respiratory exam: Present normal lung sounds bilaterally Cardiovascular Cardiovascular exam: Present regular rate, normal rhythm, normal heart sounds, +S1 and +S2 Abdominal Exam Abdominal exam: Present soft, distention and normal bowel sounds Abdominal tenderness: Present diffuse Extremities Exam Extremities exam: Present full ROM and normal capillary refill Neurological Exam Neurological exam: Present alert, oriented X3 and normal gait Skin Skin exam: Present warm, dry and intact Medical Decision Making <Alexandra Lozano (ED), SCALE AND SKIP CAR OPERATOR - Last Filed: 06/06/25 23:19> Medical Records Screening: Per USPSTF and CDC recommendations, given the prevalence of disease in our region, it is our hospital?s policy to screen for HIV and viral Hepatitis for all patients aged 18 and over and those with ongoing risk factors. Jasbir Inquiry Pt receiving controlled substance: No Jasbir was queried for this patient: No Vital Signs: 06/06/25 20:13 06/06/25 22:30 06/06/25 23:38 Temperature 98.1 F 98.6 F Temperature Source Oral Pulse Rate 85 86 Pulse Rate [Right] 88 Respiratory Rate 20 16 Blood Pressure 124/73 154/84 H Blood Pressure [Right Arm] 158/71 H Blood Pressure Mean [Right Arm] 100 02 Sat by Pulse Oximetry 95 95 Oxygen Delivery Method Room Air Room Air Lab Data Lab Results 06/06/25 20:26: WBC 5.3, RBC 3.84 L, Hgb 12.6, Hct 36.9 L, MCV 96.1, MCH 32.8 H, MCHC 34.1, RDW 13.4, Plt Count 82 L D, MPV 10.9 H, Neut % (Auto) 61.8, Lymph % (Auto) 23.2, [place] % (Auto) 11.8 H, Eos % (Auto) 2.2, Baso % (Auto) 0.6, Neut # (Auto) 3.3, Lymph # (Auto) 1.2, [place] # (Auto) 0.6, Eos # (Auto) 0.1, Baso # (Auto) 0.0, Sodium 136, Potassium 4.0, Chloride 100, Carbon Dioxide 23, Anion Gap 17.0 H, BUN 17, Creatinine 0.80, Estimated Creat Clear 58, Estimated GFR 71, Est GFR ( Amer) 86, Glucose 266 H, Calcium 9.8, Magnesium 2.1, Total Bilirubin 1.2, AST 37 H, ALT 26, Alkaline Phosphatase 98, Troponin I < 0.01, Total Protein 7.9, Albumin 4.4, Globulin 3.5 H, Albumin/Globulin Ratio 1.3, Lipase 53 06/06/25 22:35: Lactate 1.6, Urine Color Yellow, Urine Appearance Clear, Urine pH 6.0, Ur Specific [place] 1.010, Urine Protein Negative, Urine Glucose (UA) 3+, Urine Ketones Negative, Urine Blood Negative, Urine Nitrate Negative, Urine Bilirubin Negative, Urine Urobilinogen 0.2, Ur Leukocyte Esterase Negative, Urine RBC 3-5, Urine WBC 10-20, Ur Squamous Epith Cells Occasional, Urine Bacteria Trace, Urine Yeast Occasional 06/06/25 20:26 06/06/25 20:26 Orders (Tests/Meds): ED MEDICATIONS Discontinued Medications Generic Name Dose Route Start Last Admin Trade Name Freq PRN Reason Stop Dose Admin Acetaminophen 1,000 mg 06/06/25 20:20 06/06/25 20:42 Acetaminophen 1,000mg/100ml Vial IV 06/06/25 20:21 1,000 mg ONCE ONE Administration Dicyclomine HCl 20 mg 06/06/25 20:20 06/06/25 20:41 Dicyclomine 10mg Capsule PO 06/06/25 20:21 20 mg ONCE ONE Administration Diphenhydramine HCl 50 mg 06/06/25 21:06 06/06/25 21:17 Diphenhydramine 50mg/Ml Vial IV 06/06/25 21:07 50 mg ONCE ONE Administration Sodium Chloride 1,000 mls @ 999 mls/hr 06/06/25 20:20 06/06/25 22:40 Sod Chlor 0.9% 1000ml Bag IV 06/06/25 21:20 Infused .Q1H1M ONE Infusion Iopamidol 75 ml 06/06/25 22:17 06/06/25 22:24 Iopamidol-370 (76%);100ml Bottle IV 06/06/25 22:18 75 ml ONCE ONE Administration Methylprednisolone Sodium Succinate 125 mg 06/06/25 21:06 06/06/25 21:17 Methylprednisolone Sod Succ 125mg Vial IV 06/06/25 21:07 125 mg ONCE ONE Administration Sodium Chloride 10 ml 06/06/25 22:17 06/06/25 22:24 Sodium Chloride 0.9% 10ml Syr (Rad Only) IV 06/06/25 22:18 10 ml ONCE ONE Administration ORDERS Category Date Time Status CT abdomen pelvis w con Stat Cat Scan 06/06/25 20:20 Completed Chest XR -- portable [XR chest portable] Stat Exams 06/06/25 20:20 Completed CBC [Complete Blood Count Auto Diff] Stat Lab 06/06/25 20:26 Completed Comprehensive Metabolic Panel Stat Lab 06/06/25 20:26 Completed Lactic Acid Stat Lab 06/06/25 22:35 Completed Lipase Stat Lab 06/06/25 20:26 Completed Magnesium Stat Lab 06/06/25 20:26 Completed Trop I [Troponin I] Stat Lab 06/06/25 20:26 Completed Urinalysis and Microscopic Stat Lab 06/06/25 22:35 Completed Urine Culture Stat Micro 06/06/25 22:35 Received Medical Decision Narrative: Insert review patient is a 69-year-old female presenting to the emergency department for evaluation of abdominal pain that started Monday. Patient is hemodynamically stable and nontoxic-appearing upon arrival, afebrile. Differential diagnosis includes constipation, bowel obstruction, gastritis, viral illness among others. Workup will be conducted with hematologic labs, specific imaging. Initial inventions include crystalloid bolus, analgesics. Patient is allergic to iodine so she was premedicated for her scan. Awaiting results at this time. <Chirag Prado MD - Last Filed: 06/07/25 02:53> Vital Signs: 06/06/25 20:13 06/06/25 22:30 06/06/25 23:38 Temperature 98.1 F 98.6 F Temperature Source Oral Pulse Rate 85 86 Pulse Rate [Right] 88 Respiratory Rate 20 16 Blood Pressure 124/73 154/84 H Blood Pressure [Right Arm] 158/71 H Blood Pressure Mean [Right Arm] 100 02 Sat by Pulse Oximetry 95 95 Oxygen Delivery Method Room Air Room Air Lab Data Lab Results 06/06/25 20:26: WBC 5.3, RBC 3.84 L, Hgb 12.6, Hct 36.9 L, MCV 96.1, MCH 32.8 H, MCHC 34.1, RDW 13.4, Plt Count 82 L D, MPV 10.9 H, Neut % (Auto) 61.8, Lymph % (Auto) 23.2, [place] % (Auto) 11.8 H, Eos % (Auto) 2.2, Baso % (Auto) 0.6, Neut # (Auto) 3.3, Lymph # (Auto) 1.2, [place] # (Auto) 0.6, Eos # (Auto) 0.1, Baso # (Auto) 0.0, Sodium 136, Potassium 4.0, Chloride 100, Carbon Dioxide 23, Anion Gap 17.0 H, BUN 17, Creatinine 0.80, Estimated Creat Clear 58, Estimated GFR 71, Est GFR ( Amer) 86, Glucose 266 H, Calcium 9.8, Magnesium 2.1, Total Bilirubin 1.2, AST 37 H, ALT 26, Alkaline Phosphatase 98, Troponin I < 0.01, Total Protein 7.9, Albumin 4.4, Globulin 3.5 H, Albumin/Globulin Ratio 1.3, Lipase 53 06/06/25 22:35: Lactate 1.6, Urine Color Yellow, Urine Appearance Clear, Urine pH 6.0, Ur Specific [place] 1.010, Urine Protein Negative, Urine Glucose (UA) 3+, Urine Ketones Negative, Urine Blood Negative, Urine Nitrate Negative, Urine Bilirubin Negative, Urine Urobilinogen 0.2, Ur Leukocyte Esterase Negative, Urine RBC 3-5, Urine WBC 10-20, Ur Squamous Epith Cells Occasional, Urine Bacteria Trace, Urine Yeast Occasional Orders (Tests/Meds): ED MEDICATIONS Discontinued Medications Generic Name Dose Route Start Last Admin Trade Name Pascual PRN Reason Stop Dose Admin Acetaminophen 1,000 mg 06/06/25 20:20 06/06/25 20:42 Acetaminophen 1,000mg/100ml Vial IV 06/06/25 20:21 1,000 mg ONCE ONE Administration Dicyclomine HCl 20 mg 06/06/25 20:20 06/06/25 20:41 Dicyclomine 10mg Capsule PO 06/06/25 20:21 20 mg ONCE ONE Administration Diphenhydramine HCl 50 mg 06/06/25 21:06 06/06/25 21:17 Diphenhydramine 50mg/Ml Vial IV 06/06/25 21:07 50 mg ONCE ONE Administration Sodium Chloride 1,000 mls @ 999 mls/hr 06/06/25 20:20 06/06/25 22:40 Sod Chlor 0.9% 1000ml Bag IV 06/06/25 21:20 Infused .Q1H1M ONE Infusion Iopamidol 75 ml 06/06/25 22:17 06/06/25 22:24 Iopamidol-370 (76%);100ml Bottle IV 06/06/25 22:18 75 ml ONCE ONE Administration Methylprednisolone Sodium Succinate 125 mg 06/06/25 21:06 06/06/25 21:17 Methylprednisolone Sod Succ 125mg Vial IV 06/06/25 21:07 125 mg ONCE ONE Administration Sodium Chloride 10 ml 06/06/25 22:17 06/06/25 22:24 Sodium Chloride 0.9% 10ml Syr (Rad Only) IV 06/06/25 22:18 10 ml ONCE ONE Administration ORDERS Category Date Time Status CT abdomen pelvis w con Stat Cat Scan 06/06/25 20:20 Completed Chest XR -- portable [XR chest portable] Stat Exams 06/06/25 20:20 Completed CBC [Complete Blood Count Auto Diff] Stat Lab 06/06/25 20:26 Completed Comprehensive Metabolic Panel Stat Lab 06/06/25 20:26 Completed Lactic Acid Stat Lab 06/06/25 22:35 Completed Lipase Stat Lab 06/06/25 20:26 Completed Magnesium Stat Lab 06/06/25 20:26 Completed Trop I [Troponin I] Stat Lab 06/06/25 20:26 Completed Urinalysis and Microscopic Stat Lab 06/06/25 22:35 Completed Urine Culture Stat Micro 06/06/25 22:35 Received Medical Decision Narrative: Insert review patient is a 69-year-old female presenting to the emergency department for evaluation of abdominal pain that started Monday. Patient is hemodynamically stable and nontoxic-appearing upon arrival, afebrile. Differential diagnosis includes constipation, bowel obstruction, gastritis, viral illness among others. Workup will be conducted with hematologic labs, specific imaging. Initial inventions include crystalloid bolus, analgesics. Patient is allergic to iodine so she was premedicated for her scan. Awaiting results at this time. I was consulted by the VANDANA, and we discussed the complexity of the problems being addressed. I approve the treatment and management plan for this patient's care in the emergency department, thus performing a substantive portion of the medical decision making. Patient's CT and x-ray imaging were interpreted by me personally. Patient does not have any evidence of bowel obstruction. She has moderate amount of stool within the colon consistent with constipation. Per radiology, also has hepatic cirrhosis with stigmata of portal hypertension and portosystemic shunting. Chest x-ray interpreted by me personally showed no focal consolidation. There is mild cardiomegaly and mild vascular congestion. Possible right lower mild atelectasis. See radiology report for details. Laboratory studies were interpreted by me personally. Lactate is normal. Initial troponin is normal. Lipase is normal. Urinalysis without evidence of infection. Liver enzymes grossly unremarkable nonactionable. CMP with mild anion gap of 17 but otherwise unremarkable and nonactionable. No leukocytosis. On reassessment, patient is resting comfortably. Her symptomatology is most consistent with constipation. She does state that she gets constipated fairly often and has not been taking lactulose regularly. Given her constipation, will provide patient with bowel cleanout regimen that consist of senna and MiraLAX. Patient demonstrated understanding on how to perform this after discussing it and detail with her. Return precautions were given. All questions were answered. She demonstrated understanding and was in agreement this plan. She was then discharged from the emergency department in stable condition. Chirag Prado MD Critical Care <Alexandra Lozano (ED), SCALE AND SKIP CAR OPERATOR - Last Filed: 06/06/25 23:19> Critical Care Time Critical Care Time: No
[2025-06-06] MEDS: METHYLPREDNISOLONE SOD SUCC 125MG VIAL 125 MG IV (21:17)
[2025-06-06] MEDS: IOPAMIDOL-370 (76%);100ML BOTTLE 75 ML IV (22:24)
[2025-06-06] MEDS: SODIUM CHLORIDE 0.9% 10ML SYR (RAD ONLY) 10 ML IV (22:24)
[2025-06-06 22:25] LABS: Hematocrit 36.9 % (37.0-47.0); Hemoglobin 12.6 g/dL (12.2-16.2); Immature Granulocytes % 0.4 %; Mean Corpuscular HGB Conc 34.1 g/dL (31.8-35.4); Mean Corpuscular Hemoglobin 32.8 pg (27.0-31.2); Mean Corpuscular Volume 96.1 fl (81-99); Nucleated Red Blood Cells % 0 %; Platelet Count 82 K/mm3 (142-424); Red Blood Count 3.84 M/mm3 (4.20-5.40); Red Cell Distribution Width-SD 47.3 fL; White Blood Count 5.3 K/mm3 (4.8-10.8)
[2025-06-06 22:27] LABS: Albumin Level 4.4 g/dl (3.5-5.0); Chloride 100 mmol/L (98-107)
[2025-06-06 22:28] LABS: Potassium 4.0 mmoL/L (3.5-5.1); Sodium 136 mmol/L (136-145)
[2025-06-06 22:30] VITALS: BP 124/73; PULSE 85; O2SAT 95
[2025-06-06 22:30] LABS: Alanine Aminotransferase 26 U/L (12-78); Anion Gap 17.0 mEq/L (5-15); Aspartate Amino Transferase 37 U/L (14-36); Blood Urea Nitrogen 17 mg/dl (7-17); Carbon Dioxide 23 mmol/L (22.0-30.0); Creatinine Clearance Estimated 58 mL/min (50-200); Creatinine,Serum 0.80 mg/dl (0.52-1.04); Estimated Glomerular Filt Rate 71 ml/min (>60); GFR (African American) 86 ML/MIN (>60)
[2025-06-06 22:31] LABS: Albumin/Globulin Ratio 1.3 (1.1-1.8); Alkaline Phosphatase 98 U/L (38-126); Bilirubin,Total 1.2 mg/dl (0.2-1.3); Calcium 9.8 mg/dl (8.4-10.2); Globulin 3.5 g/dL (1.3-3.2); Glucose 266 mg/dl (74-100); Lipase 53 U/L (23-300); Magnesium 2.1 mg/dl (1.6-2.3); Total Protein,Serum 7.9 g/dl (6.3-8.2)
--- NOTE | 2025-06-06 22:47 | PC.NURSE ---
finger stick 202
[2025-06-06 22:48] LABS: Microscopic, Urine URINE MICROSCOPIC (MICROSCOPIC)
[2025-06-06 22:55] LABS: Troponin I < 0.01 ng/ml (0.00-0.034)
[2025-06-06 23:02] LABS: Bilirubin,Urine Negative (Negative); Color,Urine YELLOW (Yellow); Glucose,Urine (UA) 3+ (Negative); Ketones,Urine Negative (Negative); Leukocyte Esterase,Urine Negative (Negative); PH,Urine 6.0 (5.0-8.5); Protein,Urine Negative (Negative); Specific Gravity, Urine 1.010 (1.005-1.030); Urobilinogen,Urine 0.2 EU/dl (0.2)
[2025-06-06 23:18] LABS: Bacteria,Urine Trace /lpf; Squamous Epithelial Cell,Urine Occasional #/hpf (0-5)
[2025-06-06 23:38] VITALS: BP 154/84; PULSE 86; RESP 16; TEMP 37; O2SAT 91
== END 2025-06-06 23:44 | disposition home or self-care (01) ==
PROVIDERS: Nurse Practitioner; Emergency Provider Student in an Organized Health Care Education/Training Program; PCP Nurse Practitioner Family
DX: R10.9 Unspecified abdominal pain (principal); K59.00 Constipation, unspecified; K21.9 Gastro-esophageal reflux disease without esophagitis; E78.5 Hyperlipidemia, unspecified; I10 Essential (primary) hypertension
CPT/HCPCS: 71045; 74177; 80053; 81001; 83605; 83690; 83735; 84484; 85025; 87086; 93005; 96365; 96375; 99285; J0131; J1200; J2919; J7030; Q9967

== ENCOUNTER 2025-07-02 15:22 | Outpatient (CLI) | payer MEDICARE, OTHER, SELFPAY ==
--- OUTSIDE RECORDS SUMMARY | 2025-07-02 15:25 | XMS_ITS | Clinical Summary ---
Author Organization [facility] Address [address] [place] [address] Care Team Providers Care Manager Mba Name Role Phone System, Provider Not In [...] this topic Medical Devices Implanted Type Area Business Analytics Intern Device Identifier Shelf Expiration Date Model / Serial / Lot Hip Liner Neut 32 [id number] - [id number] Implanted:Qty: 1 on 01/08/2013 by Artur Lu MD at [facility] Hips Right: Hip 11/15/2017 [id number] / / [id number] Hip Shell Uni 52 [id number] - [id number] Implanted:Qty: 1 on 01/08/2013 by Artur Lu MD at [facility] Hips Right: Hip 12/15/2022 [id number] / / [id number] Hip Cone [id number] - [id number] Implanted:Qty: 1 on 01/08/2013 by Artur Lu MD at [facility] Hips Right: Hip 09/16/2017 [id number] / / [id number] Hip Fem Head 32 [id number] - [id number] Implanted:Qty: 1 on 01/08/2013 by Artur Lu MD at [facility] Hips Right: Hip 11/15/2022 [id number] / / [id number] Hip Capt High Demand [place] - [id number] Implanted:Qty: 1 on 01/08/2013 at [facility] Hips MILAN HIPHIGHZIMMER / / Hip Dome Plug [id number] - [id number] Implanted:Qty: 1 on 01/08/2013 by Artur Lu MD at [facility] OTHER - IMPLANTS - ORTHOPAEDIC Right: Hip 12/15/2022 [id number] / / [id number] Procedures Procedure Name Priority Date/Time Associated Diagnosis Comments BASIC METABOLIC PANEL (BMP) Routine 01/09/2013 4:00 AM EDT from Last 3 Months or Most Recently Relevant to Health Maintenance Results * (ABNORMAL) Basic Metabolic Panel(BMP) (01/09/2013 4:00 AM EDT) Sodium 137 137 - 145 MMOL/L [facility] (77534) Potassium 4.3 3.5 - 5.1 MMOL/L [facility] (99552) Chloride 105 98 - 107 MMOL/L [facility] (90147) CO2 24 22 - 30 MMOL/L [facility] (15692) Glucose 121(H) 74 - 106 MG/DL [facility] (22393) BUN 19 7 - 20 MG/DL [facility] (07814) Creatinine 0.6(L) 0.7 - 1.5 MG/DL [facility] (51122) Calcium 8.1(L) 8.4 - 10.2 MG/DL [facility] (76572) Blood specimen from patient (specimen) BLOOD SPECIMEN FROM PATIENT / Unknown 01/09/2013 4:00 AM EDT 01/09/2013 4:17 AM EDT Ney Jorgensen MD LAB BLOOD ORDERABLES Final Re sult [facility] ([id number]) [address] [id number] from Last 3 Months or Most Recently Relevant to Health Maintenance Insurance Advance Directives * Full Code (Latest Code Status on File) Date Activated Date Inactivated Comments 01/08/2013 2:55 PM 01/10/2013 2:37 PM Care Teams Manager Mba Relationship Specialty Start Date End Date System, Provider Not In PCP - General 01/13/14
--- OUTSIDE RECORDS SUMMARY | 2025-07-02 15:25 | XMS_ITS | Encounter Summary ---
Author Organization Healthcare Address [address] [place] [address] Care Team Providers Care Director Wholesale Name Role Phone Nancy Berg MD Primary Care Provider [phone] Kailee Marin APRN, REBA Unavailable [phone] Pcp, No Primary Care Provider Unavailabl e Reason for Referral * Consultation (Routine) - Closed Specialty Diagnoses / Procedures Referred By Contac t Referred To Contact Urology Diagnoses Dysuria Kristen Douglass, SCHEDULE ANNOUNCER [address] [address] Phone: tel: fax: [facility] [address] [place] [address] Phone: tel: fax: Referral ID Status Reason Start Date Expiration Date V isits Requested Visits Authorized [id number] Closed Specialty Services Required 08/09/2022 02/08/2024 1 1 Encounter Details Date Type Department Care Team (Late st Contact Info) Description 08/09/2022 [facility] [address] [place] [address] Kristen Douglass, SCHEDULE ANNOUNCER [address] [address] Dysuria (Primary Dx) Social History [...] Description 07/07/2025 1:20 PM EDT Office Visit [facility] [address], [address] [place] [address] Kailee Marin APRN, DNP [address] [address] Scheduled Referrals Name Type Priority [...] documented as of this encounter Care Teams Director Wholesale Relationship Specialty Start Date End Date Nancy Berg MD [address] [place] [address] [address] [place] [address] PCP - General 01/29/21 01/19/25 Pcp, Radha [address] [place] [address] PCP - General Family Medicine 01/20/25 Kailee Marin APRN, REBA [address] [id number] Nurse Practitioner Urology 06/29/23 documented as of this encounter
--- OUTSIDE RECORDS SUMMARY | 2025-07-02 15:25 | XMS_ITS | Clinical Summary ---
Author Organization Healthcare Address [address] [id number] Care Team Providers Care Speaker Mounter Name Role Phone Kailee Marin APRN, DNP Unavailable [phone] Pcp, No Primary Care Provider Unavailabl e [...] 20 MCG/ML injection 2 Active HYDROcodone-acetami nophen ([place]) 7.5-325 MG tablet Take 2 tablets (15 [...] (one) time each day. Active fish oil ([place]-3) 500 MG capsule Take 1 capsule (500 [...] injection pen 5 Active TRUEplus 5-Bevel Pen [place] 31G X 5 MM misc USE DIRECTED [...] SUGAR APPROX 120 Facet arthropathy 06/29/2023 06/29/2023 Hypertension 06/29/2023 06/29/2023 Overview (06/29/2023): MEDICATION APPROX 10 YEARS H/O: hysterectomy 06/29/2023 06/29/2023 Lumbar radiculopathy 06/29/2023 06/29/2023 Malignant neoplasm of breast 06/29/202308/2023 Spinal stenosis 06/29/2023 06/29/2023 Microscopic hematuria 02/17/2023 Dysuria 02/17/2023 Urge incontinence 02/17/2023 S/P hip replacement 02/22/2013 06/29/2023 Postoperative hypotension 01/09/20132022 Obesity (BMI 30-39.9) 01/08/2013 06/29/2023 Osteoarthritis of right hip 11/29/201206/18 Resolved Problems Problem Noted Date Diagnosed Date Resolved Date Abdominal pain 06/29/2023 06/29/2023 06/08/2025 Recurrent UTI 02/17/2023 06/08/2025 Immunizations Immunization Administration Dates Next Due Pneumococcal [...] Description 07/07/2025 1:20 PM EDT Office Visit [facility] [address], [address] [place] [address] Kailee Marin, GLOBAL COMPENSATION MANAGER, DNP [address] [place] [address] Health Maintenance Due Date Last Done Comments [facility]-Bone Density Scan 1954 [facility]-Diabetes: Hemoglobin A1C 1954 [facility]-Hepatitis C Screening 1954 [facility]-Medicare Annual Wellness (AWV) 1954 [facility]-/Child/Adol SDOH Screenings 1954 [id number] Vaccine (#1) 1959 Diabetes: Dental Exam 1964 [facility]- SDOH Screenings 1972 [facility]-Adult SDOH Screenings 1972 [...] patient's age to complete this topic Insurance [facility] [place] [address] Care Teams Speaker Mounter Relationship Specialty Start Date End Date Pcp, No [address] [place] [address] PCP - General Family Medicine 01/20/25 Kailee Marin APRN, DNP [address] [facility] [address] [place] [address] Nurse Practitioner Urology 06/29/23
[2025-07-02 16:10] LABS: Hematocrit 35.1 % (37.0-47.0); Hemoglobin 12.2 g/dL (12.2-16.2); Immature Granulocytes % 0.3 %; Mean Corpuscular HGB Conc 34.8 g/dL (31.8-35.4); Mean Corpuscular Hemoglobin 32.9 pg (27.0-31.2); Mean Corpuscular Volume 94.6 fl (81-99); Nucleated Red Blood Cells % 0 %; Platelet Count 69 K/mm3 (142-424); Red Blood Count 3.71 M/mm3 (4.20-5.40); Red Cell Distribution Width-SD 45.5 fL; White Blood Count 3.5 K/mm3 (4.8-10.8)
[2025-07-02 16:20] LABS: INR 1.07 (0.9-1.1); Prothrombin Time 11.8 seconds (10.1-12.5)
[2025-07-02 16:24] LABS: Ammonia 75 umol/L (9-30)
[2025-07-02 16:56] LABS: Alanine Aminotransferase 37 U/L (12-78); Albumin Level 3.8 g/dl (3.5-5.0); Albumin/Globulin Ratio 1.5 (1.1-1.8); Alkaline Phosphatase 115 U/L (38-126); Anion Gap 15.7 mEq/L (5-15); Aspartate Amino Transferase 46 U/L (14-36); Bilirubin,Total 0.9 mg/dl (0.2-1.3); Blood Urea Nitrogen 18 mg/dl (7-17); Calcium 9.4 mg/dl (8.4-10.2); Carbon Dioxide 22 mmol/L (22.0-30.0); Chloride 103 mmol/L (98-107); Creatinine,Serum 0.80 mg/dl (0.52-1.04); Estimated Glomerular Filt Rate 71 ml/min (>60); GFR (African American) 86 ML/MIN (>60); Globulin 2.6 g/dL (1.3-3.2); Glucose 366 mg/dl (74-100); Potassium 4.7 mmoL/L (3.5-5.1); Sodium 136 mmol/L (136-145); Total Protein,Serum 6.4 g/dl (6.3-8.2)
[2025-07-02 18:01] LABS: Iron 140 ug/dL (37-170)
[2025-07-02 18:10] LABS: Total Iron Binding Capacity 455 ug/dL (265-497)
[2025-07-02 18:38] LABS: Ferritin 36.8 ng/ml (11.1-264)
== END 2025-07-02 23:59 | disposition home or self-care (01) ==
LOC: LAB 15:23
PROVIDERS: PCP Nurse Practitioner Family; Visit Provider Nurse Practitioner Family
DX: K74.60 Unspecified cirrhosis of liver (principal)
CPT/HCPCS: 80053; 82105; 82140; 82728; 83540; 83550; 85025; 85610

== ENCOUNTER 2025-07-09 09:27 | Outpatient (CLI) | payer MEDICARE, OTHER, SELFPAY ==
--- OUTSIDE RECORDS SUMMARY | 2025-07-07 13:20 | XMS_ITS | Encounter Summary ---
Author Organization Healthcare Address [address] [id number] Care Team Providers Care Movement Therapist Name Role Phone Kailee Marin APRN, DNP Unavailable [phone] Julianne Caro APRN Primary Care Provider [phone] Reason for Visit * Reason Comments Follow-up Encounter Details Date Type Department Care Team (Late st Contact Info) Description 07/07/2025 1:20 PM EDT Office Visit [facility] [address] [place] [address] Kailee Marin APRN, DNP [address] [place] [address] Microscopic hematuria (Primary Dx); Urge [...] Notes * Progress Notes - Kailee Marin, MULT AU MATIC OPERATOR, DNP - 07/07/2025 1:20 PM EDT [facility] Note CC: Follow-up HPI: Karime [...] and is under the care of a complaints coordinator, Dr. Michel. She has been prescribed medication [...] Ketones Negative Negative mg/dL POCT Urine Specific [place] 1.020 1.005 - 1.030 POCT Urine Blood [...] Ketones Negative Negative mg/dL POCT Urine Specific [place] 1.020 1.005 - 1.030 POCT Urine Blood [...] Description 01/05/2026 1:20 PM EDT Office Visit [facility] [address] [place] [address] Kailee Marin APRN, DNP [address] [place] [address] documented as of this encounter Procedures Procedure Name Priority Date/Time Associated Diagnosis Comments POCT URINALYSIS DIPSTICK Routine 07/07/2025 1:25 PM EDT documented in this encounter Results * (ABNORMAL) POCT URINALYSIS DIPSTICK (07/07/2025 1:25 PM EDT) POCT Urine Color Yellow 07/07/2025 1:27 PM EDT [facility] POCT Urine Clarity Clear 07/07/2025 1:27 PM EDT [facility] POCT Urine Glucose >=1000(A) Negative mg/dL 07/07/2025 1:27 PM EDT [facility] POCT Urine Bilirubin Negative Negative mg/dL 07/07/2025 1:27 PM EDT [facility] POCT Urine Ketones Negative Negative mg/dL 07/07/2025 1:27 PM EDT [facility] POCT Urine Specific [place] 1.020 1.005 - 1.030 07/07/2025 1:27 PM EDT [facility] POCT Urine Blood Negative Negative 07/07/2025 1:27 PM EDT [facility] POCT pH, Urine 6.0 5.0 - 8.0 07/07/2025 1:27 PM EDT [facility] POCT Protein, Urine Negative Negative mg/dL 07/07/2025 1:27 PM EDT [facility] POCT Urobilinogen, Urine 0.2 0.2, 1.0 EU/dL 07/07/2025 1:27 PM EDT [facility] POCT Nitrite, Urine Negative Negative 07/07/2025 1:27 PM EDT [facility] POCT Urine Leukocyte Esterase Negative Negative 07/07/2025 1:27 PM EDT [facility] Urine 07/07/2025 1:25 PM EDT 07/07/2025 1:27 PM EDT Kailee Marin APRN, DNP LAB POINT OF C ARE TEST DOCKED DEVICE UNSOLICITED RESULTS Final Result Performing Organization Address City/State/[facility] Co de Phone Number [facility] [address], [place] documented in this encounter Visit Diagnoses [...] documented as of this encounter Care Teams Movement Therapist Relationship Specialty Start Date End Date Julianne Caro APRN [address] [place] [address] PCP - General 07/07/25 Kailee Marin APRN, DNP [id number] [place] [address] Nurse Practitioner Urology 06/29/23 documented as of this encounter
--- NOTE | 2025-07-09 09:30 | US_ITS ---
FINAL REPORT TECHNIQUE: Multiple transverse and longitudinal images CLINICAL HISTORY: Cirrhosis follow-up COMPARISON: 01/10/2025 FINDINGS: The gallbladder shows no wall thickening, distention or stone disease. No biliary ductal dilatation is appreciated. No fluid collections are seen. The liver has a nodular contour compatible with reported cirrhosis. No focal mass. The portal vein is patent with normal directional flow. Limited portions of the right kidney are unremarkable. Pancreas is obscured. IMPRESSION: Cirrhotic appearance of the liver without evidence of mass or portal hypertension. Reviewed, Interpreted and Dictated by Byron Lam MD Transcribed by Belinda Fu Authenticated and [facility]
--- OUTSIDE RECORDS SUMMARY | 2025-07-09 09:33 | XMS_ITS | Encounter Summary ---
Author Organization Healthcare Address [address] [id number] Care Team Providers Care Outside Salesman Name Role Phone Nancy Berg MD Primary Care Provider [phone] Kailee Marin APRN, DNP Unavailable + [phone] Pcp, No Primary Care Provider UnavailJulianne Montes APRN Primary Care Provider + [phone] Reason for Referral * Consultation (Routine) - Closed Specialty Diagnoses / Procedures Referred By Blessing t Referred To Contact Urology Diagnoses Dysuria Kristen Douglass, PETROLOGIST [address] [address] Phone: tel: fax: [place] [facility] [address], [address] [place] [address] Phone: tel: fax: Referral ID Status Reason Start Date Expiration Date V isits Requested Visits Authorized [id number] Closed Specialty Services Required 08/09/2022 02/08/2024 1 1 Encounter Details Date Type Department Care Team (Late st Contact Info) Description 08/09/2022 [facility] [address] [place] [address] Kristen Douglass, PETROLOGIST [address] [address] Dysuria (Primary Dx) Social History Tobacco Use [...] Description 01/05/2026 1:20 PM EDT Office Visit [place] [facility] [address], [address] [place] [address] Kailee Marin APRN, REBA [address] [address] Scheduled Referrals Name Type Priority [...] documented as of this encounter Care Teams Outside Salesman Relationship Specialty Start Date End Date Nancy Berg MD [address] [place] [address] [address] [place] [address] PCP - General 01/29/21 01/19/25 Pcp, [address] [address] PCP - General Family Medicine 01/20/25 07/06/25 Julianne Caro APRN [address] [place] [address] PCP - General 07/07/25 Kailee Marin APRN, REBA [address] [place] [address] Nurse Practitioner Urology 06/29/23 documented as of this encounter
--- OUTSIDE RECORDS SUMMARY | 2025-07-09 09:33 | XMS_ITS | Clinical Summary ---
Author Organization [facility] Address [address] [place] [address] Care Team Providers Care Buyer Name Role Phone System, Provider Not In [...] this topic Medical Devices Implanted Type Area Shop Supervisor Device Identifier Shelf Expiration Date Model / Serial / Lot Hip Liner Neut 32 [id number] - [id number] Implanted:Qty: 1 on 01/08/2013 by Artur Lu MD at [facility] Right: Hip 11/15/2017 [id number] / / [id number] Hip Shell Uni 52 [id number] - [id number] Implanted:Qty: 1 on 01/08/2013 by Artur Lu MD at [facility] Right: Hip 12/15/2022 [id number] / / [id number] Hip Cone 32s934 [id number] - [id number] Implanted:Qty: 1 on 01/08/2013 by Artur Lu MD at [facility] Right: Hip 09/16/2017 [id number] / / [id number] Hip Fem Head 32 [id number] - [id number] Implanted:Qty: 1 on 01/08/2013 by Artur Lu MD at [facility] Right: Hip 11/15/2022 [id number] / / [id number] Hip Capt High Demand [place] - [id number] Implanted:Qty: 1 on 01/08/2013 at [facility] Hips MILAN HIPHIGHZIMMER / / Hip Dome Plug [id number] - [id number] Implanted:Qty: 1 on 01/08/2013 by Artur Lu MD at [facility] OTHER - IMPLANTS - ORTHOPAEDIC Right: Hip 12/15/2022 [id number] / / [id number] Procedures Procedure Name Priority Date/Time Associated Diagnosis Comments BASIC METABOLIC PANEL (BMP) Routine 01/09/2013 4:00 AM EDT from Last 3 Months or Most Recently Relevant to Health Maintenance Results * (ABNORMAL) Basic Metabolic Panel(BMP) (01/09/2013 4:00 AM EDT) Sodium 137 137 - 145 MMOL/L [facility] (96095) Potassium 4.3 3.5 - 5.1 MMOL/L [facility] (54669) Chloride 105 98 - 107 MMOL/L [facility] (90945) CO2 24 22 - 30 MMOL/L [facility] (04835) Glucose 121(H) 74 - 106 MG/DL [facility] (18489) BUN 19 7 - 20 MG/DL [facility] (04044) Creatinine 0.6(L) 0.7 - 1.5 MG/DL [facility] (07913) Calcium 8.1(L) 8.4 - 10.2 MG/DL [facility] (31944) Blood specimen from patient (specimen) BLOOD SPECIMEN FROM PATIENT / Unknown 01/09/2013 4:00 AM EDT 01/09/2013 4:17 AM EDT Ney Jorgensen MD LAB BLOOD ORDERABLES Final Re sult [facility] (32499) [address] [id number] from Last 3 Months or Most Recently Relevant to Health Maintenance Insurance Advance Directives * Full Code (Latest Code Status on File) Date Activated Date Inactivated Comments 01/08/2013 2:55 PM 01/10/2013 2:37 PM Care Teams Buyer Relationship Specialty Start Date End Date System, Provider Not In PCP - General 01/13/14
--- OUTSIDE RECORDS SUMMARY | 2025-07-09 09:33 | XMS_ITS | Clinical Summary ---
Author Organization Healthcare Address [address] [id number] Care Team Providers Care Relief Mate Name Role Phone Kailee Marin PILLO, DNP Unavailable [phone] Julianne Caro APRN Primary Care Provider [phone]- [phone] Allergies Active Allergy Reactions Criticality Noted Date [...] 20 MCG/ML injection 2 Active HYDROcodone-acetami nophen ([place]) 7.5-325 MG tablet Take 2 tablets (15 [...] (one) time each day. Active fish oil ([place]-3) 500 MG capsule Take 1 capsule (500 [...] injection pen 5 Active TRUEplus 5-Bevel Pen [place] 31G X 5 MM misc USE DIRECTED [...] 180 tablet 3 5 03/18/20 26 Active NovoLOG FLEXPEN 100 UNIT/ML injection pen 5 Active Active Problems Problem Noted Date Diagnosed [...] 06/29/2023 06/29/2023 06/08/2025 Recurrent UTI 02/17/2023 06/08/2025 Encounters Date Type Department Care Team Description 07/07/2025 1:20 PM EDT Office Visit [facility] [address], [address] [place] [address] Kailee Marin APRN, REBA Microscopic hematuria (Primary Dx); Urge incontinence; Recurrent UTI 07/07/2025 Travel from Last 3 Months Immunizations Immunization [...] Mass Index 28.12 07/07/2025 1:34 PM EDT Plan of Treatment Upcoming Encounters Date Type Department Care Team (Late st Contact Info) Description 01/05/2026 1:20 PM EDT Office Visit [facility] [address], [address] [place] [address] Kailee Marin APRN, REBA [address] [place] [address] Health Maintenance Due Date Last Done Comments [facility]-Bone Density Scan 1954 [facility]-Diabetes: Hemoglobin A1C 1954 [facility]-Hepatitis C Screening 1954 [facility]-Medicare Annual Wellness (AWV) 1954 [facility]-/Child/Adol SDOH Screenings 1954 [id number] Vaccine (#1) 1959 Diabetes: Dental Exam 1964 [...] [facility]-Influenza Vaccine (#1) 2025 08/29/2023 [facility]-Depression Screening 07/07/2026 07/07/2025, 05/0 10/2022 [facility]-Obesity Intervention Completed 024, 06/29/2023, 05/17/2023, [...] URINALYSIS DIPSTICK Routine 07/07/2025 1:25 PM EDT from Last 3 Months Results * (ABNORMAL) POCT URINALYSIS DIPSTICK (07/07/2025 1:25 PM EDT) POCT Urine Color Yellow 07/07/2025 1:27 PM EDT [facility] POCT Urine Clarity Clear 07/07/2025 1:27 PM EDT [facility] POCT Urine Glucose >=1000(A) Negative mg/dL 07/07/2025 1:27 PM EDT [facility] POCT Urine Bilirubin Negative Negative mg/dL 07/07/2025 1:27 PM EDT [facility] POCT Urine Ketones Negative Negative mg/dL 07/07/2025 1:27 PM EDT [facility] POCT Urine Specific [place] 1.020 1.005 - 1.030 07/07/2025 1:27 PM EDT [facility] POCT Urine Blood Negative Negative 07/07/2025 1:27 PM EDT [facility] POCT pH, Urine 6.0 5.0 - 8.0 07/07/2025 1:27 PM EDT [facility] POCT Protein, Urine Negative Negative mg/dL 07/07/2025 1:27 PM EDT [facility] POCT Urobilinogen, Urine 0.2 0.2, 1.0 EU/dL 07/07/2025 1:27 PM EDT [facility] POCT Nitrite, Urine Negative Negative 07/07/2025 1:27 PM EDT [facility] POCT Urine Leukocyte Esterase Negative Negative 07/07/2025 1:27 PM EDT [facility] Urine 07/07/2025 1:25 PM EDT 07/07/2025 1:27 PM EDT us Kailee Marin DIRECTOR OF VENDOR MANAGEMENT, DNP LAB POINT OF C ARE TEST DOCKED DEVICE UNSOLICITED RESULTS Final Result [facility] [address], [place] from Last 3 Months Insurance UHC MEDICARE Care Teams Relief Mate Relationship Specialty Start Date End Date Julianne Caro APRN [address] [place] [address] PCP - General 07/07/25 Kailee Marin APRN, DNP [address] [place] [address] Nurse Practitioner Urology 06/29/23
--- OUTSIDE RECORDS SUMMARY | 2025-07-09 09:33 | XMS_ITS | Encounter Summary ---
Author Organization Healthcare Address [address] [id number] Care Team Providers Care Seafood Farmer Name Role Phone Kailee Marin PILLO, DNP Unavailable [phone] Julianne Caro APRN Primary Care Provider [phone] Encounter Details Date Type Department Care Team (Latest Contact Info) Description 07/07/2025 Travel Social History Tobacco Use Types Packs/Day [...] hopeless Not at all 07/07/2025 1:34 PM [facility] Kym Hester Patient Health Questionnaire -2 Score 0 07/07/2025 1:34 PM EDT Kym Hester * How difficult have these problems made it for you to do your work, take care of things at home, or get along with other people? Answer Date of Assessment Author Not difficult at all 07/07/2025 1:34 PM EDT Kym Welsh documented as of this encounter Plan of Treatment Upcoming Encounters Date Type Department Care Team (Late st Contact Info) Description 01/05/2026 1:20 PM EDT Office Visit [place] [facility] [address], [address] [place] [address] Kailee Marin APRN, REBA [address] [address] documented as of this encounter [...] as of this encounter Care Teams Seafood Farmer Relationship Specialty Start Date End Date Julianne Caro APRN [address] [place] [address] PCP - General 07/07/25 Kailee Marin APRN, DNP [address] [address] Nurse Practitioner Urology 06/29/23 documented as of this encounter
== END 2025-07-09 23:59 | disposition home or self-care (01) ==
LOC: RAD 09:27
PROVIDERS: PCP Nurse Practitioner Family; Visit Provider Nurse Practitioner Family
DX: K74.60 Unspecified cirrhosis of liver (principal)
CPT/HCPCS: 76705

== ENCOUNTER 2025-07-14 10:21 | Outpatient (CLI) | payer MEDICARE, OTHER, SELFPAY ==
--- OUTSIDE RECORDS SUMMARY | 2025-07-07 13:20 | XMS_ITS | Encounter Summary ---
Author Organization Healthcare Address [address] [id number] Care Team Providers Care B2B Sales Executive Name Role Phone Kailee Marin APRN, DNP Unavailable [phone] Julianne Caro APRN Primary Care Provider [phone] Reason for Visit * Reason Comments Follow-up Encounter Details Date Type Department Care Team (Late st Contact Info) Description 07/07/2025 1:20 PM EDT Office Visit [facility] [address] [place] [address] Kailee Marin APRN, DNP [address] [place] [address] Microscopic hematuria (Primary Dx); Urge incontinence; Recurrent UTI Social History Tobacco Use Types Packs/Day Years Used Date Smoking Tobacco: Former Smokeless Tobacco: Never Alcohol Use Standard Drinks/Week Comments Never 0 (1 standard drink = 0.6 oz pur e alcohol) PHQ-2 Answer Date Recorded Patient Health Questionnaire-2 Score 0 07/07/2025 PHQ-9 Answer Date Recorded Patient Health Questionnaire-9 [...] Sign Reading Time Taken Comments Blood Pressure 116/72 07/07/2025 1:34 PM EDT Pulse 75 07/07/2025 1:34 PM EDT Temperature - - Respiratory Rate 14 07/07/2025 1:34 PM EDT Oxygen Saturation 96% 07/07/2025 1:34 PM EDT Inhaled Oxygen Concentration - - Weight 76.7 kg (169 lb) 07/07/2025 1:34 PM EDT Height 165.1 cm (5' 5 ) 07/07/2025 1:34 PM EDT Body Mass Index 28.12 07/07/2025 1:34 PM EDT documented in this encounter Functional Status * Over the past 2 weeks, how often have you been bothered by any of the following problems? Question Answer Date of Assessment Author Little interest or pleasure in doing things Not at all 07/07/2025 1:34 PM EDT Kym Hester Feeling down, depressed, or hopeless Not at all 07/07/2025 1:34 PM EDT Kym Hester Patient Health Questionnaire -2 Score 0 07/07/2025 1:34 PM EDT Kym Hester * How difficult have these problems made it for you to do your work, take care of things at home, or get along with other people? Answer Date of Assessment Author Not difficult at all 07/07/2025 1:34 PM EDT Kym Welsh documented as of this encounter Miscellaneous Notes * Progress Notes - Kailee Marin, MEXICAN FOOD MACHINE TENDER, DNP - 07/07/2025 1:20 PM EDT [facility] Note CC: Follow-up HPI: Karime Dang is a 69 y.o. F who returns today for follow-up. History of Present Illness The patient is a 69-year-old female who returns today for follow-up of recurrent urinary tract infections (UTIs) and urge urinary incontinence (UUI). Recurrent Urinary Tract Infections (UTIs) - Began around 11/2020, coinciding with the initiation of Januvia. - Experienced typical symptoms such as dysuria and suprapubic discomfort, which usually resolved within a couple of days after starting antibiotics. - Cultures have consistently tested positive for E. coli. - Started Hiprex in 11/2022 and deferred estrogen due to a history of breast cancer. Urge Urinary Incontinence (UUI) - Reports that her bladder almost completely empties at times upon standing, without any associatedurge. - Uses 3 to 4 pads per day on some days, while on other days, she remains completely dry, possibly 2 days a week. - Experiences weakness at night and has noted some leakage while standing without any associated urge or activity, rushing to the bathroom when this occurs. - No CARL - Prior improvement with Gemtesa 75 mg, which became less effective. -January 2025 began Gemtesa 75 mg + trospium 20 mg BID (ER 60 mg not covered) Microscopic hematuria: - In 01/2023, had microscopic hematuria 4-10 RBC/hpf - CTU was deferred due to ASA with contrast, and RPG was deferred due to contrast. - An in-office cystoscopy performed under anesthesia was normal. She returns today for follow-up. She reports doing well overall except for her liver. She was told that her liver was getting hard. Her blood sugar levels have been extremely high, with a reading of 407 last night and 300 this morning. She feels tired and is currently on insulin, which is being adjusted by her doctor based on a sliding scale. She reports that her blood sugar levels increase regardless of what she eats. She is currently wearing a pad due to bowel issues and is under the care of a review consultant, Dr. Michel. She has been prescribed medication for this issue but reports that it has not been effective. She plans to follow up with Dr. Michel as she has not had a bowel movement for 2 to 3 days. PMHx: Problem List[1] Past Medical History[2] PSHx: Surgical History[3] FHx: Family History[4] SHx: Social History[5] OBHx: OB History No obstetric history on file. ROS: See HPI Physical Exam: Vitals: 07/07/25 1334 BP: 116/72 Pulse: 75 Resp: 14 SpO2: 96% Physical Exam Physical Exam General Appearance: Normal Vital signs: Within normal limits HEENT: Within normal limits Respiratory: Within normal limits Skin: Warm and dry, no rash Neurological: Normal Psychiatric: Normal Results/Data: Recent Results (from the past 72 hours) POCT URINALYSIS DIPSTICK Collection Time: 07/07/25 1:25 PM Result Value Ref Range POCT Urine Color Yellow POCT Urine Clarity Clear POCT Urine Glucose >=1000 (A) Negative mg/dL POCT Urine Bilirubin Negative Negative mg/dL POCT Urine Ketones Negative Negative mg/dL POCT Urine Specific [place] 1.020 1.005 - 1.030 POCT Urine Blood Negative Negative POCT pH, Urine 6.0 5.0 - 8.0 POCT Protein, Urine Negative Negative mg/dL POCT Urobilinogen, Urine 0.2 0.2, 1.0 EU/dL POCT Nitrite, Urine Negative Negative POCT Urine Leukocyte Esterase Negative Negative Urine, Volume Date Value Ref Range Status 10/09/2023 0 mL Final Results - Labs: - A1c: 407 - Blood sugar: 300 - Urine test (07/07/2025): No blood Labs: No results found for: HGBA1C No results found for: GLUCOSE , CALCIUM , NA , K , CO2 , CL , BUN , CREATININE , EGFR Recent Results (from the past week) POCT URINALYSIS DIPSTICK Collection Time: 07/07/25 1:25 PM Result Value Ref Range POCT Urine Color Yellow POCT Urine Clarity Clear POCT Urine Glucose >=1000 (A) Negative mg/dL POCT Urine Bilirubin Negative Negative mg/dL POCT Urine Ketones Negative Negative mg/dL POCT Urine Specific [place] 1.020 1.005 - 1.030 POCT Urine Blood Negative Negative POCT pH, Urine 6.0 5.0 - 8.0 POCT Protein, Urine Negative Negative mg/dL POCT Urobilinogen, Urine 0.2 0.2, 1.0 EU/dL POCT Nitrite, Urine Negative Negative POCT Urine Leukocyte Esterase Negative Negative Cultures: Lab Results Component Value Date URINECX No growth at day 1 01/20/2025 Imaging: Procedures: Assessment: Karime Dang is a 69 y.o. F with Follow-up Assessment & Plan 1. Urge urinary incontinence (UUI): Stable. - Continue Gemtesa 75 mg daily. - Continue trospium 20 mg twice daily. - Monitor for any side effects. 2. Recurrent urinary tract infections (UTIs): Stable. - Continue Hiprex 1 gram BID. - Monitor for symptoms of UTI. 3. Elevated blood sugar. - Continue sliding scale insulin regimen. - Monitor blood sugar levels closely. - Follow up with provider for insulin adjustments. 4. Constipation. - Follow up with GI doctor, Dr. Stone. - Evaluate effectiveness of current medication. Follow-up - Follow-up scheduled in 6 months. - Contact the office if symptoms worsen, if blood is noticed in urine, or if urinary tract infections occur. Plan: As above Kailee Marin APRN, DNP Verbal consent was obtained to use ambient listening technology to assist in the documentation of the encounter: yes [1] Patient Active Problem List Diagnosis Microscopic hematuria Dysuria Urge incontinence Degenerative joint disease (DJD) of lumbar spine Diabetes mellitus Facet arthropathy Hypertension H/O: hysterectomy Lumbar radiculopathy Malignant neoplasm of breast Obesity (BMI 30-39.9) Osteoarthritis of right hip Postoperative hypotension Spinal stenosis S/P hip replacement [2] Past Medical History: Diagnosis Date Breast cancer Recurrent UTI 02/17/23 [3] Past Surgical History: Procedure Laterality Date MASTECTOMY Left PARTIAL HYSTERECTOMY TOTAL HIP ARTHROPLASTY Right [4] History reviewed. No pertinent family history. [5] Social History Tobacco Use Smoking status: Former Smokeless tobacco: Never Substance Use Topics Alcohol use: Never Drug use: Never documented in this encounter Plan of Treatment Upcoming Encounters Date Type Department Care Team (Late st Contact Info) Description 01/05/2026 1:20 PM EDT Office Visit [facility] [address] [place] [address] Kailee Marin APRN, DNP [address] [place] [address] documented as of this encounter Procedures Procedure Name Priority Date/Time Associated Diagnosis Comments POCT URINALYSIS DIPSTICK Routine 07/07/2025 1:25 PM EDT documented in this encounter Results * (ABNORMAL) POCT URINALYSIS DIPSTICK (07/07/2025 1:25 PM EDT) POCT Urine Color Yellow 07/07/2025 1:27 PM EDT [facility] POCT Urine Clarity Clear 07/07/2025 1:27 PM EDT [facility] POCT Urine Glucose >=1000(A) Negative mg/dL 07/07/2025 1:27 PM EDT [facility] POCT Urine Bilirubin Negative Negative mg/dL 07/07/2025 1:27 PM EDT [facility] POCT Urine Ketones Negative Negative mg/dL 07/07/2025 1:27 PM EDT [facility] POCT Urine Specific [place] 1.020 1.005 - 1.030 07/07/2025 1:27 PM EDT [facility] POCT Urine Blood Negative Negative 07/07/2025 1:27 PM EDT [facility] POCT pH, Urine 6.0 5.0 - 8.0 07/07/2025 1:27 PM EDT [facility] POCT Protein, Urine Negative Negative mg/dL 07/07/2025 1:27 PM EDT [facility] POCT Urobilinogen, Urine 0.2 0.2, 1.0 EU/dL 07/07/2025 1:27 PM EDT [facility] POCT Nitrite, Urine Negative Negative 07/07/2025 1:27 PM EDT [facility] POCT Urine Leukocyte Esterase Negative Negative 07/07/2025 1:27 PM EDT [facility] Urine 07/07/2025 1:25 PM EDT 07/07/2025 1:27 PM EDT Kailee Marin APRN, DNP LAB POINT OF C ARE TEST DOCKED DEVICE UNSOLICITED RESULTS Final Result Performing Organization Address City/State/[facility] Co de Phone Number [facility] [address], [place] documented in this encounter Visit Diagnoses Diagnosis Microscopic hematuria- Primary Urge incontinence Recurrent UTI Urinary tract infection, site not specified documented in this encounter Additional Health Concerns Assessment Noted Time PHQ-9 Depression Total Score: 11 01/17/ 023 1:11 PM EDT A fall risk assessment has been complete d for the patient 07/07/2025 1:34 PM EDT A Body Mass Index follow-up plan has been documented for the patient 10/09/2023 1:21 PM EST documented as of this encounter Care Teams B2B Sales Executive Relationship Specialty Start Date End Date Julianne Caro APRN [address] [place] [id number] PCP - General 07/07/25 Kailee Marin APRN, DNP [id number] [place] [address] Nurse Practitioner Urology 06/29/23 documented as of this encounter
--- OUTSIDE RECORDS SUMMARY | 2025-07-14 10:34 | XMS_ITS | Encounter Summary ---
Author Organization Healthcare Address [address] [id number] Care Team Providers Care Income Tax Manager Name Role Phone Kailee Marin PILLO, DNP Unavailable [phone] Julianne Caro APRN Primary Care Provider [phone]- [phone] Encounter Details Date Type Department Care Team [...] Description 01/05/2026 1:20 PM EDT Office Visit [place] [facility] [address], [address] [place] [address] Kailee Marin APRN, REBA [address] [address] documented as of this encounter [...] documented as of this encounter Care Teams Income Tax Manager Relationship Specialty Start Date End Date Julianne Caro APRN [address] [place] [address] PCP - General 07/07/25 Kailee Marin APRN, DNP [address] [address] Nurse Practitioner Urology 06/29/23 documented as of this encounter
--- OUTSIDE RECORDS SUMMARY | 2025-07-14 10:34 | XMS_ITS | Encounter Summary ---
Author Organization Healthcare Address [address] [id number] Care Team Providers Care Professional Fee Coder Name Role Phone Nancy Berg MD Primary Care Provider [phone] Kailee Marin APRN, DNP Unavailable [phone] Pcp, No Primary Care Provider UnavailJulianne Montes APRN Primary Care Provider + [phone] Reason for Referral * Consultation (Routine) - Closed Specialty Diagnoses / Procedures Referred By Blessing t Referred To Contact Urology Diagnoses Dysuria Kristen Douglass, ROPE COILING MACHINE OPERATOR [address] [address] Phone: tel: fax: [place] [facility] [address], [address] [place] [address] Phone: tel: fax: Referral ID Status Reason Start Date Expiration Date V isits Requested Visits Authorized [id number] Closed Specialty Services Required 08/09/2022 02/08/2024 1 1 Encounter Details Date Type Department Care Team (Late st Contact Info) Description 08/09/2022 Community [facility] [address] [place] [address] Kristen Douglass, ROPE COILING MACHINE OPERATOR [address] [address] Dysuria (Primary Dx) Social History Tobacco Use [...] Description 01/05/2026 1:20 PM EDT Office Visit [place] [facility] [address], [address] [place] [address] Kailee Marin APRN, REBA [address] [address] Scheduled Referrals Name Type Priority [...] documented as of this encounter Care Teams Professional Fee Coder Relationship Specialty Start Date End Date Nancy Berg MD [address] [place] [address] [address] [place] [address] PCP - General 01/29/21 01/19/25 Pcp, [address] [address] PCP - General Family Medicine 01/20/25 07/06/25 Julianne Caro APRN [address] [place] [address] PCP - General 07/07/25 Kailee Marin APRN, REBA [id number] [place] [address] Nurse Practitioner Urology 06/29/23 documented as of this encounter
--- OUTSIDE RECORDS SUMMARY | 2025-07-14 10:34 | XMS_ITS | Clinical Summary ---
Author Organization [facility] Address [address] [place] [address] Care Team Providers Care Electrical Tech/Project Manager Name Role Phone System, Provider Not [...] this topic Medical Devices Implanted Type Area Slab Puller Device Identifier Shelf Expiration Date Model / Serial / Lot Hip Liner Neut 32 [id number] - [id number] Implanted:Qty: 1 on 01/08/2013 by Artur Lu MD at [facility] Hips Right: Hip 11/15/2017 [id number] / / [id number] Hip Shell Uni 52 [id number] - [id number] Implanted:Qty: 1 on 01/08/2013 by Artur Lu MD at [facility] Hips Right: Hip 12/15/2022 [id number] / / [id number] Hip Cone 13u606 [id number] - [id number] Implanted:Qty: 1 on 01/08/2013 by Artur Lu MD at [facility] Hips Right: Hip 09/16/2017 [id number] / / [id number] Hip Fem Head 32 [id number] - [id number] Implanted:Qty: 1 on 01/08/2013 by Artur Lu MD at [facility] Hips Right: Hip 11/15/2022 [id number] / / [id number] Hip Capt High Demand [place] - [id number] Implanted:Qty: 1 on 01/08/2013 at [facility] Hips MILAN HIPHIGHZIMMER / / Hip Dome Plug [id number] - [id number] Implanted:Qty: 1 on 01/08/2013 by Artur Lu MD at [facility] OTHER - IMPLANTS - ORTHOPAEDIC Right: Hip 12/15/2022 [id number] / / [id number] Procedures Procedure Name Priority Date/Time Associated Diagnosis Comments BASIC METABOLIC PANEL (BMP) Routine 01/09/2013 4:00 AM EDT from Last 3 Months or Most Recently Relevant to Health Maintenance Results * (ABNORMAL) Basic Metabolic Panel(BMP) (01/09/2013 4:00 AM EDT) Sodium 137 137 - 145 MMOL/L [facility] (02901) Potassium 4.3 3.5 - 5.1 MMOL/L [facility] (22432) Chloride 105 98 - 107 MMOL/L [facility] (75026) CO2 24 22 - 30 MMOL/L [facility] (56964) Glucose 121(H) 74 - 106 MG/DL [facility] (11926) BUN 19 7 - 20 MG/DL [facility] (41827) Creatinine 0.6(L) 0.7 - 1.5 MG/DL [facility] (29177) Calcium 8.1(L) 8.4 - 10.2 MG/DL [facility] (88227) Blood specimen from patient (specimen) BLOOD SPECIMEN FROM PATIENT / Unknown 01/09/2013 4:00 AM EDT 01/09/2013 4:17 AM EDT Ney Jorgensen MD LAB BLOOD ORDERABLES Final Re sult [facility] (97137) [address] [id number] from Last 3 Months or Most Recently Relevant to Health Maintenance Insurance Advance Directives * Full Code (Latest Code Status on File) Date Activated Date Inactivated Comments 01/08/2013 2:55 PM 01/10/2013 2:37 PM Care Teams Electrical Tech/Project Manager Relationship Specialty Start Date End Date System, Provider Not In PCP - General 01/13/14
--- OUTSIDE RECORDS SUMMARY | 2025-07-14 10:34 | XMS_ITS | Clinical Summary ---
Author Organization Healthcare Address [address] [id number] Care Team Providers Care Egg Factory Worker Name Role Phone Kailee Marin PILLO, DNP Unavailable [phone] Julianne Caro APRN Primary Care Provider [phone]- [phone] Allergies Active Allergy Reactions Criticality Noted Date [...] 20 MCG/ML injection 2 Active HYDROcodone-acetami nophen ([place]) 7.5-325 MG tablet Take 2 tablets (15 [...] (one) time each day. Active fish oil ([place]-3) 500 MG capsule Take 1 capsule (500 [...] injection pen 5 Active TRUEplus 5-Bevel Pen [place] 31G X 5 MM misc USE DIRECTED [...] Description 07/07/2025 1:20 PM EDT Office Visit [facility] [address], [address] [place] [address] Kailee Marin APRN, REBA Microscopic [...] Description 01/05/2026 1:20 PM EDT Office Visit [facility] [address], [address] [place] [address] Kailee Marin APRN, REBA [address] [place] [address] Health Maintenance Due Date Last Done Comments [facility]-Bone Density Scan 1954 [facility]-Diabetes: Hemoglobin A1C 1954 [facility]-Hepatitis C Screening 1954 [facility]-Medicare Annual Wellness (AWV) 1954 [facility]-/Child/Adol SDOH Screenings 1954 [id number] Vaccine (#1) 1959 Diabetes: Dental Exam 1964 [...] Urine Color Yellow 07/07/2025 1:27 PM EDT [facility] POCT Urine Clarity Clear 07/07/2025 1:27 PM EDT [facility] POCT Urine Glucose >=1000(A) Negative mg/dL 07/07/2025 1:27 PM EDT [facility] POCT Urine Bilirubin Negative Negative mg/dL 07/07/2025 1:27 PM EDT [facility] POCT Urine Ketones Negative Negative mg/dL 07/07/2025 1:27 PM EDT [facility] POCT Urine Specific [place] 1.020 1.005 - 1.030 07/07/2025 1:27 PM EDT [facility] POCT Urine Blood Negative Negative 07/07/2025 1:27 PM EDT [facility] POCT pH, Urine 6.0 5.0 - 8.0 07/07/2025 1:27 PM EDT [facility] POCT Protein, Urine Negative Negative mg/dL 07/07/2025 1:27 PM EDT [facility] POCT Urobilinogen, Urine 0.2 0.2, 1.0 EU/dL 07/07/2025 1:27 PM EDT [facility] POCT Nitrite, Urine Negative Negative 07/07/2025 1:27 PM EDT [facility] POCT Urine Leukocyte Esterase Negative Negative 07/07/2025 1:27 PM EDT [facility] Urine 07/07/2025 1:25 PM EDT 07/07/2025 1:27 PM EDT us Kailee Marin HR REPRESENTATIVE, DNP LAB POINT OF C ARE TEST DOCKED DEVICE UNSOLICITED RESULTS Final Result [facility] [address], [place] from Last 3 Months Insurance UHC MEDICARE Care Teams Egg Factory Worker Relationship Specialty Start Date End Date Julianne Caro APRN [address] [place] [address] PCP - General 07/07/25 Kailee Marin APRN, DNP [address] [place] [address] Nurse Practitioner Urology 06/29/23
[2025-07-14 10:47] LABS: Ammonia 40 umol/L (9-30)
== END 2025-07-14 23:59 | disposition home or self-care (01) ==
LOC: LAB 10:22
PROVIDERS: PCP Nurse Practitioner Family; Visit Provider Nurse Practitioner Family
DX: K74.60 Unspecified cirrhosis of liver (principal); E72.20 Disorder of urea cycle metabolism, unspecified
CPT/HCPCS: 36415; 82140